=== PATIENT | female | born 1975 | race Caucasian/White ===

== ENCOUNTER 2020-06-05 11:40 | Outpatient (REF) | payer OTHER, SELFPAY ==
--- NOTE | 2020-06-05 11:49 | XR_ITS ---
EXAMINATION: XR ABDOMEN COMPLETE CLINICAL INDICATION: Abdominal distention COMPARISON: 03/27/2019 TECHNIQUE: 2 views of the abdomen. FINDINGS: Right upper quadrant surgical clips. No dilated loops of bowel. Scattered gas in the colon. Stool in the rectum. No free air on the upright view. No suspicious calcifications. Mild degenerative changes in the spine. IMPRESSION: Nonobstructive bowel gas pattern.
== END 2020-06-05 11:41 | disposition home or self-care (01) ==
LOC: HO.HMGCX 11:40
PROVIDERS: PCP Family Medicine; Visit Provider Family Medicine
DX: R14.0 Abdominal distension (gaseous) (principal)
CPT/HCPCS: 74019

== ENCOUNTER → 2020-06-18 08:54 | Outpatient (BNVA) | payer OTHER, SELFPAY | PROVIDERS: PCP Family Medicine; Referring Provider Family Medicine; Visit Provider Nurse Practitioner Gerontology | DX: E11.65 Type 2 diabetes mellitus with hyperglycemia (principal); E78.5 Hyperlipidemia, unspecified; Z79.84 Long term (current) use of oral hypoglycemic drugs; Z79.899 Other long term (current) drug therapy; Z71.3 Dietary counseling and surveillance | CPT/HCPCS: 99212 ==

== ENCOUNTER 2020-07-02 10:39 | Outpatient (REF) | payer OTHER, SELFPAY ==
[2020-07-02 15:19] LABS: Estimated Average Glucose 186 mg/dL; Hemoglobin A1c % 8.1 %
== END 2020-07-02 10:40 | disposition home or self-care (01) ==
LOC: HO.HMGCLDS 10:39
PROVIDERS: Nurse Practitioner Gerontology; PCP Family Medicine; Visit Provider Internal Medicine
DX: Z20.828 Contact with and (suspected) exposure to other viral communicable diseases (principal)
CPT/HCPCS: 83036; C9803; U0003

== ENCOUNTER 2020-11-04 10:11 | Outpatient (REF) | payer OTHER, SELFPAY | END 2020-11-04 10:12 | disposition home or self-care (01) | LOC: HO.WFDLDS 10:11 | PROVIDERS: PCP Family Medicine; Visit Provider Internal Medicine | DX: Z20.822 Contact with and (suspected) exposure to COVID-19 (principal) | CPT/HCPCS: 36415; C9803; U0003; U0005 ==

== ENCOUNTER 2020-11-27 08:41 | Outpatient (RCR) | payer OTHER, SELFPAY | END 2020-12-02 13:27 | disposition home or self-care (01) | LOC: HO.WCC 08:41 | PROVIDERS: Visit Provider Surgery | DX: E11.621 Type 2 diabetes mellitus with foot ulcer (principal); L97.519 Non-pressure chronic ulcer of other part of right foot with unspecified severity; Z79.84 Long term (current) use of oral hypoglycemic drugs | CPT/HCPCS: 99212 ==

== ENCOUNTER → 2020-12-18 08:45 | Outpatient (BNVA) | payer OTHER, SELFPAY | PROVIDERS: PCP Family Medicine; Visit Provider Surgery Vascular Surgery | DX: I73.9 Peripheral vascular disease, unspecified (principal) | CPT/HCPCS: 99202 ==

== ENCOUNTER 2021-06-17 10:03 | Outpatient (REF) | payer BC, OTHER, SELFPAY ==
--- NOTE | ~2021-06-17 | US_ITS ---
EXAMINATION: COLOR-FLOW DUPLEX IMAGING OF THE BILATERAL LOWER EXTREMITY ARTERIAL SYSTEM. VELOCITY MEASUREMENTS THROUGHOUT THE FEMORAL ARTERIES WITH ANKLE-BRACHIAL PERIPHERAL ARTERIAL TESTING. Interventional Radiologist: Ollie Owusu M.D., F.S.I.R., F.A.C.R. CLINICAL INFORMATION: This is a 46-year-old female with hyperlipidemia, diabetes, possible peripheral arterial disease.. RIGHT FEMORAL RUNOFF VELOCITIES: The right common femoral artery measures 98 cm/s and triphasic. The right profunda femoral artery is 72 cm/s and is triphasic. Right proximal superficial femoral artery measures 104 cm/s and triphasic. Mid superficial femoral artery is 96 cm/s and biphasic. Distal right superficial femoral artery measures 70 cm/s and is triphasic. Right popliteal velocity measures 86 cm/s and is triphasic. The posterior tibial artery velocity measures 82 cm/s and was biphasic. The right ankle-brachial index is 1.11. LEFT FEMORAL RUNOFF VELOCITIES: The left common femoral artery measures 103 cm/s and triphasic. The left profunda femoral artery is 65 cm/s and is biphasic. Left proximal superficial femoral artery measures 99 cm/s and triphasic. Mid superficial femoral artery is 103 cm/s and triphasic. Distal left superficial femoral artery measures 80 to cm/s and is biphasic. Left popliteal velocity measures 110 cm/s and is triphasic. The posterior tibial artery velocity measures 70 cm/s and was biphasic. The left ankle-brachial index is 1.07. US/US arterial duplex LE BI IMPRESSION: 1. Normal resting bilateral peripheral arterial testing without evidence of hemodynamically significant stenosis.
== END 2021-06-17 10:04 | disposition home or self-care (01) ==
LOC: HO.US 10:03
PROVIDERS: PCP Family Medicine; Visit Provider Surgery Vascular Surgery
DX: I70.213 Atherosclerosis of native arteries of extremities with intermittent claudication, bilateral legs (principal)
CPT/HCPCS: 93925

== ENCOUNTER → 2021-06-18 07:26 | Outpatient (BNVA) | payer OTHER, SELFPAY | PROVIDERS: PCP Family Medicine; Visit Provider Nurse Practitioner Gerontology | DX: E11.65 Type 2 diabetes mellitus with hyperglycemia (principal); E78.5 Hyperlipidemia, unspecified; Z79.84 Long term (current) use of oral hypoglycemic drugs | CPT/HCPCS: 82947; 99212 ==

== ENCOUNTER 2021-06-18 08:55 | Outpatient (REF) | payer BC, OTHER, SELFPAY ==
[2021-06-18 10:24] LABS: Alanine Aminotransferase 25 U/L (0-31); Albumin Level 4.5 g/dL (3.5-5.0); Alkaline Phosphatase 106 U/L (39-117); Anion Gap 12 (12-20); Aspartate Amino Transferase 20 U/L (5-31); Bilirubin Total 0.4 mg/dL (0.0-1.0); Blood Urea Nitrogen 17 mg/dL (9-16); Calcium 9.9 mg/dL (8.4-10.2); Carbon Dioxide 26 mmol/L (22-29); Chloride 104 mmol/L (96-108); Cholesterol 243 mg/dL; Estimated Glomerular Filt Rate > 60; Glucose Fasting 296 mg/dL (60-99); HDL Cholesterol 48 mg/dL; LDL Cholesterol Calculated 154 mg/dl; Potassium 4.3 mmol/L (3.3-5.1); Sodium 138 mmol/L (135-145); Total Protein 8.2 g/dL (6.5-8.0); Triglycerides 206 mg/dL
[2021-06-18 10:47] LABS: Creatinine Urine 56.57 mg/dL; Free T4 (Free Thyroxine) 0.93 ng/dL (0.71-1.85); Microalbum/Creatinine Ratio Ur 40.6 ug/mg cr; Thyroid Stimulating Hormone 4.03 uIU/mL (0.32-4.0); Vitamin D 25-OH Total 22.3 ng/mL (>30)
[2021-06-18 10:50] LABS: Vitamin B12 624 pg/mL (200-900)
[2021-06-19 07:37] LABS: LDL Cholesterol Direct 155 mg/dL (<100)
== END 2021-06-18 08:56 | disposition home or self-care (01) ==
LOC: HO.10HDL 08:55
PROVIDERS: Visit Provider Nurse Practitioner Gerontology
DX: I83.12 Varicose veins of left lower extremity with inflammation (principal); I73.9 Peripheral vascular disease, unspecified; E55.9 Vitamin D deficiency, unspecified; E11.65 Type 2 diabetes mellitus with hyperglycemia
CPT/HCPCS: 36415; 80053; 80061; 82043; 82306; 82607; 83721; 84439; 84443; 99212

== ENCOUNTER 2021-07-27 08:05 | Outpatient (REF) | payer BC, OTHER, SELFPAY ==
--- NOTE | ~2021-07-27 | US_ITS ---
EXAMINATION: US LOWER EXTREMITY VENOUS (REFLUX EXAM), BILATERAL CLINICAL INDICATION: This is a 46-year-old female with venous insufficiency and varicose veins. COMPARISON: None. TECHNIQUE: Color flow triplex imaging and compression Doppler was performed to evaluate both the deep and the superficial systems bilaterally. To evaluate the superficial system, the examination was performed in the upright position. Color-flow Doppler ultrasound and compression ultrasound were utilized. In addition, maneuvers were utilized to demonstrate reflux. FINDINGS: 1. DEEP VENOUS ULTRASOUND OF THE RIGHT LOWER EXTREMITY: Common Femoral Vein: Compressible, normal respiratory variation and augmented flow. Femoral vein: Compressible, normal color flow and augmentation. Popliteal Vein: Compressible, normal augmentation. Deep Reflux: There is no evidence of reflux in the deep system in either the common femoral vein or the popliteal vein. There is no evidence of a Melvin's cyst. 2. SUPERFICIAL ULTRASOUND WITH DOPPLER OF RIGHT LOWER EXTREMITY: GREAT SAPHENOUS VEIN: Saphenofemoral Junction: 0.5 cm. There is no reflux. Mid Thigh: 0.2 cm Above Knee: 0.2 cm. There is no reflux at this level and above. Below Knee: 0.3 cm. The reflux time is 516 ms. Mid Calf: 0.3 cm. There is no reflux at this level and below Ankle: 0.2 cm GSV REFLUX: There is isolated reflux below the knee but not at the junction. DUPLICATED GREAT SAPHENOUS VEIN: There is a 0.3 cm duplicated lateral great saphenous vein without reflux. SMALL SAPHENOUS VEIN: Proximal: 0.3 cm Distal: 0.1 cm SSV REFLUX: No evidence of reflux. VEIN OF GIACOMINI: None Imaged. 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 VARICOSITIES: None Imaged 3. DEEP VENOUS ULTRASOUND OF THE LEFT LOWER EXTREMITY: Common Femoral Vein: Compressible, normal respiratory variation and augmented flow. Femoral Vein: Compressible, normal color flow and augmentation. Popliteal Vein: Compressible, normal augmentation. Deep Reflux: There is no evidence of reflux in the deep system in either the common femoral vein or the popliteal vein. There is no evidence of a Melvin's cyst. 4. SUPERFICIAL ULTRASOUND WITH DOPPLER OF LEFT LOWER EXTREMITY: GREAT SAPHENOUS VEIN: Saphenofemoral Junction: 0.7 cm Mid Thigh: 0.2 cm Above Knee: 0.3 cm Below Knee: 0.3 cm Mid Calf: 0.2 cm Ankle: 0.2 cm GSV REFLUX: No evidence of reflux. DUPLICATED GREAT SAPHENOUS VEIN: There is a 0.3 cm duplicated medial great saphenous vein without reflux SMALL SAPHENOUS VEIN: Proximal: 0.2 cm Distal: 0.1 cm SSV REFLUX: No evidence of reflux. VEIN OF GIACOMINI: None Imaged. 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 VARICOSITIES: There are 0.3 cm proximal calf varicose veins without reflux. US/US venous duplex LE BI IMPRESSION: 1. There is a patent right great saphenous vein without reflux at the junction. There is isolated below-knee reflux. 2. There is a duplicated right lateral great saphenous vein without evidence of reflux. 3. There is a right small saphenous vein without evidence of reflux. 4. There is a patent left great saphenous vein without reflux. 5. There is a patent left medial duplicated great saphenous vein without reflux. 6. There is a patent left small saphenous vein without evidence of reflux. 7. There is a proximal calf varicose vein measuring 0.3 cm without reflux.
== END 2021-07-27 08:06 | disposition home or self-care (01) ==
LOC: HO.US 08:05
PROVIDERS: Visit Provider Surgery Vascular Surgery
DX: I83.12 Varicose veins of left lower extremity with inflammation (principal)
CPT/HCPCS: 93970

== ENCOUNTER → 2021-07-30 14:35 | Outpatient (BNVA) | payer BC, OTHER, SELFPAY | PROVIDERS: PCP Family Medicine; Referring Provider Family Medicine; Visit Provider Surgery Vascular Surgery | DX: I83.12 Varicose veins of left lower extremity with inflammation (principal) | CPT/HCPCS: 99212 ==

== ENCOUNTER 2021-07-31 07:12 | Outpatient (REF) | payer BC, OTHER, SELFPAY ==
--- NOTE | ~2021-07-31 | MM_ITS ---
EXAMINATION: MM SCREENING DIGITAL BREAST TOMOSYNTHESIS, BILATERAL CLINICAL INFORMATION: Screening. Asymptomatic. The lifetime risk of breast cancer based on the Tyrer-Cuzick Model is 6%. COMPARISON: Mammography: 08/06/2019, 08/02/2018, 07/04/2017 TECHNIQUE: Digital breast tomosynthesis is performed in both the craniocaudal and mediolateral oblique views along with computer-aided detection (CAD). Synthesized 2D images are generated from the tomosynthesis. FINDINGS: There are scattered areas of fibroglandular density (ACR BI-RADS breast composition Category b). There are no significant masses, abnormal calcifications, or other abnormalities. Parenchymal pattern is similar to prior exams. No significant changes. MM/MM tomosynthesis screening BI IMPRESSION: No mammographic evidence of malignancy. ASSESSMENT: BI-RADS 1: Negative RECOMMENDATION: Routine annual mammography screening. This patient's information was entered into a reminder system with a target due date for their next mammogram.
== END 2021-07-31 07:13 | disposition home or self-care (01) ==
LOC: HO.MAMMO 07:12
PROVIDERS: Visit Provider Obstetrics & Gynecology
DX: Z12.31 Encounter for screening mammogram for malignant neoplasm of breast (principal)
CPT/HCPCS: 77063; 77067

== ENCOUNTER → 2021-11-05 07:55 | Outpatient (BNVA) | payer OTHER, SELFPAY | PROVIDERS: PCP Family Medicine; Visit Provider Nurse Practitioner Gerontology | DX: E11.65 Type 2 diabetes mellitus with hyperglycemia (principal); E78.5 Hyperlipidemia, unspecified; E03.9 Hypothyroidism, unspecified; Z79.84 Long term (current) use of oral hypoglycemic drugs | CPT/HCPCS: 82947; 83036; 99212 ==

== ENCOUNTER 2022-02-15 07:41 | Outpatient (REF) | payer OTHER, SELFPAY ==
[2022-02-15 09:36] LABS: Free T4 (Free Thyroxine) 0.79 ng/dL (0.71-1.85); Thyroid Stimulating Hormone 6.32 uIU/mL (0.32-4.0)
[2022-02-17 04:29] LABS: Thyroid Peroxidase Antibodies >900 IU/mL (<9)
[2022-02-18 09:42] LABS: Thyroglobulin Antibodies 1 IU/mL (< or = 1)
== END 2022-02-15 07:42 | disposition home or self-care (01) ==
LOC: HO.LAB 07:41
PROVIDERS: Visit Provider Nurse Practitioner Gerontology
DX: E03.9 Hypothyroidism, unspecified (principal)
CPT/HCPCS: 36415; 84439; 84443; 86376; 86800

== ENCOUNTER 2022-05-19 07:26 | Outpatient (REF) | payer OTHER, SELFPAY ==
--- NOTE | ~2022-05-19 | XR_ITS ---
EXAMINATION: XR KNEE, RIGHT CLINICAL INFORMATION: Right knee pain. COMPARISON: None TECHNIQUE: Two views of the right knee. FINDINGS: Bones and soft tissues are normal. No fracture or joint effusion. Alignment is anatomic. Joint spaces are well maintained. Moderate atherosclerosis. XR/XR knee RT 2V IMPRESSION: Unremarkable right knee.
== END 2022-05-19 07:27 | disposition home or self-care (01) ==
LOC: HO.XRAY 07:26
PROVIDERS: PCP Family Medicine; Visit Provider Family Medicine
DX: M25.561 Pain in right knee (principal); M25.521 Pain in right elbow
CPT/HCPCS: 73560

== ENCOUNTER 2022-05-19 11:15 | Outpatient (REF) | payer OTHER, SELFPAY ==
[2022-05-19 14:13] LABS: MANUAL DIFF FLAG NO
[2022-05-19 14:24] LABS: Basophils Absolute Auto 0.1 X10*3/uL (0.0-0.2); Basophils Percent Auto 0.7 % (0-2); Eosinophils Absolute Auto 0.1 X10*3/uL (0.0-0.4); Eosinophils Percent Auto 0.8 % (0-4); Hematocrit 41.2 % (37.0-47.0); Hemoglobin 13.6 g/dl (12.0-16.0); Imm Gran Abs Auto 0.05 X10*3/uL (0.00-0.03); Imm Gran Pct Auto 0.5 % (0.0-0.4); Lymphocytes Absolute Auto 2.3 X10*3/uL (1.2-4.9); Lymphocytes Percent Auto 23.6 % (20-40); Mean Corpuscular Hemoglobin 30.8 pg (27.0-33.0); Mean Corpuscular Volume 93.2 fL (80.0-98.0); Mean Platelet Volume 10.4 fL (9.4-12.3); Monocytes Absolute Auto 0.6 X10*3/uL (0.1-1.2); Monocytes Percent Auto 6.2 % (2-11); Neutrophils Absolute Auto 6.7 x10*3/uL (2.0-8.3); Neutrophils Percent Auto 68.2 % (45-73); Platelet Count 344 X10*3/uL (160-400); Red Blood Count 4.42 X10*6/uL (4.20-5.50); Red Cell Distribution Width 12.6 % (11.0-16.0); White Blood Count 9.8 X10*3/uL (4.8-10.8)
[2022-05-19 15:03] LABS: Erythrocyte Sedimentation Rate 25 MM/HR (0-20)
[2022-05-19 15:05] LABS: Rheumatoid Factor < 15.0 IU/mL (<15.0)
[2022-05-21 14:21] LABS: CRP High Sensitivity 9.3 mg/L
== END 2022-05-19 11:16 | disposition home or self-care (01) ==
LOC: HO.WFDLDS 11:15
PROVIDERS: Visit Provider Family Medicine
DX: Z00.00 Encounter for general adult medical examination without abnormal findings (principal); M25.561 Pain in right knee; M25.521 Pain in right elbow
CPT/HCPCS: 36415; 85025; 85652; 86141; 86431

== ENCOUNTER 2022-06-01 11:04 | Outpatient (REF) | payer OTHER, SELFPAY ==
--- NOTE | ~2022-06-01 | US_ITS ---
EXAMINATION: US THYROID CLINICAL INFORMATION: Hypothyroidism, unspecified. COMPARISON: None TECHNIQUE: Linear transducer grayscale and color Doppler examination with attention to the region of the thyroid. FINDINGS: SIZE: Measurements of the thyroid lobes and nodules are given in sagittal, anteroposterior and transverse dimensions respectively. Right Thyroid Lobe: 5.1 x 1.6 x 2.0 cm, volume 8.2 mL. Parenchyma: The gland echotexture is heterogeneous. Thyroid vascularity is normal. Left Thyroid Lobe: 4.6 x 1.8 x 1.9 cm, volume 8.0 mL. Parenchyma: The gland echotexture is heterogeneous. Thyroid vascularity is normal. Isthmus: 0.3 cm in maximum AP dimension. No focal circumscribed thyroid nodule is seen by the technologist. NODES: Just inferior and medial to the left thyroid lobe there is an 8 x 6 x 9 mm hypoechoic lesion without internal vascularity and without fatty hilum. The lesion is well circumscribed without lobulation. This appears to be separate from the thyroid gland, however, this may represent an exophytic nodule. If this was a thyroid nodule it would be a TI-RADS Category 4 nodule with maximum dimension of 9 mm for which followup would not be recommended by ACR guidelines. Recommend 6 month follow-up study as this does appear to be separate from the thyroid gland and this does not have typical appearance of a normal lymph node. US/US thyroid IMPRESSION: Very heterogeneous thyroid gland without discrete nodules being able to be differentiated from the heterogeneous parenchyma. 9 mm maximum dimension hypoechoic lesion about the inferior medial aspect of the left lobe which may represent a lymph node, however, no fatty cleft or blood flow to hilum is appreciated. Recommend 6 month follow-up study. ACR TI-RADS RECOMMENDATION REFERENCE: Ultrasound-guided fine-needle aspiration, followup ultrasound, no further follow up. * TR1 (0 point) and TR 2 (2 points): No FNA or follow up. * TR3 (3 points): FNA if more than or equal to 2.5 cm in maximum dimension, followup ultrasound in 1, 3 and 5 years if 1.5 to 2.4 cm in maximum dimension. * TR4 (4-6 points): FNA if more than or equal to 1.5 cm in maximum dimension, followup ultrasound in 1, 2, 3 and 5 years if 1 to 1.4 cm in maximum dimension. * TR5 (more than or equal to 7 points): FNA if more than or equal to 1 cm in maximum dimension, followup ultrasound every year for 5 years if 0.5 to 0.9 cm in maximum dimension. * TR3, TR4 or TR5 nodules that are below the size threshold for followup receive no follow up.
== END 2022-06-01 11:05 | disposition home or self-care (01) ==
LOC: HO.US 11:04
PROVIDERS: PCP Family Medicine; Visit Provider Nurse Practitioner Gerontology
DX: E03.9 Hypothyroidism, unspecified (principal)
CPT/HCPCS: 76536

== ENCOUNTER 2022-06-02 07:38 | Outpatient (REF) | payer OTHER, SELFPAY ==
--- NOTE | ~2022-06-02 | XR_ITS ---
EXAMINATION: XR ELBOW, RIGHT CLINICAL INFORMATION: Pain. COMPARISON: None TECHNIQUE: AP, lateral, and oblique views of the right elbow. FINDINGS: There is a anterior coronoid process enthesophyte. The joint space is maintained normal. There is no visible fracture, dislocation or joint effusion. The soft tissues are normal. XR/XR elbow RT min 3V IMPRESSION: Anterior coronoid process enthesophyte. No visible acute fracture or dislocation.
[2022-06-02 07:52] LABS: MANUAL DIFF FLAG NO
[2022-06-02 08:46] LABS: Basophils Absolute Auto 0.1 X10*3/uL (0.0-0.2); Basophils Percent Auto 0.5 % (0-2); Eosinophils Absolute Auto 0.1 X10*3/uL (0.0-0.4); Hematocrit 41.1 % (37.0-47.0); Hemoglobin 13.8 g/dl (12.0-16.0); Imm Gran Abs Auto 0.05 X10*3/uL (0.00-0.03); Imm Gran Pct Auto 0.5 % (0.0-0.4); Lymphocytes Absolute Auto 2.1 X10*3/uL (1.2-4.9); Lymphocytes Percent Auto 23.4 % (20-40); Mean Corpuscular HGB Conc 33.6 g/dl (31.0-35.0); Mean Corpuscular Hemoglobin 31.4 pg (27.0-33.0); Mean Corpuscular Volume 93.4 fL (80.0-98.0); Mean Platelet Volume 9.9 fL (9.4-12.3); Monocytes Absolute Auto 0.6 X10*3/uL (0.1-1.2); Monocytes Percent Auto 6.3 % (2-11); Neutrophils Absolute Auto 6.2 x10*3/uL (2.0-8.3); Neutrophils Percent Auto 68.3 % (45-73); Platelet Count 393 X10*3/uL (160-400); Red Cell Distribution Width 12.4 % (11.0-16.0); White Blood Count 9.1 X10*3/uL (4.8-10.8)
[2022-06-02 09:03] LABS: INTERNATIONAL NORM RATIO 0.9 (0.9-1.1); Prothrombin Time 10.4 SEC (10.0-13.1)
[2022-06-02 09:08] LABS: Alanine Aminotransferase 18 U/L (0-31); Albumin Level 4.3 g/dL (3.5-5.0); Alkaline Phosphatase 91 U/L (39-117); Aspartate Amino Transferase 19 U/L (5-31); Bilirubin Direct 0.2 mg/dL (0.0-0.5); Bilirubin Total 0.5 mg/dL (0.0-1.0); Total Protein 7.7 g/dL (6.5-8.0)
[2022-06-08 11:16] LABS: Alpha Fetoprotein 1.6 ng/mL
[2022-06-08 17:26] LABS: FIB-ALT 17 U/L (6-29); FIB-Alpha-2-Macroglobulin 156 mg/dL (106-279); FIB-Apolipoprotein A1 154 mg/dL (101-198); FIB-GGT 17 U/L (3-55); FIB-Haptoglobin 154 mg/dL (43-212); FIB-Total Bilirubin 0.4 mg/dL (0.2-1.2); Liver Fibrosis Score 0.06; Liver Fibrosis Stage F0; Nec Inflam Act Grade A0; Nec Inflam Act Score 0.04
== END 2022-06-02 07:39 | disposition home or self-care (01) ==
LOC: HO.XRAY 07:38
PROVIDERS: Absent Provider Internal Medicine; PCP Family Medicine; Visit Provider Family Medicine
DX: K76.0 Fatty (change of) liver, not elsewhere classified (principal); K74.00 Hepatic fibrosis, unspecified; R79.89 Other specified abnormal findings of blood chemistry
CPT/HCPCS: 36415; 73080; 80076; 81596; 82105; 85025; 85610

== ENCOUNTER → 2022-06-08 08:42 | Outpatient (BNVA) | payer OTHER, SELFPAY | PROVIDERS: PCP Family Medicine; Visit Provider Internal Medicine Endocrinology, Diabetes & Metabolism | DX: E03.9 Hypothyroidism, unspecified (principal); E06.3 Autoimmune thyroiditis; E11.65 Type 2 diabetes mellitus with hyperglycemia | CPT/HCPCS: 99212 ==

== ENCOUNTER 2022-06-15 09:13 | Outpatient (REF) | payer OTHER, SELFPAY ==
--- NOTE | ~2022-06-15 | US_ITS ---
EXAMINATION: US COMPLETE ABDOMEN WITH LIVER ELASTOGRAPHY CLINICAL INFORMATION: Fatty liver. Elevated liver function tests. COMPARISON: Previous CT of the abdomen and pelvis from 2019 and abdominal ultrasound from 2009 TECHNIQUE: Real-time imaging of the abdominal viscera. Noninvasive ultrasound liver fibrosis assessment is performed using [employer]ilene ElastPQ point quantification shear wave elastography (2D-SWE) with a C5-2 MHz transducer. Multiple elastography samples are obtained. FINDINGS: PANCREAS: Normal. ABDOMINAL AORTA: The proximal, middle, and distal aortic segments are normal in caliber. INFERIOR VENA CAVA: Visualized portions are normal. LIVER: Liver echotexture is increased. There is a 1.9 x 1 x 2.2 cm hyperechoic area in the peripheral right lobe of the liver. There is a larger hyperechoic area in the more central right lobe of the liver measuring approximately 7 cm. The liver is upper normal in size. The liver contour is normal. No intrahepatic biliary duct dilatation. The right lobe measures 18 cm in length. The left lobe measures 8 cm in length. Portal flow is normal/hepatopedal Shear wave liver elastography median stiffness is 2 m/s (reference: normal median stiffness is 1.3 m/s or less). IQR/median stiffness to assess sampling precision is 0.12 (reference: good quality data set is IQR/median stiffness of 0.15 or less). GALLBLADDER: Surgically removed COMMON BILE DUCT: Normal in caliber measuring 0.4 cm in diameter. RIGHT KIDNEY: Trace perinephric fluid.. No hydronephrosis. No renal calculi or focal parenchymal lesions. The kidney measures 12.3 cm in maximum dimension. LEFT KIDNEY: There is a 1 cm cyst in the medial midpole. Trace perinephric fluid. No hydronephrosis. No renal calculi . The kidney measures 11.6 cm in maximum dimension. SPLEEN: Normal. The spleen measures 9.5 cm in maximum dimension. FREE FLUID: None. US/US abdomen comp w elastography IMPRESSION: 1. Impression: Slightly enlarged echogenic liver probably representing fatty infiltration. 2 hyperechoic areas in the right lobe of the liver, question representing areas of focal fatty infiltration. This could be further evaluated with MRI if clinically indicated. Small left renal cyst. Trace bilateral perinephric fluid. 2. Liver elastography: Adequate liver sampling. Increased liver stiffness suggestive of compensated advanced chronic liver disease but need further test for confirmation. REFERENCE: Society of Radiologists in Ultrasound Liver Stiffness Thresholds (2020): LIVER STIFFNESS THRESHOLDS: *Liver Stiffness equal or less than 1.3 m/s: High probability of being normal. *Liver Stiffness less than 1.7 m/s: In the absence of other known clinical signs, rules out compensated advanced chronic liver disease. *Liver Stiffness 1.7-2.1 m/s: Suggestive of compensated advanced chronic liver disease but need further test for confirmation. *Liver Stiffness over 2.1 m/s: Rules in compensated advanced chronic liver disease. *Liver Stiffness over 2.4 m/s: Suggestive of clinically significant portal hypertension. QUALITY OF DATA SET: *IQR/Median value equal or less than 0.15 implies a quality data set. *IQR/Median value over 0.15 implies a poor quality data set. SIGNIFICANT CHANGE FROM PRIOR EXAM: Significant change if liver stiffness measurement is 10% or greater from prior exam. OTHER CONSIDERATIONS: The stage of liver fibrosis may be overestimated in the setting of acute hepatitis, liver inflammation, elevated liver function tests, hepatic vascular congestion, obstructive cholestasis, non-fasting state, and infiltrative diseases such as amyloidosis and lymphoma. In some patients with NAFLD, the liver stiffness thresholds for compensated advanced chronic liver disease may be lower. In causes other than viral hepatitis and NAFLD, liver stiffness thresholds are not well established.
== END 2022-06-15 09:14 | disposition home or self-care (01) ==
LOC: HO.US 09:13
PROVIDERS: Visit Provider Internal Medicine
DX: K76.0 Fatty (change of) liver, not elsewhere classified (principal); K74.00 Hepatic fibrosis, unspecified; R79.89 Other specified abnormal findings of blood chemistry
CPT/HCPCS: 76705; 76981

== ENCOUNTER 2022-12-31 14:05 | Outpatient (REF) | payer OTHER, SELFPAY ==
[2022-12-31 15:32] LABS: MANUAL DIFF FLAG NO
[2022-12-31 15:47] LABS: Appearance Urine Clear; Color Urine Yellow; Glucose Urine UA >=1000 mg/dL (Negative); Leukocyte Esterase Urine Negative (Negative); Nitrite Urine Negative (Negative); PH 5.5 (5.0-9.0); Specific Gravity - Urine >= 1.030 (1.005-1.025); UMIC TRIGGER UA YES; Urine Blood Negative (Negative); Urine Ketones Negative (Negative); Urine Protein Negative (Neg-Trace)
[2022-12-31 15:50] LABS: Bacteria Urine None Seen (None Seen); Hyaline Casts Urine 0-2 /LPF (0-2); RBC Urine 0-2 /HPF (0-2); WBC Urine 0-5 /HPF (0-5)
[2022-12-31 16:01] LABS: Basophils Percent Auto 0.4 % (0-2); Eosinophils Absolute Auto 0.1 X10*3/uL (0.0-0.4); Eosinophils Percent Auto 1.2 % (0-4); Hematocrit 40.7 % (37.0-47.0); Hemoglobin 13.6 g/dl (12.0-16.0); Imm Gran Abs Auto 0.05 X10*3/uL (0.00-0.03); Imm Gran Pct Auto 0.5 % (0.0-0.4); Lymphocytes Absolute Auto 2.1 X10*3/uL (1.2-4.9); Lymphocytes Percent Auto 22.7 % (20-40); Mean Corpuscular HGB Conc 33.4 g/dl (31.0-35.0); Mean Corpuscular Hemoglobin 30.7 pg (27.0-33.0); Mean Corpuscular Volume 91.9 fL (80.0-98.0); Mean Platelet Volume 9.9 fL (9.4-12.3); Monocytes Absolute Auto 0.6 X10*3/uL (0.1-1.2); Monocytes Percent Auto 6.6 % (2-11); Neutrophils Absolute Auto 6.4 x10*3/uL (2.0-8.3); Neutrophils Percent Auto 68.6 % (45-73); Platelet Count 326 X10*3/uL (160-400); Red Blood Count 4.43 X10*6/uL (4.20-5.50); Red Cell Distribution Width 12.1 % (11.0-16.0); White Blood Count 9.3 X10*3/uL (4.8-10.8)
[2022-12-31 16:27] LABS: Alanine Aminotransferase 22 U/L (0-31); Alkaline Phosphatase 89 U/L (39-117); Anion Gap 14 (12-20); Aspartate Amino Transferase 19 U/L (5-31); Bilirubin Total 0.5 mg/dL (0.0-1.0); Blood Urea Nitrogen 15 mg/dL (9-16); C Reactive Protein 0.52 mg/dL (< or = 0.50); Calcium 9.7 mg/dL (8.4-10.2); Carbon Dioxide 24 mmol/L (22-29); Chloride 107 mmol/L (96-108); Estimated Glomerular Filt Rate > 60; Glucose Random 119 mg/dL (60-115); Potassium 3.7 mmol/L (3.3-5.1); Rheumatoid Factor < 13.0 IU/mL (<15.0); Sodium 141 mmol/L (135-145); Total Protein 7.1 g/dL (6.5-8.0)
[2022-12-31 16:27] LABS: Creatinine Urine 39.34 mg/dL; Total Protein Urine Random < 7 mg/dL (<12)
[2022-12-31 17:11] LABS: Erythrocyte Sedimentation Rate 13 MM/HR (0-20)
[2023-01-03 08:33] LABS: TS Negative Control Passed; TS Panel A 0; TS Panel B 0; TS Positive Control Passed; TSpotTB Negative (Negative)
[2023-01-03 09:16] LABS: HBS Num1 157.54 mIU/mL (0-7.99); HBc Num1 0.09 S/CO (0.00-0.79); HBsAGNum1 0.35 S/CO (0.00-0.99); Hepatitis A Antibody IgM 0.26 Index (0-0.79); Hepatitis B Core Antibody Nonreactive (Nonreactive); Hepatitis B Surface Antigen Negative (Negative); ~HepC Num1 0.14 S/CO (0.00-0.79); ~Hepatitis A Antibody IgM Nonreactive (Nonreactive); ~Hepatitis B Surface Antibody REACTIVE (Nonreactive); ~Hepatitis C Antibody Nonreactive (Nonreactive)
[2023-01-03 12:18] LABS: IgA 373 mg/dL (47-310); IgG 1460 mg/dL (600-1640); IgM 195 mg/dL (50-300)
[2023-01-04 05:13] LABS: Complement C3 143 mg/dL (83-193)
[2023-01-04 22:49] LABS: PTT (LAC) Screen 29 sec (<=40)
[2023-01-06 12:13] LABS: Cyclic Citrullinated Peptide <16 UNITS
[2023-01-06 13:08] LABS: DNAds, Crithidia Antibody Negative (Negative)
[2023-01-06 18:14] LABS: Prot Elec - Albumin 4.3 g/dL (3.8-4.8); Prot Elec - Alpha1 0.2 g/dL (0.2-0.3); Prot Elec - Alpha2 0.7 g/dL (0.5-0.9); Prot Elec - Beta 1 0.5 g/dL (0.4-0.6); Prot Elec - Beta 2 0.4 g/dL (0.2-0.5); Prot Elec - Gamma 1.4 g/dL (0.8-1.7); Prot Elec - Total Protein 7.5 g/dL (6.1-8.1)
[2023-01-07 14:58] LABS: ANA Titer 2 1:40 titer; Anti Nuclear Antibody Screen POSITIVE (NEGATIVE)
[2023-01-07 21:44] LABS: Beta-2 Glycoprotein IgA <2.0 U/mL (<20.0); Beta-2 Glycoprotein IgG <2.0 U/mL (<20.0); Beta-2 Glycoprotein IgM <2.0 U/mL (<20.0)
[2023-01-08 08:34] LABS: Anti DNA DS Antibody 1 IU/mL; Antibody to SS-A Antigen <1.0 NEG AI (<1.0 NEG); Antibody to SS-B Antigen <1.0 NEG AI (<1.0 NEG); SM/Ribonucleoprotein Ab <1.0 NEG AI (<1.0 NEG); Smith Protein <1.0 NEG AI (<1.0 NEG)
[2023-01-09 10:49] LABS: Cardiolipin IgG Ab <2.0 GPL-U/mL; Cardiolipin IgM Ab <2.0 MPL-U/mL
== END 2022-12-31 14:06 | disposition home or self-care (01) ==
LOC: HO.LAB 14:05
PROVIDERS: PCP Family Medicine; Visit Provider Student in an Organized Health Care Education/Training Program
DX: Z11.7 Encounter for testing for latent tuberculosis infection (principal); Z11.59 Encounter for screening for other viral diseases; M32.9 Systemic lupus erythematosus, unspecified; M25.521 Pain in right elbow; D68.61 Antiphospholipid syndrome; R76.8 Other specified abnormal immunological findings in serum
CPT/HCPCS: 36415; 80053; 81001; 82784; 84156; 84165; 85025; 85597; 85613; 85652; 85730; 86038; 86039; 86140; 86146; 86147; 86160; 86200; 86225; 86235; 86255; 86334; 86431; 86481; 86704; 86706; 86709; 86803; 87340; 99202

== ENCOUNTER 2023-01-20 11:25 | Outpatient (REF) | payer OTHER, SELFPAY ==
[2023-01-20 13:36] LABS: Free T4 (Free Thyroxine) 1.15 ng/dL (0.71-1.85); Thyroid Stimulating Hormone 2.29 uIU/mL (0.32-4.0)
== END 2023-01-20 11:26 | disposition home or self-care (01) ==
LOC: HO.LAB 11:25
PROVIDERS: PCP Family Medicine; Visit Provider Internal Medicine Endocrinology, Diabetes & Metabolism
DX: E03.9 Hypothyroidism, unspecified (principal)
CPT/HCPCS: 36415; 84439; 84443

== ENCOUNTER 2023-01-22 20:03 | Emergency (ER) | payer OTHER, SELFPAY ==
[2023-01-22 20:12] VITALS: BP 152/78; PULSE 91; RESP 16; TEMP 36.9; O2SAT 100; BMI 29.3
--- NOTE | 2023-01-22 20:13 | ED.GENADULT ---
HPI - General Adult General Chief complaint: Ear Problems Stated complaint: L ear pain Time Seen by Provider: 01/22/23 20:16 Source: patient Mode of arrival: ambulatory Limitations: no limitations History of Present Illness HPI narrative: Patient is a 47 year old assigned female at with a history of hypothyroidism presenting to the emergency department today with left ear pain. Patient states that she has had left ear pain for the last 3 days. Patient denies any dizziness, lightheadedness, abdominal pain, nausea, vomiting, fever, chills, blurry vision, double vision, loss of vision, chest pain, difficulty breathing, shortness of breath, back pain, night sweats, pain with urination, increased urinary frequency, increased urinary urgency, blood in her urine or stool, syncope or a near syncopal episode, recent trauma or falls, bowel incontinence, bladder incontinence, bowel retention, bladder retention, or any other complaints at this time. Onset (ago): day(s) (3) Severity: mild Severity scale (1-10): 3 Quality: aching Pain Consistency: constant Relieving factors: none Exacerbating factors: none Associated symptoms: denies other symptoms Treatments prior to arrival: none Related Data Previous Rx's Medication Instructions Recorded comp.stocking,knee,long,medium #12 ea 06/18/21 epinephrine 0.3 mg/0.3 mL 0.3 mg (0.3 mL) IM ONCE 30 days #2 06/08/22 injection, auto-injector ea levothyroxine 75 mcg tablet 75 mcg PO DAILY #30 tabs 06/08/22 fluticasone propionate 50 1 spray intranasal Q12H 30 days 08/16/22 mcg/actuation nasal #16 grams spray,suspension (Flonase Allergy Relief) blood sugar diagnostic (FreeStyle #100 ea 12/10/22 Lite Strips) lancets 33 gauge (TRUEplus Lancets) #100 ea 12/10/22 blood-glucose meter (FreeStyle #1 ea 01/04/23 Lite Meter kit) flash glucose sensor (FreeStyle #2 ea 01/07/23 Butch 14 Day Sensor kit) budesonide 32 mcg/actuation nasal 1 spray intranasal DAILY 30 days 01/09/23 spray #8.43 mL canagliflozin 300 mg tablet 300 mg PO DAILY #30 tabs 01/09/23 (Invokana) dulaglutide 3 mg/0.5 mL 3 mg (0.5 mL) subcut QWEEK 28 days 01/09/23 subcutaneous pen injector #2 mL (Trulicity) glipizide 5 mg tablet 5 mg PO BID #60 tabs 01/09/23 metformin 850 mg tablet 850 mg PO BID 90 days #180 tabs 01/09/23 amoxicillin 875 mg tablet 875 mg PO BID 7 days #14 tabs 01/22/23 Allergies Allergy/AdvReac Type Severity Reaction Status Date / Time magnesium [MAGNESIUM] Allergy Severe ANAPHYLAXIS Verified 01/22/23 20:12 pioglitazone [From ACTOS] Allergy Severe SWELLING, Verified 01/22/23 20:12 hives aspirin [Aspirin] Allergy Mild UNKNOWN, Verified 01/22/23 20:12 hives ibuprofen [Ibuprofen] Allergy Mild anaphylaxis Verified 01/22/23 20:12 ,hives Iodinated Contrast Media Allergy Mild hives Verified 01/22/23 20:12 [IV Dye, Iodine Containing] Review of Systems Constitutional: Constitutional: Reports no additional constitutional complaints, Denies chills, Denies fever(s) and Denies night sweats Eyes: Eyes: Reports no additional eye complaints, Denies blurry vision, Denies change in vision, Denies diplopia, Denies eye discharge, Denies loss of vision and Denies eye pain ENT: Denies dizziness Comments: left ear pain Cardiovascular: Cardiovascular: Reports no additional cardiovascular complaints, Denies chest pain, Denies lightheadedness, Denies Loss of Consciousness and Denies dyspnea Respiratory: Respiratory: Reports no additional respiratory complaints and Denies dyspnea Gastrointestinal: Gastrointestinal: Reports no additional gastrointestinal complaints, Denies abdominal pain, Denies melena, Denies hematochezia, Denies change in bowel habits and Denies change in stool character Genitourinary: Genitourinary: Denies hematuria, Denies urinary frequency, Denies dysuria, Denies urinary incontinence, Denies urinary hesitancy and Denies urinary urgency Musculoskeletal: Musculoskeletal: Reports no additional musculoskeletal complaints, Denies numbness and Denies tingling Neurologic: Denies dizziness, Denies loss of vision, Denies numbness and Denies tingling Psychiatric: Psychiatric: Reports no additional psychiatric complaints Endocrine: Endocrine: Reports no additional endocrine complaints Hematologic/Lymphatic: Hematologic/Lymphatic: Reports no additional hematologic/lymphatic complaints Allergic/Immunologic: Allergic/Immunologic: Reports no additional allergic/immunologic complaints PMFSH Past Medical History Attestation statement: The following information was validated with the patient. Source: old records reviewed and nursing notes reviewed Medical History Abnormal thyroid exam Cirrhosis Depression Diabetes mellitus type 2, controlled, with complications GERD (gastroesophageal reflux disease) Hyperlipidemia LDL goal <100 Hypothyroidism Migraines Type 2 diabetes mellitus with hyperglycemia Surgical History Hx of section Hx of cholecystectomy Hx of hysterectomy Hx of tubal ligation Family History Family History Father No problems noted. 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 Current occupational exposures/hazards: No Cognitive needs: No Hearing needs: No Vision needs: Yes (Glasses) Physical Exam ED Vital Signs: Vital Signs - 24 hr 01/22/23 20:12 Temperature 98.5 F Pulse Rate 91 Respiratory Rate 16 Blood Pressure 152/78 H Pulse Oximetry 100 Oxygen Delivery Method Room Air BMI result Body Mass Index 29.3 Const General: cooperative, no acute distress, alert and awake Nutritional Appearance: well nourished Orientation/consciousness: patient oriented x3 Limitations: no limitations HENMT Head: Yes normal to inspection and Yes atraumatic Ears: hearing grossly normal bilaterally, external ears normal and TM abnormal erythematous on the left General nose exam: Normal external nose present, no nasal discharge noted and no epistaxis Face and sinus: Yes normal facial exam, No abrasion and No laceration Mouth: Normal oral and palatal mucosa present, no drooling and no muffled voice Eyes General: appearance normal, both eyes and all related structures Periorbital: periorbital findings normal Eyelids: Yes eyelids normal Conjunctivae: conjunctivae normal Pupils: Equal, round and reactive pupils present EOM: EOMs intact bilaterally Neck Neck: Yes normal visual inspection, Yes full ROM and Yes no lymphadenopathy Chest Chest palpation & inspection: normal inspection of the chest Resp Effort & Inspection: normal respiratory effort and able to speak in complete sentences GI Inspection: Yes normal to inspection Neuro General: patient oriented x3 and moves all extremities Cranial nerves: Yes Equal, round and reactive pupils present Cognition (Neuro): normal cognition Motor exam (neuro): 5/5 motor strength present throughout Sensory Exam: Normal double simultaneous stimulation for sensation Coordination: [id number] test normal Extrem General: Yes normal to inspection, Yes full ROM and Yes capillary refill normal Psych Appearance: grossly normal Mental Status: mental status grossly normal Affect: normal affect Attitude: cooperative Thought process: Normal thought process present Thought content: Normal thought content present Insight: Good insight present (Psych) Medical Decision Making Medical Decision Making MDM Narrative: Patient is a 47 year old assigned female at with a history of hypothyroidism presenting to the emergency department today with left ear pain. Patient's physical exam showed an erythematous left TM. I explained my physical exam findings to the patient. I answered all questions asked by the patient. I stressed the importance of the patient taking her medication as prescribed. I stressed the importance of the patient following up with her primary care provider. I stressed the importance of the patient returning to the emergency department immediately if her symptoms were to worsen or if she were to develop any dizziness, shortness of breath, difficulty breathing, chest pain, blurry vision, loss of vision, nausea, vomiting, abdominal pain, fever, chills, back pain, or any other complaints. Patient verbalized agreement and understanding with this treatment plan and discharge. Differential Diagnosis Differential Diagnoses: The differential diagnosis associated with the presentation includes left ear pain, otitis media Discharge Plan Discharge Clinical Impression: Otitis media Patient Disposition: Home, Self-Care Instructions: Ear Infection (ED) Additional Instructions: Follow up with your primary care provider. Return to the emergency department immediately if your symptoms worsen or if you develop any dizziness, shortness of breath, difficulty breathing, chest pain, blurry vision, loss of vision, nausea, vomiting, abdominal pain, fever, chills, back pain, or any other complaints. Prescriptions: New amoxicillin 875 mg tablet 875 mg PO BID 7 Days Qty: 14 0RF No Action epinephrine 0.3 mg/0.3 mL auto-injector 0.3 mg IM ONCE 30 Days Qty: 2 3RF fluticasone propionate [Flonase Allergy Relief] 50 mcg/actuation spray,suspension 1 spray intranasal Q12H 30 Days Qty: 16 3RF Rx Instructions: administer into each nostril (DME) FreeStyle Lite Strips Strip See Rx Instructions .ROUTE .MEDSUPPLY Qty: 100 11RF Rx Instructions: three times a day (DME) lancets [TRUEplus Lancets] 33 gauge misc See Rx Instructions .ROUTE .MEDSUPPLY Qty: 100 0RF Rx Instructions: As directed 3 x/day (DME) blood-glucose meter [FreeStyle Lite Meter] Kit See Rx Instructions .ROUTE .MEDSUPPLY Qty: 1 0RF Rx Instructions: As directed 2x/day (DME) FreeStyle Butch 14 Day Sensor Kit See Rx Instructions .Route Qty: 2 2RF Rx Instructions: As directed budesonide 32 mcg/actuation spray,non-aerosol 1 spray intranasal DAILY 30 Days Qty: 8.43 3RF Invokana 300 mg tablet 300 mg PO DAILY Qty: 30 5RF Trulicity 3 mg/0.5 mL pen injector 3 mg subcut QWEEK 28 Days Qty: 2 6RF glipizide 5 mg tablet 5 mg PO BID Qty: 60 6RF metformin 850 mg tablet 850 mg PO BID 90 Days Qty: 180 3RF (DME) comp.stocking,knee,long,medium Misc See Rx Instructions .Route Qty: 12 3RF Rx Instructions: Compression stockings 20 mm Hg. Daily while awake. 90 days levothyroxine 75 mcg tablet 75 mcg PO DAILY Qty: 30 6RF Referrals: [facility] [facility] [place]] (Call to establish and follow up with a primary care provider. If you already have a primary care provider, please follow up with them.) [facility] [place] [facility] [[facility]] (Call to establish and follow up with a primary care provider. If you already have a primary care provider, please follow up with them.) [facility] [place] [facility] [Provider Group] (Call to establish and follow up with a primary care provider. If you already have a primary care provider, please follow up with them.) Interventions: ED Discharge Assessment Last Done: 01/22/23 20:16 Print Language: Croatian
== END 2023-01-22 20:20 | disposition home or self-care (01) ==
LOC: HO.ED 20:20
PROVIDERS: Emergency Provider Emergency Medicine; PCP Family Medicine
DX: H66.92 Otitis media, unspecified, left ear (principal); H92.02 Otalgia, left ear; Z79.899 Other long term (current) drug therapy
CPT/HCPCS: 99282; 99283

== ENCOUNTER 2023-01-24 09:03 | Outpatient (REF) | payer OTHER, SELFPAY ==
--- NOTE | ~2023-01-24 | MM_ITS ---
EXAMINATION: MM SCREENING DIGITAL BREAST TOMOSYNTHESIS, BILATERAL CLINICAL INFORMATION: Screening. Asymptomatic. The lifetime risk of breast cancer based on the Tyrer-Cuzick Model is 6%. COMPARISON: Mammography: 07/31/2021, 08/06/2019, 08/02/2018 TECHNIQUE: Digital breast tomosynthesis is performed in both the craniocaudal and mediolateral oblique views along with computer-aided detection (CAD). Synthesized 2D images are generated from the tomosynthesis. FINDINGS: There are scattered areas of fibroglandular density (ACR BI-RADS breast composition Category b). There are no significant masses, abnormal calcifications, or other abnormalities. Parenchymal pattern is similar to prior studies. There is no developing density or architectural abnormality. The axilla and skin contours are unremarkable. No significant changes. MM/MM tomosynthesis screening BI IMPRESSION: No mammographic evidence of malignancy. ASSESSMENT: BI-RADS 1: Negative RECOMMENDATION: Routine annual mammography screening. This patient's information was entered into a reminder system with a target due date for their next mammogram.
== END 2023-01-24 09:04 | disposition home or self-care (01) ==
LOC: HO.MAMMO 09:03
PROVIDERS: Absent Provider Obstetrics & Gynecology; PCP Family Medicine; Visit Provider Family Medicine
DX: Z12.31 Encounter for screening mammogram for malignant neoplasm of breast (principal)
CPT/HCPCS: 77063; 77067

== ENCOUNTER → 2023-01-25 08:46 | Outpatient (BNVA) | payer OTHER, SELFPAY | PROVIDERS: PCP Family Medicine; Visit Provider Internal Medicine Endocrinology, Diabetes & Metabolism | DX: E03.9 Hypothyroidism, unspecified (principal) | CPT/HCPCS: 99212 ==

== ENCOUNTER 2023-03-02 11:53 | Day surgery (SDC) | payer OTHER, SELFPAY ==
--- NOTE | ~2023-03-02 | US_ITS ---
EXAMINATION: ULTRASOUND-GUIDED FINE-NEEDLE ASPIRATION BIOPSY LEFT NECK LYMPH NODE CLINICAL INFORMATION: 9 x 6 x 10 mm hypoechoic lesion just inferior to the left thyroid lobe which does not have the appearance of a normal lymph node with fatty cleft not being identified. COMPARISON: 06/02/2022. TECHNIQUE: Ultrasound-guided fine-needle aspiration biopsy. FINDINGS: Informed consent was obtained from the patient prior to the procedure. During this process, the procedure and potential alternatives were explained, along with the intended outcome and benefits. The risks of the procedure, as well as the risk of not doing the procedure, were discussed. The patient was given the opportunity to ask questions regarding the procedure and appeared competent to make medical decisions. A signed consent form which documents this discussion was placed in the medical record. CONSCIOUS SEDATION: The patient received intravenous conscious sedation under my direct supervision. A registered nurse monitored the patient and the patient's vital signs throughout the procedure. The total sedation time was 30 minutes. A total of 1 mg of Versed and 50 mcg fentanyl was given for good effect. Using sterile technique and ultrasound guidance a left hypoechoic region inferior to the thyroid gland was identified and 6 fine-needle aspiration biopsies were performed with 25-gauge needles. Pathology was present with fine-needle aspiration samples demonstrated being within a lymph node. Patient tolerated procedure without difficulty. US/US guided fine needle asp IMPRESSION: Fine-needle aspiration biopsy left neck lesion which appears to represent a lymph node. Cytology results are pending.
[2023-03-02 12:15] VITALS: BMI 29.8
[2023-03-02 12:23] LABS: MANUAL DIFF FLAG NO
[2023-03-02 12:25] LABS: Basophils Absolute Auto 0.1 X10*3/uL (0.0-0.2); Basophils Percent Auto 0.5 % (0-2); Eosinophils Absolute Auto 0.1 X10*3/uL (0.0-0.4); Eosinophils Percent Auto 0.6 % (0-4); Hematocrit 40.3 % (37.0-47.0); Hemoglobin 13.8 g/dl (12.0-16.0); Imm Gran Abs Auto 0.05 X10*3/uL (0.00-0.03); Imm Gran Pct Auto 0.5 % (0.0-0.4); Lymphocytes Absolute Auto 2.2 X10*3/uL (1.2-4.9); Lymphocytes Percent Auto 21.3 % (20-40); Mean Corpuscular HGB Conc 34.2 g/dl (31.0-35.0); Mean Corpuscular Hemoglobin 31.2 pg (27.0-33.0); Mean Corpuscular Volume 91.2 fL (80.0-98.0); Mean Platelet Volume 9.5 fL (9.4-12.3); Monocytes Absolute Auto 0.6 X10*3/uL (0.1-1.2); Monocytes Percent Auto 5.6 % (2-11); Neutrophils Absolute Auto 7.5 x10*3/uL (2.0-8.3); Neutrophils Percent Auto 71.5 % (45-73); Platelet Count 331 X10*3/uL (160-400); Red Blood Count 4.42 X10*6/uL (4.20-5.50); Red Cell Distribution Width 12.8 % (11.0-16.0); White Blood Count 10.5 X10*3/uL (4.8-10.8)
[2023-03-02 12:30] LABS: INTERNATIONAL NORM RATIO 0.9 (0.9-1.1); Prothrombin Time 10.1 SEC (10.0-13.1)
[2023-03-02 12:33] LABS: Partial Thromboplastin Time 28.9 SEC (26.0-36.4)
[2023-03-02 12:40] LABS: Anion Gap 14 (12-20); Blood Urea Nitrogen 21 mg/dL (9-16); Carbon Dioxide 23 mmol/L (22-29); Chloride 108 mmol/L (96-108); Creatinine Clr Calc Pharmacy 88.9; Estimated Glomerular Filt Rate > 60; Potassium 3.6 mmol/L (3.3-5.1); Sodium 141 mmol/L (135-145)
[2023-03-02 13:30] LABS: Glucose, Whole Blood 119 mg/dL (60-115)
[2023-03-02] MEDS: Lidocaine HCl 1 % MPF 5 ML VIAL SUBCUT (14:49)
[2023-03-02 14:53] VITALS: BP 126/70; PULSE 82; RESP 16; TEMP 36.9; O2SAT 97
[2023-03-02 15:08] VITALS: BP 130/73; PULSE 84; RESP 16; O2SAT 98
[2023-03-02 15:23] VITALS: BP 128/71; PULSE 93; RESP 16; O2SAT 98
[2023-03-02 15:37] VITALS: BP 132/79; PULSE 91; RESP 16; TEMP 36.4; O2SAT 98
== END 2023-03-02 15:42 | disposition home or self-care (01) ==
PROVIDERS: Radiology Diagnostic Radiology; Student in an Organized Health Care Education/Training Program; PCP Family Medicine; Visit Provider Internal Medicine
DX: R94.6 Abnormal results of thyroid function studies (principal); E03.9 Hypothyroidism, unspecified; E78.5 Hyperlipidemia, unspecified; E11.65 Type 2 diabetes mellitus with hyperglycemia; R76.8 Other specified abnormal immunological findings in serum; Z79.85 Long-term (current) use of injectable non-insulin antidiabetic drugs; Z79.84 Long term (current) use of oral hypoglycemic drugs; Z79.899 Other long term (current) drug therapy; Z88.8 Allergy status to other drugs, medicaments and biological substances; Z91.041 Radiographic dye allergy status
CPT/HCPCS: 10005; 36415; 80051; 82565; 82947; 84520; 85025; 85610; 85730; 88172; 88173; 88184; 88185; 88300; 99152; 99153; J2250; J3010

== ENCOUNTER → 2023-03-02 13:00 | Outpatient (BNV) | payer OTHER, SELFPAY | PROVIDERS: PCP Family Medicine; Visit Provider Radiology Diagnostic Radiology | DX: R59.9 Enlarged lymph nodes, unspecified (principal) | CPT/HCPCS: 10005 ==

== ENCOUNTER 2023-03-07 16:15 | Outpatient (AMB) | payer OTHER, SELFPAY ==
[2023-03-07 16:17] VITALS: BP 132/72; PULSE 93; BMI 29.9
--- NOTE | 2023-03-07 16:17 | A.OFFVIS_ITS ---
Intake Vital Signs 03/07/23 16:17 Height 5 ft 1 in Weight 158 lb 8.198 oz BMI 29.9 BP 132/72 Blood Pressure Location Rt brachial Position Sitting Pulse 93 Pulse Source Pulse Oximeter Intake Visit Reasons: FNA Results Intake Note: Patient present for FNA results. Septic Tank Cleaner Required: No Accompanied by: Self / Same As Patient Allergies magnesium [MAGNESIUM] Allergy (Severe, Verified 03/07/23 16:19) ANAPHYLAXIS pioglitazone [From ACTOS] Allergy (Severe, Verified 03/07/23 16:19) SWELLING, hives aspirin [Aspirin] Allergy (Mild, Verified 03/07/23 16:19) UNKNOWN, hives ibuprofen [Ibuprofen] Allergy (Mild, Verified 03/07/23 16:19) anaphylaxis,hives Iodinated Contrast Media [IV Dye, Iodine Containing] Allergy (Mild, Verified 03/07/23 16:19) hives HPI HPI Comments History of Present Illness Details This is a 47-year-old female previously followed by Lyndsay Enriquez NP for diabetes and hypothyroidism. Ms. Enriquez sent patient for thyroid ultrasound which revealed. Patient is here today discuss these findings. She is also on 75ug levothyroxine. Feeling ok. Wt gain . No fatigue she is status post fine-needle aspiration of lymph node that was abnormal inferior to The left lobe of the thyroid. Cytology showed benign lymphocytes [facility] Medical History (Updated 02/14/23 @ 15:31 by Sagar Alejandro) Abnormal thyroid exam Cirrhosis Depression Diabetes mellitus type 2, controlled, with complications GERD (gastroesophageal reflux disease) Hyperlipidemia LDL goal <100 Hypothyroidism Migraines Type 2 diabetes mellitus with hyperglycemia Surgical History Hx of section Hx of cholecystectomy Hx of hysterectomy Hx of tubal ligation Family History Father No problems noted. 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 There are no thyroid nodules palpated. 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 She appears to be clinically and biochemically euthyroid. She recently underwent a FNA of abnormal appearing lymph node which proved to be benign At This point, patient to follow-up with primary care provider. She returned to endocrinology as needed Coding Level of Care Code Est Pt Level 3 (34924) Diagnoses Hypothyroidism E03.9
== END 2023-03-07 16:35 | disposition home or self-care (01) ==
PROVIDERS: PCP Family Medicine; Visit Provider Internal Medicine Endocrinology, Diabetes & Metabolism
DX: E03.9 Hypothyroidism, unspecified (principal)
CPT/HCPCS: 99213

== ENCOUNTER → 2023-03-07 16:15 | Outpatient (BNVA) | payer OTHER, SELFPAY | PROVIDERS: PCP Family Medicine; Visit Provider Internal Medicine Endocrinology, Diabetes & Metabolism | DX: E06.3 Autoimmune thyroiditis (principal); E03.8 Other specified hypothyroidism; Z79.899 Other long term (current) drug therapy | CPT/HCPCS: 99212 ==

== ENCOUNTER 2023-03-12 09:05 | Outpatient (AMB) | payer OTHER, SELFPAY ==
--- NOTE | 2023-03-12 09:09 | MHC.OFFWIV ---
Intake Vital Signs 03/12/23 09:10 Height 5 ft 1 in BP 130/78 Blood Pressure Location Rt brachial Position Sitting Pulse 78 Pulse Source Pulse Oximeter Temp 97.8 F Temp Source Temporal Artery Scan Pulse Oximetry (%) 98 Intake Visit Reasons: EST/ Chest morena Intake Note: pt is here for chest congestion Patient Tobacco Use Status: Never used Tobacco Allergies magnesium [MAGNESIUM] Allergy (Severe, Verified 03/12/23 09:10) ANAPHYLAXIS pioglitazone [From ACTOS] Allergy (Severe, Verified 03/12/23 09:10) SWELLING, hives aspirin [Aspirin] Allergy (Mild, Verified 03/12/23 09:10) UNKNOWN, hives ibuprofen [Ibuprofen] Allergy (Mild, Verified 03/12/23 09:10) anaphylaxis,hives Iodinated Contrast Media [IV Dye, Iodine Containing] Allergy (Mild, Verified 03/12/23 09:10) hives Do you need a note to return to daycare/school/sports/work: Yes HPI HPI Comments History of Present Illness Details This is a 47-year-old female past medical history significant for diabetes mellitus and hypothyroidism who presents to the office today for sick visit. Patient complaining of chest pressure with associated shortness of breath that began last night. Patient states she was started on amoxicillin-clavulanate for a sinus infection yesterday. However, last night she started to develop chest pressure with associated difficulty breathing. She also has an associated dry cough. She denies associated nausea/vomiting. She denies any radiation of the chest pressure to her arm, jaw, neck, or back. Patient states she has had intermittent chest pain for the past 18 months, but this episode last night was worse than normal. PE: Lungs clear to auscultation bilaterally Reproducible tenderness to palpation in the central chest Regular rate rhythm, no M/G/R PFSH Medical History (Updated 02/14/23 @ 15:31 by Sagar Alejandro) Abnormal thyroid exam Cirrhosis Depression Diabetes mellitus type 2, controlled, with complications GERD (gastroesophageal reflux disease) Hyperlipidemia LDL goal <100 Hypothyroidism Migraines Type 2 diabetes mellitus with hyperglycemia Surgical History Hx of section Hx of cholecystectomy Hx of hysterectomy Hx of tubal ligation Family History Father No problems noted. 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 Current occupational exposures/hazards: No Cognitive needs: No Hearing needs: No Vision needs: Yes (Glasses) Review of Systems Const All systems reviewed & are unremarkable except as noted in HPI and below Reports no additional complaints Eyes Reports no additional complaints ENT Reports no additional complaints Card Reports no additional complaints, Reports chest pain and Reports dyspnea Resp Reports no additional complaints, Reports chest congestion and Reports dyspnea GI Reports no additional complaints Reports no additional complaints Musc Reports no additional complaints Skin/Breast Reports system reviewed and no additional complaints, except as documented Neuro Reports no additional complaints Psych Reports no additional complaints Endo Reports no additional complaints Julio Cesar/Lymph Reports no additional complaints Aller/Immun Reports no additional complaints Physical Exam Vital Signs: Last Vital Signs Temp 97.8 F 03/12/23 09:10 Pulse 78 03/12/23 09:10 BP 130/78 03/12/23 09:10 Pulse Ox 98 03/12/23 09:10 Const General: cooperative, healthy appearing, no acute distress and well developed Orientation/consciousness: patient oriented x3 HEENT Head: Yes normal to inspection Ears: hearing grossly normal bilaterally General nose exam: Normal external nose present Face and sinus: Yes normal facial exam Mouth: Normal oral and palatal mucosa present Eyes General: appearance normal, both eyes and all related structures Pupils: Equal, round and reactive pupils present EOM: EOMs intact bilaterally Chest Other: Reproducible tenderness to palpation of the mid chest wall. Resp Effort & Inspection: normal respiratory effort, able to speak in complete sentences and no respiratory distress Auscultation: clear to auscultation bilaterally, no crackles, no rales, no rhonchi and no wheezes Cardio Rate: regular rate Rhythm: regular rhythm Heart sounds: no gallops, no murmurs and no rubs Peripheral pulses: Peripheral pulses 2+ throughout GI Inspection: No distended Palpation (GI): Soft to palpation and nontender Auscultation: normal bowel sounds Skin General skin exam: no rashes or lesions noted Neuro General: patient oriented x3 Cranial nerves: Yes CN's II-XII intact bilaterally and Yes Equal, round and reactive pupils present Gait exam (Neuro): Normal gait present Motor exam (neuro): 5/5 motor strength present throughout Extrem General: Yes normal to inspection, Yes full ROM and Yes no clubbing, cyanosis or edema Psych Appearance: grossly normal Mental Status: mental status grossly normal Assessment & Plan Assessment & Plan (1) Chest pressure: Code(s): R07.89 - Other chest pain (2) Chest congestion: Code(s): R09.89 - Other specified symptoms and signs involving the circulatory and respiratory systems Plan This is a 47-year-old female with past medical history significant for diabetes mellitus and hypothyroidism who presents to the office today for chest pressure with associated shortness of breath and dry cough. Patient's chest pain does appear to be atypical given reproducible tenderness to palpation of the chest wall and there is no exertional component. However, patient does have some risk factors for heart disease including diabetes mellitus. Her vital signs are stable in the office today. EKG was obtained, which shows T-wave inversions in leads V1, V3, and V4. These are nonspecific T-wave abnormalities in the have no prior EKGs for comparison. I strongly recommended the patient proceed directly to the emergency room to rule out acute coronary syndrome. Patient declines at this time. She states she will think about going to the emergency room later today. I again strongly encouraged her to proceed to the emergency room, but she is adamant that she does not want to go at this time. Patient states she will go directly to the emergency room if she were to develop worsening chest pain with radiation, worsening shortness of breath, lightheadedness/dizziness, or nausea/vomiting. Chest x-ray was obtained to rule out pneumonia given her complaints of chest congestion. X-ray was reviewed by myself and there is no obvious infiltrate. No expiratory wheezing to suggest acute bronchitis. Recommended symptomatic management including rest, increased fluids, advil/tylenol for pain/fever, and over the counter throat lozenges/decongestants. Patient should continue taking her antibiotic as prescribed. Patient advised to follow up here or go to the emergency room for worsening/persistent symptoms. Patient verbalized understanding and is agreeable with the plan. Orders: Orders XR chest 2V Today R09.89 - Other specified symptoms and signs involving the circulatory and respiratory systems AMB EKG-In Office Today R07.89 - Other chest pain Coding Level of Care Code New Pt Level 3 (29800) Diagnoses Chest pressure R07.89 Chest congestion R09.89
[2023-03-12 09:10] VITALS: BP 130/78; PULSE 78; TEMP 36.6; O2SAT 98
== END 2023-03-12 10:03 | disposition home or self-care (01) ==
PROVIDERS: PCP Family Medicine; Visit Provider Physician Assistant Medical
DX: R07.89 Other chest pain (principal); R09.89 Other specified symptoms and signs involving the circulatory and respiratory systems
CPT/HCPCS: 93000; 99051; 99203

== ENCOUNTER 2023-03-12 09:37 | Outpatient (REF) | payer OTHER, SELFPAY ==
--- NOTE | ~2023-03-12 | XR_ITS ---
EXAMINATION: XR CHEST CLINICAL INFORMATION: Reason for Exam R09.89 - Other specified symptoms and signs involving the circulatory an... COMPARISON: Chest radiograph 06/27/2015 TECHNIQUE: 2 views of the chest FINDINGS: Lines and tubes: None. Clear lungs. No pleural effusion. No pneumothorax. Normal cardiomediastinal silhouette. XR/XR chest 2V IMPRESSION: * Clear lungs.
== END 2023-03-12 09:38 | disposition home or self-care (01) ==
LOC: HO.HMGCX 09:37
PROVIDERS: PCP Family Medicine; Visit Provider Physician Assistant Medical
DX: R09.89 Other specified symptoms and signs involving the circulatory and respiratory systems (principal)
CPT/HCPCS: 71046

== ENCOUNTER 2023-04-01 12:20 | Outpatient (AMB) | payer OTHER, SELFPAY ==
--- NOTE | 2023-04-01 14:12 | MHC.OFFWIV ---
Intake Vital Signs 04/01/23 14:16 Height 5 ft 1 in BP 112/68 Blood Pressure Location Lt brachial Position Sitting Pulse 92 Pulse Source Pulse Oximeter Temp 96.5 F L Temp Source Temporal Artery Scan Pulse Oximetry (%) 97 Oxygen Delivery Method Room Air Intake Visit Reasons: EP Bilateral Ear Pain [phone] Intake Note: Pt is here c/o bilateral ear pain for the past three days. Pt states it has gotten worse, pt states he had drainage come out this monring. Patient Tobacco Use Status: Never used Tobacco Allergies magnesium [MAGNESIUM] Allergy (Severe, Verified 04/01/23 14:16) ANAPHYLAXIS pioglitazone [From ACTOS] Allergy (Severe, Verified 04/01/23 14:16) SWELLING, hives aspirin [Aspirin] Allergy (Mild, Verified 04/01/23 14:16) UNKNOWN, hives ibuprofen [Ibuprofen] Allergy (Mild, Verified 04/01/23 14:16) anaphylaxis,hives Iodinated Contrast Media [IV Dye, Iodine Containing] Allergy (Mild, Verified 04/01/23 14:16) hives Do you need a note to return to daycare/school/sports/work: No HPI HPI Comments History of Present Illness Details 48-year-old female presents for recurrent ear pain, was treated on 01/22/2023 for similar concerns, states that she received an antibiotic and the pain returned shortly after finishing the medication. Patient does not report a decrease in hearing, denies dizziness, or loss of balance. She does not report any fevers, but states that the ear pain is annoying, and prevents her from sleeping well. [facility] Medical History Abnormal thyroid exam Cirrhosis Depression Diabetes mellitus type 2, controlled, with complications GERD (gastroesophageal reflux disease) Hyperlipidemia LDL goal <100 Hypothyroidism Migraines Type 2 diabetes mellitus with hyperglycemia Surgical History Hx of section Hx of cholecystectomy Hx of hysterectomy Hx of tubal ligation Family History Father No problems noted. 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 Current occupational exposures/hazards: No Cognitive needs: No Hearing needs: No Vision needs: Yes (Glasses) Review of Systems Const Details: Constitutional: No Fever, No Chills ENT/Mouth: Positive bilateral Ear Pain, No Hoarseness, No sore throat Eyes: No Eye Pain, No Swelling, No Redness, No Foreign Body Cardiovascular: No Chest Pain, No SOB Respiratory: No Cough, No Dyspnea Gastrointestinal: No Nausea, No Vomiting, No Diarrhea, No abdominal Pain Genitourinary: No Dysuria, No Hematuria Musculoskeletal: No joint pain, No Myalgias, No Joint Swelling Skin: No Skin lacerations, No rash Neuro: No Weakness, No Numbness, No Paresthesias, No Dizziness, No Headache All systems reviewed & are unremarkable except as noted in HPI and below Physical Exam Vital Signs: Last Vital Signs Temp 96.5 F L 04/01/23 14:16 Pulse 92 04/01/23 14:16 BP 112/68 04/01/23 14:16 Pulse Ox 97 04/01/23 14:16 Oxygen Delivery Method Room Air 04/01/23 14:16 Appearance: Alert. Oriented X3. No acute distress. Eyes: Pupils equal, round and reactive to light. EOMI. ENT: Pharynx normal. Bilateral tympanic membranes erythematous, bulging, suppurative without perforation. Canals are intact. no mastoid tenderness noted. Neck: Normal inspection. Neck supple. No cervical lymphadenopathy. No nuchal rigidity. No vertebral tenderness. CVS: Normal heart rate and rhythm. Pulses normal. Respiratory: No respiratory distress. Breath sounds normal. Skin: Skin warm and dry. Normal skin color. Normal skin turgor. Extremities: Gait well-balanced well coordinated. Neuro: No motor deficit. No sensory deficit. Cranial nerves 2-12 intact Assessment & Plan Assessment & Plan (1) Bilateral otitis media with effusion: Code(s): H65.93 - Unspecified nonsuppurative otitis media, bilateral Plan 48-year-old female with past medical history of type 2 diabetes on Trulicity, peripheral vascular disease, adrenal insufficiency, hypothyroidism, hypertension, with recurrent ear infections presents with bilateral ear pain. Was treated on 01/22/2023 with amoxicillin, which she states was only minimally effective. She states that the pain did go away for couple of days, recurred after the completion of the antibiotics. She presents today because she is having a difficult time sleeping, she does not report any drainage from the ears, does not report any swimming or traumatic injury to the ears. Patient is alert oriented x4, answering questions politely and appropriately, even steady gait. Even unlabored respirations. No acute distress. Afebrile. Nontoxic appearing. Bilateral tympanic membranes are erythematous, bulging, with effusions. Canals are intact. No mastoid tenderness. No tenderness to the tragus on palpation. No nuchal rigidity. No meningeal signs. No rashes. Pharynx is normal. Plan of care is to treat for bilateral otitis media with Augmentin. Decongestant with cetirizine 10 mg daily. Supportive measures with Tylenol, Motrin. Considering that this patient has recurrent ear infections, if this does not alleviate her symptoms, patient should follow up with primary care physician for ENT referral. Patient verbalized understanding of and agreed to plan of care discharge home. Verbalized understanding of signs and symptoms indicating need for emergent intervention. Medications: New cetirizine 10 mg PO DAILY PRN 30 tabs 0RF allergy symptoms amoxicillin-pot clavulanate 875-125 mg 1 tab PO Q12H 7 days 14 tabs 0RF Patient Instructions: You were evaluated for recurrent otitis media. Please take Augmentin 875 mg every 12 hours for the next 7 days. Take cetirizine 10 mg daily to help reduce congestion. Alternate Tylenol 650 mg every 6 hours and Motrin 600 mg every 6 hours as needed for pain and fever management. Consider taking these medications 3 hours apart so you have pain and fever management every 3 hours. Write down what time you take these medications to prevent accidental overdose. Motrin is the same medication as Advil and ibuprofen. Tylenol is the same medication as acetaminophen. Follow-up with primary care provider if symptoms persist. You may require an ENT referral. Thank you for choosing this urgent care for evaluation. Please follow-up with primary care physician as needed. Return to the emergency department for any new, concerning, or worsening symptoms. Coding Level of Care Code Est Pt Level 3 (42322) Diagnoses Bilateral otitis media with effusion H65.93
[2023-04-01 14:16] VITALS: BP 112/68; PULSE 92; TEMP 35.8; O2SAT 97
== END 2023-04-01 14:47 | disposition home or self-care (01) ==
PROVIDERS: PCP Family Medicine; Visit Provider Nurse Practitioner Family
DX: H65.93 Unspecified nonsuppurative otitis media, bilateral (principal)
CPT/HCPCS: 99213

== ENCOUNTER 2023-04-15 15:20 | Emergency (ER) | payer OTHER, SELFPAY ==
--- NOTE | ~2023-04-15 | CT_ITS ---
EXAMINATION: CT HEAD WITHOUT CONTRAST CLINICAL INFORMATION: Dizziness. COMPARISON: CT head 08/21/2017 TECHNIQUE: Contiguous axial imaging was performed from the skull base to vertex without intravenous administration of contrast. Coronal and sagittal reformatted images are performed at the CT scanner. [This CT examination was performed using dose optimization techniques as appropriate, variously including the following: *Automated exposure control *Adjustment of mA and/or kV according to patient size (this includes techniques or standardized protocols for targeted exams where dose is matched to indication/reason for exam; i.e. extremities or head) *Use of iterative reconstruction technique] DLP: 624 mGy-cm. FINDINGS: There is no evidence of acute intracranial hemorrhage or territorial infarction. No abnormal mass-effect or midline shift is seen. Suarez to white matter differentiation is well preserved. No extra-axial fluid collections are identified. The ventricles are normal in size. There is no abnormal attenuation within the brain parenchyma. There is no osseous abnormality. The mastoid air cells and visualized portions of the paranasal sinuses are well-aerated. CT/CT head/brain wo IV con IMPRESSION: No acute intracranial pathology.
[2023-04-15 15:22] VITALS: BP 130/78; PULSE 92; RESP 18; TEMP 36.1; O2SAT 100; BMI 28.6
--- NOTE | 2023-04-15 15:23 | ED_ITS ---
HPI - General Adult General Chief complaint: General Medical Stated complaint: nausea, dizzy for a week now Time Seen by Provider: 04/15/23 20:35 Source: patient Mode of arrival: ambulatory Limitations: no limitations History of Present Illness HPI narrative: 48 Yo female with history of DM, hypothyroidism here with complaints of 1.5 weeks of feeling dizzy described as feeling like she is going to fall head all t imes despite position changes or head movement. This is associated with some nausea. No vomiting, vision changes, chest pain, shortness of breath. Patient denies any weakness/numbness/tingling of the upper lower extremities. No fevers or chills. Patient also reports some suprapubic discomfort for the last week. No urinary symptoms, no associated diarrhea or constipation. Related Data Home Medications Medication Instructions Recorded Confirmed clotrimazole-betamethasone 1 appl topical 01/25/23 %-0.05 % topical cream cetirizine 10 mg tablet (24Hour 10 mg PO DAILY PRN 03/12/23 Allergy) Previous Rx's Medication Instructions Recorded comp.stocking,knee,long,medium #12 ea 06/18/21 epinephrine 0.3 mg/0.3 mL 0.3 mg (0.3 mL) IM ONCE 30 days #2 06/08/22 injection, auto-injector ea fluticasone propionate 50 1 spray intranasal Q12H 30 days 08/16/22 mcg/actuation nasal #16 grams spray,suspension (Flonase Allergy Relief) blood sugar diagnostic (FreeStyle #100 ea 12/10/22 Lite Strips) lancets 33 gauge (TRUEplus Lancets) #100 ea 12/10/22 blood-glucose meter (FreeStyle #1 ea 01/04/23 Lite Meter kit) budesonide 32 mcg/actuation nasal 1 spray intranasal DAILY 30 days 01/09/23 spray #8.43 mL canagliflozin 300 mg tablet 300 mg PO DAILY #30 tabs 01/09/23 (Invokana) dulaglutide 3 mg/0.5 mL 3 mg (0.5 mL) subcut QWEEK 28 days 01/09/23 subcutaneous pen injector #2 mL (Trulicity) glipizide 5 mg tablet 5 mg PO BID #60 tabs 01/09/23 metformin 850 mg tablet 850 mg PO BID 90 days #180 tabs 01/09/23 levothyroxine 75 mcg tablet 75 mcg PO DAILY #30 tabs 02/15/23 amoxicillin 875 mg-potassium 1 tab PO Q12H 7 days #14 tabs 04/01/23 clavulanate 125 mg tablet cetirizine 10 mg tablet 10 mg PO DAILY PRN allergy 04/01/23 symptoms #30 tabs flash glucose sensor (FreeStyle #2 ea 04/07/23 Butch 14 Day Sensor kit) meclizine 25 mg tablet 25 mg PO TID PRN dizziness #15 tabs 04/15/23 Allergies Allergy/AdvReac Type Severity Reaction Status Date / Time magnesium [MAGNESIUM] Allergy Severe ANAPHYLAXIS Verified 04/01/23 14:16 pioglitazone [From ACTOS] Allergy Severe SWELLING, Verified 04/01/23 14:16 hives aspirin [Aspirin] Allergy Mild UNKNOWN, Verified 04/01/23 14:16 hives ibuprofen [Ibuprofen] Allergy Mild anaphylaxis Verified 04/01/23 14:16 ,hives Iodinated Contrast Media Allergy Mild hives Verified 04/01/23 14:16 [IV Dye, Iodine Containing] Review of Systems Review of Systems: Yes all other systems are reviewed and are negative Constitutional: Constitutional: Reports no additional constitutional complaints, Denies body ache(s), Denies chills, Denies fever(s), Denies headache(s) and Denies weakness Eyes: Eyes: Reports no additional eye complaints and Denies change in vision ENT: Reports system reviewed and no additional complaints, except as documented, Reports dizziness, Denies headache(s), Denies nasal congestion, Denies nasal discharge and Denies neck pain Cardiovascular: Cardiovascular: Reports no additional cardiovascular complaints, Denies chest pain, Denies leg edema and Denies dyspnea Respiratory: Respiratory: Reports no additional respiratory complaints, Denies cough and Denies dyspnea Gastrointestinal: Gastrointestinal: Reports no additional gastrointestinal complaints, Denies abdominal pain, Denies diarrhea, Reports nausea and Denies vomiting Genitourinary: Genitourinary: Reports no additional female genitourinary complaints and Denies urinary incontinence Musculoskeletal: Musculoskeletal: Reports no additional musculoskeletal complaints, Denies back pain, Denies arthralgias, Denies joint swelling, Denies neck pain, Denies numbness and Denies tingling Integumentary/Breasts: Skin/Breast: Reports system reviewed and no additional complaints, except as docu and Denies rash Neurologic: Reports system reviewed and no additional complaints, except as documented, Reports dizziness, Denies headache(s), Denies numbness, Denies tingling and Denies weakness PMFSH Past Medical History Medical History Abnormal thyroid exam Cirrhosis Depression Diabetes mellitus type 2, controlled, with complications GERD (gastroesophageal reflux disease) Hyperlipidemia LDL goal <100 Hypothyroidism Migraines Type 2 diabetes mellitus with hyperglycemia Surgical History Hx of section Hx of cholecystectomy Hx of hysterectomy Hx of tubal ligation Family History Family History Father No problems noted. 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 Current occupational exposures/hazards: No Cognitive needs: No Hearing needs: No Vision needs: Yes (Glasses) Physical Exam ED Vital Signs: Vital Signs - 24 hr 04/15/23 15:22 04/15/23 19:40 04/15/23 21:34 Temperature 96.9 F 98.5 F Pulse Rate 92 86 78 Respiratory Rate 18 18 Blood Pressure 130/78 144/73 H 130/70 Pulse Oximetry 100 100 Oxygen Delivery Method Room Air Nasal Cannula 04/15/23 21:35 04/15/23 21:35 Temperature Pulse Rate 87 93 Respiratory Rate Blood Pressure 131/79 134/80 Pulse Oximetry Oxygen Delivery Method BMI result Body Mass Index 28.6 Const General: cooperative, healthy appearing, comfortable and no acute distress Orientation/consciousness: patient oriented x3 Limitations: no limitations HENMT Head: Yes normal to inspection Ears: hearing grossly normal bilaterally and TM's normal bilaterally General nose exam: Normal external nose present Face and sinus: Yes normal facial exam Mouth: Normal oral and palatal mucosa present Throat: Yes posterior oropharynx normal, Yes tonsils normal and Yes uvula midline Eyes General: appearance normal, both eyes and all related structures Pupils: Equal, round and reactive pupils present Neck Neck: Yes normal visual inspection, Yes full ROM, Yes no lymphadenopathy and Yes no meningeal signs Chest Chest palpation & inspection: normal inspection of the chest Resp Effort & Inspection: normal respiratory effort Auscultation: clear to auscultation bilaterally Cardio Rate: regular rate Rhythm: regular rhythm Peripheral pulses: Peripheral pulses 2+ throughout GI Inspection: Yes normal to inspection Palpation (GI): Soft to palpation and nontender General: Yes no CVA tenderness Back/Spine/Pelvis Back: no CVA tenderness Thoracic/Lumbar Spine: thoracic and lumbar spine normal to inspection Skin General skin exam: no rashes or lesions noted Neuro General: patient oriented x3, moves all extremities and no meningeal signs Cranial nerves: Yes CN's II-XII intact bilaterally, Yes Equal, round and reactive pupils present, Yes Bilaterally intact EOM present, Yes Nystagmus not present, Yes Normal facial strength present and Yes Midline tongue present Cognition (Neuro): normal cognition Gait exam (Neuro): Normal gait present Motor exam (neuro): 5/5 motor strength present throughout Sensory Exam: Normal double simultaneous stimulation for sensation Coordination: [id number] test normal, rqlf-sk-[id number] test normal and tandem gait normal Extrem General: Yes normal to inspection, Yes no pedal edema and Yes no calf tenderness Course Course Course Narrative: This is a rapid medical exam: Additional HPI, ROS, PE not included below will be deferred to primary provider. Patient is a 48-year-old female with history of T2DM, cirrhosis, GERD, HLD, hypothyroid presenting to the emergency department with complaint of intermittent dizziness and nausea for the past 10 days, also complains of suprapubic discomfort. Denies vomiting, diarrhea, or constipation. Denies fevers. Plan: UA, labs, EKG Reevaluation(s) Reevaluation #1: 2200-labs are unremarkable. Orthostatics are negative. EKG shows no ischemic changes with a normal troponin. CT head is negative for any acute finding. Patient received meclizine and reports improvement of symptoms. ? Vertigo. Will send home with p.r.n. meclizine. Reviewed worrisome signs and symptoms with the patient and when to return to the emergency room. Comfortable plan for discharge home. Medications Administered Discontinued Medications Generic Name Dose Route Start Last Admin Trade Name Rocío PRN Reason Stop Dose Admin Meclizine HCl 25 mg 04/15/23 21:00 04/15/23 21:24 Meclizine Hcl 25 Mg Tablet PO 04/15/23 21:01 25 mg ONCE ONE Administration Medical Decision Making Medical Decision Making [facility] Narrative: 48-year-old female here with complaints of dizziness which is unaffected by position changes or head movement for the last 1-2 weeks with no associated headache, vision changes, vomiting, chest pain, shortness of breath, weakness/numbness/tingling of the upper lower extremities. Patient also complaining of some suprapubic discomfort with no urinary symptoms, vomiting or diarrhea. Patient has a normal neurological exam with no focal deficits. Patient's abdomen is soft nontender with no rebound or guarding Will check labs, UA, orthostatics, CT head Differential Diagnosis Differential Diagnoses: The differential diagnosis associated with the presentation includes Vertigo, orthostatic hypotension, anemia, electrolyte abnormality, UTI Low concern for cerebellar infarct Admission/Observation Consideration of admission/observation: Escalation of care including admission/observation considered See course of care Lab Data [facility] Lab Attestation statement: I reviewed the patient's lab results. Labs are unremarkable 04/15/23 15:47 04/15/23 15:47 Labs: Lab Results 04/15/23 04/15/23 04/15/23 Range/Units 15:47 15:47 15:47 WBC 9.3 (4.8-10.8) X10*3/uL RBC 4.69 (4.20-5.50) X10*6/uL Hgb 14.6 (12.0-16.0) g/dl Hct 43.3 (37.0-47.0) % MCV 92.3 (80.0-98.0) fL MCH 31.1 (27.0-33.0) pg MCHC 33.7 (31.0-35.0) g/dl RDW 12.4 (11.0-16.0) % Plt Count 361 (160-400) X10*3/uL MPV 9.4 (9.4-12.3) fL Immature Gran % (Auto) 0.3 (0.0-0.4) % Neut % (Auto) 69.3 (45-73) % Lymph % (Auto) 21.7 (20-40) % [place] % (Auto) 7.1 (2-11) % Eos % (Auto) 1.0 (0-4) % Baso % (Auto) 0.6 (0-2) % Lymph # (Auto) 2.0 (1.2-4.9) X10*3/uL [place] # (Auto) 0.7 (0.1-1.2) X10*3/uL Eos # (Auto) 0.1 (0.0-0.4) X10*3/uL Baso # (Auto) 0.1 (0.0-0.2) X10*3/uL Abs Immat Gran (auto) 0.03 (0.00-0.03) X10*3/uL Absolute Neuts (auto) 6.5 (2.0-8.3) x10*3/uL Absolute Nucleated RBC 0.000 (0.0-0.012) X10*3/uL Nucleated RBC % (auto) 0.0 (0.0-0.2) /100WBC PT (11.1-13.3) SEC INR (0.9-1.1) Sodium 140 (135-145) mmol/L Potassium 3.7 (3.3-5.1) mmol/L Chloride 106 (96-108) mmol/L Carbon Dioxide 23 (22-29) mmol/L Anion Gap 15 (12-20) BUN 15 (9-16) mg/dL Creatinine 0.77 (0.5-1.4) mg/dL Estim Creat Clear Calc 78.3 Estimated GFR > 60 Random Glucose 143 H (60-115) mg/dL Calcium 10.9 H D (8.4-10.2) mg/dL Magnesium 1.9 (1.6-2.6) mg/dL Total Bilirubin 0.4 (0.0-1.0) mg/dL AST 18 (5-31) U/L ALT 18 (0-31) U/L Alkaline Phosphatase 88 (39-117) U/L Troponin I High Sens < 2.7 (<3.5-17.0) ng/L Total Protein 8.1 H (6.5-8.0) g/dL Albumin 4.1 (3.5-5.0) g/dL Lipase 59 (8-78) U/L Beta HCG, Quant < 2 mIU/mL Urine Color Urine Appearance Urine pH (5.0-9.0) Ur Specific [place] (1.005-1.025) Urine Protein (Neg-Trace) mg/dL Urine Glucose (UA) (Negative) mg/dL Urine Ketones (Negative) mg/dL Urine Blood (Negative) Urine Nitrite (Negative) Ur Leukocyte Esterase (Negative) Urine RBC (0-2) /HPF Urine WBC (0-5) /HPF Ur Squamous Epith Cells (0-2) /HPF Urine Bacteria (None Seen) Hyaline Casts (0-2) /LPF 04/15/23 04/15/23 Range/Units 15:47 15:47 WBC (4.8-10.8) X10*3/uL RBC (4.20-5.50) X10*6/uL Hgb (12.0-16.0) g/dl Hct (37.0-47.0) % MCV (80.0-98.0) fL MCH (27.0-33.0) pg MCHC (31.0-35.0) g/dl RDW (11.0-16.0) % Plt Count (160-400) X10*3/uL MPV (9.4-12.3) fL Immature Gran % (Auto) (0.0-0.4) % Neut % (Auto) (45-73) % Lymph % (Auto) (20-40) % [place] % (Auto) (2-11) % Eos % (Auto) (0-4) % Baso % (Auto) (0-2) % Lymph # (Auto) (1.2-4.9) X10*3/uL [place] # (Auto) (0.1-1.2) X10*3/uL Eos # (Auto) (0.0-0.4) X10*3/uL Baso # (Auto) (0.0-0.2) X10*3/uL Abs Immat Gran (auto) (0.00-0.03) X10*3/uL Absolute Neuts (auto) (2.0-8.3) x10*3/uL Absolute Nucleated RBC (0.0-0.012) X10*3/uL Nucleated RBC % (auto) (0.0-0.2) /100WBC PT 11.0 L (11.1-13.3) SEC INR 0.9 (0.9-1.1) Sodium (135-145) mmol/L Potassium (3.3-5.1) mmol/L Chloride (96-108) mmol/L Carbon Dioxide (22-29) mmol/L Anion Gap (12-20) BUN (9-16) mg/dL Creatinine (0.5-1.4) mg/dL Estim Creat Clear Calc Estimated GFR Random Glucose (60-115) mg/dL Calcium (8.4-10.2) mg/dL Magnesium (1.6-2.6) mg/dL Total Bilirubin (0.0-1.0) mg/dL AST (5-31) U/L ALT (0-31) U/L Alkaline Phosphatase (39-117) U/L Troponin I High Sens (<3.5-17.0) ng/L Total Protein (6.5-8.0) g/dL Albumin (3.5-5.0) g/dL Lipase (8-78) U/L Beta HCG, Quant mIU/mL Urine Color Yellow Urine Appearance Clear Urine pH 5.5 (5.0-9.0) Ur Specific [place] >= 1.030 H (1.005-1.025) Urine Protein Negative (Neg-Trace) mg/dL Urine Glucose (UA) >=1000 H (Negative) mg/dL Urine Ketones Trace (Negative) mg/dL Urine Blood Negative (Negative) Urine Nitrite Negative (Negative) Ur Leukocyte Esterase Negative (Negative) Urine RBC 0-2 (0-2) /HPF Urine WBC 0-5 (0-5) /HPF Ur Squamous Epith Cells 11-20 (0-2) /HPF Urine Bacteria 3+ (None Seen) Hyaline Casts 0-2 (0-2) /LPF Independent Interpretation I performed an independent interpretation of an: CT Scan Interpretation: I independently reviewed the CT of the head and agree with radiology report EKG shows normal sinus rhythm with a rate of 92, normal HI, normal QRS, normal QT Radiology Impression Discussion of test interpretation with radiology: I have reviewed the radiologist's reading. Radiologist Impression: [address] [address] [address] Scan Report Signed Patient: Maribel Mayen MR#: [id number] : 1975 Acct:[id number] Age/Sex: 48 / F ADM Date: 04/15/23 Loc: HO.ED Attending Dr: Ordering Physician: Christine Kay NP Date of Service: 04/15/23 Procedure(s): CT head/brain wo IV con Accession Number(s): [id number] cc: Christine Kay NP~ EXAMINATION: CT HEAD WITHOUT CONTRAST CLINICAL INFORMATION: Dizziness. COMPARISON: CT head 08/21/2017 TECHNIQUE: Contiguous axial imaging was performed from the skull base to vertex without intravenous administration of contrast. Coronal and sagittal reformatted images are performed at the CT scanner. [This CT examination was performed using dose optimization techniques as appropriate, variously including the following: *Automated exposure control *Adjustment of mA and/or kV according to patient size (this includes techniques or standardized protocols for targeted exams where dose is matched to indication/reason for exam; i.e. extremities or head) *Use of iterative reconstruction technique] DLP: 624 mGy-cm. FINDINGS: There is no evidence of acute intracranial hemorrhage or territorial infarction. No abnormal mass-effect or midline shift is seen. Suarez to white matter differentiation is well preserved. No extra-axial fluid collections are identified. The ventricles are normal in size. There is no abnormal attenuation within the brain parenchyma. There is no osseous abnormality. The mastoid air cells and visualized portions of the paranasal sinuses are well-aerated. ? CT/CT head/brain wo IV con IMPRESSION: No acute intracranial pathology. ? Discharge Plan Discharge Clinical Impression: Vertigo Patient Disposition: Home, Self-Care Instructions: Vertigo (ED) Additional Instructions: Your blood work, urine testing, EKG and CT scan are normal. Please follow-up with primary care doctor for any continued symptoms. Please return for any worsening symptoms. Prescriptions: New meclizine 25 mg tablet 25 mg PO TID PRN (Reason: dizziness) Qty: 15 0RF No Action epinephrine 0.3 mg/0.3 mL auto-injector 0.3 mg IM ONCE 30 Days Qty: 2 3RF fluticasone propionate [Flonase Allergy Relief] 50 mcg/actuation spray,suspension 1 spray intranasal Q12H 30 Days Qty: 16 3RF Rx Instructions: administer into each nostril (DME) FreeStyle Lite Strips Strip See Rx Instructions .ROUTE .MEDSUPPLY Qty: 100 11RF Rx Instructions: three times a day (DME) lancets [TRUEplus Lancets] 33 gauge misc See Rx Instructions .ROUTE .MEDSUPPLY Qty: 100 0RF Rx Instructions: As directed 3 x/day (DME) blood-glucose meter [FreeStyle Lite Meter] Kit See Rx Instructions .ROUTE .MEDSUPPLY Qty: 1 0RF Rx Instructions: As directed 2x/day budesonide 32 mcg/actuation spray,non-aerosol 1 spray intranasal DAILY 30 Days Qty: 8.43 3RF Invokana 300 mg tablet 300 mg PO DAILY Qty: 30 5RF Trulicity 3 mg/0.5 mL pen injector 3 mg subcut QWEEK 28 Days Qty: 2 6RF glipizide 5 mg tablet 5 mg PO BID Qty: 60 6RF metformin 850 mg tablet 850 mg PO BID 90 Days Qty: 180 3RF levothyroxine 75 mcg tablet 75 mcg PO DAILY Qty: 30 6RF (DME) FreeStyle Butch 14 Day Sensor Kit See Rx Instructions .Route Qty: 2 2RF Rx Instructions: As directed (DME) comp.stocking,knee,long,medium Misc See Rx Instructions .Route Qty: 12 3RF Rx Instructions: Compression stockings 20 mm Hg. Daily while awake. 90 days cetirizine 10 mg tablet 10 mg PO DAILY PRN (Reason: allergy symptoms) Qty: 30 0RF amoxicillin-pot clavulanate 875-125 mg tablet 1 tab PO Q12H 7 Days Qty: 14 0RF cetirizine [24Hour Allergy] 10 mg tablet 10 mg PO DAILY PRN clotrimazole-betamethasone 1-0.05 % cream topical Interventions: ED Discharge Assessment Last Done: 04/15/23 22:06 Discharge Date/Time: 04/15/23 22:06
--- NOTE | 2023-04-15 15:26 | ECG_ITS ---
Test Reason : CHEST PRESSURE Blood Pressure : / mmHG Vent. Rate : 092 BPM Atrial Rate : 092 BPM P-R Int : 128 ms QRS Dur : 074 ms QT Int : 320 ms P-R-T Axes : 034 -06 085 degrees QTc Int : 395 ms Normal sinus rhythm Nonspecific T wave abnormality Abnormal ECG When compared with ECG of 19-DEC-2018 10:31, T wave inversion no longer evident in Anterior leads Referred By: Nehal Domingo Electronically Signed By:FRED KEY
[2023-04-15 15:52] LABS: MANUAL DIFF FLAG NO
[2023-04-15 15:54] LABS: Basophils Absolute Auto 0.1 X10*3/uL (0.0-0.2); Basophils Percent Auto 0.6 % (0-2); Eosinophils Absolute Auto 0.1 X10*3/uL (0.0-0.4); Hematocrit 43.3 % (37.0-47.0); Hemoglobin 14.6 g/dl (12.0-16.0); Imm Gran Abs Auto 0.03 X10*3/uL (0.00-0.03); Imm Gran Pct Auto 0.3 % (0.0-0.4); Lymphocytes Percent Auto 21.7 % (20-40); Mean Corpuscular HGB Conc 33.7 g/dl (31.0-35.0); Mean Corpuscular Hemoglobin 31.1 pg (27.0-33.0); Mean Corpuscular Volume 92.3 fL (80.0-98.0); Mean Platelet Volume 9.4 fL (9.4-12.3); Monocytes Absolute Auto 0.7 X10*3/uL (0.1-1.2); Monocytes Percent Auto 7.1 % (2-11); Neutrophils Absolute Auto 6.5 x10*3/uL (2.0-8.3); Neutrophils Percent Auto 69.3 % (45-73); Platelet Count 361 X10*3/uL (160-400); Red Blood Count 4.69 X10*6/uL (4.20-5.50); Red Cell Distribution Width 12.4 % (11.0-16.0); White Blood Count 9.3 X10*3/uL (4.8-10.8)
[2023-04-15 15:55] LABS: Appearance Urine Clear; Color Urine Yellow; Glucose Urine UA >=1000 mg/dL (Negative); Leukocyte Esterase Urine Negative (Negative); Nitrite Urine Negative (Negative); PH 5.5 (5.0-9.0); Specific Gravity - Urine >= 1.030 (1.005-1.025); UMIC TRIGGER UACC YES; Urine Blood Negative (Negative); Urine Ketones Trace mg/dL (Negative); Urine Protein Negative (Neg-Trace)
[2023-04-15 16:00] LABS: Bacteria Urine 3+ (None Seen); Hyaline Casts Urine 0-2 /LPF (0-2); RBC Urine 0-2 /HPF (0-2); WBC Urine 0-5 /HPF (0-5)
[2023-04-15 16:03] LABS: INTERNATIONAL NORM RATIO 0.9 (0.9-1.1)
[2023-04-15 16:17] LABS: Alanine Aminotransferase 18 U/L (0-31); Albumin Level 4.1 g/dL (3.5-5.0); Alkaline Phosphatase 88 U/L (39-117); Anion Gap 15 (12-20); Aspartate Amino Transferase 18 U/L (5-31); Bilirubin Total 0.4 mg/dL (0.0-1.0); Blood Urea Nitrogen 15 mg/dL (9-16); Calcium 10.9 mg/dL (8.4-10.2); Carbon Dioxide 23 mmol/L (22-29); Chloride 106 mmol/L (96-108); Creatinine Clr Calc Pharmacy 78.3; Estimated Glomerular Filt Rate > 60; Glucose Random 143 mg/dL (60-115); Lipase 59 U/L (8-78); Potassium 3.7 mmol/L (3.3-5.1); Sodium 140 mmol/L (135-145); Total Protein 8.1 g/dL (6.5-8.0)
[2023-04-15 16:19] LABS: HCG Quantitative < 2 mIU/mL; Troponin-I High Sensitivity < 2.7 ng/L (<3.5-17.0)
[2023-04-15 19:40] VITALS: BP 144/73; PULSE 86; RESP 18; TEMP 36.9; O2SAT 100
[2023-04-15 21:23] LABS: Magnesium 1.9 mg/dL (1.6-2.6)
[2023-04-15] MEDS: Meclizine HCl 25 MG TABLET PO (21:24)
[2023-04-15 21:34] VITALS: BP 130/70; PULSE 78
[2023-04-15 21:35] VITALS: BP 131/79; BP 134/80; PULSE 87; PULSE 93
== END 2023-04-15 22:06 | disposition home or self-care (01) ==
PROVIDERS: Nurse Practitioner Family; Registered Nurse Emergency; Emergency Provider Emergency Medicine; PCP Family Medicine
DX: R11.2 Nausea with vomiting, unspecified (principal); R42 Dizziness and giddiness; R07.89 Other chest pain; Z79.899 Other long term (current) drug therapy
CPT/HCPCS: 36415; 70450; 80053; 81001; 83690; 83735; 84484; 84702; 85025; 85610; 93005; 99284

== ENCOUNTER 2023-04-22 10:40 | Outpatient (AMB) | payer OTHER, SELFPAY ==
--- NOTE | 2023-04-22 12:28 | MHC.OFFWIV ---
Intake Vital Signs 04/22/23 12:29 Height 5 ft 1 in Weight 149 lb BMI 28.2 BP 124/74 Blood Pressure Location Lt brachial Position Sitting Pulse 78 Pulse Source Pulse Oximeter Temp 97.9 F Temp Source Temporal Artery Scan Pulse Oximetry (%) 99 Intake Visit Reasons: EP Dizzy spells/ear pain Intake Note: pt is here for c/o dizziness and ear pain. pt was in ED and states they ran test and blood work and everything came back normal diagnosed pateint with vertigo but still concerned Patient Tobacco Use Status: Never used Tobacco Allergies magnesium [MAGNESIUM] Allergy (Severe, Verified 04/22/23 12:30) ANAPHYLAXIS pioglitazone [From ACTOS] Allergy (Severe, Verified 04/22/23 12:30) SWELLING, hives aspirin [Aspirin] Allergy (Mild, Verified 04/22/23 12:30) UNKNOWN, hives ibuprofen [Ibuprofen] Allergy (Mild, Verified 04/22/23 12:30) anaphylaxis,hives Iodinated Contrast Media [IV Dye, Iodine Containing] Allergy (Mild, Verified 04/22/23 12:30) hives Do you need a note to return to daycare/school/sports/work: No HPI EP Dizzy spells/ear pain HPI Details 48-year-old female presents to the office for a sick visit. Patient is reporting symptoms of dizziness. She had this last week and was seen in the emergency room. She had a full workup and sent home on meclizine. Continues to have dizziness intermittently PFSH Medical History Abnormal thyroid exam Cirrhosis Depression Diabetes mellitus type 2, controlled, with complications GERD (gastroesophageal reflux disease) Hyperlipidemia LDL goal <100 Hypothyroidism Migraines Type 2 diabetes mellitus with hyperglycemia Surgical History Hx of section Hx of cholecystectomy Hx of hysterectomy Hx of tubal ligation Family History Father No problems noted. 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 Current occupational exposures/hazards: No Cognitive needs: No Hearing needs: No Vision needs: Yes (Glasses) Physical Exam Vital Signs: Last Vital Signs Temp 97.9 F 04/22/23 12:29 Pulse 78 04/22/23 12:29 BP 124/74 04/22/23 12:29 Pulse Ox 99 04/22/23 12:29 BMI result Body Mass Index 28.2 Const General: cooperative and healthy appearing Nutritional Appearance: well nourished Orientation/consciousness: patient oriented x3 Limitations: no limitations HEENT Head: Yes normal to inspection Eyes General: appearance normal, both eyes and all related structures Neck Neck: Yes normal visual inspection Chest Chest palpation & inspection: normal palpation of entire chest wall Resp Effort & Inspection: normal respiratory effort Neuro General: patient oriented x3 Assessment & Plan Assessment & Plan (1) Dizziness: Code(s): R42 - Dizziness and giddiness Plan: Labs from the emergency room reviewed. Patient was reassured. Continue meclizine at same dosage. Coding Level of Care Code Est Pt Level 3 (58077) Diagnoses Dizziness R42
[2023-04-22 12:29] VITALS: BP 124/74; PULSE 78; TEMP 36.6; O2SAT 99; BMI 28.2
== END 2023-04-22 13:39 | disposition home or self-care (01) ==
PROVIDERS: PCP Family Medicine; Visit Provider Internal Medicine
DX: R42 Dizziness and giddiness (principal)
CPT/HCPCS: 99213

== ENCOUNTER 2023-04-28 11:30 | Outpatient (AMB) | payer OTHER, SELFPAY ==
[2023-04-28 11:42] VITALS: BP 122/70; PULSE 101; TEMP 36.2; O2SAT 98; BMI 28.2
--- NOTE | 2023-04-28 11:42 | MHC.OFFVIS ---
Intake Vital Signs 04/28/23 11:42 Height 5 ft 1 in Weight 149 lb 0.52 oz BMI 28.2 BP 122/70 Blood Pressure Location Rt brachial Position Sitting Pulse 101 H Pulse Source Pulse Oximeter Temp 97.2 F Temp Source Skin Pulse Oximetry (%) 98 Intake Visit Reasons: MING + Intake Note: Pt seen today for +MING. 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 Accompanied by: Self / Same As Patient Allergies magnesium [MAGNESIUM] Allergy (Severe, Verified 04/28/23 11:45) ANAPHYLAXIS pioglitazone [From ACTOS] Allergy (Severe, Verified 04/28/23 11:45) SWELLING, hives aspirin [Aspirin] Allergy (Mild, Verified 04/28/23 11:45) UNKNOWN, hives ibuprofen [Ibuprofen] Allergy (Mild, Verified 04/28/23 11:45) anaphylaxis,hives Iodinated Contrast Media [IV Dye, Iodine Containing] Allergy (Mild, Verified 04/28/23 11:45) hives Medication List - Last Reconciled 04/28/23 by Shana De La Rosa MD blood sugar diagnostic (FreeStyle Lite Strips) three times a day blood-glucose meter (FreeStyle Lite Meter kit) As directed 2x/day budesonide 32 mcg/actuation 1 spray intranasal DAILY 30 days canagliflozin (Invokana) 300 mg PO DAILY cetirizine (24Hour Allergy) 10 mg PO DAILY PRN cetirizine 10 mg PO DAILY PRN clotrimazole-betamethasone 1-0.05 % appl topical comp.stocking,knee,long,medium Compression stockings 20 mm Hg. Daily while awake. 90 days dulaglutide (Trulicity) 3 mg (0.5 mL) subcut QWEEK 28 days epinephrine 0.3 mg (0.3 mL) IM ONCE 30 days fexofenadine-pseudoephedrine 180-240 mg ER (Katie-D 24 Hour) 1 tab PO QPM flash glucose sensor (FreeStyle Butch 14 Day Sensor kit) As directed fluticasone propionate 50 mcg/actuation (Flonase Allergy Relief) 1 spray intranasal Q12H 30 days glipizide 5 mg PO BID lancets (TRUEplus Lancets) As directed 3 x/day levothyroxine 75 mcg PO DAILY meclizine 25 mg PO TID PRN metformin 850 mg PO BID 90 days HPI HPI Comments History of Present Illness Details Patient returns for follow-up after completion of her blood work. Continues to feel about the same. Ongoing pain in her hands, bilateral shoulder stiffness, worse on the right. Initial history: This is a 47-year-old female presents for evaluation of diffuse pain. Patient states that she has had diffuse pain everywhere for many years. She has pain in her shoulders, elbows, hands, feet. She has generalized morning stiffness lasting a few minutes. Stiffness of her hands also last a few minutes. She mentions that she has clumps of hair coming off as she brushes her hair. Sometimes she gets frothy urine early in the morning. She has rashes on her arms and back that she attributes to scratching. She has an older sister who is 58 years old who has lupus and a cousin who from lupus in her 40s. She was evaluated by a inpatient care manager rn Dr. Hyman in 2018 labs showed a positive MING with negative sub serologies. She states that her joint pain has become worse over the last year. There is no history of DVT/PE. No history of repeated miscarriages She states that she has been diagnosed with sciatica of for 1-2 years now and it has acted up affecting her right lower back, right buttock over the last week [facility] Medical History Abnormal thyroid exam Cirrhosis Migraines GERD (gastroesophageal reflux disease) Depression Hypothyroidism Hyperlipidemia LDL goal <100 Type 2 diabetes mellitus with hyperglycemia Diabetes mellitus type 2, controlled, with complications Surgical History Hx of hysterectomy Hx of tubal ligation Hx of section Hx of cholecystectomy Family History Father No problems noted. 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 Current occupational exposures/hazards: No Cognitive needs: No Hearing needs: No Vision needs: Yes (Glasses) Female Reproductive History Menstrual Total pregnancies: 2 Full term: 2 Review of Systems Musc Reports back pain, Reports arthralgias and Reports stiffness Physical Exam Vital Signs: Last Vital Signs Temp 97.2 F 04/28/23 11:42 Pulse 101 H 04/28/23 11:42 BP 122/70 04/28/23 11:42 Pulse Ox 98 04/28/23 11:42 BMI result Body Mass Index 28.2 Const General: cooperative and healthy appearing Nutritional Appearance: obese Orientation/consciousness: patient oriented x3 Limitations: no limitations HEENT Head: Yes normocephalic and Yes atraumatic Mouth: moist mucous membranes Resp Effort & Inspection: normal respiratory effort and able to speak in complete sentences Auscultation: clear to auscultation bilaterally GI Inspection: No distended Palpation (GI): Soft to palpation and nontender Neuro General: patient oriented x3 Extrem Other: Bilateral wrist tenderness and pain with flexion and extension. No swelling. Right hand tender PIPs & DIPs with no swelling right hand extensor tendon tenderness with no swelling Bilateral shoulder pain with full range of motion Bilateral knee pain at the medial joint line and knee pain with full flexion. No appreciable swelling Normal nailfold capillaroscopy Assessment & Plan Assessment & Plan (1) MING positive: Code(s): R76.8 - Other specified abnormal immunological findings in serum Plan: This is a 48-year-old female who presents for evaluation of diffuse joint pain for years. Labs show a positive MING with a positive TPO antibody, negative sub serologies, normal inflammatory markers. There are no features of SLE. Discussed risks and benefits of hydroxychloroquine. Will start a hydroxychloroquine trial for UCTD (arthralgias) Follow-up in 3 months (2) Long-term use of hydroxychloroquine: Code(s): Z79.899 - Other retirement (current) drug therapy Plan: Discussed risk of retinopathy with hydroxychloroquine. Referred patient to Ophthalmology Plan I spent 26 minutes reviewing patient's chart, evaluating patient, placing orders, counseling patient and documenting in the chart Orders: Referrals Ophthalmology Referral Z79.899 - Other retirement (current) drug therapy Medications: New hydroxychloroquine 300 mg (1.5 x 200 mg) PO DAILY 45 tabs 2RF Coding Level of Care Code Est Pt Level 4 (66794) Diagnoses MING positive R76.8 Long-term use of hydroxychloroquine Z79.899
== END 2023-04-28 12:06 | disposition home or self-care (01) ==
PROVIDERS: PCP Family Medicine; Visit Provider Student in an Organized Health Care Education/Training Program
DX: R76.8 Other specified abnormal immunological findings in serum (principal); Z79.899 Other long term (current) drug therapy
CPT/HCPCS: 99214

== ENCOUNTER → 2023-04-28 11:30 | Outpatient (BNVA) | payer OTHER, SELFPAY | PROVIDERS: PCP Family Medicine; Visit Provider Student in an Organized Health Care Education/Training Program | DX: R76.8 Other specified abnormal immunological findings in serum (principal); Z79.899 Other long term (current) drug therapy | CPT/HCPCS: 99212 ==

== ENCOUNTER 2023-05-18 08:24 | Outpatient (AMB) | payer OTHER, SELFPAY ==
--- NOTE | 2023-05-18 08:27 | MHC.PC.OV ---
Vital Signs 05/18/23 08:28 Height 5 ft 1 in Weight 150 lb BMI 28.3 BP 114/58 L Blood Pressure Location Lt brachial Position Sitting Respiration 14 Pulse 89 Pulse Source Pulse Oximeter Temp 98.8 F Temp Source Oral Pulse Oximetry (%) 98 Oxygen Delivery Method Room Air Intake Visit Reasons: f/u diabetes Intake Note: Patient is here today for a diabetic follow up. Patient reports she has not received her freestyle rachel 3 device. Patient reports she is trying to lose weight and wonders if there is a medication she can take to assist her in losing weight. Patient is requesting a letter for employment that she cannot stand for long periods of time and she cannot walk long distances. Pricing Coordinator Required: No Accompanied by: Self / Same As Patient Allergies magnesium [MAGNESIUM] Allergy (Severe, Verified 05/18/23 08:37) ANAPHYLAXIS pioglitazone [From ACTOS] Allergy (Severe, Verified 05/18/23 08:37) SWELLING, hives aspirin [Aspirin] Allergy (Mild, Verified 05/18/23 08:37) UNKNOWN, hives ibuprofen [Ibuprofen] Allergy (Mild, Verified 05/18/23 08:37) anaphylaxis,hives Iodinated Contrast Media [IV Dye, Iodine Containing] Allergy (Mild, Verified 05/18/23 08:37) hives Tobacco use date assessed: 02/14/23 Dental Screening Dental Screen Date: 05/18/23 Did you have a dental visit in the last 12 months?: Yes Did you have a dental problem in the last 6 months where you did not have access to dental care?: No Was dental information given to patient?: Patient has dentist HPI f/u diabetes HPI Details 48 y/o female presents to /u diabetes. Last A1c 02/14/23 6.4%. A1c today 05/18/23 is 5.9%. She is on Trulicity 3mg, metformin 850mg b.i.d. and glipizide 5mg b.i.d. Pt reports last eye exam was in September and was fine. She reports she has been worried about her weight. BMI today 28.3. [facility] Medical History Abnormal thyroid exam Cirrhosis Migraines GERD (gastroesophageal reflux disease) Depression Hypothyroidism Hyperlipidemia LDL goal <100 Type 2 diabetes mellitus with hyperglycemia Diabetes mellitus type 2, controlled, with complications Surgical History Hx of hysterectomy Hx of tubal ligation Hx of section Hx of cholecystectomy Family History Father No problems noted. 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 Yovani Lee, Eliana Decker, Mikal Brownlee and colleagues, with an educational bess from [employer]. Physical exam (Primary Care) Vital Signs: Last Vital Signs Temp 98.8 F 05/18/23 08:28 Pulse 89 05/18/23 08:28 Resp 14 05/18/23 08:28 BP 114/58 L 05/18/23 08:28 Pulse Ox 98 05/18/23 08:28 Oxygen Delivery Method Room Air 05/18/23 08:28 BMI result Body Mass Index 28.3 Tobacco/Smoking Status: Tobacco use Status Tobacco use date assessed 02/14/23 05/18/23 08:32 Patient Tobacco Use Status Never used Tobacco 05/18/23 08:32 e-Cigarette/Vaping Use Never Used 05/18/23 08:32 Thrive Assessment: Date of Thrive Assessment Date Thrive assessed 02/15/22 05/18/23 08:32 Results AMB Hemoglobin A1c AMB Hemoglobin A1c 5.9 % Last Edit by Carmen Gomez on 05/18/23 08:53 Results Reviewed Results Reviewed: Laboratory Last Values Hgb A1c (Clinic) 5.9 % (4.0-6.0) 05/18/23 08:53 Assessment and Plan Assessment & Plan (1) Diabetes: Code(s): E11.9 - Type 2 diabetes mellitus without complications Plan: A1c 5.9% today. Good control. Goal is less than 7.0%. She was asking about medications to help her with weight loss. We discussed that she is already on Trulicity which should help with weight loss and may be helping already as she has lost some weight. She feels frustrated that she has not lost more. Encouraged her to continue current medication regimen but also work on a diet lower in sugars and starches. I also advised exercise and that she work on weight loss as best she can. If she can get her A1c at or below 5.5%, will discuss discontinuing glipizide. We could then increase Trulicity further which will help with blood sugar control and may also help with additional weight loss. Has neuropathy and I will write her a letter regarding this as she is on on pull to stand or walk for long periods of time without changing situation. Up-to-date with eye exam (2) Overweight: Code(s): E66.3 - Overweight Plan: Patient is overweight. She has been on Trulicity and she has that last at least 5 lb since the beginning of the year though she had gained some in between and more recently has lost as much as 8 lb. Plan as above. Can also consider referring her back to weight management. Coding Level of Care Code Est Pt Level 3 (39244) Diagnoses Diabetes E11.9 Overweight E66.3
[2023-05-18 08:28] VITALS: BP 114/58; PULSE 89; RESP 14; TEMP 37.1; O2SAT 98; BMI 28.3
== END 2023-05-18 09:12 | disposition home or self-care (01) ==
PROVIDERS: PCP Family Medicine; Visit Provider Family Medicine
DX: E11.9 Type 2 diabetes mellitus without complications (principal); E66.3 Overweight
CPT/HCPCS: 99213

== ENCOUNTER 2023-10-06 08:26 | Outpatient (REF) | payer OTHER, SELFPAY ==
--- NOTE | ~2023-10-06 | US_ITS ---
EXAMINATION: US COMPLETE ABDOMEN WITH LIVER ELASTOGRAPHY CLINICAL INFORMATION: Hepatic fibrosis, fatty liver. COMPARISON: None available. TECHNIQUE: Real-time imaging of the abdominal viscera. Noninvasive ultrasound liver fibrosis assessment is performed using [place] ElastPQ point quantification shear wave elastography (2D-SWE) with a C5-2 MHz transducer. Multiple elastography samples are obtained. FINDINGS: PANCREAS: Normal. The visualized pancreatic head and body are normal in appearance. The remainder of the pancreas is obscured from visualization by the overlying bowel gas. ABDOMINAL AORTA: The proximal, middle, and distal aortic segments are normal in caliber. INFERIOR VENA CAVA: Visualized portions are normal. LIVER: There is a small echogenic lesion in the right hepatic lobe measuring 2.3 x 1.2 x 1.6 cm. On previous ultrasound measured 1.9 x 1.0 x 2.2 cm. The largest lesion in the central right hepatic lobe is not visualized on the present exam. The liver demonstrates normal size, contour and echogenicity. No focal lesion or intrahepatic biliary duct dilatation. The right lobe measures 17.5 cm in length. The left lobe measures 8.4 cm in length. Portal flow is hepatopedal. Shear wave liver elastography median stiffness is 1.21 m/s (reference: normal median stiffness is 1.3 m/s or less). IQR/median stiffness to assess sampling precision is 0.09 (reference: good quality data set is IQR/median stiffness of 0.15 or less). GALLBLADDER: The gallbladder has been surgically removed. COMMON BILE DUCT: Normal in caliber measuring 0.4 cm in diameter. RIGHT KIDNEY: Normal. No hydronephrosis. No renal calculi or focal parenchymal lesions. The kidney measures 12.1 cm in maximum dimension. There is minimal fluid around the right lower pole kidney. LEFT KIDNEY: Normal. No hydronephrosis. No renal calculi or focal parenchymal lesions. The kidney measures 11.1 cm in maximum dimension. SPLEEN: Normal. The spleen measures 9.0 cm in maximum dimension. FREE FLUID: None. US/US abdomen comp w elastography IMPRESSION: 1. Small echogenic lesion right hepatic lobe similar to previous study. Second echogenic lesion seen on the last ultrasound exam is not visualized at this time. Probably represents small hemangioma. Correlation with MRI can be obtained 2. Liver elastography: Median liver stiffness measures 1.21 m/s corresponding to high probability normal. REFERENCE: Society of Radiologists in Ultrasound Liver Stiffness Thresholds (2020): LIVER STIFFNESS THRESHOLDS: *Liver Stiffness equal or less than 1.3 m/s: High probability of being normal. *Liver Stiffness less than 1.7 m/s: In the absence of other known clinical signs, rules out compensated advanced chronic liver disease. *Liver Stiffness 1.7-2.1 m/s: Suggestive of compensated advanced chronic liver disease but need further test for confirmation. *Liver Stiffness over 2.1 m/s: Rules in compensated advanced chronic liver disease. *Liver Stiffness over 2.4 m/s: Suggestive of clinically significant portal hypertension. QUALITY OF DATA SET: *IQR/Median value equal or less than 0.15 implies a quality data set. *IQR/Median value over 0.15 implies a poor quality data set. SIGNIFICANT CHANGE FROM PRIOR EXAM: Significant change if liver stiffness measurement is 10% or greater from prior exam. OTHER CONSIDERATIONS: The stage of liver fibrosis may be overestimated in the setting of acute hepatitis, liver inflammation, elevated liver function tests, hepatic vascular congestion, obstructive cholestasis, non-fasting state, and infiltrative diseases such as amyloidosis and lymphoma. In some patients with NAFLD, the liver stiffness thresholds for compensated advanced chronic liver disease may be lower. In causes other than viral hepatitis and NAFLD, liver stiffness thresholds are not well established.
== END 2023-10-06 08:27 | disposition home or self-care (01) ==
LOC: HO.US 08:26
PROVIDERS: PCP Family Medicine; Visit Provider Internal Medicine
DX: K76.0 Fatty (change of) liver, not elsewhere classified (principal); K74.00 Hepatic fibrosis, unspecified
CPT/HCPCS: 76700; 76981

== ENCOUNTER 2023-10-13 08:26 | Outpatient (AMB) | payer OTHER, SELFPAY ==
[2023-10-13 09:01] VITALS: BP 136/70; PULSE 96; TEMP 36.6; O2SAT 98; BMI 29.9
--- NOTE | 2023-10-13 09:01 | AM.OFFWIN_ITS ---
Intake Vital Signs 10/13/23 09:01 Height 5 ft 1 in Weight 158 lb BMI 29.9 BP 136/70 Blood Pressure Location Lt brachial Position Sitting Pulse 96 Pulse Source Pulse Oximeter Temp 97.8 F Temp Source Temporal Artery Scan Pulse Oximetry (%) 98 Oxygen Delivery Method Room Air Intake Visit Reasons: EP LFT ear pain sinus pain Intake Note: pt is here today for lft ear sinus pain started 2 weeks ago Patient Tobacco Use Status: Never used Tobacco Allergies magnesium [MAGNESIUM] Allergy (Severe, Verified 10/13/23 09:01) ANAPHYLAXIS pioglitazone [From ACTOS] Allergy (Severe, Verified 10/13/23 09:01) SWELLING, hives aspirin [Aspirin] Allergy (Mild, Verified 10/13/23 09:01) UNKNOWN, hives ibuprofen [Ibuprofen] Allergy (Mild, Verified 10/13/23 09:01) anaphylaxis,hives Iodinated Contrast Media [IV Dye, Iodine Containing] Allergy (Mild, Verified 10/13/23 09:01) hives Do you need a note to return to daycare/school/sports/work: No HPI HPI Comments History of Present Illness Details 48 y/o female patient who presents to [facility] in clinic with c/o left ear and sinus pressure for 2 weeks. Denies fevers, chills, nausea or vomiting. Denies any recent sick contacts. H/o Seasonal allergies, and currently on Cetirizine and Flonase. Reports that Cetirizine not working. [facility] Medical History Abnormal thyroid exam Cirrhosis Migraines GERD (gastroesophageal reflux disease) Depression Hypothyroidism Hyperlipidemia LDL goal <100 Type 2 diabetes mellitus with hyperglycemia Diabetes mellitus type 2, controlled, with complications Surgical History Hx of hysterectomy Hx of tubal ligation Hx of section Hx of cholecystectomy Family History Father No problems noted. 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 Current occupational exposures/hazards: No Cognitive needs: No Hearing needs: No Vision needs: Yes (Glasses) Review of Systems Const All systems reviewed & are unremarkable except as noted in HPI and below Physical Exam Vital Signs: Last Vital Signs Temp 97.8 F 10/13/23 09:01 Pulse 96 10/13/23 09:01 BP 136/70 10/13/23 09:01 Pulse Ox 98 10/13/23 09:01 Oxygen Delivery Method Room Air 10/13/23 09:01 BMI result Body Mass Index 29.9 Const General: comfortable and no acute distress HEENT Head: Yes normocephalic Ears: external ears normal and TM's normal bilaterally General nose exam: Normal nasal mucous membranes and turbinates present Face and sinus: Yes sinuses nontender Mouth: moist mucous membranes Throat: Yes posterior oropharynx normal Resp Effort & Inspection: normal respiratory effort and able to speak in complete sentences Auscultation: clear to auscultation bilaterally Cardio Rate: regular rate Rhythm: regular rhythm Assessment & Plan Assessment & Plan (1) Allergic rhinitis: Code(s): J30.9 - Allergic rhinitis, unspecified Qualifiers: Allergic rhinitis seasonality: seasonal Allergic rhinitis trigger: unspecified Qualified Code(s): J30.2 - Other seasonal allergic rhinitis Plan: - Seasonal rhinitis vs viral infection. Medications: New loratadine-pseudoephedrine 5-120 mg ER (Allergy Relief-D (loratadine)) 1 tab PO DAILY PRN 30 tabs 0RF nasal congestion J30.2 - Other seasonal allergic rhinitis Discontinued cetirizine Discontinued Reason: Patient Completed Course 10 mg PO DAILY PRN 30 tabs 0RF allergy symptoms Coding Level of Care Code Est Pt Level 3 (77044) Diagnoses Seasonal allergic rhinitis, unspecified trigger J30.2 Allergic rhinitis seasonality: seasonal Allergic rhinitis trigger: unspecified Time Spent (min) 15
== END 2023-10-13 10:06 | disposition home or self-care (01) ==
PROVIDERS: PCP Family Medicine; Visit Provider Nurse Practitioner Family
DX: J30.2 Other seasonal allergic rhinitis (principal)
CPT/HCPCS: 99213

== ENCOUNTER 2023-10-21 07:05 | Outpatient (REF) | payer OTHER, SELFPAY ==
[2023-10-21 07:16] LABS: MANUAL DIFF FLAG NO
[2023-10-21 08:11] LABS: Basophils Absolute Auto 0.1 X10*3/uL (0.0-0.2); Basophils Percent Auto 0.6 % (0-2); Eosinophils Absolute Auto 0.1 X10*3/uL (0.0-0.4); Eosinophils Percent Auto 0.9 % (0-4); Hematocrit 41.6 % (37.0-47.0); Imm Gran Abs Auto 0.04 X10*3/uL (0.00-0.03); Imm Gran Pct Auto 0.4 % (0.0-0.4); Lymphocytes Absolute Auto 2.2 X10*3/uL (1.2-4.9); Lymphocytes Percent Auto 24.2 % (20-40); Mean Corpuscular HGB Conc 33.7 g/dl (31.0-35.0); Mean Corpuscular Hemoglobin 31.3 pg (27.0-33.0); Mean Corpuscular Volume 92.9 fL (80.0-98.0); Mean Platelet Volume 9.7 fL (9.4-12.3); Monocytes Absolute Auto 0.5 X10*3/uL (0.1-1.2); Monocytes Percent Auto 5.7 % (2-11); Neutrophils Absolute Auto 6.1 x10*3/uL (2.0-8.3); Neutrophils Percent Auto 68.2 % (45-73); Platelet Count 333 X10*3/uL (160-400); Red Blood Count 4.48 X10*6/uL (4.20-5.50); Red Cell Distribution Width 12.7 % (11.0-16.0); White Blood Count 8.9 X10*3/uL (4.8-10.8)
[2023-10-21 08:23] LABS: Appearance Urine Turbid; Color Urine Yellow; Glucose Urine UA >=1000 mg/dL (Negative); Leukocyte Esterase Urine Negative (Negative); Nitrite Urine Negative (Negative); PH 5.5 (5.0-9.0); Specific Gravity - Urine >= 1.030 (1.005-1.025); UMIC TRIGGER UA YES; Urine Blood Negative (Negative); Urine Ketones Negative (Negative); Urine Protein Negative (Neg-Trace)
[2023-10-21 08:40] LABS: Creatinine Urine 73.08 mg/dL; Microalbum/Creatinine Ratio Ur 9.5 ug/mg cr (<30)
[2023-10-21 08:48] LABS: Bacteria Urine 3+ (None Seen); Hyaline Casts Urine 0-2 /LPF (0-2); RBC Urine 0-2 /HPF (0-2); WBC Urine 0-5 /HPF (0-5)
[2023-10-21 08:48] LABS: Alanine Aminotransferase 17 U/L (0-31); Alkaline Phosphatase 87 U/L (39-117); Anion Gap 12 (12-20); Aspartate Amino Transferase 18 U/L (5-31); Bilirubin Total 0.4 mg/dL (0.0-1.0); Blood Urea Nitrogen 12 mg/dL (9-16); Calcium 9.5 mg/dL (8.4-10.2); Carbon Dioxide 27 mmol/L (22-29); Chloride 107 mmol/L (96-108); Cholesterol 202 mg/dL (<200); Estimated Glomerular Filt Rate > 60; Glucose Fasting 113 mg/dL (60-99); HDL Cholesterol 50 mg/dL (>40); LDL Cholesterol Calculated 113 mg/dL (<100); Potassium 3.4 mmol/L (3.3-5.1); Sodium 143 mmol/L (135-145); Total Protein 7.6 g/dL (6.5-8.0); Triglycerides 195 mg/dL (<150)
[2023-10-21 09:13] LABS: Thyroid Stimulating Hormone 1.58 uIU/mL (0.32-4.0)
[2023-10-22 09:57] LABS: Triiodothyronine T3 Total 83 ng/dL (76-181)
== END 2023-10-21 07:06 | disposition home or self-care (01) ==
LOC: HO.LAB 07:05
PROVIDERS: PCP Family Medicine; Visit Provider Family Medicine
DX: Z00.00 Encounter for general adult medical examination without abnormal findings (principal); E03.9 Hypothyroidism, unspecified; I10 Essential (primary) hypertension
CPT/HCPCS: 36415; 80053; 80061; 81001; 82043; 82570; 84439; 84443; 84480; 85025

== ENCOUNTER 2023-10-25 09:18 | Outpatient (REF) | payer OTHER, SELFPAY ==
[2023-10-25 09:40] LABS: MANUAL DIFF FLAG NO
[2023-10-25 10:04] LABS: Basophils Absolute Auto 0.1 X10*3/uL (0.0-0.2); Basophils Percent Auto 0.8 % (0-2); Eosinophils Absolute Auto 0.1 X10*3/uL (0.0-0.4); Eosinophils Percent Auto 1.1 % (0-4); Hematocrit 40.8 % (37.0-47.0); Hemoglobin 13.7 g/dl (12.0-16.0); Imm Gran Abs Auto 0.06 X10*3/uL (0.00-0.03); Imm Gran Pct Auto 0.7 % (0.0-0.4); Lymphocytes Absolute Auto 2.2 X10*3/uL (1.2-4.9); Lymphocytes Percent Auto 26.1 % (20-40); Mean Corpuscular HGB Conc 33.6 g/dl (31.0-35.0); Mean Corpuscular Hemoglobin 31.1 pg (27.0-33.0); Mean Corpuscular Volume 92.5 fL (80.0-98.0); Mean Platelet Volume 9.4 fL (9.4-12.3); Monocytes Absolute Auto 0.6 X10*3/uL (0.1-1.2); Monocytes Percent Auto 6.6 % (2-11); Neutrophils Absolute Auto 5.5 x10*3/uL (2.0-8.3); Neutrophils Percent Auto 64.7 % (45-73); Platelet Count 343 X10*3/uL (160-400); Red Blood Count 4.41 X10*6/uL (4.20-5.50); Red Cell Distribution Width 12.8 % (11.0-16.0); White Blood Count 8.5 X10*3/uL (4.8-10.8)
[2023-10-25 10:13] LABS: INTERNATIONAL NORM RATIO 0.9 (0.9-1.1); Prothrombin Time 10.5 SEC (11.1-13.3)
[2023-10-25 10:37] LABS: Alanine Aminotransferase 19 U/L (0-31); Albumin Level 4.1 g/dL (3.5-5.0); Alkaline Phosphatase 80 U/L (39-117); Aspartate Amino Transferase 19 U/L (5-31); Bilirubin Direct 0.2 mg/dL (0.0-0.5); Bilirubin Total 0.3 mg/dL (0.0-1.0); Total Protein 7.6 g/dL (6.5-8.0)
[2023-10-26 11:59] LABS: Alpha Fetoprotein 1.6 ng/mL
[2023-11-04 14:04] LABS: FIB-ALT 18 U/L (6-29); FIB-Alpha-2-Macroglobulin 178 mg/dL (106-279); FIB-Apolipoprotein A1 203 mg/dL (101-198); FIB-GGT 16 U/L (3-55); FIB-Haptoglobin 171 mg/dL (43-212); FIB-Total Bilirubin 0.4 mg/dL (0.2-1.2); Liver Fibrosis Score 0.04; Liver Fibrosis Stage F0; Nec Inflam Act Grade A0; Nec Inflam Act Score 0.05
== END 2023-10-25 09:19 | disposition home or self-care (01) ==
LOC: HO.LAB 09:18
PROVIDERS: PCP Family Medicine; Visit Provider Internal Medicine
DX: K76.0 Fatty (change of) liver, not elsewhere classified (principal); K74.00 Hepatic fibrosis, unspecified
CPT/HCPCS: 36415; 80076; 81596; 82105; 85025; 85610

== ENCOUNTER 2023-10-28 08:12 | Outpatient (AMB) | payer OTHER, SELFPAY ==
[2023-10-28 08:18] VITALS: BP 124/76; PULSE 98; RESP 13; TEMP 36.4; O2SAT 99; BMI 29.6
--- NOTE | 2023-10-28 08:18 | A.OFFPC_ITS ---
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 Required: No Accompanied by: Self / Same As Patient Allergies magnesium [MAGNESIUM] Allergy (Severe, Verified 10/28/23 08:30) ANAPHYLAXIS pioglitazone [From ACTOS] Allergy (Severe, Verified 10/28/23 08:30) SWELLING, hives aspirin [Aspirin] Allergy (Mild, Verified 10/28/23 08:30) UNKNOWN, hives ibuprofen [Ibuprofen] Allergy (Mild, Verified 10/28/23 08:30) anaphylaxis,hives Iodinated Contrast Media [IV Dye, Iodine Containing] Allergy (Mild, Verified 10/28/23 08:30) hives Medication List - Last Reconciled 10/28/23 by Shana Brown CNP blood sugar diagnostic (FreeStyle Lite Strips) three times a day blood-glucose meter (FreeStyle Lite Meter kit) As directed 2x/day budesonide 32 mcg/actuation 1 spray intranasal DAILY 30 days canagliflozin (Invokana) 300 mg PO DAILY clotrimazole-betamethasone 1-0.05 % appl topical comp.stocking,knee,long,medium Compression stockings 20 mm Hg. Daily while awake. 90 days dulaglutide (Trulicity) 3 mg (0.5 mL) subcut QWEEK 28 days epinephrine 0.3 mg (0.3 mL) IM ONCE 30 days flash glucose sensor (FreeStyle Butch 14 Day Sensor kit) As directed fluticasone propionate 50 mcg/actuation (Flonase Allergy Relief) 1 spray intranasal Q12H 30 days glipizide 5 mg PO BID lancets (FreeStyle Lancets) As directed levothyroxine 75 mcg PO DAILY loratadine-pseudoephedrine 5-120 mg ER (Allergy Relief-D (loratadine)) 1 tab PO DAILY PRN metformin 850 mg PO BID 90 days Tobacco use date assessed: 10/28/23 Dental Screening Dental Screen Date: 10/28/23 Did you have a dental visit in the last 12 months?: Yes Did you have a dental problem in the last 6 months where you did not have access to dental care?: No Was dental information given to patient?: Patient has dentist HPI HPI Comments History of Present Illness Details 48-year-old female presents for an exten ded physical exam She is a patient of Dr. Larsen. Her last office visit was on 05/18/2023. Her A1c was 5.9% She is history of type 2 diabetes, cirrhosis, migraines, GERD, hypothyroidism, hyperlipidemia, depression She admits to taking her medications as prescribed without adverse reactions She reports dry cough for the past 3 days. No associated symptoms. She denies sick contacts. She reports h/o allergies. She notes that she was followed by an aix system administrator until 3-4 years ago; she requests a referral to an [employer]ix system administrator. She notes that she currently does not take an antihistamine because Claritin and Zertec are not effective. She also reports anxiety and depression which she attributes to been worried and depressed above her boyfriend who is stuck in his truck in the [place] in [place]. 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 She has not been exercising Last mammogram was 01/24/2023: Normal She notes that her last Pap smear test was last year; normal She states that she has never had colonoscopy done She states that she is up-to-date on the flu vaccine [facility] Medical History Abnormal thyroid exam Cirrhosis Migraines GERD (gastroesophageal reflux disease) Depression Hypothyroidism Hyperlipidemia LDL goal <100 Type 2 diabetes mellitus with hyperglycemia Diabetes mellitus type 2, controlled, with complications Surgical History Hx of hysterectomy Hx of tubal ligation Hx of section Hx of cholecystectomy Family History Father No problems noted. 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 1. Little interest or pleasure in doing things: nearly every day 2. Feeling down, depressed, or hopeless: nearly every day 3. Trouble falling or staying asleep, or sleeping too much: nearly every day 4. Feeling tired or having little energy: nearly every day 5. Poor appetite or overeating: several days 6. Feeling bad about yourself - or that you are a failure or have let yourself or your family down: several days 7. Trouble concentrating on things, such as reading the newspaper or watching television: not at all 8. Moving or speaking so slowly that other people could have noticed. Or the opposite - being so fidgety or restless that you have been moving around a lot more than usual: not at all 9. Thoughts that you would be better off or of hurting yourself in some way: not at all Total score: 14 Depression Screening Interpretation: Positive Depression Screening Follow-up: Existing condition and Declines treatment Depression Screening Done: Yes [id number] - PHQ-9 Billing: Yes Source: Developed by Drs. Yovani Lee, Eliana Decker, Mikal Brownlee and colleagues, with an educational bess from [employer]. Thrive Questionnaire Date Thrive assessed: 10/28/23 I am a: Patient What is your living situation today?: I have a steady place to live Within the past 12 months, did the food you bought not last and you didn't have the money to get more?: Never true Within the past 12 months, did you worry whether your food would run out before you got money to buy more?: Never true Do you have trouble paying for medicines?: No Do you have trouble getting transportation to medical appointments?: No Do you have trouble paying your heating and electricity bill?: No Do you have trouble taking care of your child, family member or friend?: No Do you have trouble with day-to-day activities such as bathing, preparing meals, shopping, managing finances, etc.?: No Are you currently unemployed and looking for a job?: Yes Are you interested in more education?: Yes Please select the resources that you would like help with: Job search/training and Education Currently or been in a relationship where the following occur: no concerns reported THRIVE Score: 0 AUDIT C Alcohol Use Questionnaire (AUDIT-C) 1. How often do you have a drink containing alcohol?: Never 3. How often do you have six or more drinks on one occasion?: Never Total Score: 0 AKASH-7 AMB Questionnaire AKASH-7 Date AKASH - 7 assessed: 10/28/23 Feeling nervous, anxious, or on edge: 3 = Nearly every day Not being able to stop or control worryin = Nearly every day Worrying too much about different things: 3 = Nearly every day Trouble relaxin = More than half the days Being so restless that it is hard to sit still: 1 = Several days Becoming easily annoyed or irritable: 0 = Not at all Feeling afraid as if something awful might happen: 3 = Nearly every day Total AKASH-7 score (0-4 normal; 5-9 mild; 10-14 moderate; 15-21 severe): 15 Source: Developed by Drs. Yovani Lee, Eliana Decker, Mikal Brownlee and colleagues, with an educational bess from [employer]. AKASH-7 Assessment Billing AKASH-7 Assessment Tool: AKASH-7 Assessment [id number] Review of Systems Const Details: Denies chills, Denies fatigue, Denies fever(s), Denies headache(s) and Denies weakness HEENT Denies change in vision, Denies dizziness, Denies headache(s), Denies hearing loss, Denies nasal congestion, Denies sinus pain, Denies sinus pressure and Denies sore throat Card Denies chest pain, Denies lightheadedness, Denies dyspnea and Denies other (palpitations) Resp Denies cough, Denies dyspnea and Denies wheezing GI Denies abdominal pain, Denies melena, Denies hematochezia, Denies change in bowel habits, Denies dyspepsia and Denies nausea Denies hematuria and Denies dysuria Musc Denies abnormal gait, Denies myalgias, Denies arthralgias, Denies numbness and Denies tingling Skin/Breast Denies rash, Denies unusual bruising and Denies wounds Neuro Denies abnormal gait, Denies dizziness, Denies headache(s), Denies memory loss, Denies numbness, Denies Sensory deficit (Neuro), Denies tingling and Denies weakness Psych Reports anxiety, Reports depression and Denies memory loss Endo Denies cold intolerance, Denies fatigue, Denies heat intolerance, Denies polydipsia and Denies polyuria Julio Cesar/Lymph Denies easy bleeding and Denies easy bruising Aller/Immun Denies wheezing Physical exam (Primary Care) Vital Signs: Last Vital Signs Temp 97.5 F 10/28/23 08:18 Pulse 98 10/28/23 08:18 Resp 13 10/28/23 08:18 BP 124/76 10/28/23 08:18 Pulse Ox 99 10/28/23 08:18 Oxygen Delivery Method Room Air 10/28/23 08:18 BMI result Body Mass Index 29.6 Tobacco/Smoking Status: Tobacco use Status Tobacco use date assessed 10/28/23 10/28/23 08:31 Patient Tobacco Use Status Never used Tobacco 10/28/23 08:31 e-Cigarette/Vaping Use Never Used 10/28/23 08:31 PHQ-9: PHQ-9 Score PHQ-9: Total score 14 10/28/23 08:31 Depression Screening Interpretation: Positive Depression Screening Follow-up: Existing condition and Declines treatment Thrive Assessment: Date of Thrive Assessment Date Thrive assessed 10/28/23 10/28/23 08:31 Currently or been in a relationship where the following occur: no concerns reported Const Other: General: no acute distress, well developed, alert and awake Nutritional Appearance: well nourished Orientation/consciousness: patient oriented x3 HENMT Head: Yes normocephalic and Yes atraumatic Ears: hearing grossly normal bilaterally and TM's normal bilaterally General nose exam: Normal external nose present and Normal nares present Mouth: Normal oral and palatal mucosa present and moist mucous membranes Teeth and gingiva: dentition normal Throat: Yes oropharynx normal Eyes Pupils: Equal, round and reactive pupils present and Pupil accommodation reflex normal EOM: EOMs intact bilaterally Neck Neck: Yes normal visual inspection, Yes no lymphadenopathy and Yes trachea midline Thyroid: Thyroid normal Carotids: no bruits Lymphatic: no lymphadenopathy noted Chest Chest palpation & inspection: normal inspection of the chest Resp Effort & Inspection: normal respiratory effort Auscultation: clear to auscultation bilaterally Cardio Rate: regular rate Rhythm: regular rhythm Heart sounds: S1 normal heart sound present, S2 normal heart sound present, no gallops, no murmurs and no rubs Bruits: no abdominal aortic bruits and no carotid bruits GI Palpation (GI): No Abdominal aortic bruit present, Soft to palpation, nontender, No hepatosplenomegaly present and No Rebound tenderness present Auscultation: normal bowel sounds General: Yes no CVA tenderness Back/Spine/Pelvis Back: no CVA tenderness Cervical Spine: cervical ROM normal and No Cervical spine tenderness Thoracic/Lumbar Spine: thoraco-lumbar ROM normal, No pain with thoraco-lumbar ROM, No thoracic spinal tenderness and No lumbar spinal tenderness Skin General: warm and dry. Normal skin color. Normal skin turgor Lesions: no lesions Rashes: no rashes Trauma: no lacerations or abrasions Wounds: no wounds Nails: normal Neuro General: patient oriented x3, gait normal and CN's II-XI intact bilaterally Cranial nerves: Yes Equal, round and reactive pupils present Cognition (Neuro): normal cognition Gait exam (Neuro): Normal gait present Motor exam (neuro): 5/5 motor strength present throughout Sensory Exam: No Sensory deficit (Neuro) Deep tendon reflexes (DTR's): Right patellar reflex intensity grade: 2+ and Left patellar reflex intensity grade: 2+ Extrem General: Yes normal to inspection, No edema and No calf tenderness Psych Appearance: grossly normal Affect: normal affect Attitude: cooperative Thought process: Normal thought process present Results AMB Hemoglobin A1c AMB Hemoglobin A1c 9.0 % Last Edit by Lyric Carreno MA on 10/28/23 09:03 Results Reviewed Results Reviewed: Laboratory Last Values Hgb A1c (Clinic) 9.0 % (4.0-6.0) H 10/28/23 09:01 Assessment and Plan Assessment & Plan (1) Normal physical examination, routine: Code(s): Z00.00 - Encounter for general adult medical examination without abnormal findings Plan: No significant physical restrictions or limitations noted Continue current treatment regimen Healthy lifestyle, including diet and exercise encouraged Follow-up with PCP in 6 weeks for hyperlipidemia and diabetes or return sooner with symptoms or concerns Verbalized understanding and agreed with treatment plan (2) Allergies: Code(s): T78.40XA - Allergy, unspecified, initial encounter Plan: Reports dry cough x3 days. No associated symptoms Likely allergies although possible viral illness Claritin and Zyrtec not effective Advised to trial Katie or Xyzal Nasal swab collected to check for COVID/flu/RSV Referred to Allergy and immunology Follow-up with worsening or new symptoms Verbalized understanding and agreed with treatment plan (3) Colon cancer screening: Code(s): Z12.11 - Encounter for screening for malignant neoplasm of colon Plan: She has never had a colonoscopy done Referred to [facility]ology for a colonoscopy (4) Type 2 diabetes mellitus with hyperglycemia: Code(s): E11.65 - Type 2 diabetes mellitus with hyperglycemia Qualifiers: Diabetes mellitus chcf insulin use: without chcf use Qualified Code(s): E11.65 - Type 2 diabetes mellitus with hyperglycemia Plan: A1c today is 9.0%, above goal of less than 7.0% Previous A1c was 5.9% Will increase Trulicity to 4.5 mg every week Continue to take metformin, glipizide, and Invokana as prescribed ADA diet and routine exercise encouraged Follow-up with PCP in 6 weeks Verbalized understanding and agreed with treatment plan (5) Hyperlipidemia LDL goal <100: Code(s): E78.5 - Hyperlipidemia, unspecified Plan: Recent labs reviewed with the patient Triglyceride, total cholesterol, and LDL levels are elevated, 195, 202, and 113 respectively. LDL goal is less than 70 Atorvastatin ordered. Take as prescribed Advised to limit foods high in saturated fat and avoid foods high in trans fat Routine exercise encouraged Advised to fast for 10-12 hours, may drink water only, and get blood work done before next visit Follow-up with PCP in 6 weeks Verbalized understanding and agreed with the treatment plan (6) Anxiety and depression: Code(s): F41.9 - Anxiety disorder, unspecified; F32.A - Depression, unspecified Plan: Reports anxiety and depression which he attributes to pain worried and depressed about her boyfriend who is truck is stuck in the snow in [place] Declines treatment at this time Routine exercise encouraged Follow-up with worsening or new symptoms Verbalized understanding and agreed with the plan Orders: Orders AMB Hemoglobin A1c Today E11.65 - Type 2 diabetes mellitus with hyperglycemia SARS-CoV2/FLU/RSV Today R09.89 - Other specified symptoms and signs involving the circulatory and respiratory systems Lipid Panel 6 Weeks E78.5 - Hyperlipidemia, unspecified Referrals Allergy & Immunology Referral T78.40XA - Allergy, unspecified, initial encounter Gastroenterology Referral Z12.11 - Encounter for screening for malignant neoplasm of colon Medications: New dulaglutide (Trulicity) 4.5 mg (0.5 mL) subcut QWEEK 28 days 2 mL 4RF atorvastatin 10 mg PO BEDTIME 30 days 30 tabs 3RF Discontinued loratadine-pseudoephedrine 5-120 mg ER (Allergy Relief-D (loratadine)) Discontinued Reason: Doctor's Order 1 tab PO DAILY PRN 30 tabs 0RF nasal congestion J30.2 - Other seasonal allergic rhinitis dulaglutide (Trulicity) Discontinued Reason: Doctor's Order 3 mg (0.5 mL) subcut QWEEK 28 days 2 mL 6RF Coding Level of Care Code Est Pt Level 4 (38923) Est Pt Prev Care 40-64y(77104) Diagnoses Normal physical examination, routine Z00.00 Allergies T78.40XA Colon cancer screening Z12.11 Type 2 diabetes mellitus with hyperglycemia, without long-term current use of insulin E11.65 Diabetes mellitus terminal block assembler insulin use: without terminal block assembler use Hyperlipidemia LDL goal <100 E78.5 Anxiety and depression F41.9; F32.A Additional Codes AKASH-7 Assessment Billing - AKASH-7 Assessment Tool: AKASH-7 Assessment 46039 ([id number])
== END 2023-10-28 09:10 | disposition home or self-care (01) ==
PROVIDERS: PCP Family Medicine; Visit Provider Nurse Practitioner Family
DX: Z00.00 Encounter for general adult medical examination without abnormal findings (principal); E11.65 Type 2 diabetes mellitus with hyperglycemia; E78.5 Hyperlipidemia, unspecified; F32.A Depression, unspecified; F41.9 Anxiety disorder, unspecified; T78.40XA Allergy, unspecified, initial encounter; Z12.11 Encounter for screening for malignant neoplasm of colon
CPT/HCPCS: 83036; 99214; 99396

== ENCOUNTER 2023-10-28 09:01 | Outpatient (REF) | payer OTHER, SELFPAY ==
[2023-10-28 12:06] LABS: Influenza A PCR NEGATIVE (Negative); Influenza B PCR NEGATIVE (Negative); Resp Syncy Virus RNA Qual PCR NEGATIVE (Negative); SARS COV2 PCR INHOUSE NEGATIVE (Negative)
== END 2023-10-28 09:02 | disposition home or self-care (01) ==
LOC: HO.LAB 09:01
PROVIDERS: Visit Provider Nurse Practitioner Family
DX: R09.89 Other specified symptoms and signs involving the circulatory and respiratory systems (principal)
CPT/HCPCS: 0241U

== ENCOUNTER 2023-12-05 07:26 | Outpatient (REF) | payer OTHER, SELFPAY ==
[2023-12-05 09:04] LABS: Cholesterol 172 mg/dL (<200); HDL Cholesterol 59 mg/dL (>40); LDL Cholesterol Calculated 95 mg/dL (<100); Triglycerides 91 mg/dL (<150)
== END 2023-12-05 07:27 | disposition home or self-care (01) ==
LOC: HO.LAB 07:26
PROVIDERS: PCP Family Medicine; Visit Provider Nurse Practitioner Family
DX: E78.5 Hyperlipidemia, unspecified (principal)
CPT/HCPCS: 36415; 80061

== ENCOUNTER 2023-12-08 01:29 | Emergency (ER) | payer OTHER, SELFPAY ==
--- NOTE | ~2023-12-08 | CT_ITS ---
EXAMINATION: CT ABDOMEN AND PELVIS WITHOUT CONTRAST CLINICAL INFORMATION: 48-year-old female with diarrhea and abdominal pain, elevated white blood cells COMPARISON: 03/14/2016 and 12/19/2018 and ultrasound from 10/06/2023 TECHNIQUE: Multidetector volumetric imaging was performed from the superior aspect of the liver through the pubic symphysis. Sagittal and coronal reformatted images were obtained on the technologist's workstation. This CT examination was performed using dose optimization techniques as appropriate, variously including the following: *Automated exposure control *Adjustment of mA and/or kV according to patient size (this includes techniques or standardized protocols for targeted exams where dose is matched to indication/reason for exam; i.e. extremities or head) *Use of iterative reconstruction technique DLP: 541 mGy-cm FINDINGS: LUNG BASES: The visualized lung bases are unremarkable. LIVER, GALLBLADDER, AND BILIARY TREE: Liver is of normal attenuation without intrahepatic ductal dilatation. There is stable hypodensity in the right lobe of the liver measured 1.7 cm most likely hemangioma Gallbladder is surgically absent. PANCREAS: Unremarkable. SPLEEN: Unremarkable. ADRENAL GLANDS: Left adrenal gland revealed 2.2 x 1.8 cm nodule in the lateral limb, growing since previous study when it was measured 1.6 x 1.3 cm, with attenuation of -3 HU. Small stable since previous examination nodule seen in the medial limb of right adrenal gland, measured approximately 0.6 x 0.6 cm with attenuation of -5 HU. KIDNEYS AND URETERS: There is perinephric stranding seen bilaterally without evidence of hydroureteronephrosis or nephrolithiasis BLADDER: Unremarkable. GASTROINTESTINAL TRACT: There is significant amount of fluid through the colon consistent with known history of diarrhea no evidence of wall thickening, diverticulitis or colitis. Scattered diverticula seen through the colon. Normal appendix visualized without evidence of appendicitis. Loops of small bowel are distended by fluid also. Mesentery unremarkable. ABDOMINAL WALL: No significant hernia is appreciated. LYMPH NODES: Normal. VASCULAR: Unremarkable. PELVIC VISCERA: Uterus is surgically absent OSSEOUS STRUCTURES: Unremarkable. CT/CT abdomen pelvis wo IV con IMPRESSION: 1. Fluid-filled loops of small and large bowel consistent with diarrhea. 2. Bilateral adrenal gland nodules, growing since previous study most likely adenomas due to low attenuation. 3. Status post cholecystectomy and hysterectomy. 4. Stable hemangioma in the right lobe of the liver. Fleischner guidelines were followed.
[2023-12-08 01:36] VITALS: BP 119/78; PULSE 111; RESP 20; TEMP 36.1; O2SAT 98; BMI 28.9
--- NOTE | 2023-12-08 02:32 | MHC.EDTECH ---
patient blood drawn and sent to lab ,patient not able to give urine sample at this time .
[2023-12-08 02:37] LABS: Basophils Absolute Auto 0.1 X10*3/uL (0.0-0.2); Basophils Percent Auto 0.3 % (0-2); Eosinophils Absolute Auto 0.1 X10*3/uL (0.0-0.4); Eosinophils Percent Auto 0.3 % (0-4); Hematocrit 47.4 % (37.0-47.0); Hemoglobin 15.7 g/dl (12.0-16.0); Imm Gran Abs Auto 0.17 X10*3/uL (0.00-0.03); Imm Gran Pct Auto 0.8 % (0.0-0.4); Lymphocytes Absolute Auto 1.7 X10*3/uL (1.2-4.9); Lymphocytes Percent Auto 8.4 % (20-40); MANUAL DIFF FLAG NO; Mean Corpuscular HGB Conc 33.1 g/dl (31.0-35.0); Mean Corpuscular Hemoglobin 31.2 pg (27.0-33.0); Mean Corpuscular Volume 94.2 fL (80.0-98.0); Mean Platelet Volume 9.4 fL (9.4-12.3); Monocytes Percent Auto 4.7 % (2-11); Neutrophils Absolute Auto 17.4 x10*3/uL (2.0-8.3); Neutrophils Percent Auto 85.5 % (45-73); Platelet Count 347 X10*3/uL (160-400); Red Blood Count 5.03 X10*6/uL (4.20-5.50); Red Cell Distribution Width 12.9 % (11.0-16.0); White Blood Count 20.3 X10*3/uL (4.8-10.8)
[2023-12-08 02:57] LABS: Alanine Aminotransferase 34 U/L (0-31); Albumin Level 4.4 g/dL (3.5-5.0); Alkaline Phosphatase 103 U/L (39-117); Anion Gap 17 (12-20); Aspartate Amino Transferase 26 U/L (5-31); Bilirubin Total 0.8 mg/dL (0.0-1.0); Blood Urea Nitrogen 20 mg/dL (9-16); Calcium 9.9 mg/dL (8.4-10.2); Carbon Dioxide 19 mmol/L (22-29); Chloride 108 mmol/L (96-108); Creatinine Clr Calc Pharmacy 84.1; Estimated Glomerular Filt Rate > 60; Glucose Random 169 mg/dL (60-115); Lipase 19 U/L (8-78); Sodium 140 mmol/L (135-145); Total Protein 8.8 g/dL (6.5-8.0)
[2023-12-08 07:08] VITALS: BP 141/77; PULSE 114; RESP 18; TEMP 37.1; O2SAT 98
--- NOTE | 2023-12-08 07:17 | ED.NAVMDI ---
HPI - Nausea/Vomiting/Diarrhea General Chief complaint: Abdominal Pain Stated complaint: vomitting abd pain Time Seen by Provider: 12/08/23 07:09 Source: patient and old records reviewed Mode of arrival: ambulatory Limitations: no limitations History of Present Illness HPI Narrative: 48 yo female with PMH of anxiety/depression, DM, RA on plaquenil, hypothyroidism, PAD, HLD, here with c/o abrupt onset abdominal cramps n/v/d starting yesterday. Noted chills but no fevers. No travel, sick contacts, antibiotic use. She thinks it was corn beef she ate yesterday. MD elicited complaint: nausea, vomiting, diarrhea and abdominal pain Onset (ago): day(s) (yesterday) Description of vomiting: watery Description of diarrhea: watery Associated nausea: Yes Associated abdominal pain: Yes Location of pain: diffuse Radiation: diffuse Pain consistency: intermittent Severity: mild Quality: cramping Exacerbating factors: eating Relieving factors: none Context: possible food poisoning Associated symptoms: fever/chills, headaches, loss of appetite, malaise and nausea/vomiting Related Data Home Medications ?Medication ?Instructions ?Recorded ?Confirmed clotrimazole-betamethasone 1 appl topical 01/25/23 10/28/23 %-0.05 % topical cream lancets 28 gauge (FreeStyle 10/06/23 10/28/23 Lancets) Previous Rx's ?Medication ?Instructions ?Recorded comp.stocking,knee,long,medium #12 ea 06/18/21 fluticasone propionate 50 1 spray intranasal Q12H 30 days 08/16/22 mcg/actuation nasal #16 grams spray,suspension (Flonase Allergy Relief) blood-glucose meter (FreeStyle #1 ea 01/04/23 Lite Meter kit) budesonide 32 mcg/actuation nasal 1 spray intranasal DAILY 30 days 01/09/23 spray #8.43 mL canagliflozin 300 mg tablet 300 mg PO DAILY #30 tabs 01/09/23 (Invokana) metformin 850 mg tablet 850 mg PO BID 90 days #180 tabs 01/09/23 flash glucose sensor (FreeStyle #2 ea 04/07/23 Butch 14 Day Sensor kit) epinephrine 0.3 mg/0.3 mL 0.3 mg (0.3 mL) IM ONCE 30 days #2 05/19/23 injection, auto-injector ea glipizide 5 mg tablet 5 mg PO BID #60 tabs 09/28/23 blood sugar diagnostic (FreeStyle #100 ea 09/29/23 Lite Strips) atorvastatin 10 mg tablet 10 mg PO BEDTIME 30 days #30 tabs 10/28/23 dulaglutide 4.5 mg/0.5 mL 4.5 mg (0.5 mL) subcut QWEEK 28 11/08/23 subcutaneous pen injector days #2 mL (Trulicity) levothyroxine 75 mcg tablet 75 mcg PO DAILY #30 tabs 11/09/23 ondansetron 4 mg disintegrating 4 mg PO Q8H PRN nausea and 12/08/23 tablet vomiting #20 tabs Allergies Allergy/AdvReac Type Severity Reaction Status Date / Time magnesium [MAGNESIUM] Allergy Severe ANAPHYLAXIS Verified 12/08/23 01:40 pioglitazone [From ACTOS] Allergy Severe SWELLING, Verified 12/08/23 01:40 hives aspirin [Aspirin] Allergy Mild UNKNOWN, Verified 12/08/23 01:40 hives ibuprofen [Ibuprofen] Allergy Mild anaphylaxis Verified 12/08/23 01:40 ,hives Iodinated Contrast Media Allergy Mild hives Verified 12/08/23 01:40 [IV Dye, Iodine Containing] Review of Systems Review of Systems: Constitutional : No Weight loss, No Fever, No Chills ENT/Mouth : No sore throat, No Rhinorrhea Eyes: No Swelling, No Redness Cardiovascular : No Chest Pain, No SOB, NoEdema Respiratory : No Cough, No Sputum, No Wheezing Gastrointestinal : Positive Nausea, Positive Vomiting, positive Diarrhea, positive abdominal Pain, No Hematochezia, No Melena Genitourinary : No Dysuria, No Urinary Frequency, No Hematuria, No Urgency Musculoskeletal : No joint pain, No Myalgias, No Joint Swelling Skin : No Skin Lesions, No rash Neuro : No Weakness, No Numbness, No Dizziness, No Headache Psych : No Anxiety/Panic, No Depression Heme/Lymph: No Bruising, No Lymphadenopathy Endocrine : No Polyuria, No Polydipsia All other systems reviewed and are negative. Gastrointestinal: Gastrointestinal: Reports nausea PMFSH Past Medical History Attestation statement: The following information was validated with the patient. Source: old records reviewed Medical History Abnormal thyroid exam Cirrhosis Migraines GERD (gastroesophageal reflux disease) Depression Hypothyroidism Hyperlipidemia LDL goal <100 Type 2 diabetes mellitus with hyperglycemia Diabetes mellitus type 2, controlled, with complications Surgical History Hx of hysterectomy Hx of tubal ligation Hx of section Hx of cholecystectomy Family History Family History Father No problems noted. 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 Oriented X3. No acute distress. Eyes: Pupils equal, round and reactive to light. ENT: Pharynx dry MM Neck: Normal inspection. Neck supple. CVS: Normal heart rate and rhythm. Pulses normal. Respiratory: No respiratory distress. Breath sounds normal. Abdomen: Soft and mild diffuse ttp no rebound or guarding Skin: Skin warm and dry. Normal skin color. Normal skin turgor. Extremities: No lower extremity edema. No calf ttp Neuro: Oriented X 3. No motor deficit. No sensory deficit. Medications Administered Discontinued Medications Generic Name Dose Route Start Last Admin Trade Name Freq PRN Reason Stop Dose Admin Sodium Chloride 1,000 mls @ 999 mls/hr 12/08/23 07:15 12/08/23 07:26 Ns IV 12/08/23 08:15 999 mls/hr .Q1H1M JESUS Administration Morphine Sulfate 4 mg 12/08/23 07:10 12/08/23 07:25 Morphine Sulfate 4 Mg/Ml Cartridge IVPUSH 12/08/23 07:11 4 mg ONCE ONE Administration Protocol Ondansetron HCl 4 mg 12/08/23 07:10 12/08/23 07:24 Ondansetron Hcl 4 Mg/2 Ml Vial IVPUSH 12/08/23 07:11 4 mg ONCE ONE Administration Medical Decision Making Medical Decision Making MDM Narrative: 48 yo female with PMH of anxiety/depression, DM, RA on plaquenil, hypothyroidism, PAD, HLD, here with c/o abrupt onset n/v/d and abdominal pain after eating food yesterday she appears dehydrated will obtain labs, IVF x 2L, CT scan given WBC 20k but WBBC count likely due to vomiting and not bacterial infection or severe sepsis. Tachycardia due to dehydration and not bacterial infection or severe sepsis. Differential Diagnosis Differential Diagnoses: The differential diagnosis associated with the presentation includes colitis, gastroenteritis, food toxicity, viral syndrome Admission/Observation Consideration of admission/observation: Escalation of care including admission/observation considered tolerating PO repeating CBC - CBC coming down feels much better repeat fluids - dehydrated Lab Data [facility] Lab Attestation statement: I reviewed the patient's lab results. 12/08/23 09:49 12/08/23 02:31 Labs: Lab Results 12/08/23 12/08/23 12/08/23 Range/Units 02:31 07:47 09:49 WBC 20.3 H 15.3 H (4.8-10.8) X10*3/uL RBC 5.03 4.58 (4.20-5.50) X10*6/uL Hgb 15.7 14.5 (12.0-16.0) g/dl Hct 47.4 H 43.2 (37.0-47.0) % MCV 94.2 94.3 (80.0-98.0) fL MCH 31.2 31.7 (27.0-33.0) pg MCHC 33.1 33.6 (31.0-35.0) g/dl RDW 12.9 13.1 (11.0-16.0) % Plt Count 347 358 (160-400) X10*3/uL MPV 9.4 9.5 (9.4-12.3) fL Immature Gran % (Auto) 0.8 H (0.0-0.4) % Neut % (Auto) 85.5 H (45-73) % Lymph % (Auto) 8.4 L (20-40) % [place] % (Auto) 4.7 (2-11) % Eos % (Auto) 0.3 (0-4) % Baso % (Auto) 0.3 (0-2) % Lymph # (Auto) 1.7 (1.2-4.9) X10*3/uL [place] # (Auto) 1.0 (0.1-1.2) X10*3/uL Eos # (Auto) 0.1 (0.0-0.4) X10*3/uL Baso # (Auto) 0.1 (0.0-0.2) X10*3/uL Abs Immat Gran (auto) 0.17 H (0.00-0.03) X10*3/uL Absolute Neuts (auto) 17.4 H (2.0-8.3) x10*3/uL Absolute Nucleated RBC 0.000 0.000 (0.0-0.012) X10*3/uL Nucleated RBC % (auto) 0.0 0.0 (0.0-0.2) /100WBC Sodium 140 (135-145) mmol/L Potassium 4.0 (3.3-5.1) mmol/L Chloride 108 (96-108) mmol/L Carbon Dioxide 19 L (22-29) mmol/L Anion Gap 17 (12-20) BUN 20 H (9-16) mg/dL Creatinine 0.75 (0.5-1.4) mg/dL Estim Creat Clear Calc 84.1 Estimated GFR > 60 Random Glucose 169 H (60-115) mg/dL Lactic Acid 1.1 (0.5-2.0) mmol/L Calcium 9.9 (8.4-10.2) mg/dL Total Bilirubin 0.8 (0.0-1.0) mg/dL AST 26 (5-31) U/L ALT 34 H (0-31) U/L Alkaline Phosphatase 103 (39-117) U/L Total Protein 8.8 H (6.5-8.0) g/dL Albumin 4.4 (3.5-5.0) g/dL Lipase 19 (8-78) U/L Urine Color Yellow Urine Appearance Cloudy Urine pH 5.5 (5.0-9.0) Ur Specific [place] >= 1.030 H (1.005-1.025) Urine Protein 30 (1+) H (Neg-Trace) mg/dL Urine Glucose (UA) >=1000 H (Negative) mg/dL Urine Ketones >=160 (Negative) mg/dL Urine Blood Negative (Negative) Urine Nitrite Negative (Negative) Ur Leukocyte Esterase Negative (Negative) Independent Interpretation I performed an independent interpretation of an: CT Scan (no acute findings) Radiology Impression Discussion of test interpretation with radiology: I have reviewed the radiologist's reading. External Record Review External record reviewed: Inpatient record and Office record Prescription Management I considered prescription management with: Other Critical Care Time Critical Care Time Critical Care Time: Yes Total Critical Care Time: 60 Attestation: 3L of IVF, repeat labs, IV morphine for pain which improved pain, review of records I attest to this time spent taking care of the patient Discharge Plan Discharge Clinical Impression: Nausea vomiting and diarrhea, Elevated WBC count, Acute dehydration Patient Disposition: Home, Self-Care Instructions: Dehydration (ED), Acute Nausea and Vomiting (ED), Acute Diarrhea (ED) Additional Instructions: return for worsening symptoms - pain, fevers, inability to eat or drink, bloody stools or any other concerns bland diet - bananas, applesauce, rice, toast advance slowly over 2 days Prescriptions: New ondansetron 4 mg tablet,disintegrating 4 mg PO Q8H PRN (Reason: nausea and vomiting) Qty: 20 0RF No Action fluticasone propionate [Flonase Allergy Relief] 50 mcg/actuation spray,suspension 1 spray intranasal Q12H 30 Days Qty: 16 3RF Rx Instructions: administer into each nostril (DME) blood-glucose meter [FreeStyle Lite Meter] Kit See Rx Instructions .ROUTE .MEDSUPPLY Qty: 1 0RF Rx Instructions: As directed 2x/day budesonide 32 mcg/actuation spray,non-aerosol 1 spray intranasal DAILY 30 Days Qty: 8.43 3RF Invokana 300 mg tablet 300 mg PO DAILY Qty: 30 5RF metformin 850 mg tablet 850 mg PO BID 90 Days Qty: 180 3RF (DME) FreeStyle Butch 14 Day Sensor Kit See Rx Instructions .Route Qty: 2 2RF Rx Instructions: As directed epinephrine 0.3 mg/0.3 mL auto-injector 0.3 mg IM ONCE 30 Days Qty: 2 3RF glipizide 5 mg tablet 5 mg PO BID Qty: 60 6RF (DME) FreeStyle Lite Strips Strip See Rx Instructions .ROUTE .MEDSUPPLY Qty: 100 11RF Rx Instructions: three times a day (DME) lancets [FreeStyle Lancets] 28 gauge misc See Rx Instructions .Route Rx Instructions: As directed Trulicity 4.5 mg/0.5 mL pen injector 4.5 mg subcut QWEEK 28 Days Qty: 2 4RF levothyroxine 75 mcg tablet 75 mcg PO DAILY Qty: 30 0RF (DME) comp.stocking,knee,long,medium Misc See Rx Instructions .Route Qty: 12 3RF Rx Instructions: Compression stockings 20 mm Hg. Daily while awake. 90 days atorvastatin 10 mg tablet 10 mg PO BEDTIME 30 Days Qty: 30 3RF clotrimazole-betamethasone 1-0.05 % cream topical Stand Alone Forms: Work/School Release Print Language: Citizen [place]
[2023-12-08] MEDS: ondansetron HCL 4 MG/2 ML VIAL IVPUSH (07:24)
[2023-12-08] MEDS: Morphine Sulfate 4 MG/ML CARTRIDGE IVPUSH (07:25)
[2023-12-08] MEDS: 0.9 % Sodium Chloride 1,000 ML 999 ML IV ×2 (07:26→10:22)
[2023-12-08 07:28] VITALS: BP 151/7; PULSE 107; RESP 19; O2SAT 98
[2023-12-08 08:02] LABS: Lactic Acid 1.1 mmol/L (0.5-2.0)
[2023-12-08 09:43] VITALS: BP 121/70; PULSE 109; RESP 18; TEMP 36.8; O2SAT 98
[2023-12-08 10:05] LABS: Hematocrit 43.2 % (37.0-47.0); Hemoglobin 14.5 g/dl (12.0-16.0); Mean Corpuscular HGB Conc 33.6 g/dl (31.0-35.0); Mean Corpuscular Hemoglobin 31.7 pg (27.0-33.0); Mean Corpuscular Volume 94.3 fL (80.0-98.0); Mean Platelet Volume 9.5 fL (9.4-12.3); Platelet Count 358 X10*3/uL (160-400); Red Blood Count 4.58 X10*6/uL (4.20-5.50); Red Cell Distribution Width 13.1 % (11.0-16.0); White Blood Count 15.3 X10*3/uL (4.8-10.8)
[2023-12-08 10:06] LABS: Appearance Urine Cloudy; Color Urine Yellow; Glucose Urine UA >=1000 mg/dL (Negative); Leukocyte Esterase Urine Negative (Negative); Nitrite Urine Negative (Negative); PH 5.5 (5.0-9.0); Specific Gravity - Urine >= 1.030 (1.005-1.025); UMIC TRIGGER UACC YES; Urine Blood Negative (Negative); Urine Ketones >=160 mg/dL (Negative); Urine Protein 30 (1+) mg/dL (Neg-Trace)
[2023-12-08 10:11] LABS: Bacteria Urine 4+ (None Seen); Hyaline Casts Urine 0-2 /LPF (0-2); RBC Urine 0-2 /HPF (0-2); Squamous Epithelial Cell Urine >20 /HPF (0-2); WBC Urine 0-5 /HPF (0-5)
[2023-12-08 11:18] VITALS: BP 128/70; PULSE 105; RESP 18; TEMP 36.8; O2SAT 99
[2023-12-08 11:26] VITALS: BP 128/70; PULSE 100; RESP 16; TEMP 36.8; O2SAT 98
== END 2023-12-08 11:32 | disposition home or self-care (01) ==
PROVIDERS: Emergency Provider Emergency Medicine; PCP Family Medicine
DX: R11.2 Nausea with vomiting, unspecified (principal); R19.7 Diarrhea, unspecified; D72.829 Elevated white blood cell count, unspecified; E86.0 Dehydration; E11.9 Type 2 diabetes mellitus without complications; M06.9 Rheumatoid arthritis, unspecified; Z79.899 Other long term (current) drug therapy
CPT/HCPCS: 36415; 74176; 80053; 81001; 83605; 83690; 85025; 85027; 87040; 96361; 96374; 96375; 99284; J2270; J2405

== ENCOUNTER 2023-12-09 09:29 | Outpatient (AMB) | payer OTHER, SELFPAY ==
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
[2023-12-09 09:55] VITALS: BP 126/64; PULSE 97; O2SAT 98; BMI 28.8
== END 2023-12-09 10:35 | disposition home or self-care (01) ==
PROVIDERS: PCP Family Medicine; Visit Provider Family Medicine
DX: E11.9 Type 2 diabetes mellitus without complications (principal); E78.5 Hyperlipidemia, unspecified; R11.2 Nausea with vomiting, unspecified; M54.2 Cervicalgia; M54.50 Low back pain, unspecified
CPT/HCPCS: 99214

== ENCOUNTER 2023-12-19 06:33 | Emergency (ER) | payer OTHER, SELFPAY ==
[2023-12-19 06:42] VITALS: BP 132/70; PULSE 89; RESP 18; TEMP 36.4; O2SAT 100; BMI 29.4
--- NOTE | 2023-12-19 07:23 | ED_ITS ---
HPI - Headache General Chief Complaint: Headache Stated Complaint: migraine for 6 days Time Seen by Provider: 12/19/23 06:47 Source: patient, RN notes reviewed and old records reviewed Mode of arrival: ambulatory Limitations: no limitations History of Present Illness HPI Narrative: 48 year old female with pmhx significant for anxiety, depression, DM, RA on plaquenil, hypothyroidism, PAD, and HDL presents to the ED today from home for evaluation of migraine x6 days. Endorses 10/10 pain with associated photophobia and nausea without vomiting. Admits pain began around her left eye and has begun radiating occipitally. She states that she was diagnosed with migraines in 2012. She has not followed up with a neurologist and does not take any medications for this as she was hoping it would resolve on its own. She states that this feels like her typical migraine however it is just not resolving. She has not taken any ddot-ney-xioijyc pain medications for this at home. Denies trauma/injury. Denies fevers, chills, dizziness, light headedness, syncope, neck pain, vision changes, vision loss, ear pain, chest pain, shortness of breath, vomiting. MD elicited complaint: migraine Pertinent past history: migraines Onset (ago): day(s) (6) Onset description: gradually Location: left Related Data Home Medications ?Medication ?Instructions ?Recorded ?Confirmed clotrimazole-betamethasone 1 appl topical 01/25/23 12/09/23 %-0.05 % topical cream lancets 28 gauge (FreeStyle 10/06/23 12/09/23 Lancets) Previous Rx's ?Medication ?Instructions ?Recorded comp.stocking,knee,long,medium #12 ea 06/18/21 fluticasone propionate 50 1 spray intranasal Q12H 30 days 08/16/22 mcg/actuation nasal #16 grams spray,suspension (Flonase Allergy Relief) blood-glucose meter (FreeStyle #1 ea 01/04/23 Lite Meter kit) budesonide 32 mcg/actuation nasal 1 spray intranasal DAILY 30 days 01/09/23 spray #8.43 mL canagliflozin 300 mg tablet 300 mg PO DAILY #30 tabs 01/09/23 (Invokana) metformin 850 mg tablet 850 mg PO BID 90 days #180 tabs 01/09/23 flash glucose sensor (FreeStyle #2 ea 04/07/23 Butch 14 Day Sensor kit) epinephrine 0.3 mg/0.3 mL 0.3 mg (0.3 mL) IM ONCE 30 days #2 05/19/23 injection, auto-injector ea glipizide 5 mg tablet 5 mg PO BID #60 tabs 09/28/23 blood sugar diagnostic (FreeStyle #100 ea 09/29/23 Lite Strips) atorvastatin 10 mg tablet 10 mg PO BEDTIME 30 days #30 tabs 10/28/23 dulaglutide 4.5 mg/0.5 mL 4.5 mg (0.5 mL) subcut QWEEK 28 11/08/23 subcutaneous pen injector days #2 mL (Trulicity) levothyroxine 75 mcg tablet 75 mcg PO DAILY #30 tabs 11/09/23 ondansetron 4 mg disintegrating 4 mg PO Q8H PRN nausea and 12/08/23 tablet vomiting #20 tabs fexofenadine 60 mg-pseudoephedrine 1 tab PO Q12H PRN allergy symptoms 12/09/23 ER 120 mg tablet,ext.release,12 hr 30 days #60 tabs (Katie-D 12 Hour) kxygyvxrry-lvkusncdfkzza-bzvbmxsj 1 cap PO Q8H PRN pain (scale score 12/19/23 50 mg-300 mg-40 mg capsule 7-10) #7 caps (Fioricet) ondansetron 4 mg disintegrating 4 mg PO DAILY PRN nausea and 12/19/23 tablet vomiting 5 days #14 tabs Allergies Allergy/AdvReac Type Severity Reaction Status Date / Time magnesium [MAGNESIUM] Allergy Severe ANAPHYLAXIS Verified 12/19/23 06:43 pioglitazone [From ACTOS] Allergy Severe SWELLING, Verified 12/19/23 06:43 hives aspirin [Aspirin] Allergy Mild UNKNOWN, Verified 12/19/23 06:43 hives ibuprofen [Ibuprofen] Allergy Mild anaphylaxis Verified 12/19/23 06:43 ,hives Iodinated Contrast Media Allergy Mild hives Verified 12/19/23 06:43 [IV Dye, Iodine Containing] empagliflozin Allergy Unknown Verified 12/19/23 06:43 [From Jardiance] Review of Systems 2 Review of Systems: Constitutional: No fever, chills, fatigue, night sweats, weight changes ENT/Mouth: No ear pain, hearing loss, nasal congestion, sinus pain, rhinorrhea, sore throat Eyes: No eye pain, swelling, redness, vision changes, discharge, +photophobia Cardio: No chest pain, palpitations, GALARZA, orthopnea, peripheral edema Pulm: No SOB, cough, sputum, wheezing, dyspnea, hemoptysis GI: No vomiting, hematemesis, abdominal pain, diarrhea, constipation, hematochezia, melena, +nausea : No irregular bleeding, dysuria, frequency, urgency, hesitancy, hematuria, flank pain, urinary flow changes, urinary incontinence or retention MSK: No back pain, neck pain, joint pain, myalgias Skin: No lesions, rashes Neuro: No weakness, numbness, paresthesias, LOC, dizziness, +headache Psych: No anxiety/panic, depression, SI/HI, AH/VH All other systems reviewed and are negative. Eyes: Eyes: Reports photophobia PMFSH Past Medical History Attestation statement: The following information was validated with the patient. Source: old records reviewed and nursing notes reviewed Medical History Abnormal thyroid exam Cirrhosis Migraines GERD (gastroesophageal reflux disease) Depression Hypothyroidism Hyperlipidemia LDL goal <100 Type 2 diabetes mellitus with hyperglycemia Diabetes mellitus type 2, controlled, with complications Surgical History Hx of hysterectomy Hx of tubal ligation Hx of section Hx of cholecystectomy Family History Family History Father No problems noted. 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[place], 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 Current occupational exposures/hazards: No Cognitive needs: No Hearing needs: No Vision needs: Yes (Glasses) Physical Exam 2 Vital Signs: Vital Signs: Last Vital Signs Temp 97.3 F 12/19/23 08:16 Pulse 85 12/19/23 08:16 Resp 18 12/19/23 08:16 BP 118/69 12/19/23 08:16 Pulse Ox 100 12/19/23 08:16 O2 Del Method Room Air 12/19/23 08:16 BMI result Body Mass Index 29.4 Vital signs stable Const: General: cooperative, healthy appearing, comfortable and no acute distress Orientation/consciousness: patient oriented x3 Limitations: no limitations HEENT: Head: Yes normal to inspection, Yes No palpable skull fracture present, Yes normocephalic, Yes atraumatic, No scalp tenderness and No Temporal artery tenderness present Ears: hearing grossly normal bilaterally, external ears normal, TM's normal bilaterally, EAC's normal, mastoids normal and no periauricular adenopathy Face and sinus: Yes sinuses nontender Eyes: General: appearance normal, both eyes and all related structures C onjunctivae: conjunctivae normal Sclerae: sclerae normal Pupils: Equal, round and reactive pupils present Direct Ophthalmoscopy: normal light reflex, no papilledema, fundi normal bilaterally, anterior chamber normal and photophobia Neck: Neck: Yes normal visual inspection, Yes full ROM, Yes no lymphadenopathy and Yes no meningeal signs Resp: Effort & Inspection: normal respiratory effort and able to speak in complete sentences Auscultation: clear to auscultation bilaterally Cardio: Rate: regular rate Rhythm: regular rhythm Back/Spine/Pelvis: Other: No midline spinous tenderness or step off deformity. No paraspinal muscle tenderness. Skin: General skin exam: no rashes or lesions noted Neuro: General: patient oriented x3, gait normal, no meningeal signs and no focal motor deficits Cranial nerves: Yes Equal, round and reactive pupils present Gait exam (Neuro): Normal gait present Motor exam (neuro): 5/5 motor strength present throughout, Pronator motor function not present and no tremor noted Coordination: evlcav-fg-thgw test normal, alya-oy-pknb test normal and Normal rapid alternating movements of the distal upper extremity present (Neuro) Pupils: Normal pupillary reactivity/response: bilateral Extrem: General: Yes normal to inspection Course Course Course Narrative: 0907-- CBC without leukocytosis or left shift. No anemia. H&H stable. Chemistry without acute electrolyte abnormality requiring intervention. Normal renal function. Normal liver function. HCG negative > not . 1048-- patient, patient reports complete improvement in symptoms following IV medications and IVF. Will send her home with Clarence and Sarah. Neurology referral provided. Patient has remained stable throughout ED visit today. Discussed worrisome signs and symptoms and when to return to the ED. All questions answered at this time. Patient is agreeable with disposition and stable for discharge. Medications Administered Discontinued Medications Generic Name Dose Route Start Last Admin Trade Name Rocío PRN Reason Stop Dose Admin Acetaminophen 975 mg 12/19/23 07:25 12/19/23 08:43 Acetaminophen 325 Mg Tablet PO 12/19/23 07:26 975 mg ONCE ONE Administration Diphenhydramine HCl 50 mg 12/19/23 07:25 12/19/23 08:44 Diphenhydramine Hcl 50 Mg/Ml Vial IVPUSH 12/19/23 07:26 50 mg ONCE ONE Administration Sodium Chloride 1,000 mls @ 999 mls/hr 12/19/23 07:30 12/19/23 08:41 Ns IV 12/19/23 08:30 999 mls/hr .Q1H1M JESUS Administration Metoclopramide HCl 10 mg 12/19/23 07:25 12/19/23 08:49 Metoclopramide Hcl 10 Mg/2 Ml Vial IVPUSH 12/19/23 07:26 10 mg ONCE ONE Administration Medical Decision Making Medical Decision Making MDM Narrative: 48 year old female with pmhx significant for anxiety, depression, DM, RA on plaquenil, hypothyroidism, PAD, and HDL presents to the ED today from home for evaluation of migraine x6 days. Vital signs stable. Afebrile. She is nontoxic-appearing and in no acute distress. Lying comfortably on the exam bed with lights dimmed due to photophobia. Exam is nonfocal. Cerebellum intact. On exam, no meningeal signs. PERRLA with photophobia. No scalp tenderness or palpable temporal artery. No trismus. Bilateral EACs and TMs wnl. Differential diagnosis includes headache, migraine. Unlikely meningitis, giant cell arteritis, cerebellar stroke, ICH, CVA/TIA. Plan for basic labs, IV fluids, pain medication and re-evaluation. Differential Diagnosis Differential Diagnoses: The differential diagnosis associated with the presentation includes as above. Admission/Observation Consideration of admission/observation: Escalation of care including admission/observation considered Lab Data MDM Lab Attestation statement: I reviewed the patient's lab results. as above. 12/19/23 08:23 12/19/23 08:23 Labs: Lab Results 12/19/23 Range/Units 08:23 WBC 9.7 (4.8-10.8) X10*3/uL RBC 4.07 L (4.20-5.50) X10*6/uL Hgb 12.8 (12.0-16.0) g/dl Hct 37.9 (37.0-47.0) % MCV 93.1 (80.0-98.0) fL MCH 31.4 (27.0-33.0) pg MCHC 33.8 (31.0-35.0) g/dl RDW 12.4 (11.0-16.0) % Plt Count 301 (160-400) X10*3/uL MPV 9.5 (9.4-12.3) fL Immature Gran % (Auto) 0.5 H (0.0-0.4) % Neut % (Auto) 65.6 (45-73) % Lymph % (Auto) 23.2 (20-40) % [place] % (Auto) 7.7 (2-11) % Eos % (Auto) 2.4 (0-4) % Baso % (Auto) 0.6 (0-2) % Lymph # (Auto) 2.3 (1.2-4.9) X10*3/uL [place] # (Auto) 0.8 (0.1-1.2) X10*3/uL Eos # (Auto) 0.2 (0.0-0.4) X10*3/uL Baso # (Auto) 0.1 (0.0-0.2) X10*3/uL Abs Immat Gran (auto) 0.05 H (0.00-0.03) X10*3/uL Absolute Neuts (auto) 6.4 (2.0-8.3) x10*3/uL Absolute Nucleated RBC 0.000 (0.0-0.012) X10*3/uL Nucleated RBC % (auto) 0.0 (0.0-0.2) /100WBC Sodium 142 (135-145) mmol/L Potassium 3.5 (3.3-5.1) mmol/L Chloride 110 H (96-108) mmol/L Carbon Dioxide 25 (22-29) mmol/L Anion Gap 11 L (12-20) BUN 11 (9-16) mg/dL Creatinine 0.57 (0.5-1.4) mg/dL Estim Creat Clear Calc 107.3 Estimated GFR > 60 Random Glucose 66 (60-115) mg/dL Calcium 8.8 D (8.4-10.2) mg/dL Magnesium 1.7 (1.6-2.6) mg/dL Total Bilirubin 0.4 (0.0-1.0) mg/dL AST 23 (5-31) U/L ALT 24 (0-31) U/L Alkaline Phosphatase 72 (39-117) U/L Total Protein 6.9 (6.5-8.0) g/dL Albumin 3.7 (3.5-5.0) g/dL Beta HCG, Quant < 2 mIU/mL Independent Historian Clinical information obtained from an independent historian. History obtained from or confirmed by: Spouse External Record Review External record reviewed: Inpatient record, Office record, Outpatient record, Prior outpatient labs, Prior outpatient radiology, Primary care record and Outside ED record Tests considered The following testing was considered but not selected: I considered obtaining CT head/brain however patient reports symptoms your like her typical migraine. No red flag symptoms. Imaging not warranted at this time. Prescription Management I considered prescription management with: Other (Zofran, Fioricet) Chronic Conditions Patient?s care impacted by: Other (migraine headaches) Social Determinants Patient?s care significantly limited by Social Determinants of Health including: Other Social Determinant of Health Discharge Plan Discharge Clinical Impression: Migraine Patient Disposition: Home, Self-Care Instructions: Migraine Headache (ED) Additional Instructions: You were evaluated in the ED today for migraine. Your migraine improved with medication and IV fluids. Fioricet is a medication that has been sent to your pharmacy for you to take at home for migraines. Do not take this more than 72 hours in a row as this may cause rebound migraine. Zofran is an anti-nausea medication that has been sent to your pharmacy for you to take for nausea. You have also been provided with a referral to neurolgogy. You may call them to establish care, they will not call you. Follow up with PCP. As discussed, return with new or worsening symptoms. In the case of an emergency call 911. Prescriptions: New ondansetron 4 mg tablet,disintegrating 4 mg PO DAILY PRN (Reason: nausea and vomiting) 5 Days Qty: 14 0RF yzzdyeozmd-lquobqhpsbhhi-pxlf [Fioricet] 50-300-40 mg capsule 1 cap PO Q8H PRN (Reason: pain (scale score 7-10)) Qty: 7 0RF No Action fluticasone propionate [Flonase Allergy Relief] 50 mcg/actuation spray,suspension 1 spray intranasal Q12H 30 Days Qty: 16 3RF Rx Instructions: administer into each nostril (DME) blood-glucose meter [FreeStyle Lite Meter] Kit See Rx Instructions .ROUTE .MEDSUPPLY Qty: 1 0RF Rx Instructions: As directed 2x/day budesonide 32 mcg/actuation spray,non-aerosol 1 spray intranasal DAILY 30 Days Qty: 8.43 3RF Invokana 300 mg tablet 300 mg PO DAILY Qty: 30 5RF metformin 850 mg tablet 850 mg PO BID 90 Days Qty: 180 3RF (DME) FreeStyle Butch 14 Day Sensor Kit See Rx Instructions .Route Qty: 2 2RF Rx Instructions: As directed epinephrine 0.3 mg/0.3 mL auto-injector 0.3 mg IM ONCE 30 Days Qty: 2 3RF glipizide 5 mg tablet 5 mg PO BID Qty: 60 6RF (DME) FreeStyle Lite Strips Strip See Rx Instructions .ROUTE .MEDSUPPLY Qty: 100 11RF Rx Instructions: three times a day (DME) lancets [FreeStyle Lancets] 28 gauge misc See Rx Instructions .Route Rx Instructions: As directed Trulicity 4.5 mg/0.5 mL pen injector 4.5 mg subcut QWEEK 28 Days Qty: 2 4RF levothyroxine 75 mcg tablet 75 mcg PO DAILY Qty: 30 0RF ondansetron 4 mg tablet,disintegrating 4 mg PO Q8H PRN (Reason: nausea and vomiting) Qty: 20 0RF (DME) comp.stocking,knee,long,medium Misc See Rx Instructions .Route Qty: 12 3RF Rx Instructions: Compression stockings 20 mm Hg. Daily while awake. 90 days atorvastatin 10 mg tablet 10 mg PO BEDTIME 30 Days Qty: 30 3RF fexofenadine-pseudoephedrine [Katie-D 12 Hour] 60-120 mg tablet extended release 12 hr 1 tab PO Q12H PRN (Reason: allergy symptoms) 30 Days Qty: 60 3RF clotrimazole-betamethasone 1-0.05 % cream topical Referrals: [facility] [place] Neuro/Sleep [Provider Group] Stand Alone Forms: Work/School Release Print Language: [place]se
[2023-12-19 08:16] VITALS: BP 118/69; PULSE 85; RESP 18; TEMP 36.3; O2SAT 100
[2023-12-19 08:28] LABS: MANUAL DIFF FLAG NO
[2023-12-19 08:31] LABS: Basophils Absolute Auto 0.1 X10*3/uL (0.0-0.2); Basophils Percent Auto 0.6 % (0-2); Eosinophils Absolute Auto 0.2 X10*3/uL (0.0-0.4); Eosinophils Percent Auto 2.4 % (0-4); Hematocrit 37.9 % (37.0-47.0); Hemoglobin 12.8 g/dl (12.0-16.0); Imm Gran Abs Auto 0.05 X10*3/uL (0.00-0.03); Imm Gran Pct Auto 0.5 % (0.0-0.4); Lymphocytes Absolute Auto 2.3 X10*3/uL (1.2-4.9); Lymphocytes Percent Auto 23.2 % (20-40); Mean Corpuscular HGB Conc 33.8 g/dl (31.0-35.0); Mean Corpuscular Hemoglobin 31.4 pg (27.0-33.0); Mean Corpuscular Volume 93.1 fL (80.0-98.0); Mean Platelet Volume 9.5 fL (9.4-12.3); Monocytes Absolute Auto 0.8 X10*3/uL (0.1-1.2); Monocytes Percent Auto 7.7 % (2-11); Neutrophils Absolute Auto 6.4 x10*3/uL (2.0-8.3); Neutrophils Percent Auto 65.6 % (45-73); Platelet Count 301 X10*3/uL (160-400); Red Blood Count 4.07 X10*6/uL (4.20-5.50); Red Cell Distribution Width 12.4 % (11.0-16.0); White Blood Count 9.7 X10*3/uL (4.8-10.8)
[2023-12-19] MEDS: 0.9 % Sodium Chloride 1,000 ML 999 ML IV (08:41)
[2023-12-19] MEDS: Acetaminophen 325 MG TABLET 975 MG PO (08:43)
[2023-12-19] MEDS: diphenhydrAMINE HCL 50 MG/ML VIAL IVPUSH (08:44)
[2023-12-19] MEDS: Metoclopramide HCl 10 MG/2 ML VIAL IVPUSH (08:49)
[2023-12-19 08:56] LABS: Alanine Aminotransferase 24 U/L (0-31); Albumin Level 3.7 g/dL (3.5-5.0); Alkaline Phosphatase 72 U/L (39-117); Anion Gap 11 (12-20); Aspartate Amino Transferase 23 U/L (5-31); Bilirubin Total 0.4 mg/dL (0.0-1.0); Blood Urea Nitrogen 11 mg/dL (9-16); Calcium 8.8 mg/dL (8.4-10.2); Carbon Dioxide 25 mmol/L (22-29); Chloride 110 mmol/L (96-108); Creatinine Clr Calc Pharmacy 107.3; Estimated Glomerular Filt Rate > 60; Glucose Random 66 mg/dL (60-115); Magnesium 1.7 mg/dL (1.6-2.6); Potassium 3.5 mmol/L (3.3-5.1); Sodium 142 mmol/L (135-145); Total Protein 6.9 g/dL (6.5-8.0)
[2023-12-19 09:07] LABS: HCG Quantitative < 2 mIU/mL
[2023-12-19 10:58] VITALS: BP 125/67; PULSE 87; RESP 18; TEMP 36.5; O2SAT 98
== END 2023-12-19 10:59 | disposition home or self-care (01) ==
PROVIDERS: Physician Assistant Medical; Emergency Provider Emergency Medicine; PCP Family Medicine
DX: G43.901 Migraine, unspecified, not intractable, with status migrainosus (principal); R11.2 Nausea with vomiting, unspecified; H53.143 Visual discomfort, bilateral; Z79.899 Other long term (current) drug therapy
CPT/HCPCS: 36415; 80053; 83735; 84702; 85025; 96361; 96374; 96375; 99284; J1200; J2765

== ENCOUNTER 2023-12-27 10:27 | Emergency (ER) | payer OTHER, SELFPAY ==
--- NOTE | ~2023-12-27 | CT_ITS ---
EXAMINATION: CT ABDOMEN AND PELVIS WITHOUT CONTRAST CLINICAL INFORMATION: Abdominal pain and elevated white count COMPARISON: CT abdomen pelvis 12/08/2023 Ultrasound abdomen 10/06/2023 TECHNIQUE: Multidetector volumetric imaging was performed from the superior aspect of the liver through the pubic symphysis. Sagittal and coronal reformatted images were obtained on the technologist's workstation. This CT examination was performed using dose optimization techniques as appropriate, variously including the following: *Automated exposure control *Adjustment of mA and/or kV according to patient size (this includes techniques or standardized protocols for targeted exams where dose is matched to indication/reason for exam; i.e. extremities or head) *Use of iterative reconstruction technique DLP: 468 mGy-cm FINDINGS: LUNG BASES: The visualized lung bases are unremarkable. LIVER, GALLBLADDER, AND BILIARY TREE: The liver is enlarged at 18 cm in cephalocaudad dimension with decreased attenuation suggesting hepatic steatosis. There is an ill-defined area of decreased attenuation in the right lobe of the liver in a subcapsular location measuring about 2 cm in size, unchanged from recent prior. This was not present on the 12/19/2018 CT abdomen. No other focal hepatic lesion or biliary ductal dilatation is present. Status post cholecystectomy PANCREAS: Unremarkable. SPLEEN: Unremarkable. ADRENAL GLANDS: Water density left adrenal mass unchanged consistent with a benign adenoma at no additional follow-up is needed KIDNEYS AND URETERS: The kidneys are normal in size, shape, and attenuation. There is a ill-defined rounded area of low attenuation is seen in the mid left kidney laterally measuring 2.1 x 1.5 cm, that measures 10 Hounsfield units (3:28). This is slightly larger when compared to the prior 12/08/2023 study when maximal dimension was 1.3 cm again (3:31). Given the history of abdominal pain and elevated white count, a small abscess cannot be excluded although a benign simple cyst is also within the differential diagnosis. Targeted ultrasound is recommended for further evaluation. No hydronephrosis, hydroureter, or calculi seen. BLADDER: Unremarkable. GASTROINTESTINAL TRACT: The small and large bowel are unremarkable. The appendix is unremarkable. ABDOMINAL WALL: No significant hernia is appreciated. LYMPH NODES: No retroperitoneal lymphadenopathy. VASCULAR: Unremarkable. The left renal vein is retroaortic. PELVIC VISCERA: Unremarkable. OSSEOUS STRUCTURES: Unremarkable. CT/CT abdomen pelvis wo IV con IMPRESSION: 1. A cause for the patient's abdominal pain and elevated white count has not been found. 2. Incidental note made of an enlarged fatty liver with a 2 cm ill-defined area of decreased attenuation in the right lobe of the liver. MRI is recommended for further evaluation. 3. Stable left adrenal adenoma. 4. Stable ill-defined low-attenuation lesion left kidney slightly larger than seen on the 12/08/2023 CT. On the prior renal ultrasound, no abnormality was seen. Targeted ultrasound is recommended for further evaluation. Fleischner guidelines were followed.
[2023-12-27 10:34] VITALS: BP 154/86; PULSE 129; RESP 16; TEMP 36.5; O2SAT 100; BMI 27.4
--- NOTE | 2023-12-27 10:39 | PC.NURSE ---
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
[2023-12-27 10:49] LABS: MANUAL DIFF FLAG NO
[2023-12-27 10:51] LABS: Basophils Absolute Auto 0.1 X10*3/uL (0.0-0.2); Basophils Percent Auto 0.4 % (0-2); Eosinophils Absolute Auto 0.1 X10*3/uL (0.0-0.4); Eosinophils Percent Auto 0.3 % (0-4); Hematocrit 48.2 % (37.0-47.0); Hemoglobin 16.6 g/dl (12.0-16.0); Imm Gran Abs Auto 0.12 X10*3/uL (0.00-0.03); Imm Gran Pct Auto 0.6 % (0.0-0.4); Lymphocytes Absolute Auto 1.8 X10*3/uL (1.2-4.9); Lymphocytes Percent Auto 8.6 % (20-40); Mean Corpuscular HGB Conc 34.4 g/dl (31.0-35.0); Mean Corpuscular Hemoglobin 31.7 pg (27.0-33.0); Mean Corpuscular Volume 92.2 fL (80.0-98.0); Mean Platelet Volume 9.4 fL (9.4-12.3); Monocytes Absolute Auto 1.1 X10*3/uL (0.1-1.2); Monocytes Percent Auto 5.3 % (2-11); Neutrophils Absolute Auto 17.5 x10*3/uL (2.0-8.3); Neutrophils Percent Auto 84.8 % (45-73); Platelet Count 357 X10*3/uL (160-400); Red Blood Count 5.23 X10*6/uL (4.20-5.50); Red Cell Distribution Width 12.7 % (11.0-16.0); White Blood Count 20.6 X10*3/uL (4.8-10.8)
[2023-12-27 11:06] LABS: Alanine Aminotransferase 28 U/L (0-31); Albumin Level 4.6 g/dL (3.5-5.0); Alkaline Phosphatase 89 U/L (39-117); Anion Gap 19 (12-20); Aspartate Amino Transferase 23 U/L (5-31); Bilirubin Total 0.5 mg/dL (0.0-1.0); Blood Urea Nitrogen 15 mg/dL (9-16); Calcium 10.6 mg/dL (8.4-10.2); Carbon Dioxide 18 mmol/L (22-29); Chloride 108 mmol/L (96-108); Creatinine Clr Calc Pharmacy 74.8; Estimated Glomerular Filt Rate > 60; Glucose Random 220 mg/dL (60-115); Lipase 50 U/L (8-78); Sodium 141 mmol/L (135-145); Total Protein 8.9 g/dL (6.5-8.0)
[2023-12-27 11:32] LABS: Influenza A PCR NEGATIVE (Negative); Influenza B PCR NEGATIVE (Negative); Resp Syncy Virus RNA Qual PCR NEGATIVE (Negative); SARS COV2 PCR INHOUSE NEGATIVE (Negative)
--- NOTE | 2023-12-27 12:37 | ECG_ITS ---
Test Reason : DIZZY Blood Pressure : / mmHG Vent. Rate : 126 BPM Atrial Rate : 126 BPM P-R Int : 138 ms QRS Dur : 064 ms QT Int : 296 ms P-R-T Axes : 052 012 -43 degrees QTc Int : [address] & T wave abnormality, consider anterior ischemia Abnormal ECG When compared with ECG of 15-APR-2023 15:40, No significant change was found Referred By: Generic ED Physician Electronically Signed By:Herve Smith
--- NOTE | 2023-12-27 12:40 | ED_ITS ---
HPI - Nausea/Vomiting/Diarrhea General Chief complaint: Nausea/Vomiting/Diarrhea Stated complaint: EPIGASTRIC PAIN NAUSEA VOMITING DIARRHEA Time Seen by Provider: 12/27/23 16:31 Source: patient and EMS Mode of arrival: EMS Limitations: no limitations History of Present Illness HPI Narrative: 48-year-old female presented to the emergency department by ambulance for evaluation of abdominal pain, nausea, vomiting, nonbloody watery diarrhea. Patient's symptoms started early today, patient ate Tajik food last night went to bed fine early in the morning started to have epigastric abdominal pain, nausea, vomiting then followed by nonbloody watery diarrhea. Patient had similar symptoms in the past. history of cholecystectomy and ., last bowel movement was nonbloody watery diarrhea 2 hours ago, able to pass flatus. No dysuria, no frequency urination, no hematuria. Patient declined chance of being . Related Data Home Medications ?Medication ?Instructions ?Recorded ?Confirmed clotrimazole-betamethasone 1 appl topical 01/25/23 12/09/23 %-0.05 % topical cream lancets 28 gauge (FreeStyle 10/06/23 12/09/23 Lancets) Previous Rx's ?Medication ?Instructions ?Recorded comp.stocking,knee,long,medium #12 ea 06/18/21 fluticasone propionate 50 1 spray intranasal Q12H 30 days 08/16/22 mcg/actuation nasal #16 grams spray,suspension (Flonase Allergy Relief) blood-glucose meter (FreeStyle #1 ea 01/04/23 Lite Meter kit) budesonide 32 mcg/actuation nasal 1 spray intranasal DAILY 30 days 01/09/23 spray #8.43 mL canagliflozin 300 mg tablet 300 mg PO DAILY #30 tabs 01/09/23 (Invokana) metformin 850 mg tablet 850 mg PO BID 90 days #180 tabs 01/09/23 flash glucose sensor (FreeStyle #2 ea 04/07/23 Butch 14 Day Sensor kit) epinephrine 0.3 mg/0.3 mL 0.3 mg (0.3 mL) IM ONCE 30 days #2 05/19/23 injection, auto-injector ea glipizide 5 mg tablet 5 mg PO BID #60 tabs 09/28/23 blood sugar diagnostic (Interactive ProjectStyle #100 ea 09/29/23 Lite Strips) atorvastatin 10 mg tablet 10 mg PO BEDTIME 30 days #30 tabs 10/28/23 dulaglutide 4.5 mg/0.5 mL 4.5 mg (0.5 mL) subcut QWEEK 28 11/08/23 subcutaneous pen injector days #2 mL (Trulicity) levothyroxine 75 mcg tablet 75 mcg PO DAILY #30 tabs 11/09/23 ondansetron 4 mg disintegrating 4 mg PO Q8H PRN nausea and 12/08/23 tablet vomiting #20 tabs fexofenadine 60 mg-pseudoephedrine 1 tab PO Q12H PRN allergy symptoms 12/09/23 ER 120 mg tablet,ext.release,12 hr 30 days #60 tabs (Katie-D 12 Hour) xigszaazhd-egzqvkxcvamkk-xkzsswmt 1 cap PO Q8H PRN pain (scale score 12/19/23 50 mg-300 mg-40 mg capsule 7-10) #7 caps (Fioricet) ondansetron 4 mg disintegrating 4 mg PO DAILY PRN nausea and 12/19/23 tablet vomiting 5 days #14 tabs Allergies Allergy/AdvReac Type Severity Reaction Status Date / Time magnesium [MAGNESIUM] Allergy Severe ANAPHYLAXIS Verified 12/27/23 10:37 pioglitazone [From ACTOS] Allergy Severe SWELLING, Verified 12/27/23 10:37 hives aspirin [Aspirin] Allergy Mild UNKNOWN, Verified 12/27/23 10:37 hives ibuprofen [Ibuprofen] Allergy Mild anaphylaxis Verified 12/27/23 10:37 ,hives Iodinated Contrast Media Allergy Mild hives Verified 12/27/23 10:37 [IV Dye, Iodine Containing] empagliflozin Allergy Unknown Verified 12/27/23 10:37 [From Jardiance] Review of Systems 2 Review of Systems: All other systems are reviewed and are negative Constitutional: Reports as per HPI and Reports no additional constitutional complaints Eyes: Reports as per HPI and Reports no additional eye complaints Reports system reviewed and no additional complaints, except as documented Cardiovascular: Reports as per HPI and Reports no additional cardiovascular complaints Respiratory: Reports as per HPI and Reports no additional respiratory complaints Gastrointestinal: Reports as per HPI and Reports no additional gastrointestinal complaints Genitourinary: Reports no additional female genitourinary complaints Musculoskeletal: Reports no additional musculoskeletal complaints Skin/Breast: Reports system reviewed and no additional complaints, except as docu Psychiatric: Reports no additional psychiatric complaints Endocrine: Reports no additional endocrine complaints Hematologic/Lymphatic: Reports no additional hematologic/lymphatic complaints Allergic/Immunologic: Reports no additional allergic/immunologic complaints Reports system reviewed and no additional complaints, except as documented and Reports Abnormal speech present [facility] Past Medical History Medical History Abnormal thyroid exam Cirrhosis Migraines GERD (gastroesophageal reflux disease) Depression Hypothyroidism Hyperlipidemia LDL goal <100 Type 2 diabetes mellitus with hyperglycemia Diabetes mellitus type 2, controlled, with complications Surgical History Hx of hysterectomy Hx of tubal ligation Hx of section Hx of cholecystectomy Family History Family History Father No problems noted. 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 Blood pressure elevated. Heart rate elevated. Respiratory rate normal. Temperature normal. Oxygen saturation normal. Appearance: Alert. Oriented X3. No acute distress. Head: Normal external exam. Normocephalic. Atraumatic. No [place] signs noted. No raccoon eyes noted Eyes: PERRLA. EOMI. Conjunctiva and sclera normal. Eyelids normal. ENT: TM's Normal. Pharynx normal. Uvula midline. Moist mucous membranes. No trismus noted. No drooling noted. No muffled voice noted. Neck: Normal inspection. Neck supple. FROM. No adenopathy. Thyroid Normal. No meningeal signs. No neck mass noted. CVS: Normal heart rate and rhythm. Heart sound normal. No murmurs noted. Pulses normal throughout. Respiratory: No respiratory distress. Painless inspiration. Breath sounds normal. No wheezes/rales/rhonchi noted. Chest nontender. No accessory muscle usage noted or decreased air movement noted. Abdomen: Soft and nontender. Bowel sounds normal in all 4 quadrants. No distention noted. No organomegaly noted. No visible injury noted. Back: No CVA tenderness. Full range of motion noted. Skin: Skin warm and dry. Normal skin color. Normal skin turgor. No rashes/lesions/lacerations noted. Extremities: No lower extremity edema. Extremities exhibit normal range of motion. Extremities nontender. Neuro: Oriented X 3. Cranial nerve exam: II-XII are grossly intact No motor deficit. No sensory deficit. Reflexes normal. Course Course Course Narrative: This is a Rapid Medical Examination (RME) performed by Eden Patel PA-C in triage. Full HPI, ROS, assessment and treatment plan per primary provider in the Main ED. 48 y/o female presenting with N/V/D and abdominal pain for the last 2 hours. very weak and dizzy. patient tachycardic, weak, appears unwell. limited abd exam w/ central tenderness. not rigid. Plan: WBC 20K, HR 120s --> lactic and cultures ordered along w/ CT scan abd/pelvis. charge nurse aware, to go back to treatment room as soon as possible. Reevaluation(s) Reevaluation #1: Abdominal painAnd leukocytosis secondary to food poisoning, patient now feels better with IV fluids and antiemetic and able to tolerate p.o. intake. Incidental liver mass patient was instructed to follow-up with PCP. Time: 18:00 Medications Administered Discontinued Medications Generic Name Dose Route Start Last Admin Trade Name Freq PRN Reason Stop Dose Admin Famotidine 20 mg 12/27/23 16:52 12/27/23 17:03 Famotidine/Pf 20 Mg/2 Ml Vial IVPUSH 12/27/23 16:53 20 mg ONCE ONE Administration Sodium Chloride 1,000 mls @ 999 mls/hr 12/27/23 16:52 12/27/23 17:03 Ns IV 12/27/23 17:52 999 mls/hr .Q1H1M ONE Administration Ondansetron HCl 4 mg 12/27/23 16:52 12/27/23 17:03 Ondansetron Hcl 4 Mg/2 Ml Vial IVPUSH 12/27/23 16:53 4 mg ONCE ONE Administration Medical Decision Making Differential Diagnosis Differential Diagnoses: The differential diagnosis associated with the presentation includes ( Food poisoning, gastroenteritis, acute appendicitis, acute diverticulitis, acute colitis, acute cholecystitis, dehydration, electrolyte derangement, severe anemia.) Admission/Observation Consideration of admission/observation: Escalation of care including admission/observation considered Lab Data MDM Lab Attestation statement: I reviewed the patient's lab results. 12/27/23 10:46 12/27/23 10:46 Labs: Lab Results 12/27/23 12/27/23 Range/Units 10:46 12:54 WBC 20.6 H (4.8-10.8) X10*3/uL RBC 5.23 D (4.20-5.50) X10*6/uL Hgb 16.6 H D (12.0-16.0) g/dl Hct 48.2 H D (37.0-47.0) % MCV 92.2 (80.0-98.0) fL MCH 31.7 (27.0-33.0) pg MCHC 34.4 (31.0-35.0) g/dl RDW 12.7 (11.0-16.0) % Plt Count 357 (160-400) X10*3/uL MPV 9.4 (9.4-12.3) fL Immature Gran % (Auto) 0.6 H (0.0-0.4) % Neut % (Auto) 84.8 H (45-73) % Lymph % (Auto) 8.6 L (20-40) % [place] % (Auto) 5.3 (2-11) % Eos % (Auto) 0.3 (0-4) % Baso % (Auto) 0.4 (0-2) % Lymph # (Auto) 1.8 (1.2-4.9) X10*3/uL [place] # (Auto) 1.1 (0.1-1.2) X10*3/uL Eos # (Auto) 0.1 (0.0-0.4) X10*3/uL Baso # (Auto) 0.1 (0.0-0.2) X10*3/uL Abs Immat Gran (auto) 0.12 H (0.00-0.03) X10*3/uL Absolute Neuts (auto) 17.5 H (2.0-8.3) x10*3/uL Absolute Nucleated RBC 0.000 (0.0-0.012) X10*3/uL Nucleated RBC % (auto) 0.0 (0.0-0.2) /100WBC Sodium 141 (135-145) mmol/L Potassium 4.0 (3.3-5.1) mmol/L Chloride 108 (96-108) mmol/L Carbon Dioxide 18 L (22-29) mmol/L Anion Gap 19 (12-20) BUN 15 (9-16) mg/dL Creatinine 0.79 (0.5-1.4) mg/dL Estim Creat Clear Calc 74.8 Estimated GFR > 60 Random Glucose 220 H (60-115) mg/dL Lactic Acid 1.7 (0.5-2.0) mmol/L Calcium 10.6 H D (8.4-10.2) mg/dL Total Bilirubin 0.5 (0.0-1.0) mg/dL AST 23 (5-31) U/L ALT 28 (0-31) U/L Alkaline Phosphatase 89 (39-117) U/L Total Protein 8.9 H (6.5-8.0) g/dL Albumin 4.6 (3.5-5.0) g/dL Lipase 50 (8-78) U/L Influenza Type A (PCR) NEGATIVE (Negative) Influenza Type B (PCR) NEGATIVE (Negative) RSV RNA Qual (PCR) NEGATIVE (Negative) SARS-CoV-2 RNA (RT-PCR) NEGATIVE (Negative) Independent Interpretation I performed an independent interpretation of an: CT Scan ( abdomen and pelvis:1. A cause for the patient's abdominal pain and elevated white count has not been found. 2. Incidental note made of an enlarged fatty liver with a 2 cm ill- defined area of decreased attenuation in the right lobe of the liver. MRI is recommended for further evaluation. 3. Stabl) Radiology Impression Discussion of test interpretation with radiology: I have reviewed the radiologist's reading. (1. A cause for the patient's abdominal pain and elevated white count has not been found. 2. Incidental note made of an enlarged fatty liver with a 2 cm ill-defined area of decreased attenuation in the right lobe of the liver. MRI is recommended for further evaluation. 3. Stable left adrenal adeno) Discharge Plan Discharge Clinical Impression: Food poisoning, Leukocytosis, Liver mass Patient Disposition: Home, Self-Care Instructions: Food Poisoning (ED) Additional Instructions: incidental finding on the CT scan today you have a liver nodule that needs to be followed up by your primary doctor you will need an outpatient MRI of the abdomen and pelvis for further evaluation please notify your primary doctor. Prescriptions: No Action fluticasone propionate [Flonase Allergy Relief] 50 mcg/actuation spray,suspension 1 spray intranasal Q12H 30 Days Qty: 16 3RF Rx Instructions: administer into each nostril (DME) blood-glucose meter [FreeStyle Lite Meter] Kit See Rx Instructions .ROUTE .MEDSUPPLY Qty: 1 0RF Rx Instructions: As directed 2x/day budesonide 32 mcg/actuation spray,non-aerosol 1 spray intranasal DAILY 30 Days Qty: 8.43 3RF Invokana 300 mg tablet 300 mg PO DAILY Qty: 30 5RF metformin 850 mg tablet 850 mg PO BID 90 Days Qty: 180 3RF (DME) FreeStyle Butch 14 Day Sensor Kit See Rx Instructions .Route Qty: 2 2RF Rx Instructions: As directed epinephrine 0.3 mg/0.3 mL auto-injector 0.3 mg IM ONCE 30 Days Qty: 2 3RF glipizide 5 mg tablet 5 mg PO BID Qty: 60 6RF (DME) FreeStyle Lite Strips Strip See Rx Instructions .ROUTE .MEDSUPPLY Qty: 100 11RF Rx Instructions: three times a day (DME) lancets [FreeStyle Lancets] 28 gauge misc See Rx Instructions .Route Rx Instructions: As directed Trulicity 4.5 mg/0.5 mL pen injector 4.5 mg subcut QWEEK 28 Days Qty: 2 4RF levothyroxine 75 mcg tablet 75 mcg PO DAILY Qty: 30 0RF ondansetron 4 mg tablet,disintegrating 4 mg PO Q8H PRN (Reason: nausea and vomiting) Qty: 20 0RF ondansetron 4 mg tablet,disintegrating 4 mg PO DAILY PRN (Reason: nausea and vomiting) 5 Days Qty: 14 0RF qlzpjheala-aqelmqrirzmfa-fimc [Fioricet] 50-300-40 mg capsule 1 cap PO Q8H PRN (Reason: pain (scale score 7-10)) Qty: 7 0RF (DME) comp.stocking,knee,long,medium Misc See Rx Instructions .Route Qty: 12 3RF Rx Instructions: Compression stockings 20 mm Hg. Daily while awake. 90 days atorvastatin 10 mg tablet 10 mg PO BEDTIME 30 Days Qty: 30 3RF fexofenadine-pseudoephedrine [Katie-D 12 Hour] 60-120 mg tablet extended release 12 hr 1 tab PO Q12H PRN (Reason: allergy symptoms) 30 Days Qty: 60 3RF clotrimazole-betamethasone 1-0.05 % cream topical Referrals: Flakito Larsen MD [Primary Care Provider] - Print Language: Sami
[2023-12-27 13:09] LABS: Lactic Acid 1.7 mmol/L (0.5-2.0)
[2023-12-27 16:17] VITALS: BP 113/77; PULSE 122; RESP 20; TEMP 37.7; O2SAT 98
[2023-12-27] MEDS: ondansetron HCL 4 MG/2 ML VIAL IVPUSH (17:03)
[2023-12-27] MEDS: Famotidine/PF 20 MG/2 ML VIAL IVPUSH (17:03)
[2023-12-27] MEDS: 0.9 % Sodium Chloride 1,000 ML 999 ML IV (17:03)
[2023-12-27 18:00] VITALS: BP 118/76; PULSE 110; RESP 17; TEMP 36.4; O2SAT 100
--- NOTE | 2023-12-27 19:03 | PC.NURSE ---
Assumed care of pt at this time. Denies pain/nausea at this time. Fluids complete. Plan of care ongoing.
[2023-12-27 20:13] VITALS: BP 112/70; PULSE 117; RESP 18; TEMP 36.7; O2SAT 98
== END 2023-12-27 20:14 | disposition home or self-care (01) ==
PROVIDERS: Physician Assistant; Emergency Provider Emergency Medicine; PCP Family Medicine
DX: A05.9 Bacterial foodborne intoxication, unspecified (principal); D72.829 Elevated white blood cell count, unspecified; R16.0 Hepatomegaly, not elsewhere classified; E11.9 Type 2 diabetes mellitus without complications
CPT/HCPCS: 0241U; 36415; 74176; 80053; 83605; 83690; 85025; 87040; 93005; 96361; 96374; 96375; 99284; 99285; J2405

== ENCOUNTER → 2023-12-27 12:37 | Outpatient (BNV) | payer OTHER, SELFPAY | PROVIDERS: PCP Family Medicine; Visit Provider Internal Medicine Cardiovascular Disease | DX: R42 Dizziness and giddiness (principal) | CPT/HCPCS: 93010 ==

== ENCOUNTER 2024-01-12 08:19 | Outpatient (AMB) | payer OTHER, SELFPAY ==
--- NOTE | 2024-01-12 08:40 | AM.OFFWIN_ITS ---
Intake Vital Signs 01/12/24 08:42 Height 5 ft 1 in Weight 149 lb BMI 28.2 BP 110/70 Blood Pressure Location Lt brachial Position Sitting Pulse 88 Pulse Source Pulse Oximeter Temp 97.9 F Temp Source Temporal Artery Scan Pulse Oximetry (%) 98 Oxygen Delivery Method Room Air Intake Visit Reasons: EP lft ear pain , ear infection? Intake Note: pt is here today for lft ear pain ear infections started 1 week ago Patient Tobacco Use Status: Never used Tobacco Allergies magnesium [MAGNESIUM] Allergy (Severe, Verified 01/12/24 08:46) ANAPHYLAXIS pioglitazone [From ACTOS] Allergy (Severe, Verified 01/12/24 08:46) SWELLING, hives aspirin [Aspirin] Allergy (Mild, Verified 01/12/24 08:46) UNKNOWN, hives ibuprofen [Ibuprofen] Allergy (Mild, Verified 01/12/24 08:46) anaphylaxis,hives Iodinated Contrast Media [IV Dye, Iodine Containing] Allergy (Mild, Verified 01/12/24 08:46) hives empagliflozin [From Jardiance] Allergy (Verified 01/12/24 08:46) Unknown Do you need a note to return to daycare/school/sports/work: No HPI HPI Comments History of Present Illness Details 48 y/o female patient who presents to [facility] in clinic with c/o bilateral ear pain x 1 week. [facility] Medical History Abnormal thyroid exam Cirrhosis Migraines GERD (gastroesophageal reflux disease) Depression Hypothyroidism Hyperlipidemia LDL goal <100 Type 2 diabetes mellitus with hyperglycemia Diabetes mellitus type 2, controlled, with complications Surgical History Hx of hysterectomy Hx of tubal ligation Hx of section Hx of cholecystectomy Family History Father No problems noted. 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 Current occupational exposures/hazards: No Cognitive needs: No Hearing needs: No Vision needs: Yes (Glasses) Review of Systems Const All systems reviewed & are unremarkable except as noted in HPI and below Physical Exam Vital Signs: Last Vital Signs Temp 97.9 F 01/12/24 08:42 Pulse 88 01/12/24 08:42 BP 110/70 01/12/24 08:42 Pulse Ox 98 01/12/24 08:42 Oxygen Delivery Method Room Air 01/12/24 08:42 BMI result Body Mass Index 28.2 Const General: comfortable and no acute distress Orientation/consciousness: patient oriented x3 HEENT Head: Yes normocephalic Ears: external ears normal and TM abnormal bulging and with fluid behind the TM bilateral; not erythematous, not perforated and not retracted General nose exam: Abnormal mucous membranes and turbinates present boggy Face and sinus: Yes normal facial exam and Yes sinuses nontender Mouth: moist mucous membranes Throat: Yes posterior oropharynx normal, Yes uvula midline and Yes postnasal drainage Resp Effort & Inspection: normal respiratory effort and able to speak in complete sentences Auscultation: clear to auscultation bilaterally, no crackles, no rales, no rhonchi and no wheezes Cardio Rate: regular rate Rhythm: regular rhythm Neuro General: patient oriented x3, gait normal and moves all extremities Psych Speech and movement: Normal speech and movement present Assessment & Plan Assessment & Plan (1) Acute ear pain: Code(s): H92.09 - Otalgia, unspecified ear Qualifiers: Laterality: bilateral Qualified Code(s): H92.03 - Otalgia, bilateral Plan: - Acetaminophen for pain relief - RTC if not better. Medications: New loratadine-pseudoephedrine 5-120 mg ER (Claritin-D 12 Hour) 1 tab PO Q12H PRN 60 tabs 0RF allergy symptoms H92.03 - Otalgia, bilateral Refilled fluticasone propionate 50 mcg/actuation (Flonase Allergy Relief) administer into each nostril 1 spray intranasal Q12H 16 grams 3RF 30 days H92.03 - Otalgia, bilateral Coding Level of Care Code Est Pt Level 3 (76954) Diagnoses Acute pain of both ears H92.03 Laterality: bilateral Time Spent (min) 15
[2024-01-12 08:42] VITALS: BP 110/70; PULSE 88; TEMP 36.6; O2SAT 98; BMI 28.2
== END 2024-01-12 10:27 | disposition home or self-care (01) ==
PROVIDERS: PCP Nurse Practitioner Family; Visit Provider Nurse Practitioner Family
DX: H92.03 Otalgia, bilateral (principal)
CPT/HCPCS: 99213

== ENCOUNTER 2024-01-13 08:28 | Outpatient (AMB) | payer OTHER, SELFPAY ==
--- NOTE | 2024-01-13 08:31 | MHC.PC.OV ---
Vital Signs 01/13/24 08:32 Height 5 ft 1 in Weight 149 lb BMI 28.2 BP 144/80 H Blood Pressure Location Rt brachial Position Sitting Respiration 14 Pulse 93 Pulse Source Pulse Oximeter Temp 97.9 F Temp Source Temporal Artery Scan Pulse Oximetry (%) 99 Oxygen Delivery Method Room Air Intake Visit Reasons: f/u diabetes Intake Note: Patient states that she has been unable to receive her trulicity due to it being out of stock and would like an alternative sent over. Patient states that she recently had food poisoning twice with the most recent occurrence being in November, when she was seen at [facility] she was told that there was something in her liver and was told to request MRI from her PCP. Patient would like something for her stomach like omeprazole. Tread Cutter Required: No Accompanied by: Self / Same As Patient Allergies magnesium [MAGNESIUM] Allergy (Severe, Verified 01/13/24 08:40) ANAPHYLAXIS pioglitazone [From ACTOS] Allergy (Severe, Verified 01/13/24 08:40) SWELLING, hives aspirin [Aspirin] Allergy (Mild, Verified 01/13/24 08:40) UNKNOWN, hives ibuprofen [Ibuprofen] Allergy (Mild, Verified 01/13/24 08:40) anaphylaxis,hives Iodinated Contrast Media [IV Dye, Iodine Containing] Allergy (Mild, Verified 01/13/24 08:40) hives empagliflozin [From Jardiance] Allergy (Verified 01/13/24 08:40) Unknown Medication List - Last Reconciled 01/13/24 by Flakito Larsen MD atorvastatin 10 mg PO BEDTIME 30 days blood sugar diagnostic (FreeStyle Lite Strips) three times a day blood-glucose meter (FreeStyle Lite Meter kit) As directed 2x/day budesonide 32 mcg/actuation 1 spray intranasal DAILY 30 days roqlifmcxk-miifuxihlmrry-tlna 50-300-40 mg (Fioricet) 1 cap PO Q8H PRN canagliflozin (Invokana) 300 mg PO DAILY clotrimazole-betamethasone 1-0.05 % appl topical comp.stocking,knee,long,medium Compression stockings 20 mm Hg. Daily while awake. 90 days dulaglutide (Trulicity) 4.5 mg (0.5 mL) subcut QWEEK 28 days epinephrine 0.3 mg (0.3 mL) IM ONCE 30 days flash glucose sensor (FreeStyle Butch 14 Day Sensor kit) As directed fluticasone propionate 50 mcg/actuation (Flonase Allergy Relief) 1 spray intranasal Q12H 30 days glipizide 5 mg PO BID lancets (FreeStyle Lancets) As directed levothyroxine 75 mcg PO DAILY loratadine-pseudoephedrine 5-120 mg ER (Claritin-D 12 Hour) 1 tab PO Q12H PRN metformin 850 mg PO BID 90 days ondansetron 4 mg PO Q8H PRN ondansetron 4 mg PO DAILY PRN 5 days Tobacco use date assessed: 12/09/23 Dental Screening Dental Screen Date: 10/28/23 HPI f/u diabetes HPI Details 48 y/o female presents to f/u diabetes. Her Trulicity was increased to 4.5 mg weekly at her last visit in October. Also on glipizide, Invokana and metformin as prescribed. Last A1c 10/28/23 9.0%. Pt reports ongoing abdominal pain - had been to the ED 12/27/23 for a food poisoning episode which did show incidental finding on CT scan of a liver nodule. [facility] Medical History Abnormal thyroid exam Cirrhosis Migraines GERD (gastroesophageal reflux disease) Depression Hypothyroidism Hyperlipidemia LDL goal <100 Type 2 diabetes mellitus with hyperglycemia Diabetes mellitus type 2, controlled, with complications Surgical History Hx of hysterectomy Hx of tubal ligation Hx of section Hx of cholecystectomy Family History Father No problems noted. Mother Diabetes Cardiovascular disease Arthritis Maternal Aunt Diabetes Sister SLE (systemic lupus erythematosus) Social History (Updated 01/13/24 @ 08:42 by MAUDE Graham) Household Members: Family Both parents involved: No Caregiver staying overnight: No Housing: Apartment Are you a primary wild animal caretaker to a significant other at home: No Do you presently have visiting nurse or other home services: No 75 years or older and lives alone: No Alcohol intake: never Patient Tobacco Use Status: Never used Tobacco e-Cigarette/Vaping Use: Never Used Use of substances other than those prescribed or required for medical reasons: No Currently Displaying Signs/Symptoms of Drug Intoxication Withdrawal: No Any prior treatment program specific to substance use: No Have you been hit, kicked, punched, or otherwise hurt by someone within the past year? If so, by whom?: No Do you feel safe in your current relationship?: No Is there a partner from a previous relationship who is making you feel unsafe now?: No Are you made to feel afraid or neglected: No service: No Current occupational status: unemployed Current occupation: used to work at the [employer] in [place], [employer] service Current occupational exposures/hazards: No Cognitive needs: No Hearing needs: No Vision needs: Yes (Glasses) Questionnaire Thrive Questionnaire Date Thrive assessed: 10/28/23 AKASH-7 AMB Questionnaire AKASH-7 Date AKASH - 7 assessed: 10/28/23 Source: Developed by Drs. Yovani Lee, Eliana Decker, Mikal Brownlee and colleagues, with an educational bess from [employer]. Review of Systems Const Denies chills, Denies fatigue, Denies fever(s), Denies headache(s) and Denies weakness ENT Denies dizziness and Denies headache(s) Card Denies dyspnea Resp Denies cough, Denies dyspnea, Denies wheezing and Denies other (shortness of breath) GI Reports abdominal pain Musc Denies numbness and Denies tingling Neuro Denies dizziness, Denies headache(s), Denies numbness, Denies tingling and Denies weakness Psych Denies anxiety and Denies depression Endo Denies fatigue Aller/Immun Denies wheezing Physical exam (Primary Care) Vital Signs: Last Vital Signs Temp 97.9 F 01/13/24 08:32 Pulse 93 01/13/24 08:32 Resp 14 01/13/24 08:32 BP 144/80 H 01/13/24 08:32 Pulse Ox 99 01/13/24 08:32 Oxygen Delivery Method Room Air 01/13/24 08:32 BMI result Body Mass Index 28.2 Tobacco/Smoking Status: Tobacco use Status Tobacco use date assessed 12/09/23 01/13/24 08:33 Patient Tobacco Use Status Never used Tobacco 01/13/24 08:42 e-Cigarette/Vaping Use Never Used 01/13/24 08:42 Thrive Assessment: Date of Thrive Assessment Date Thrive assessed 10/28/23 01/13/24 08:33 Const General: well developed; No acute distress Nutritional Appearance: well nourished Orientation/consciousness: patient oriented x3 [facility] Head: Yes normocephalic and Yes atraumatic Eyes General: appearance normal, both eyes and all related structures Pupils: Equal, round and reactive pupils present EOM: EOMs intact bilaterally Resp Effort & Inspection: normal respiratory effort Auscultation: clear to auscultation bilaterally Cardio Rate: regular rate Rhythm: regular rhythm Heart sounds: S1 normal heart sound present, S2 normal heart sound present, no gallops, no murmurs and no rubs Neuro General: patient oriented x3 and gait normal Cranial nerves: Yes Equal, round and reactive pupils present Psych Affect: normal affect Assessment and Plan Assessment & Plan (1) Type 2 diabetes mellitus with hyperglycemia: Code(s): E11.65 - Type 2 diabetes mellitus with hyperglycemia Qualifiers: Diabetes mellitus intermediate project manager insulin use: without intermediate project manager use Qualified Code(s): E11.65 - Type 2 diabetes mellitus with hyperglycemia Plan: A1c?from?October?was?9.0%?which?is?too?high.??Goal?is?less?than?7.0% She?has?not?been?able?to?get?Trulicity. However,?her?morning?blood?sugars?are?running?80s?to?90s.??Her?daytime?blood?sugars?are?running?much?higher. She?has?also?been?having?some?low?blood?sugars?and?has?had?issues?with?food?poisoning?recently?so?having?difficulty?with?food?intake. Will?increase?her?glipizide?from?5?mg?b.i.d.?to?10?mg?b.i.d..??Will?also?have?her?take?her?evening?dose?with?her?dinnertime-she?has?been?taking?it?before?bed?and?this?may?be?a?cause?for?nighttime?low?blood?sugars. Will?hold?off?on?trying?to?get?her?an?alternative?to?Trulicity.??I?will?see?her?back?in?a?month?at?which?time?we?will?recheck?A1c?and?come?up?with?a?plan?for?Trulicity?or?an?alternative?if?needed. (2) Liver lesion: Code(s): K76.9 - Liver disease, unspecified Plan: Check?MRI (3) Abnormal CT of the abdomen: Code(s): R93.5 - Abnormal findings on diagnostic imaging of other abdominal regions, including retroperitoneum Plan: As?above?check?MRI Orders: Orders MR abdomen wo con Today K76.9 - Liver disease, unspecified, R10.9 - Unspecified abdominal pain, R93.5 - Abnormal findings on diagnostic imaging of other abdominal regions, including retroperitoneum Medications: New omeprazole 20 mg PO DAILY 30 days 30 caps 3RF Changed From glipizide 5 mg PO BID 60 tabs 6RF To glipizide 10 mg PO BID 90 days 180 tabs 6RF Coding Level of Care Code Est Pt Level 4 (31356) Diagnoses Type 2 diabetes mellitus with hyperglycemia, without long-term current use of insulin E11.65 Diabetes mellitus senior living insulin use: without intermediate project manager use Liver lesion K76.[address] of the abdomen R93.5
[2024-01-13 08:32] VITALS: BP 144/80; PULSE 93; RESP 14; TEMP 36.6; O2SAT 99; BMI 28.2
== END 2024-01-13 09:30 | disposition home or self-care (01) ==
PROVIDERS: PCP Family Medicine; Visit Provider Family Medicine
DX: E11.65 Type 2 diabetes mellitus with hyperglycemia (principal); K76.9 Liver disease, unspecified; R93.5 Abnormal findings on diagnostic imaging of other abdominal regions, including retroperitoneum
CPT/HCPCS: 99214

== ENCOUNTER 2024-01-25 08:40 | Outpatient (AMB) | payer OTHER, SELFPAY ==
--- NOTE | 2024-01-25 08:45 | A.OFFVIS_ITS ---
Vital Signs 3 01/25/24 08:46 Height 5 ft 1 in Weight 149 lb 7.574 oz BMI 28.2 BP 132/77 Blood Pressure Location Rt brachial Position Sitting Pulse 101 H Intake Visit Reasons: Colonoscopy screening Intake Note: Maribel presents to in office today as a new patient for colonoscopy screening. CC: Patient reports that she is established with Dr. Contreras since she was 14 years old but she would like to switch to our practice. Per patient she was diagnosed with cirrhosis when she was 14 years old. She states that she had food poisoning twice once in November and the last time in October. She c/o abdominal pain after eating, constipation, and GERD. Recreational Therapist Required: No Accompanied by: Self / Same As Patient Allergies magnesium [MAGNESIUM] Allergy (Severe, Verified 02/01/24 11:16) ANAPHYLAXIS pioglitazone [From ACTOS] Allergy (Severe, Verified 02/01/24 11:16) SWELLING, hives aspirin [Aspirin] Allergy (Mild, Verified 02/01/24 11:16) UNKNOWN, hives ibuprofen [Ibuprofen] Allergy (Mild, Verified 02/01/24 11:16) anaphylaxis,hives Iodinated Contrast Media [IV Dye, Iodine Containing] Allergy (Mild, Verified 02/01/24 11:16) hives empagliflozin [From Jardiance] Allergy (Verified 02/01/24 11:16) Unknown HPI HPI Colonoscopy screening: Details: 48-year-old female here for preprocedural meeting to discuss a screening colonoscopy. She is referred by Flakito Larsen [place] [facility] [place]. PMX Diabetes Hypothyroid High cholesterol Cirrhosis Migraines History of right foot abscess Peripheral arterial disease Polyarthralgia Long-term use of hydroxychloroquine Depression with anxiety Varicose veins Diabetic neuropathy * SURGICAL HISTORY Cholecystectomy section Tubal ligation Hysterectomy * ALLERGIES Magnesium Pioglitazone Aspirin Ibuprofen Iodinated contrast media Empagliflozin * [facility] LABS: Laboratory Tests 12/27/23 10:46 WBC 20.6 H RBC 5.23 D Hgb 16.6 H D Hct 48.2 H D Plt Count 357 Immature Gran % (Auto) 0.6 H Neut % (Auto) 84.8 H Lymph % (Auto) 8.6 L Abs Immat Gran (auto) 0.12 H Absolute Neuts (auto) 17.5 H Total Bilirubin 0.5 AST 23 ALT 28 Alkaline Phosphatase 89 TODAY'S VISIT I advise her that colonoscopy may not be prudent right now with her undiagnosed elevated white count and abd pain. This started in November, she presented to the ER x2 and she was told she had food poisoning. She had severe N/V/D initially, diarrhea has resolved (her usual baseline is CIC). She has continued nausea and she is fearful to eat or even to drink. SHe had a cramping/labor like pain in the periumbilical area that is severe at times. She was on bentyl and omeprazole but they did not help and they were stopped. However, she also has a long hx of dyspepsia and stomach problems and nausea and had been seeing Dr. Contreras w/o any specific dx or tx. She had an EGD remotely in about 2009. She has a ? of lesion on the liver that will necessitate an MRI. One was ordered by her PCP but I will try to marah this as urgent. She had an episode of elevated peroxidase antibodies and a biopsy because there were some suspicious swollen lymph nodes around the thyroid. She says the biopsy was negative. In the context of the severe leukocytosis I think she should have hematology referral to make sure this isn't a blood borne hematologic disease. She has a strong family history of lupus and a cousin who of lupus. CT scan report does show possible suspicious cyst on the kidney that could be infectious. However she has had blood cultures that have been negative by the emergency department. She has never had stool cultures but the diarrhea now is intermittent. She has been off of her Trulicity for a while because of back order problems. Otherwise there has been no medication changes preceding her symptoms. She is having nocturnal subjective fevers and chills although she has not measured her temperature. She is lost about 15 lb since November. Past GES shows severe gastroparesis, she has never been on reglan. We will start this as a trial. ? if she needs admission. RoV 2 weeks. [facility] Medical History (Updated 02/01/24 @ 14:46 by Kimberly Coon MD) Low back pain Normal physical examination, routine Colon cancer screening Diabetes Bilateral otitis media with effusion Discomfort of left ear Right arm pain Right elbow pain Knee pain Allergies Acute effusion of left ear Venous insufficiency Conjunctivitis Acute sinusitis Arterial insufficiency Foot abscess, right Wound of right foot Right low back pain Weight gain Hyperlipidemia LDL goal <100 Type 2 diabetes mellitus with hyperglycemia Abnormal thyroid exam Cirrhosis Migraines GERD (gastroesophageal reflux disease) Depression Hypothyroidism Diabetes mellitus type 2, controlled, with complications Surgical History (Updated 02/01/24 @ 14:46 by Kimberly Coon MD) Hx of hysterectomy Hx of tubal ligation Hx of section Hx of cholecystectomy Family History Father No problems noted. Mother Diabetes Cardiovascular disease Arthritis Maternal Aunt Diabetes Sister SLE (systemic lupus erythematosus) Social History (Updated 02/01/24 @ 11:19 by Everette Joseph) Household Members: Family Both parents involved: No Caregiver staying overnight: No Housing: Apartment Are you a primary technical healthcare consultant to a significant other at home: No Do you presently have visiting nurse or other home services: No 75 years or older and lives alone: No Alcohol intake: never Patient Tobacco Use Status: Never used Tobacco e-Cigarette/Vaping Use: Never Used service: No Current occupational status: unemployed Current occupation: used to work at the [employer] in [place], [employer] service Current occupational exposures/hazards: No Gender identity: Female Cognitive needs: No Hearing needs: No Vision needs: Yes (Glasses) Review of Systems Const Denies fatigue, Denies fever(s), Denies night sweats, Denies poor appetite and Denies weight loss Eyes Details: glasses Reports requires corrective lenses ENT Reports Normal hearing present, Denies dysphagia, Denies odynophagia, Denies throat swelling and Denies tongue swelling Card Reports no additional complaints Resp Reports no additional complaints GI Details: Reports abdominal pain, Denies melena, Denies bloating, Denies hematochezia, Denies constipation, Denies GI cramping, Denies dysphagia, Denies excessive flatus, Denies early satiety, Reports heartburn, Reports diarrhea, Reports nausea, Denies odynophagia, Reports vomiting and Denies hematemesis Skin/Breast Denies pruritus, Denies lesions, Denies rash and Denies jaundice Neuro Reports Normal hearing present and Denies Abnormal speech present Endo Denies fatigue Aller/Immun Denies throat swelling and Denies tongue swelling Physical Exam Vital Signs: Last Vital Signs Pulse 101 H 01/25/24 08:46 BP 132/77 01/25/24 08:46 BMI result Body Mass Index 28.2 Const General: cooperative, no acute distress, well developed and well groomed Nutritional Appearance: average body habitus and well nourished Orientation/consciousness: oriented to person, oriented to place and oriented to time Limitations: No language barrier HEENT Head: Yes normocephalic and Yes atraumatic Eyes General: appearance normal, both eyes and all related structures Pupils: Equal, round and reactive pupils present Neck Neck: Yes normal visual inspection and Yes no lymphadenopathy Thyroid: Thyroid normal Resp Effort & Inspection: normal respiratory effort and able to speak in complete sentences Auscultation: clear to auscultation bilaterally Cardio Rate: regular rate Rhythm: regular rhythm Heart sounds: Normal, physiologic split S2 sound present Peripheral pulses: radial pulses present and posterior tibial pulses present GI Inspection: No distended, Yes Abdominal panniculus present, Yes obesity and Yes striae Palpation (GI): Soft to palpation, Tenderness to palpation present (GI) periumbilically, no guarding, not rigid and No hepatosplenomegaly present Percussion: Yes normal to percussion Auscultation: normal bowel sounds Rectal Exam - Female: deferred Abdomen image: 2 1. surgical scars 2. 3. Skin General skin exam: no rashes or lesions noted, turgor normal, skin not dry, no jaundice, No spider nevi and no striae Rashes: no rashes Nails: normal Neuro General: oriented to person, oriented to place and oriented to time Cranial nerves: Yes Equal, round and reactive pupils present and Yes Normal hearing present Speech: No Abnormal speech present Extrem General: Yes normal to inspection, No clubbing, No cyanosis and No edema Psych Appearance: grossly normal and well kempt Mental Status: mental status grossly normal Speech and movement: Normal speech and movement present Affect: normal affect Attitude: cooperative Thought process: Normal thought process present and not confabulating Thought content: Normal thought content present Insight: Limited insight present (Psych) Judgement: Limited judgement present (Psych) Results Reviewed Results Reviewed: Laboratory Tests 12/27/23 10:46 WBC 20.6 H RBC 5.23 D Hgb 16.6 H D Hct 48.2 H D Plt Count 357 Immature Gran % (Auto) 0.6 H Neut % (Auto) 84.8 H Lymph % (Auto) 8.6 L Abs Immat Gran (auto) 0.12 H Absolute Neuts (auto) 17.5 H Total Bilirubin 0.5 AST 23 ALT 28 Alkaline Phosphatase 89 Assessment & Plan Assessment & Plan (1) Pre-op examination: Code(s): Z01.818 - Encounter for other preprocedural examination Category: Medical (2) Elevated WBC count: Comment: severe with left shift Code(s): D72.829 - Elevated white blood cell count, unspecified Category: Medical Qualifiers: Leukocytosis type: unspecified Qualified Code(s): D72.829 - Elevated white blood cell count, unspecified (3) Diabetic gastroparesis: Code(s): E11.43 - Type 2 diabetes mellitus with diabetic autonomic (poly)neuropathy; K31.84 - Gastroparesis Category: Medical Plan I advise her that colonoscopy may not be prudent right now with her undiagnosed elevated white count and abd pain. This started in November, she presented to the ER x2 and she was told she had food poisoning. She had severe N/V/D initially, diarrhea has resolved (her usual baseline is CIC). She has continued nausea and she is fearful to eat or even to drink. SHe had a cramping/labor like pain in the periumbilical area that is severe at times. She was on bentyl and omeprazole but they did not help and they were stopped. However, she also has a long hx of dyspepsia and stomach problems and nausea and had been seeing Dr. Contreras w/o any specific dx or tx. She had an EGD remotely in about 2009. She has a ? of lesion on the liver that will necessitate an MRI. One was ordered by her PCP but I will try to marah this as urgent. She had an episode of elevated peroxidase antibodies and a biopsy because there were some suspicious swollen lymph nodes around the thyroid. She says the biopsy was negative. In the context of the severe leukocytosis I think she should have hematology referral to make sure this isn't a blood borne hematologic disease. She has a strong family history of lupus and a cousin who of lupus. CT scan report does show possible suspicious cyst on the kidney that could be infectious. However she has had blood cultures that have been negative by the emergency department. She has never had stool cultures but the diarrhea now is intermittent. She has been off of her Trulicity for a while because of back order problems. Otherwise there has been no medication changes preceding her symptoms. She is having nocturnal subjective fevers and chills although she has not measured her temperature. She is lost about 15 lb since November. Past GES shows severe gastroparesis, she has never been on reglan. We will start this as a trial. ? if she needs admission. RoV 2 weeks. Orders: Orders 2 MR abdomen wo con 01/13/24 R10.9 - Unspecified abdominal pain, R93.5 - Abnormal findings on diagnostic imaging of other abdominal regions, including retroperitoneum, K76.9 - Liver disease, unspecified Referrals 2 Hematology & Oncology Referral D72.829 - Elevated white blood cell count, unspecified Medications: New 2 metoclopramide HCl (Reglan) 5 mg PO QIDACHS 120 tabs 3RF E11.43 - Type 2 diabetes mellitus with diabetic autonomic (poly)neuropathy, K31.84 - Gastroparesis Coding Level of Care Code New Pt Level 3 (71645) Diagnoses Pre-op examination Z01.818 Elevated WBC count D72.829 Leukocytosis type: unspecified Diabetic gastroparesis E11.43; K31.84
[2024-01-25 08:46] VITALS: BP 132/77; PULSE 101; BMI 28.2
== END 2024-01-25 09:40 | disposition home or self-care (01) ==
PROVIDERS: PCP Family Medicine; Visit Provider Nurse Practitioner
DX: Z01.818 Encounter for other preprocedural examination (principal); D72.829 Elevated white blood cell count, unspecified; E11.43 Type 2 diabetes mellitus with diabetic autonomic (poly)neuropathy; K31.84 Gastroparesis
CPT/HCPCS: 99203

== ENCOUNTER → 2024-01-25 08:40 | Outpatient (BNVA) | payer OTHER, SELFPAY | PROVIDERS: PCP Family Medicine; Visit Provider Nurse Practitioner | DX: Z01.818 Encounter for other preprocedural examination (principal); E11.43 Type 2 diabetes mellitus with diabetic autonomic (poly)neuropathy; K31.84 Gastroparesis; D72.829 Elevated white blood cell count, unspecified; Z90.49 Acquired absence of other specified parts of digestive tract | CPT/HCPCS: 99202 ==

== ENCOUNTER 2024-01-30 08:00 | Outpatient (RCR) | payer OTHER, SELFPAY ==
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
== END 2024-03-20 15:13 | disposition home or self-care (01) ==
LOC: HO.PT 08:00
PROVIDERS: PCP Family Medicine; Visit Provider Family Medicine
DX: M54.2 Cervicalgia (principal); M54.50 Low back pain, unspecified
CPT/HCPCS: 97110; 97140; 97162

== ENCOUNTER 2024-01-30 14:42 | Outpatient (AMB) | payer OTHER, SELFPAY ==
--- NOTE | 2024-01-30 14:58 | A.OFFVIS_ITS ---
Vital Signs 01/30/24 14:59 Height 5 ft 1 in Weight 147 lb 7.828 oz BMI 27.9 BP 112/66 Blood Pressure Location Rt brachial Position Sitting Pulse 99 Pulse Source Pulse Oximeter Pulse Oximetry (%) 98 Oxygen Delivery Method Room Air Intake Visit Reasons: UCTD/CM Intake Note: Patient last seen 04/28/23 presents today for follow up. She was started on plaquenil and referred to ophthalmology. She states she is no longer taking medication, but will be seeing Eye and Lasik. Reports really bad flare up approx 2 weeks ago. She states she had morning stiffness for about 3hrs. She would like to know which kind of arthritis she has and also would like further Lupus testing. Director Power Required: No Accompanied by: Self / Same As Patient Allergies magnesium [MAGNESIUM] Allergy (Severe, Verified 01/30/24 15:10) ANAPHYLAXIS pioglitazone [From ACTOS] Allergy (Severe, Verified 01/30/24 15:10) SWELLING, hives aspirin [Aspirin] Allergy (Mild, Verified 01/30/24 15:10) UNKNOWN, hives ibuprofen [Ibuprofen] Allergy (Mild, Verified 01/30/24 15:10) anaphylaxis,hives Iodinated Contrast Media [IV Dye, Iodine Containing] Allergy (Mild, Verified 01/30/24 15:10) hives empagliflozin [From Jardiance] Allergy (Verified 01/30/24 15:10) Unknown Medication List - Last Reconciled 01/30/24 by Shana De La Rosa MD atorvastatin 10 mg PO BEDTIME 30 days blood sugar diagnostic (FreeStyle Lite Strips) three times a day blood-glucose meter (FreeStyle Lite Meter kit) As directed 2x/day budesonide 32 mcg/actuation 1 spray intranasal DAILY 30 days canagliflozin (Invokana) 300 mg PO DAILY clotrimazole-betamethasone 1-0.05 % appl topical comp.stocking,knee,long,medium Compression stockings 20 mm Hg. Daily while awake. 90 days dulaglutide (Trulicity) 4.5 mg (0.5 mL) subcut QWEEK 28 days epinephrine 0.3 mg (0.3 mL) IM ONCE 30 days flash glucose sensor (FreeStyle Butch 14 Day Sensor kit) As directed fluticasone propionate 50 mcg/actuation (Flonase Allergy Relief) 1 spray intranasal Q12H 30 days glipizide 10 mg PO BID 90 days lancets (FreeStyle Lancets) As directed levothyroxine 75 mcg PO DAILY loratadine-pseudoephedrine 5-120 mg ER (Claritin-D 12 Hour) 1 tab PO Q12H PRN metformin 850 mg PO BID 90 days metoclopramide HCl (Reglan) 5 mg PO QIDACHS omeprazole 20 mg PO DAILY 30 days ondansetron 4 mg PO DAILY PRN 5 days HPI Comments Details: 48-year-old female with UCTD returns for follow-up. After last visit patient took hydroxychloroquine as prescribed for 3 months. She did not recall any improvement. But she felt like she was not herself she was also having stomach upset. She discontinued it after 3 months. She did not present for follow-up. She states that she gets intermittent pain in her hands, knuckles, wrists, fingers, knees. Two weeks ago she woke up with bilateral knee pain, worse on the right. She could not get out of bed for 3 hours. She denies any joint swelling. She presented to the ER twice with abdominal discomfort, she was found to have significantly elevated white count. Food poisoning was suspected. Due to persistent leukocytosis she was referred to heme/Onc. Appointment is day after tomorrow. Initial history: This is a 47-year-old female presents for evaluation of diffuse pain. Patient states that she has had diffuse pain everywhere for many years. She has pain in her shoulders, elbows, hands, feet. She has generalized morning stiffness lasting a few minutes. Stiffness of her hands also last a few minutes. She mentions that she has clumps of hair coming off as she brushes her hair. Sometimes she gets frothy urine early in the morning. She has rashes on her arms and back that she attributes to scratching. She has an older sister who is 58 years old who has lupus and a cousin who from lupus in her 40s. She was evaluated by a net web application developer Dr. Hyman in 2018 labs showed a positive MING with negative sub serologies. She states that her joint pain has become worse over the last year. There is no history of DVT/PE. No history of repeated miscarriages She states that she has been diagnosed with sciatica of for 1-2 years now and it has acted up affecting her right lower back, right buttock over the last week ON LICENSE OF [facility] Medical History (Updated 01/30/24 @ 15:45 by Shana De La Rosa MD) Low back pain Normal physical examination, routine Colon cancer screening Diabetes Bilateral otitis media with effusion Discomfort of left ear Right arm pain Right elbow pain Knee pain Allergies Acute effusion of left ear Venous insufficiency Conjunctivitis Acute sinusitis Arterial insufficiency Foot abscess, right Wound of right foot Right low back pain Weight gain Hyperlipidemia LDL goal <100 Type 2 diabetes mellitus with hyperglycemia Abnormal thyroid exam Cirrhosis Migraines GERD (gastroesophageal reflux disease) Depression Hypothyroidism Diabetes mellitus type 2, controlled, with complications Surgical History Hx of hysterectomy Hx of tubal ligation Hx of section Hx of cholecystectomy Family History Father No problems noted. 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[place], 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 Current occupational exposures/hazards: No Cognitive needs: No Hearing needs: No Vision needs: Yes (Glasses) Review of Systems [facility] Reports arthralgias and Reports stiffness Physical Exam Vital Signs: Last Vital Signs Pulse 99 01/30/24 14:59 BP 112/66 01/30/24 14:59 Pulse Ox 98 01/30/24 14:59 Oxygen Delivery Method Room Air 01/30/24 14:59 BMI result Body Mass Index 27.9 Const General: cooperative and healthy appearing Nutritional Appearance: obese Orientation/consciousness: patient oriented x3 Limitations: no limitations HEENT Head: Yes normocephalic and Yes atraumatic Resp Effort & Inspection: normal respiratory effort and able to speak in complete sentences Neuro General: patient oriented x3 Extrem Other: Bilateral wrist tenderness and pain with flexion and extension. No swelling. Bilateral 2nd through 5th MCP tenderness without swelling Right hand tender PIPs & DIPs with no swelling right hand extensor tendon tenderness with no swelling Multiple Heberden's nodes Right knee pain with any range of motion . No swelling Bilateral elbow pain with full flexion and extension Normal nailfold capillaroscopy Assessment & Plan Assessment & Plan (1) Connective tissue disease: Comment: HCQ 04/2023-07/2023 not effective caused GI upset Code(s): M35.9 - Systemic involvement of connective tissue, unspecified Category: Medical Plan: 48-year-old female with UCTD returns for follow-up. Patient took hydroxychloroquine as as prescribed for 3 months then she ran out. She did not recall any improvement in symptoms. Patient continues to have multiple small tender joints. In addition to her known osteoarthritis. No appreciable swelling. Patient for UCTD remains. Patient however will be evaluated by heavy equipment mechanic for leukocytosis soon. Follow-up with me in 2 months Plan I spent 26 minutes reviewing patient's chart, evaluating patient, counseling patient and documenting in the chart Coding Level of Care Code Est Pt Level 3 (60874) Diagnoses Connective tissue disease M35.9
[2024-01-30 14:59] VITALS: BP 112/66; PULSE 99; O2SAT 98; BMI 27.9
== END 2024-01-30 15:41 | disposition home or self-care (01) ==
PROVIDERS: PCP Family Medicine; Visit Provider Student in an Organized Health Care Education/Training Program
DX: M35.89 Other specified systemic involvement of connective tissue (principal)
CPT/HCPCS: 99213

== ENCOUNTER → 2024-01-30 14:42 | Outpatient (BNVA) | payer OTHER, SELFPAY | PROVIDERS: PCP Family Medicine; Visit Provider Student in an Organized Health Care Education/Training Program | DX: M35.9 Systemic involvement of connective tissue, unspecified (principal) | CPT/HCPCS: 99212 ==

== ENCOUNTER 2024-01-31 08:27 | Outpatient (REF) | payer OTHER, SELFPAY | END 2024-01-31 08:28 | disposition home or self-care (01) | LOC: HO.MAMMO 08:27 | PROVIDERS: PCP Nurse Practitioner Family; Visit Provider Family Medicine | DX: Z12.31 Encounter for screening mammogram for malignant neoplasm of breast (principal) | CPT/HCPCS: 77063; 77067 ==

== ENCOUNTER → 2024-01-31 09:00 | Outpatient (BNV) | payer OTHER, SELFPAY | PROVIDERS: PCP Nurse Practitioner Family; Visit Provider Radiology Diagnostic Radiology | DX: Z12.31 Encounter for screening mammogram for malignant neoplasm of breast (principal) | CPT/HCPCS: 77063; 77067 ==

== ENCOUNTER → 2024-02-01 11:07 | Outpatient (BNV) | payer OTHER, SELFPAY | PROVIDERS: PCP Family Medicine; Referring Provider Physician Assistant Medical; Visit Provider Internal Medicine | DX: D72.829 Elevated white blood cell count, unspecified (principal) | CPT/HCPCS: 99203; 99213 ==

== ENCOUNTER 2024-02-03 12:58 | Outpatient (REF) | payer OTHER, SELFPAY ==
--- NOTE | ~2024-02-03 | MR_ITS ---
EXAMINATION: MR ABDOMEN WITHOUT AND WITH CONTRAST CLINICAL INFORMATION: Abnormal findings on prior diagnostic imaging. COMPARISON: Abdomen CT from 12/27/2023. TECHNIQUE: MR abdomen was performed without and with use of 6.5 mL intravenous Gadavist gadolinium contrast. Postcontrast images are performed in multiphase dynamic sequences. Imaging was performed in 3 planes. FINDINGS: LUNG BASES: Normal. No pulmonary consolidation or pleural effusion. LIVER: Liver has normal size and contour. 1 x 1.6 cm area in subcapsular region of junction of segments IVb and 5 demonstrates loss of signal intensity on [id number] compared to in-phase T1-weighted images. This has the appearance of focal steatosis (image 21, series 7) and 8 is not visible on the fat-suppressed T2-weighted images. This focus was 1.3 x 1.7 cm on 12/08/2023 at which time it had a density of 6 Hounsfield units on the noncontrast CT images. Otherwise, liver is unremarkable. No cirrhotic morphology or mass. GALLBLADDER AND BILIARY TREE: Gallbladder is surgically absent. No dilated bile ducts. PANCREAS: No edema, pancreatic ductal dilatation or mass. SPLEEN: Normal. ADRENAL GLANDS: 1.7 x 2 cm lipid rich adenoma of the left adrenal gland exhibits significant signal loss on [id number] compared to in-phase T1-weighted gradient echo images. No adrenal imaging follow-up recommended. KIDNEYS: Kidneys are normal in size and enhance symmetrically. No hydronephrosis or perinephric edema. 1 cm cortical cyst of the lateral interpolar region of the left kidney has a simple appearance. No renal imaging follow-up is recommended for simple cysts. BOWEL AND PERITONEUM: Stomach is unremarkable. No dilated loops of bowel. No bowel wall thickening or mesenteric fat stranding. No abdominal free fluid. VASCULATURE: Abdominal aorta is normal in caliber and its branches are widely patent. The left renal vein has a retroaortic course. LYMPH NODES: No pathologic sized lymph nodes in the abdomen. SKELETAL: Unremarkable. MR/MR abdomen wo/w con IMPRESSION: * There is focal steatosis in the inferior aspect of the liver, region of junction of segments IVb and 5. 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 * Small simple cyst (Bosniak category 1 cyst) of the left kidney.
[2024-02-03] MEDS: gadobutroL 7.5 ML VIAL IVPUSH (14:29)
== END 2024-02-03 12:59 | disposition home or self-care (01) ==
LOC: HO.MRI 12:58
PROVIDERS: PCP Family Medicine; Visit Provider Nurse Practitioner
DX: R93.5 Abnormal findings on diagnostic imaging of other abdominal regions, including retroperitoneum (principal); K76.9 Liver disease, unspecified
CPT/HCPCS: 74183; A9585

== ENCOUNTER 2024-02-08 08:27 | Outpatient (AMB) | payer OTHER, SELFPAY ==
--- NOTE | 2024-02-08 08:29 | MHC.PC.OV ---
Vital Signs 02/08/24 08:39 Height 5 ft 1 in Weight 149 lb 6 oz BMI 28.2 BP 128/68 Blood Pressure Location Rt brachial Position Sitting Pulse 89 Pulse Source Pulse Oximeter Pulse Oximetry (%) 98 Oxygen Delivery Method Room Air Intake Visit Reasons: Diabetes F/U Intake Note: patient here for diabetes follow up and would like to know whats going on with the bone density referral she asked for. Corrosion Control Specialist Required: No Allergies magnesium [MAGNESIUM] Allergy (Severe, Verified 02/01/24 11:16) ANAPHYLAXIS pioglitazone [From ACTOS] Allergy (Severe, Verified 02/01/24 11:16) SWELLING, hives aspirin [Aspirin] Allergy (Mild, Verified 02/01/24 11:16) UNKNOWN, hives ibuprofen [Ibuprofen] Allergy (Mild, Verified 02/01/24 11:16) anaphylaxis,hives Iodinated Contrast Media [IV Dye, Iodine Containing] Allergy (Mild, Verified 02/01/24 11:16) hives empagliflozin [From Jardiance] Allergy (Verified 02/01/24 11:16) Unknown Medication List - Last Reconciled 02/08/24 by Estefany Meléndez PA-C atorvastatin 10 mg PO BEDTIME 30 days blood sugar diagnostic (FreeStyle Lite Strips) three times a day blood-glucose meter (FreeStyle Lite Meter kit) As directed 2x/day budesonide 32 mcg/actuation 1 spray intranasal DAILY 30 days canagliflozin (Invokana) 300 mg PO DAILY clotrimazole-betamethasone 1-0.05 % appl topical comp.stocking,knee,long,medium Compression stockings 20 mm Hg. Daily while awake. 90 days dulaglutide (Trulicity) 4.5 mg (0.5 mL) subcut QWEEK 28 days epinephrine 0.3 mg (0.3 mL) IM ONCE 30 days flash glucose sensor (FreeStyle Butch 14 Day Sensor kit) As directed fluticasone propionate 50 mcg/actuation (Flonase Allergy Relief) 1 spray intranasal Q12H 30 days glipizide 10 mg PO BID 90 days lancets (FreeStyle Lancets) As directed levothyroxine 75 mcg PO DAILY metformin 850 mg PO BID 90 days metoclopramide HCl (Reglan) 5 mg PO QIDACHS omeprazole 20 mg PO DAILY 30 days ondansetron 4 mg PO DAILY PRN 5 days Tobacco use date assessed: 12/09/23 Dental Screening Dental Screen Date: 10/28/23 Did you have a dental visit in the last 12 months?: Yes Did you have a dental problem in the last 6 months where you did not have access to dental care?: No Was dental information given to patient?: Patient has dentist HPI Diabetes F/U HPI Details Patient is a 48-year-old female with a significant past medical history of type 2 diabetes, gastroparesis, hypothyroidism, leukocytosis, anxiety and depression, and obesity presenting today for a follow up regarding her diabetes. Endo: Her A1c today in the office is 5.8. She has been unable to get Trulicity for the last 2 months. She was on Trulicity 4 mg. She tolerated this well. She is wondering if she can switch to a different GLP as her pharmacy told her that they probably will not be able to get this any time soon. She is currently on Invokana 300 mg, metformin 850 mg twice a day, glipizide 10 mg twice a day. She has been getting some hypoglycemic events in the evening. She says that this happened with the increased dose of the glipizide. She corrects her hypoglycemic events with candy. CGM: Sensor usage 85%, 4% high, 89% in range, 7% low, no very lows She thinks she had diabetic education 1 x 20 years ago around the time of her initial diagnosis. She states she has done a lot of research and feels well with this. Cholesterol is managed with atorvastatin 10 mg. No myalgias. Not on an West or an Arb. No signs of nephropathy. Does not follow with Podiatry. Believes up-to-date with ophthalmology. CV: Blood pressure today in the office is 128/68. No chest pain, shortness on breath or palpitations. [facility] Medical History (Updated 02/01/24 @ 14:46 by Kimberly Coon MD) Low back pain Normal physical examination, routine Colon cancer screening Diabetes Bilateral otitis media with effusion Discomfort of left ear Right arm pain Right elbow pain Knee pain Allergies Acute effusion of left ear Venous insufficiency Conjunctivitis Acute sinusitis Arterial insufficiency Foot abscess, right Wound of right foot Right low back pain Weight gain Hyperlipidemia LDL goal <100 Type 2 diabetes mellitus with hyperglycemia Abnormal thyroid exam Cirrhosis Migraines GERD (gastroesophageal reflux disease) Depression Hypothyroidism Diabetes mellitus type 2, controlled, with complications Surgical History (Updated 02/01/24 @ 14:46 by Kimberly Coon MD) Hx of hysterectomy Hx of tubal ligation Hx of section Hx of cholecystectomy Family History Father No problems noted. Mother Diabetes Cardiovascular disease Arthritis Maternal Aunt Diabetes Sister SLE (systemic lupus erythematosus) Social History (Updated 02/01/24 @ 11:19 by Everette Joseph) Household Members: Family Both parents involved: No Caregiver staying overnight: No Housing: Apartment Are you a primary health care administrator to a significant other at home: No Do you presently have visiting nurse or other home services: No 75 years or older and lives alone: No Alcohol intake: never Patient Tobacco Use Status: Never used Tobacco e-Cigarette/Vaping Use: Never Used service: No Current occupational status: unemployed 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 Yovani Lee, Eliana Decker, Mikal Brownlee and colleagues, with an educational bess from [id number]. Physical exam (Primary Care) Vital Signs: Last Vital Signs Pulse 89 02/08/24 08:39 BP 128/68 02/08/24 08:39 Pulse Ox 98 02/08/24 08:39 Oxygen Delivery Method Room Air 02/08/24 08:39 BMI result Body Mass Index 28.2 Tobacco/Smoking Status: Tobacco use Status Tobacco use date assessed 12/09/23 02/08/24 08:30 Patient Tobacco Use Status Never used Tobacco 02/08/24 08:30 e-Cigarette/Vaping Use Never Used 02/08/24 08:30 Thrive Assessment: Date of Thrive Assessment Date Thrive assessed 10/28/23 02/08/24 08:30 Const Orientation/consciousness: patient oriented x3 HENMT Ears: hearing grossly normal bilaterally Neck Thyroid: Thyroid normal Lymphatic: no lymphadenopathy noted Resp Auscultation: clear to auscultation bilaterally Cardio Rate: regular rate Rhythm: regular rhythm Heart sounds: S1 normal heart sound present and S2 normal heart sound present GI Inspection: Yes normal to inspection Palpation (GI): Soft to palpation and Other GI palpation findings present (nontender, no cva tenderness) Auscultation: normoactive bowel sounds Rectal Exam - Female: deferred Skin General skin exam: no rashes or lesions noted Neuro General: patient oriented x3, gait normal and no focal motor deficits Results AMB Hemoglobin A1c AMB Hemoglobin A1c 5.8 % Last Edit by Halina Babb CMA on 02/08/24 09:00 Results Reviewed Results Reviewed: Laboratory Last Values Hgb A1c (Clinic) 5.8 % (4.0-6.0) 02/08/24 08:58 Laboratory Tests 12/27/23 02/01/24 02/08/24 10:46 11:35 08:58 Sodium 141 Potassium 4.0 Chloride 108 Carbon Dioxide 18 L Anion Gap 19 BUN 15 Creatinine 0.79 Estim Creat Clear Calc 74.8 Estimated GFR > 60 Hgb A1c (Clinic) 5.8 Calcium 9.5 D Assessment and Plan Assessment & Plan (1) Diabetes mellitus type 2, controlled, with complications: Code(s): E11.8 - Type 2 diabetes mellitus with unspecified complications Qualifiers: Diabetes mellitus superintendent marine oil terminal insulin use: without superintendent marine oil terminal use Qualified Code(s): E11.8 - Type 2 diabetes mellitus with unspecified complications Plan: See below. Labs reviewed. (2) Hypoglycemia: Code(s): E16.2 - Hypoglycemia, unspecified Plan: d/c glip at night and adjust to 10 mg extended release. We will start on Ozempic. Risks, benefits and adverse effects such as worsened gastroparesis, nausea, vomiting, increased risk of pancreatitis and thyroid cancer were discussed. Discontinue Trulicity. Follow up in 1 month to have medication adjusted if needed. If continuing to still develop hypoglycemic events advised her to completely stop the glipizide. She understands and agrees with this plan. Orders: Orders AMB Hemoglobin A1c Today E11.8 - Type 2 diabetes mellitus with unspecified complications Medications: New semaglutide (Ozempic) for 4 weeks 0.25 mg (0.368 mL) subcut QWEEK 3 mL 2RF glipizide ER 10 mg PO DAILY 90 tabs 3RF Discontinued glipizide Discontinued Reason: Doctor's Order 10 mg PO BID 90 days 180 tabs 6RF dulaglutide (Trulicity) Discontinued Reason: Doctor's Order 4.5 mg (0.5 mL) subcut QWEEK 28 days 2 mL 4RF Coding Level of Care Code Est Pt Level 4 (87416) Diagnoses Controlled type 2 diabetes mellitus with complication, without long-term current use of insulin E11.8 Diabetes mellitus care home insulin use: without care home use Hypoglycemia E16.2
[2024-02-08 08:39] VITALS: BP 128/68; PULSE 89; O2SAT 98; BMI 28.2
== END 2024-02-08 09:17 | disposition home or self-care (01) ==
PROVIDERS: PCP Family Medicine; Visit Provider Physician Assistant
DX: E11.649 Type 2 diabetes mellitus with hypoglycemia without coma (principal)
CPT/HCPCS: 83036; 99214

== ENCOUNTER 2024-05-09 09:45 | Outpatient (AMB) | payer OTHER, SELFPAY ==
--- NOTE | 2024-05-09 10:06 | MHC.OFFVIS ---
Vital Signs 05/09/24 10:08 Height 5 ft 1 in Weight 147 lb 11.355 oz BMI 27.9 BP 145/86 H Blood Pressure Location Lt brachial Position Sitting Pulse 94 Intake Visit Reasons: 2 weeks f/u from Intake Note: Maribel presents to in office visit today in follow up of MRI. CC: Patient c/o abdominal bloating and abdominal pain. Per patient t Allergies magnesium [MAGNESIUM] Allergy (Severe, Verified 05/09/24 10:16) ANAPHYLAXIS pioglitazone [From ACTOS] Allergy (Severe, Verified 05/09/24 10:16) SWELLING, hives aspirin [Aspirin] Allergy (Mild, Verified 05/09/24 10:16) UNKNOWN, hives ibuprofen [Ibuprofen] Allergy (Mild, Verified 05/09/24 10:16) anaphylaxis,hives Iodinated Contrast Media [IV Dye, Iodine Containing] Allergy (Mild, Verified 05/09/24 10:16) hives empagliflozin [From Jardiance] Allergy (Verified 05/09/24 10:16) Unknown HPI HPI 2 weeks f/u from: Details: Assessment & Plan (1) Pre-op examination: Code(s): Z01.818 - Encounter for other preprocedural examination Category: Medical (2) Elevated WBC count: Comment: severe with left shift Code(s): D72.829 - Elevated white blood cell count, unspecified Category: Medical Qualifiers: Leukocytosis type: unspecified Qualified Code(s): D72.829 - Elevated white blood cell count, unspecified (3) Diabetic gastroparesis: Code(s): E11.43 - Type 2 diabetes mellitus with diabetic autonomic (poly)neuropathy; K31.84 - Gastroparesis Category: Medical Plan I advise her that colonoscopy may not be prudent right now with her undiagnosed elevated white count and abd pain. This started in November, she presented to the ER x2 and she was told she had food poisoning. She had severe N/V/D initially, diarrhea has resolved (her usual baseline is CIC). She has continued nausea and she is fearful to eat or even to drink. SHe had a cramping/labor like pain in the periumbilical area that is severe at times. She was on bentyl and omeprazole but they did not help and they were stopped. However, she also has a long hx of dyspepsia and stomach problems and nausea and had been seeing Dr. Contreras w/o any specific dx or tx. She had an EGD remotely in about 2009. She has a ? of lesion on the liver that will necessitate an MRI. One was ordered by her PCP but I will try to marah this as urgent. She had an episode of elevated peroxidase antibodies and a biopsy because there were some suspicious swollen lymph nodes around the thyroid. She says the biopsy was negative. In the context of the severe leukocytosis I think she should have hematology referral to make sure this isn't a blood borne hematologic disease. She has a strong family history of lupus and a cousin who of lupus. CT scan report does show possible suspicious cyst on the kidney that could be infectious. However she has had blood cultures that have been negative by the emergency department. She has never had stool cultures but the diarrhea now is intermittent. She has been off of her Trulicity for a while because of back order problems. Otherwise there has been no medication changes preceding her symptoms. She is having nocturnal subjective fevers and chills although she has not measured her temperature. She is lost about 15 lb since November. Past GES shows severe gastroparesis, she has never been on reglan. We will start this as a trial. ? if she needs admission. RoV 2 weeks. Orders: Orders MR abdomen wo con 01/13/24 R10.9 - Unspecified abdominal pain, R93.5 - Abnormal findings on diagnostic imaging of other abdominal regions, including retroperitoneum, K76.9 - Liver disease, unspecified Referrals Hematology & Oncology Referral D72.829 - Elevated white blood cell count, unspecified Medications: New metoclopramide HCl (Reglan) 5 mg PO QIDACHS 120 tabs 3RF E11.43 - Type 2 diabetes mellitus with diabetic autonomic (poly)neuropathy, K31.84 - Gastroparesis MRI abd 02/13/24 FINDINGS: LUNG BASES: Normal. No pulmonary consolidation or pleural effusion. LIVER: Liver has normal size and contour. 1 x 1.6 cm area in subcapsular region of junction of segments IVb and 5 demonstrates loss of signal intensity on [id number] compared to in-phase T1-weighted images. This has the appearance of focal steatosis (image 21, series 7) and 8 is not visible on the fat-suppressed T2-weighted images. This focus was 1.3 x 1.7 cm on 12/08/2023 at which time it had a density of 6 Hounsfield units on the noncontrast CT images. Otherwise, liver is unremarkable. No cirrhotic morphology or mass. GALLBLADDER AND BILIARY TREE: Gallbladder is surgically absent. No dilated bile ducts. PANCREAS: No edema, pancreatic ductal dilatation or mass. SPLEEN: Normal. ADRENAL GLANDS: 1.7 x 2 cm lipid rich adenoma of the left adrenal gland exhibits significant signal loss on [id number]-pm-pwiqz compared to in-phase T1-weighted gradient echo images. No adrenal imaging follow-up recommended. KIDNEYS: Kidneys are normal in size and enhance symmetrically. No hydronephrosis or perinephric edema. 1 cm cortical cyst of the lateral interpolar region of the left kidney has a simple appearance. No renal imaging follow-up is recommended for simple cysts. BOWEL AND PERITONEUM: Stomach is unremarkable. No dilated loops of bowel. No bowel wall thickening or mesenteric fat stranding. No abdominal free fluid. VASCULATURE: Abdominal aorta is normal in caliber and its branches are widely patent. The left renal vein has a retroaortic course. LYMPH NODES: No pathologic sized lymph nodes in the abdomen. SKELETAL: Unremarkable. MR/MR abdomen wo/w con IMPRESSION: * There is focal steatosis in the inferior aspect of the liver, region of junction of segments IVb and 5. 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 * Small simple cyst (Bosniak category 1 cyst) of the left kidney. TODAY'S VISIT She continues to have upper abdominal pain that isn't a band-like pattern across the upper abdomen and severe bloating with eating. She is taking the metoclopramide 5 mg 4 times a day as directed but it does not seem to be helping her much. This is not a big surprise since that her gastroparesis is quite severe and since she has had no side effects we will increase the dose to 10 mg 4 times a day. She would also like an upper endoscopy for further exploration and I think this is reasonable so will get that ordered. She has also never had a colonoscopy. There are no prior problems with anesthesia or sedation. She denies any cardiac or respiratory problems. There are no infectious disease problems. There is no known family history of colon cancer or polyps. Return office visit in 4 weeks to evaluate her response to the Reglan. I am also giving her senna because she suffers constipation, unsurprisingly, but she really dislikes drinking MiraLax. [facility] Medical History (Updated 05/09/24 @ 10:54 by RACHAEL Borrego) Pre-op examination Low back pain Normal physical examination, routine Colon cancer screening Diabetes Bilateral otitis media with effusion Discomfort of left ear Right arm pain Right elbow pain Knee pain Allergies Acute effusion of left ear Venous insufficiency Conjunctivitis Acute sinusitis Arterial insufficiency Foot abscess, right Wound of right foot Right low back pain Weight gain Hyperlipidemia LDL goal <100 Type 2 diabetes mellitus with hyperglycemia Abnormal thyroid exam Cirrhosis Migraines GERD (gastroesophageal reflux disease) Depression Hypothyroidism Diabetes mellitus type 2, controlled, with complications Surgical History Hx of hysterectomy Hx of tubal ligation Hx of section Hx of cholecystectomy Family History Father No problems noted. Mother Diabetes Cardiovascular disease Arthritis Maternal Aunt Diabetes Sister SLE (systemic lupus erythematosus) Social History Household Members: Family Housing: Apartment Are you a primary care specialist to a significant other at home: No Do you presently have visiting nurse or other home services: No Alcohol intake: never Patient Tobacco Use Status: Never used Tobacco e-Cigarette/Vaping Use: Never Used service: No Current occupational status: unemployed Current occupation: used to work at the [employer] in [place], [employer] service Current occupational exposures/hazards: No Gender identity: Female Cognitive needs: No Hearing needs: No Vision needs: Yes (Glasses) Review of Systems Const Denies fatigue, Denies fever(s), Denies night sweats, Reports poor appetite and Denies weight loss Eyes Details: glasses Reports requires corrective lenses ENT Reports Normal hearing present, Denies dental pain, Denies dysphagia, Denies hearing loss, Denies mouth pain, Denies odynophagia, Denies throat swelling, Denies tongue swelling and Reports other (Dentition adequate) Card Reports no additional complaints Resp Reports no additional complaints GI Details: Reports abdominal pain, Denies melena, Denies bloating, Denies hematochezia, Denies constipation, Denies GI cramping, Denies dysphagia, Denies excessive flatus, Denies early satiety, Reports heartburn, Denies diarrhea, Reports nausea, Denies odynophagia, Denies vomiting and Denies hematemesis Skin/Breast Denies pruritus, Denies lesions, Denies rash and Denies jaundice Neuro Reports Normal hearing present and Denies Abnormal speech present Endo Denies fatigue Aller/Immun Denies throat swelling and Denies tongue swelling Physical Exam Vital Signs: Last Vital Signs Pulse 94 05/09/24 10:08 BP 145/86 H 05/09/24 10:08 BMI result Body Mass Index 27.9 Const General: cooperative, no acute distress, well developed and well groomed Nutritional Appearance: average body habitus and well nourished Orientation/consciousness: oriented to person, oriented to place and oriented to time Limitations: No language barrier HEENT Head: Yes normocephalic and Yes atraumatic Eyes General: appearance normal, both eyes and all related structures Pupils: Equal, round and reactive pupils present Neck Neck: Yes normal visual inspection and Yes no lymphadenopathy Thyroid: Thyroid normal Resp Effort & Inspection: normal respiratory effort and able to speak in complete sentences Auscultation: clear to auscultation bilaterally Cardio Rate: regular rate Rhythm: regular rhythm Heart sounds: Normal, physiologic split S2 sound present Peripheral pulses: radial pulses present and posterior tibial pulses present GI Inspection: No distended and No Abdominal panniculus present Palpation (GI): Soft to palpation, Tenderness to palpation present (GI) (General upper abdomen), no guarding, not rigid and No hepatosplenomegaly present Percussion: Yes normal to percussion Auscultation: normal bowel sounds Rectal Exam - Female: deferred Skin General skin exam: no rashes or lesions noted, turgor normal, skin not dry, no jaundice, No spider nevi and no striae Rashes: no rashes Nails: normal Neuro General: oriented to person, oriented to place and oriented to time Cranial nerves: Yes Equal, round and reactive pupils present and Yes Normal hearing present Speech: No Abnormal speech present Extrem General: Yes normal to inspection, No clubbing, No cyanosis and No edema Psych Appearance: grossly normal and well kempt Mental Status: mental status grossly normal Speech and movement: Normal speech and movement present Affect: normal affect Attitude: cooperative Thought process: Normal thought process present and not confabulating Thought content: Normal thought content present Insight: Limited insight present (Psych) Judgement: Limited judgement present (Psych) Assessment & Plan Assessment & Plan (1) Diabetic gastroparesis: Code(s): E11.43 - Type 2 diabetes mellitus with diabetic autonomic (poly)neuropathy; K31.84 - Gastroparesis Category: Medical (2) Nausea and vomiting: Code(s): R11.2 - Nausea with vomiting, unspecified Category: Medical (3) Abdominal pain: Code(s): R10.9 - Unspecified abdominal pain Category: Medical (4) Abnormal CT of the abdomen: Code(s): R93.5 - Abnormal findings on diagnostic imaging of other abdominal regions, including retroperitoneum Category: Medical (5) Pre-op examination: Code(s): Z01.818 - Encounter for other preprocedural examination Category: Medical Plan She continues to have upper abdominal pain that isn't a band-like pattern across the upper abdomen and severe bloating with eating. She is taking the metoclopramide 5 mg 4 times a day as directed but it does not seem to be helping her much. This is not a big surprise since that her gastroparesis is quite severe and since she has had no side effects we will increase the dose to 10 mg 4 times a day. She would also like an upper endoscopy for further exploration and I think this is reasonable so will get that ordered. She has also never had a colonoscopy. There are no prior problems with anesthesia or sedation. She denies any cardiac or respiratory problems. There are no infectious disease problems. There is no known family history of colon cancer or polyps. Return office visit in 4 weeks to evaluate her response to the Reglan. I am also giving her senna because she suffers constipation, unsurprisingly, but she really dislikes drinking MiraLax. Orders: Orders EGD/Lyle Combo - GI Use Only 05/09/24 Z01.818 - Encounter for other preprocedural examination Medications: New bisacodyl (Dulcolax (bisacodyl)) 10 mg (2 x 5 mg) PO BEDTIME 4 tabs 0RF 2 days bisacodyl (Dulcolax (bisacodyl)) 10 mg (2 x 5 mg) PO BEDTIME 4 tabs 0RF 2 days metoclopramide HCl (Reglan) 10 mg PO QIDACHS 120 tabs 6RF E11.43 - Type 2 diabetes mellitus with diabetic autonomic (poly)neuropathy, K31.84 - Gastroparesis sennosides (Senna Laxative) 1-2 at bedtime orally bedtime PRN; 60 tabs 6RF constipation metoclopramide HCl (Reglan) 10 mg PO QIDACHS 120 tabs 6RF E11.43 - Type 2 diabetes mellitus with diabetic autonomic (poly)neuropathy, K31.84 - Gastroparesis peg 3350-electrolytes 236-22.74-6.74 -5.86 gram (Golytely) until fecal effluent is clear; do not exceed a total volume of 2,000 mL 240 mL PO Q10M 4,000 mL 0RF 1 day Z12.11 - Encounter for screening for malignant neoplasm of colon Refilled omeprazole 20 mg PO DAILY 30 caps 6RF 30 days omeprazole 20 mg PO DAILY 30 caps 6RF 30 days Discontinued metoclopramide HCl Discontinued Reason: Doctor's Order 5 mg PO QIDACHS 120 tabs 3RF E11.43 - Type 2 diabetes mellitus with diabetic autonomic (poly)neuropathy, K31.84 - Gastroparesis Coding Level of Care Code Est Pt Level 3 (42310) Diagnoses Diabetic gastroparesis E11.43; K31.84 Nausea and vomiting R11.2 Abdominal pain R10.[address] of the abdomen R93.5 Pre-op examination Z01.818
[2024-05-09 10:08] VITALS: BP 145/86; PULSE 94; BMI 27.9
== END 2024-05-09 10:59 | disposition home or self-care (01) ==
PROVIDERS: PCP Family Medicine; Visit Provider Nurse Practitioner
DX: E11.43 Type 2 diabetes mellitus with diabetic autonomic (poly)neuropathy (principal); K31.84 Gastroparesis; R11.2 Nausea with vomiting, unspecified; R10.9 Unspecified abdominal pain; R93.5 Abnormal findings on diagnostic imaging of other abdominal regions, including retroperitoneum; Z01.818 Encounter for other preprocedural examination
CPT/HCPCS: 99213

== ENCOUNTER → 2024-05-09 09:45 | Outpatient (BNVA) | payer OTHER, SELFPAY | PROVIDERS: PCP Family Medicine; Visit Provider Nurse Practitioner | DX: Z01.818 Encounter for other preprocedural examination (principal); R10.9 Unspecified abdominal pain; R93.5 Abnormal findings on diagnostic imaging of other abdominal regions, including retroperitoneum; R11.2 Nausea with vomiting, unspecified; E11.43 Type 2 diabetes mellitus with diabetic autonomic (poly)neuropathy; K31.84 Gastroparesis | CPT/HCPCS: 99212 ==

== ENCOUNTER 2024-06-18 09:38 | Outpatient (AMB) | payer OTHER, SELFPAY ==
--- NOTE | 2024-06-18 09:40 | A.OFFPC_ITS ---
Vital Signs 06/18/24 09:44 Height 5 ft 1 in Weight 152 lb 6 oz BMI 28.8 BP 122/68 Blood Pressure Location Rt brachial Position Sitting Respiration 13 Pulse 82 Pulse Source Pulse Oximeter Pulse Oximetry (%) 99 Oxygen Delivery Method Room Air Intake Visit Reasons: Diabetes F/U Intake Note: follow up on diabetes and patient also wanna speak about meds. Allergies magnesium [MAGNESIUM] Allergy (Severe, Verified 06/18/24 10:07) ANAPHYLAXIS pioglitazone [From ACTOS] Allergy (Severe, Verified 06/18/24 10:07) SWELLING, hives aspirin [Aspirin] Allergy (Mild, Verified 06/18/24 10:07) UNKNOWN, hives ibuprofen [Ibuprofen] Allergy (Mild, Verified 06/18/24 10:07) anaphylaxis,hives Iodinated Contrast Media [IV Dye, Iodine Containing] Allergy (Mild, Verified 06/18/24 10:07) hives empagliflozin [From Jardiance] Allergy (Verified 06/18/24 10:07) Unknown Medication List - Last Reconciled 06/18/24 by BARBI Clark- atorvastatin 10 mg PO BEDTIME 30 days bisacodyl (Dulcolax (bisacodyl)) 10 mg (2 x 5 mg) PO BEDTIME 2 days blood sugar diagnostic (FreeStyle Lite Strips) three times a day blood-glucose meter (FreeStyle Lite Meter kit) As directed 2x/day budesonide 32 mcg/actuation 1 spray intranasal DAILY 30 days canagliflozin (Invokana) 300 mg PO DAILY clotrimazole-betamethasone 1-0.05 % appl topical comp.stocking,knee,long,medium Compression stockings 20 mm Hg. Daily while awake. 90 days dulaglutide (Trulicity) mg subcut epinephrine 0.3 mg (0.3 mL) IM ONCE 30 days flash glucose sensor (FreeStyle Butch 14 Day Sensor kit) As directed fluticasone propionate 50 mcg/actuation (Flonase Allergy Relief) 1 spray intranasal Q12H 30 days glipizide ER 10 mg PO DAILY lancets (FreeStyle Lancets) As directed levothyroxine 75 mcg PO DAILY metformin 850 mg PO BID 90 days metoclopramide HCl (Reglan) 10 mg PO QIDACHS omeprazole 20 mg PO DAILY 30 days ondansetron 4 mg PO DAILY PRN 5 days peg 3350-electrolytes 236-22.74-6.74 -5.86 gram (Golytely) 240 mL PO Q10M 1 day sennosides (Senna Laxative) 1-2 at bedtime orally bedtime PRN; Tobacco use date assessed: 12/09/23 Dental Screening Dental Screen Date: 10/28/23 HPI HPI Comments History of Present Illness Details 49-year-old female with type 2 diabetes, gastroparesis, hypothyroidism, leukocytosis, anxiety and depression, and obesity Here today for routine f/u of chronic conditions Has been w/o Trulicity for 1 month d/t insurance coverage issues In regards to other meds, does have them and is taking however is only getting a 30 day supply and insurance requires a 90 day supply. A1c today 6.1% Using CGM hypoglycemia 11% occurring overnight. DM Eye 06/20/24 at [facility]. Advised to have report sent to us for review. For 1 week bilat eyes crusted and itchy. Ears feel bothered. Has known seasonal allergies Chronic right shoulder pain and lrom. Ongoing since 2014 after an injury. Affecting ADLs. Has never seen Ortho for this. Flu and COVID UTD 2023 Exam Awake alert NAD scleras nonicteric bilat TM intact mild congestion on R RRR LS CTAB No hepatomegaly or tenderness No edema BLE, skin intact, PP WNL Plan Labs from today show normal electrolytes, normal renal function, fasting glucose of 54, lipid profile at goal, normal B12, normal folate, normal TSH, normal urine microalbumin creatinine ratio Decrease glipizide er from 10mg to 5mg QD Advised to take w/ evening meal. Otherwise cont DM meds Refills sent on all today. Use nasal spray every day to help w/ allergies , Start azestaline opthalmic and use unil seen by Optho this week Cont all other meds as prescribed RTO 6 weeks fu med change to prevent hypoglycemia over night, sooner PRN This note is constructed using voice recognition software. While every effort has been made to ensure accuracy in engineering systems analyst, still errors may have been included Sometimes, these errors may affect the content or meaning of the given sentence . Total time spent caring for the patient today was 41 minutes. This includes time spent before the visit reviewing the chart, time spent during the visit, and time spent after the visit on documentation [facility] Medical History (Updated 06/18/24 @ 16:02 by Sana Martinez, [facility]) Pre-op examination Low back pain Normal physical examination, routine Colon cancer screening Diabetes Bilateral otitis media with effusion Discomfort of left ear Right arm pain Right elbow pain Knee pain Allergies Acute effusion of left ear Venous insufficiency Conjunctivitis Acute sinusitis Arterial insufficiency Foot abscess, right Wound of right foot Right low back pain Weight gain Hyperlipidemia LDL goal <100 Type 2 diabetes mellitus with hyperglycemia Abnormal thyroid exam Cirrhosis Migraines GERD (gastroesophageal reflux disease) Depression Hypothyroidism Diabetes mellitus type 2, controlled, with complications Surgical History Hx of hysterectomy Hx of tubal ligation Hx of section Hx of cholecystectomy Family History Father No problems noted. Mother Diabetes Cardiovascular disease Arthritis Maternal Aunt Diabetes Sister SLE (systemic lupus erythematosus) Social History Household Members: Family Both parents involved: No Caregiver staying overnight: No Housing: Apartment Are you a primary residential care facility manager to a significant other at home: No Do you presently have visiting nurse or other home services: No 75 years or older and lives alone: No Alcohol intake: never Patient Tobacco Use Status: Never used Tobacco e-Cigarette/Vaping Use: Never Used service: No Current occupational status: unemployed Current occupation: used to work at the [employer] in [place], [employer] Current occupational exposures/hazards: No Gender identity: Female Cognitive needs: No Hearing needs: No Vision needs: Yes (Glasses) Questionnaire PHQ-9 Over the last 2 weeks, how often have you been bothered by any of the following problems? 1. Little interest or pleasure in doing things: not at all 2. Feeling down, depressed, or hopeless: not at all 3. Trouble falling or staying asleep, or sleeping too much: not at all 4. Feeling tired or having little energy: not at all 5. Poor appetite or overeating: not at all 6. Feeling bad about yourself - or that you are a failure or have let yourself or your family down: not at all 7. Trouble concentrating on things, such as reading the newspaper or watching television: not at all 8. Moving or speaking so slowly that other people could have noticed. Or the opposite - being so fidgety or restless that you have been moving around a lot more than usual: not at all 9. Thoughts that you would be better off or of hurting yourself in some way: not at all Total score: 0 05131 - PHQ-9 Billing: Yes Source: Developed by Drs. Yovani Lee, Eliana Decker, Mikal Brownlee and colleagues, with an educational bess from [employer]. Thrive Questionnaire Date Thrive assessed: 06/18/24 I am a: Patient What is your living situation today?: I have a steady place to live Within the past 12 months, did the food you bought not last and you didn't have the money to get more?: Never true Within the past 12 months, did you worry whether your food would run out before you got money to buy more?: Never true Do you have trouble paying for medicines?: No Do you have trouble getting transportation to medical appointments?: No Do you have trouble paying your heating and electricity bill?: No Do you have trouble taking care of your child, family member or friend?: No Do you have trouble with day-to-day activities such as bathing, preparing meals, shopping, managing finances, etc.?: No Are you currently unemployed and looking for a job?: No Are you interested in more education?: No Please select the resources that you would like help with: None Currently or been in a relationship where the following occur: No concerns reported THRIVE Score: 0 AUDIT C Alcohol Use Questionnaire (AUDIT-C) 1. How often do you have a drink containing alcohol?: Never Total Score: 0 AKASH-7 AMB Questionnaire AKASH-7 Date AKASH - 7 assessed: 06/18/24 Feeling nervous, anxious, or on edge: 0 = Not at all Not being able to stop or control worryin = Not at all Worrying too much about different things: 0 = Not at all Trouble relaxin = Not at all Being so restless that it is hard to sit still: 0 = Not at all Becoming easily annoyed or irritable: 0 = Not at all Feeling afraid as if something awful might happen: 0 = Not at all Total AKASH-7 score (0-4 normal; 5-9 mild; 10-14 moderate; 15-21 severe): 0 Source: Developed by Drs. Yovani Lee, Eliana Decker, Mikal Brownlee and colleagues, with an educational bess from [employer]. AKASH-7 Assessment Billing AKASH-7 Assessment Tool: AKASH-7 Assessment 41121 Physical exam (Primary Care) Vital Signs: Last Vital Signs Pulse 82 06/18/24 09:44 Resp 13 06/18/24 09:44 BP 122/68 06/18/24 09:44 Pulse Ox 99 06/18/24 09:44 Oxygen Delivery Method Room Air 06/18/24 09:44 BMI result Body Mass Index 28.8 Tobacco/Smoking Status: Tobacco use Status Tobacco use date assessed 12/09/23 06/18/24 09:43 Patient Tobacco Use Status Never used Tobacco 06/18/24 09:43 e-Cigarette/Vaping Use Never Used 06/18/24 09:43 PHQ-9: PHQ-9 Score PHQ-9: Total score 0 06/18/24 10:07 Thrive Assessment: Date of Thrive Assessment Date Thrive assessed 06/18/24 06/18/24 09:43 Currently or been in a relationship where the following occur: No concerns reported Results AMB Hemoglobin A1c AMB Hemoglobin A1c 6.1 % Last Edit by Domenic Zhang MA on 06/18/24 10:17 Results Reviewed Results Reviewed: Laboratory Last Values Hgb A1c (Clinic) 6.1 % (4.0-6.0) H 06/18/24 10:04 [facility] – [place] Adult Primary Care [facility] [place] [address] XRay Report Signed Patient: Maribel Mayen MR#: [id number] : 1975 Acct:[id number] Age/Sex: 49 / F ADM Date: 06/18/24 Loc: HO.HMGCX Attending Dr: Sana HANNA Ordering Physician: Sana Martinez Date of Service: 06/18/24 Procedure(s): XR shoulder RT min 2V Accession Number(s): [id number] cc: Flakito Larsen MD; Sana Martinez INTERNAL AUDIT MANAGER-BC~ EXAMINATION: XR SHOULDER, RIGHT CLINICAL INFORMATION: Pain in right shoulder. COMPARISON: None available. TECHNIQUE: Three views of the right shoulder. FINDINGS: Moderate degenerative changes in the acromioclavicular joint with joint space narrowing and hypertrophic change. Glenohumeral alignment preserved. Tiny faint calcification along the superolateral aspect of the humeral head. Focal hypertrophic change along the greater tuberosity. XR/XR shoulder RT min 2V IMPRESSION: Moderate degenerative changes. Electronically signed by: Carissa Voss MD 06/18/2024 12:44 PM EDT RP Dictated By: Carissa Voss MD Signed By: <Electronically signed by Carissa Voss MD in OV> 06/18/24 1244 DD/ 1141 TD/TT: 06/18/24 1147 Material Mixer: Coding Level of Care Code Est Pt Level 5 (10921) Complex EM visit Add On G2211 Diagnoses Controlled type 2 diabetes mellitus with complication, without long-term current use of insulin E11.8 Diabetes mellitus mcc insulin use: without long chain dyeing machine operator use Acquired hypothyroidism E03.9 Hypothyroidism type: acquired Chronic right shoulder pain M25.511; G89.29 Chronicity: chronic Limited range of motion (ROM) of shoulder M25.619 Seasonal allergies J30.2 PAD (peripheral artery disease) I73.9 Additional Codes AKASH-7 Assessment Billing - AKASH-7 Assessment Tool: AKASH-7 Assessment 04588 ([id number]) Assessment & Plan Assessment & Plan (1) Diabetes mellitus type 2, controlled, with complications: Code(s): E11.8 - Type 2 diabetes mellitus with unspecified complications Category: Medical Qualifiers: Diabetes mellitus mcc insulin use: without long chain dyeing machine operator use Qualified Code(s): E11.8 - Type 2 diabetes mellitus with unspecified comp lications Plan: . (2) Hypothyroidism: Code(s): E03.9 - Hypothyroidism, unspecified Category: Medical Qualifiers: Hypothyroidism type: acquired Qualified Code(s): E03.9 - Hypothyroidism, unspecified Plan: . (3) Right shoulder pain: Code(s): M25.511 - Pain in right shoulder Category: Medical Qualifiers: Chronicity: chronic Qualified Code(s): M25.511 - Pain in right shoulder; G89.29 - Other chronic pain Plan: . (4) Limited range of motion (ROM) of shoulder: Code(s): M25.619 - Stiffness of unspecified shoulder, not elsewhere classified Category: Medical Plan: . (5) Seasonal allergies: Code(s): J30.2 - Other seasonal allergic rhinitis Category: Medical Plan: . (6) PAD (peripheral artery disease): Comment: based on clinical exam, on statin, monitor skin integrity. Code(s): I73.9 - Peripheral vascular disease, unspecified Category: Medical Plan: . Orders: Orders Lipid Panel Today E03.9 - Hypothyroidism, unspecified, E11.8 - Type 2 diabetes mellitus with unspecified complications XR shoulder RT min 2V Today M25.511 - Pain in right shoulder, M25.619 - Stiffness of unspecified shoulder, not elsewhere classified AMB Hemoglobin A1c Today E11.8 - Type 2 diabetes mellitus with unspecified complications Comprehensive [place]. Panel Fast Today E03.9 - Hypothyroidism, unspecified, E11.8 - Type 2 diabetes mellitus with unspecified complications Microalbumin, Random (w Creat) Today E03.9 - Hypothyroidism, unspecified, E11.8 - Type 2 diabetes mellitus with unspecified complications TSH reflex Free T4 Today E03.9 - Hypothyroidism, unspecified, E11.8 - Type 2 diabetes mellitus with unspecified complications Vitamin B12 and Folate Today E03.9 - Hypothyroidism, unspecified, E11.8 - Type 2 diabetes mellitus with unspecified complications Referrals Orthopedics Referral M25.511 - Pain in right shoulder, M25.619 - Stiffness of unspecified shoulder, not elsewhere classified Medications: New glipizide ER 5 mg PO DAILY 90 tabs 0RF azelastine 0.05% 1 drp ophthalmic (eye) BID 30 days 6 mL 0RF Changed From canagliflozin (Invokana) 300 mg PO DAILY 30 tabs 5RF To canagliflozin (Invokana) 300 mg PO DAILY 90 days 90 tabs 1RF From atorvastatin 10 mg PO BEDTIME 30 days 30 tabs 3RF To atorvastatin 10 mg PO BEDTIME 90 days 90 tabs 3RF From dulaglutide (Trulicity) subcut To dulaglutide (Trulicity) 4.5 mg (0.5 mL) subcut QWEEK 90 days 6.5 mL 2RF Refilled levothyroxine 75 mcg PO DAILY 90 tabs 1RF metformin 850 mg PO BID 90 days 180 tabs 3RF Discontinued glipizide ER Discontinued Reason: Doctor's Order 10 mg PO DAILY 90 tabs 3RF
[2024-06-18 09:44] VITALS: BP 122/68; PULSE 82; RESP 13; O2SAT 99; BMI 28.8
== END 2024-06-18 10:29 | disposition home or self-care (01) ==
PROVIDERS: PCP Family Medicine; Visit Provider Nurse Practitioner Family
DX: E11.8 Type 2 diabetes mellitus with unspecified complications (principal); I73.9 Peripheral vascular disease, unspecified; E03.9 Hypothyroidism, unspecified; M25.511 Pain in right shoulder; G89.29 Other chronic pain; M25.611 Stiffness of right shoulder, not elsewhere classified; J30.2 Other seasonal allergic rhinitis

== ENCOUNTER 2024-06-18 09:38 | Outpatient (REF) | payer OTHER, SELFPAY ==
--- NOTE | ~2024-06-18 | XR_ITS ---
EXAMINATION: XR SHOULDER, RIGHT CLINICAL INFORMATION: Pain in right shoulder. COMPARISON: None available. TECHNIQUE: Three views of the right shoulder. FINDINGS: Moderate degenerative changes in the acromioclavicular joint with joint space narrowing and hypertrophic change. Glenohumeral alignment preserved. Tiny faint calcification along the superolateral aspect of the humeral head. Focal hypertrophic change along the greater tuberosity. XR/XR shoulder RT min 2V IMPRESSION: Moderate degenerative changes. Electronically signed by: Carissa Voss MD 06/18/2024 12:44 PM EDT RP
== END 2024-06-18 09:39 | disposition home or self-care (01) ==
LOC: HO.HMGCX 09:38
PROVIDERS: PCP Family Medicine; Visit Provider Nurse Practitioner Family
DX: E11.8 Type 2 diabetes mellitus with unspecified complications (principal); E03.9 Hypothyroidism, unspecified; M25.511 Pain in right shoulder; G89.29 Other chronic pain; M25.611 Stiffness of right shoulder, not elsewhere classified; J30.2 Other seasonal allergic rhinitis; I73.9 Peripheral vascular disease, unspecified
CPT/HCPCS: 73030; 83036; 96127; 99212

== ENCOUNTER 2024-06-18 10:51 | Outpatient (REF) | payer OTHER, SELFPAY ==
[2024-06-18 14:59] LABS: TSH reflex Free T4 2.15 uIU/mL (0.32-4.0)
[2024-06-18 15:05] LABS: Creatinine Urine 106.33 mg/dL; Microalbum/Creatinine Ratio Ur 8.4 ug/mg cr (<30)
[2024-06-18 15:21] LABS: Folate 9.6 ng/mL (> or = 4.0); Vitamin B12 400 pg/mL (200-900)
[2024-06-18 15:49] LABS: Alanine Aminotransferase 19 U/L (0-31); Albumin Level 4.1 g/dL (3.5-5.0); Alkaline Phosphatase 75 U/L (39-117); Anion Gap 11 (12-20); Aspartate Amino Transferase 24 U/L (5-31); Bilirubin Total 0.3 mg/dL (0.0-1.0); Blood Urea Nitrogen 17 mg/dL (9-16); Calcium 9.6 mg/dL (8.4-10.2); Carbon Dioxide 25 mmol/L (22-29); Chloride 104 mmol/L (96-108); Cholesterol 149 mg/dL (<200); Estimated Glomerular Filt Rate > 60; Glucose Fasting 54 mg/dL (60-99); HDL Cholesterol 53 mg/dL (>40); LDL Cholesterol Calculated 76 mg/dL (<100); Potassium 3.4 mmol/L (3.3-5.1); Sodium 137 mmol/L (135-145); Total Protein 7.4 g/dL (6.5-8.0); Triglycerides 101 mg/dL (<150)
== END 2024-06-18 10:52 | disposition home or self-care (01) ==
LOC: HO.WFDLDS 10:51
PROVIDERS: Visit Provider Nurse Practitioner Family
DX: E11.9 Type 2 diabetes mellitus without complications (principal); E03.9 Hypothyroidism, unspecified
CPT/HCPCS: 36415; 80053; 80061; 82043; 82570; 82607; 82746; 84443

== ENCOUNTER 2024-06-19 08:46 | Emergency (ER) | payer OTHER, SELFPAY ==
--- NOTE | ~2024-06-19 | XR_ITS ---
EXAMINATION: XR SHOULDER, RIGHT CLINICAL INFORMATION: Pain with limited range of motion without trauma COMPARISON: Right shoulder 02/21/15 TECHNIQUE: Three views of the right shoulder. FINDINGS: The bones and soft tissues are unremarkable. No fracture. Glenohumeral and acromioclavicular alignment is anatomic with normal joint space. No abnormal soft tissue calcifications. XR/XR shoulder RT min 2V IMPRESSION: Normal right shoulder. Electronically signed by: Flo White MD 06/19/2024 11:20 AM EDT
--- NOTE | ~2024-06-19 | US_ITS ---
EXAMINATION: US TRIPLEX UPPER EXTREMITY, RIGHT CLINICAL INFORMATION: Pain COMPARISON: None available. TECHNIQUE: Color-flow triplex imaging with spectral analysis and compression Doppler was performed on the right upper extremity. FINDINGS: The right internal jugular, subclavian, and axillary veins are patent and free of thrombus. The imaged segment of the right brachiocephalic vein is patent. Spectral doppler waveforms are normal. The brachial, basilic, cephalic, radial, and ulnar veins are patent and compressible. US/US venous duplex UE RT IMPRESSION: No evidence of deep venous thrombosis involving the right upper extremity. Electronically signed by: Alysa Gillespie MD 06/19/2024 10:25 AM EDT
[2024-06-19 08:56] VITALS: BP 157/86; PULSE 98; RESP 16; TEMP 37.1; O2SAT 98; BMI 28.3
[2024-06-19 09:04] VITALS: BP 147/85; PULSE 85; RESP 14; TEMP 36.6; O2SAT 98
--- NOTE | 2024-06-19 09:22 | ED_ITS ---
HPI - Extremity Problem General Chief complaint: Extremity Injury, Upper Stated complaint: R arm pain Time Seen by Provider: 06/19/24 09:15 Source: patient Mode of arrival: ambulatory Limitations: no limitations History of Present Illness ED Provider: DR. Deng HPI Narrative: 49-year-old female presented for evaluation of right shoulder/ arm pain x1 day. Patient declined history of right shoulder pain, trauma, prolonged immobilization of the right shoulder. Related Data Home Medications ?Medication ?Instructions ?Recorded ?Confirmed clotrimazole-betamethasone 1 appl topical 01/25/23 06/18/24 %-0.05 % topical cream lancets 28 gauge (FreeStyle 10/06/23 06/18/24 Lancets) Previous Rx's ?Medication ?Instructions ?Recorded comp.stocking,knee,long,medium #12 ea 06/18/21 blood-glucose meter (FreeStyle #1 ea 01/04/23 Lite Meter kit) budesonide 32 mcg/actuation nasal 1 spray intranasal DAILY 30 days 01/09/23 spray #8.43 mL flash glucose sensor (FreeStyle #2 ea 04/07/23 Butch 14 Day Sensor kit) epinephrine 0.3 mg/0.3 mL 0.3 mg (0.3 mL) IM ONCE 30 days #2 05/19/23 injection, auto-injector ea blood sugar diagnostic (FreeStyle #100 ea 09/29/23 Lite Strips) ondansetron 4 mg disintegrating 4 mg PO DAILY PRN nausea and 12/19/23 tablet vomiting 5 days #14 tabs fluticasone propionate 50 1 spray intranasal Q12H 30 days 01/12/24 mcg/actuation nasal #16 grams spray,suspension (Flonase Allergy Relief) metoclopramide HCl 10 mg tablet 10 mg PO QIDACHS #120 tabs 05/09/24 (Reglan) omeprazole 20 mg capsule,delayed 20 mg PO DAILY 30 days #30 caps 05/09/24 release peg 3350-electrolytes 236 240 ml PO Q10M 1 day #4,000 mL 05/09/24 gram-22.74 gram-6.74 gram-5.86 gram solution (Golytely) sennosides 8.6 mg tablet (Senna See Rx Instructions PO BEDTIME PRN 05/09/24 Laxative) constipation #60 tabs bisacodyl 5 mg tablet,delayed 10 mg (2 x 5 mg) PO BEDTIME 2 days 05/11/24 release (Dulcolax (bisacodyl)) #4 tabs atorvastatin 10 mg tablet 10 mg PO BEDTIME 90 days #90 tabs 06/18/24 azelastine 0.05 % eye drops 1 drp ophthalmic (eye) BID 30 days 06/18/24 #6 mL canagliflozin 300 mg tablet 300 mg PO DAILY 90 days #90 tabs 06/18/24 (Invokana) dulaglutide 4.5 mg/0.5 mL 4.5 mg (0.5 mL) subcut QWEEK 90 06/18/24 subcutaneous pen injector days #6.5 mL (Trulicity) glipizide 5 mg tablet, extended 5 mg PO DAILY #90 tabs 06/18/24 release 24 hr levothyroxine 75 mcg tablet 75 mcg PO DAILY #90 tabs 06/18/24 metformin 850 mg tablet 850 mg PO BID 90 days #180 tabs 06/18/24 oxycodone 5 mg tablet 5 mg PO Q8H PRN pain #7 tabs 06/19/24 Allergies Allergy/AdvReac Type Severity Reaction Status Date / Time magnesium [MAGNESIUM] Allergy Severe ANAPHYLAXIS Verified 06/19/24 08:58 pioglitazone [From ACTOS] Allergy Severe SWELLING, Verified 06/19/24 08:58 hives aspirin [Aspirin] Allergy Mild UNKNOWN, Verified 06/19/24 08:58 hives ibuprofen [Ibuprofen] Allergy Mild anaphylaxis Verified 06/19/24 08:58 ,hives Iodinated Contrast Media Allergy Mild hives Verified 06/19/24 08:58 [IV Dye, Iodine Containing] empagliflozin Allergy Unknown Verified 06/19/24 08:58 [From Jardiance] Review of Systems Review of Systems: All other systems are reviewed and are negative Constitutional: Reports as per HPI and Reports no additional constitutional complaints Eyes: Reports as per HPI and Reports no additional eye complaints Reports system reviewed and no additional complaints, except as documented Cardiovascular: Reports as per HPI and Reports no additional cardiovascular complaints Respiratory: Reports as per HPI and Reports no additional respiratory complaints Gastrointestinal: Reports as per HPI and Reports no additional gastrointestinal complaints Genitourinary: Reports no additional female genitourinary complaints Musculoskeletal: Reports no additional musculoskeletal complaints Skin/Breast: Reports system reviewed and no additional complaints, except as docu Psychiatric: Reports no additional psychiatric complaints Endocrine: Reports no additional endocrine complaints Hematologic/Lymphatic: Reports no additional hematologic/lymphatic complaints Allergic/Immunologic: Reports no additional allergic/immunologic complaints Reports system reviewed and no additional complaints, except as documented and Reports Abnormal speech present [facility] Past Medical History Medical History Pre-op examination Low back pain Normal physical examination, routine Colon cancer screening Diabetes Bilateral otitis media with effusion Discomfort of left ear Right arm pain Right elbow pain Knee pain Allergies Acute effusion of left ear Venous insufficiency Conjunctivitis Acute sinusitis Arterial insufficiency Foot abscess, right Wound of right foot Right low back pain Weight gain Hyperlipidemia LDL goal <100 Type 2 diabetes mellitus with hyperglycemia Abnormal thyroid exam Cirrhosis Migraines GERD (gastroesophageal reflux disease) Depression Hypothyroidism Diabetes mellitus type 2, controlled, with complications Surgical History Hx of hysterectomy Hx of tubal ligation Hx of section Hx of cholecystectomy Family History Family History Father No problems noted. Mother Diabetes Cardiovascular disease Arthritis Maternal Aunt Diabetes Sister SLE (systemic lupus erythematosus) Social History Social History Household Members: Family Housing: Apartment Are you a primary geriatric personal care aide to a significant other at home: No Do you presently have visiting nurse or other home services: No Unable to assess alcohol history related to: Unable to respond Alcohol intake: never Patient Tobacco Use Status: Never used Tobacco Smoked in Last 30 Days: No e-Cigarette/Vaping Use: Never Used Use of substances other than those prescribed or required for medical reasons: No Advance Directives: No Advance Directives Information Provided: Yes Do you have a plan to hurt others: No Plan service: No Current occupational status: unemployed Current occupation: used to work at the [employer] in [place], [employer] Current occupational exposures/hazards: No Gender identity: Female Cognitive needs: No Hearing needs: No Vision needs: Yes (Glasses) Physical Exam Vital Signs: Vital Signs: Last Vital Signs Temp 97.9 F 06/19/24 09:04 Pulse 80 06/19/24 10:28 Resp 14 10/29/24 10:28 BP 145/72 H 10/29/24 10:28 Pulse Ox 99 06/19/24 10:28 O2 Del Method Room Air 06/19/24 10:28 BMI result Body Mass Index 28.3 Vital signs have been reviewed and appear to be correct. Blood pressure elevated. Heart rate normal. Respiratory rate normal. Temperature normal. Oxygen saturation normal. Appearance: Alert. Oriented X3. No acute distress. Head: Normal external exam. Normocephalic. Atraumatic. No [place] signs noted. No raccoon eyes noted Eyes: PERRLA. EOMI. Conjunctiva and sclera normal. Eyelids normal. ENT: TM's Normal. Pharynx normal. Uvula midline. Moist mucous membranes. No trismus noted. No drooling noted. No muffled voice noted. Neck: Normal inspection. Neck supple. FROM. No adenopathy. Thyroid Normal. No meningeal signs. No neck mass noted. CVS: Normal heart rate and rhythm. Heart sound normal. No murmurs noted. Pulses normal throughout. Respiratory: No respiratory distress. Painless inspiration. Breath sounds normal. No wheezes/rales/rhonchi noted. Chest nontender. No accessory muscle usage noted or decreased air movement noted. Abdomen: Soft and nontender. Bowel sounds normal in all 4 quadrants. No distention noted. No organomegaly noted. No visible injury noted. Back: No CVA tenderness. Full range of motion noted. Skin: Skin warm and dry. Normal skin color. Normal skin turgor. No rashes/lesions/lacerations noted. Extremities: Right upper extremity: Held in adduction position, painful abduction position, no anterior fullness or deformity in right shoulder, point of tenderness over humerus head. skin over no redness or hotness. Neuro: Oriented X 3. Cranial nerve exam: II-XII are grossly intact No motor deficit. No sensory deficit. Reflexes normal. Course Reevaluation(s) Reevaluation #1: Negative shoulder x-ray for dislocation or fracture, ultrasound reveals no DVT. Patient feels better with oxycodone patient is allergic to NSAIDs. Will discharge on oxycodone, sling, follow up with Orthopedic. Time: 12:11 Medications Administered Discontinued Medications Generic Name Dose Route Start Last Admin Trade Name Freq PRN Reason Stop Dose Admin Oxycodone HCl 5 mg 06/19/24 09:22 10/29/24 09:41 Oxycodone Hcl Immed Release 5 Mg Tablet PO 06/19/24 09:23 5 mg ONCE ONE Administration Medical Decision Making Differential Diagnosis Differential Diagnoses: The differential diagnosis associated with the presentation includes ( Shoulder dislocation, penitentiary fracture, DVT of her right upper extremity, rotator cuff tendinitis, arthritis, cervical radiculopath y.) Admission/Observation Consideration of admission/observation: Escalation of care including admission/observation considered Independent Interpretation I performed an independent interpretation of an: Plain X-Ray ( Right shoulder: No acute fracture or dislocation.) and Ultrasound ( Right upper extremities: No DVT.) Radiology Impression Discussion of test interpretation with radiology: I have reviewed the radiologist's reading. Discharge Plan Discharge Clinical Impression: Right rotator cuff tendinitis Patient Disposition: Home, Self-Care Instructions: Rotator Cuff Tendinitis (ED) Prescriptions: New oxycodone 5 mg tablet 5 mg PO Q8H PRN (Reason: pain) Qty: 7 0RF Rx Instructions: Partial Fill upon patient request. No Action (DME) blood-glucose meter [FreeStyle Lite Meter] Kit See Rx Instructions .ROUTE .MEDSUPPLY Qty: 1 0RF Rx Instructions: As directed 2x/day budesonide 32 mcg/actuation spray,non-aerosol 1 spray intranasal DAILY 30 Days Qty: 8.43 3RF (DME) FreeStyle Butch 14 Day Sensor Kit See Rx Instructions .Route Qty: 2 2RF Rx Instructions: As directed epinephrine 0.3 mg/0.3 mL auto-injector 0.3 mg IM ONCE 30 Days Qty: 2 3RF (DME) FreeStyle Lite Strips Strip See Rx Instructions .ROUTE .MEDSUPPLY Qty: 100 11RF Rx Instructions: three times a day (DME) lancets [FreeStyle Lancets] 28 gauge misc See Rx Instructions .Route Rx Instructions: As directed ondansetron 4 mg tablet,disintegrating 4 mg PO DAILY PRN (Reason: nausea and vomiting) 5 Days Qty: 14 0RF (DME) comp.stocking,knee,long,medium Misc See Rx Instructions .Route Qty: 12 3RF Rx Instructions: Compression stockings 20 mm Hg. Daily while awake. 90 days fluticasone propionate [Flonase Allergy Relief] 50 mcg/actuation spray,suspension 1 spray intranasal Q12H 30 Days Qty: 16 3RF Rx Instructions: administer into each nostril glipizide 5 mg tablet extended release 24hr 5 mg PO DAILY Qty: 90 0RF Trulicity 4.5 mg/0.5 mL pen injector 4.5 mg subcut QWEEK 90 Days Qty: 6.5 2RF Invokana 300 mg tablet 300 mg PO DAILY 90 Days Qty: 90 1RF metformin 850 mg tablet 850 mg PO BID 90 Days Qty: 180 3RF atorvastatin 10 mg tablet 10 mg PO BEDTIME 90 Days Qty: 90 3RF levothyroxine 75 mcg tablet 75 mcg PO DAILY Qty: 90 1RF azelastine 0.05 % drops 1 drp ophthalmic (eye) BID 30 Days Qty: 6 0RF clotrimazole-betamethasone 1-0.05 % cream topical sennosides [Senna Laxative] 8.6 mg tablet See Rx Instructions PO BEDTIME PRN (Reason: constipation) Qty: 60 6RF Rx Instructions: 1-2 at bedtime orally bedtime PRN; metoclopramide HCl [Reglan] 10 mg tablet 10 mg PO QIDACHS Qty: 120 6RF omeprazole 20 mg capsule,delayed release(DR/EC) 20 mg PO DAILY 30 Days Qty: 30 6RF peg 3350-electrolytes [Golytely] 236-22.74-6.74 -5.86 gram recon soln 240 ml PO Q10M 1 Days Qty: 4000 0RF Rx Instructions: until fecal effluent is clear; do not exceed a total volume of 2,000 mL bisacodyl [Dulcolax (bisacodyl)] 5 mg tablet,delayed release (DR/EC) 10 mg PO BEDTIME 2 Days Qty: 4 0RF Referrals: Yehuda Mcfadden MD [Physician] - Flakito Larsen MD [Primary Care Provider] - Print Language: Ukrainian
[2024-06-19] MEDS: oxyCODONE HCl Immed Release 5 MG TABLET PO (09:41)
[2024-06-19 10:28] VITALS: BP 145/72; PULSE 80; RESP 14; O2SAT 99
[2024-06-19 12:10] VITALS: BP 124/67; PULSE 83; RESP 16; TEMP 36.9; O2SAT 98
[2024-06-19 12:47] VITALS: BP 124/67; PULSE 83; RESP 16; TEMP 36.9; O2SAT 98
== END 2024-06-19 12:49 | disposition home or self-care (01) ==
PROVIDERS: Emergency Provider Emergency Medicine; PCP Family Medicine
DX: M75.31 Calcific tendinitis of right shoulder (principal); M79.601 Pain in right arm; R60.0 Localized edema; Z79.899 Other long term (current) drug therapy
CPT/HCPCS: 73030; 93971; 99284

== ENCOUNTER 2024-10-26 06:31 | Emergency (ER) | payer OTHER, SELFPAY ==
[2024-10-26 06:35] VITALS: BP 122/73; PULSE 95; RESP 18; TEMP 36.8; O2SAT 99; BMI 25.9
[2024-10-26 07:06] LABS: IDNOW Serial# 6674DD1D; Strep A Nucleic Acid Negative (Negative)
[2024-10-26 08:16] LABS: Influenza A PCR NEGATIVE (Negative); Influenza B PCR NEGATIVE (Negative); Resp Syncy Virus RNA Qual PCR NEGATIVE (Negative); SARS COV2 PCR INHOUSE NEGATIVE (Negative)
--- NOTE | 2024-10-26 08:20 | ED_ITS ---
HPI - General Adult General Chief complaint: Upper Respiratory Symptoms Stated complaint: resp symptoms Time Seen by Provider: 10/26/24 08:20 Source: patient Mode of arrival: ambulatory Limitations: no limitations History of Present Illness ED Provider: Janny Bah PA-C HPI narrative: Patient is a 49 year old assigned female at with a history of PAD, hypothyroidism, and DM presenting to the emergency department today with nasal congestion, body aches, and feeling generally unwell. Patient states that over the last 3 days she has felt generally unwell with body aches and nasal congestion. Patient denies any dizziness, lightheadedness, abdominal pain, nausea, vomiting, fever, chills, blurry vision, double vision, loss of vision, chest pain, difficulty breathing, shortness of breath, back pain, night sweats, pain with urination, increased urinary frequency, increased urinary urgency, blood in her urine or stool, syncope or a near syncopal episode, recent trauma or falls, bowel incontinence, bladder incontinence, or any other complaints at this time. Onset (ago): day(s) (3) Relieving factors: none Exacerbating factors: none Treatments prior to arrival: none Related Data Home Medications ?Medication ?Instructions ?Recorded ?Confirmed clotrimazole-betamethasone 1 appl topical 01/25/23 06/18/24 %-0.05 % topical cream lancets 28 gauge (FreeStyle 10/06/23 06/18/24 Lancets) Previous Rx's ?Medication ?Instructions ?Recorded comp.stocking,knee,long,medium #12 ea 06/18/21 blood-glucose meter (FreeStyle #1 ea 01/04/23 Lite Meter kit) budesonide 32 mcg/actuation nasal 1 spray intranasal DAILY 30 days 01/09/23 spray #8.43 mL flash glucose sensor (FreeStyle #2 ea 04/07/23 Butch 14 Day Sensor kit) blood sugar diagnostic (FreeStyle #100 ea 09/29/23 Lite Strips) ondansetron 4 mg disintegrating 4 mg PO DAILY PRN nausea and 12/19/23 tablet vomiting 5 days #14 tabs fluticasone propionate 50 1 spray intranasal Q12H 30 days 01/12/24 mcg/actuation nasal #16 grams spray,suspension (Flonase Allergy Relief) metoclopramide HCl 10 mg tablet 10 mg PO QIDACHS #120 tabs 05/09/24 (Reglan) omeprazole 20 mg capsule,delayed 20 mg PO DAILY 30 days #30 caps 05/09/24 release peg 3350-electrolytes 236 240 ml PO Q10M 1 day #4,000 mL 05/09/24 gram-22.74 gram-6.74 gram-5.86 gram solution (Golytely) sennosides 8.6 mg tablet (Senna See Rx Instructions PO BEDTIME PRN 05/09/24 Laxative) constipation #60 tabs bisacodyl 5 mg tablet,delayed 10 mg (2 x 5 mg) PO BEDTIME 2 days 05/11/24 release (Dulcolax (bisacodyl)) #4 tabs atorvastatin 10 mg tablet 10 mg PO BEDTIME 90 days #90 tabs 06/18/24 levothyroxine 75 mcg tablet 75 mcg PO DAILY #90 tabs 06/18/24 metformin 850 mg tablet 850 mg PO BID 90 days #180 tabs 06/18/24 oxycodone 5 mg tablet 5 mg PO Q8H PRN pain #7 tabs 06/19/24 epinephrine 0.3 mg/0.3 mL 0.3 mg (0.3 mL) IM ONCE 30 days #2 06/26/24 injection, auto-injector ea azelastine 0.05 % eye drops 1 drp ophthalmic (eye) BID #18 mL 07/13/24 glipizide 5 mg tablet, extended 5 mg PO DAILY #90 tabs 09/14/24 release 24 hr canagliflozin 300 mg tablet 300 mg PO DAILY 30 days #30 tabs 10/25/24 (Invokana) dulaglutide 4.5 mg/0.5 mL 4.5 mg (0.5 mL) subcut QWEEK 28 10/25/24 subcutaneous pen injector days #2 mL (Trulicity) Allergies Allergy/AdvReac Type Severity Reaction Status Date / Time magnesium [MAGNESIUM] Allergy Severe ANAPHYLAXIS Verified 10/26/24 06:39 pioglitazone [From ACTOS] Allergy Severe SWELLING, Verified 10/26/24 06:39 hives aspirin [Aspirin] Allergy Mild UNKNOWN, Verified 10/26/24 06:39 hives ibuprofen [Ibuprofen] Allergy Mild anaphylaxis Verified 10/26/24 06:39 ,hives Iodinated Contrast Media Allergy Mild hives Verified 10/26/24 06:39 [IV Dye, Iodine Containing] empagliflozin Allergy Unknown Verified 10/26/24 06:39 [From Jardiance] Review of Systems Constitutional: Constitutional: Reports no additional constitutional complaints, Reports body ache(s), Denies chills, Denies fever(s) and Denies night sweats Eyes: Eyes: Reports no additional eye complaints, Denies blurry vision, Denies change in vision, Denies diplopia, Denies eye discharge, Denies loss of vision and Denies eye pain ENT: Denies dizziness and Reports nasal congestion Cardiovascular: Cardiovascular: Reports no additional cardiovascular complaints, Denies chest pain, Denies lightheadedness, Denies Loss of Consciousness and Denies dyspnea Respiratory: Respiratory: Reports no additional respiratory complaints and Denies dyspnea Gastrointestinal: Gastrointestinal: Reports no additional gastrointestinal complaints, Denies abdominal pain, Denies melena, Denies hematochezia, Denies change in bowel habits and Denies change in stool character Genitourinary: Genitourinary: Denies hematuria, Denies urinary frequency, Denies dysuria, Denies urinary incontinence, Denies urinary hesitancy and Denies urinary urgency Musculoskeletal: Musculoskeletal: Reports no additional musculoskeletal complaints, Denies numbness and Denies tingling Neurologic: Denies dizziness, Denies loss of vision, Denies numbness and Denies tingling Psychiatric: Psychiatric: Reports no additional psychiatric complaints Endocrine: Endocrine: Reports no additional endocrine complaints Hematologic/Lymphatic: Hematologic/Lymphatic: Reports no additional hematologic/lymphatic complaints Allergic/Immunologic: Allergic/Immunologic: Reports no additional allergic/immunologic complaints [facility] Past Medical History Attestation statement: The following information was validated with the patient. Source: old records reviewed and nursing notes reviewed Medical History Pre-op examination Low back pain Normal physical examination, routine Colon cancer screening Diabetes Bilateral otitis media with effusion Discomfort of left ear Right arm pain Right elbow pain Knee pain Allergies Acute effusion of left ear Venous insufficiency Conjunctivitis Acute sinusitis Arterial insufficiency Foot abscess, right Wound of right foot Right low back pain Weight gain Hyperlipidemia LDL goal <100 Type 2 diabetes mellitus with hyperglycemia Abnormal thyroid exam Cirrhosis Migraines GERD (gastroesophageal reflux disease) Depression Hypothyroidism Diabetes mellitus type 2, controlled, with complications Surgical History Hx of hysterectomy Hx of tubal ligation Hx of section Hx of cholecystectomy Family History Family History Father No problems noted. Mother Diabetes Cardiovascular disease Arthritis Maternal Aunt Diabetes Sister SLE (systemic lupus erythematosus) Social History Social History Household Members: Family Housing: Apartment Are you a primary caretaker resort to a significant other at home: No Do you presently have visiting nurse or other home services: No Unable to assess alcohol history related to: Unable to respond Alcohol intake: never Patient Tobacco Use Status: Never used Tobacco e-Cigarette/Vaping Use: Never Used Advance Directives: No Advance Directives Information Provided: No service: No Current occupational status: unemployed 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[place], 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 Current occupational exposures/hazards: No Gender identity: Female Cognitive needs: No Hearing needs: No Vision needs: Yes (Glasses) Physical Exam ED Vital Signs: Vital Signs - 24 hr 10/26/24 06:35 Temperature 98.3 F Pulse Rate 95 Respiratory Rate 18 Blood Pressure 122/73 Pulse Oximetry 99 Oxygen Delivery Method Room Air BMI result Body Mass Index 25.9 Const General: cooperative, no acute distress, alert and awake Nutritional Appearance: well nourished Orientation/consciousness: patient oriented x3 Limitations: no limitations HENMT Head: Yes normal to inspection and Yes atraumatic Ears: hearing grossly normal bilaterally and external ears normal General nose exam: Normal external nose present, no nasal discharge noted and no epistaxis Face and sinus: Yes normal facial exam, No abrasion and No laceration Mouth: Normal oral and palatal mucosa present, no drooling and no muffled voice Eyes General: appearance normal, both eyes and all related structures Periorbital: periorbital findings normal Eyelids: Yes eyelids normal Conjunctivae: conjunctivae normal Pupils: Equal, round and reactive pupils present EOM: EOMs intact bilaterally Neck Neck: Yes normal visual inspection, Yes full ROM and Yes no lymphadenopathy Chest Chest palpation & inspection: normal inspection of the chest Resp Effort & Inspection: normal respiratory effort and able to speak in complete sentences GI Inspection: Yes normal to inspection Neuro General: patient oriented x3, moves all extremities and CN's II-XI intact bilaterally Cranial nerves: Yes Equal, round and reactive pupils present Cognition (Neuro): normal cognition Extrem General: Yes normal to inspection, Yes full ROM and Yes capillary refill normal Psych Appearance: grossly normal Mental Status: mental status grossly normal Affect: normal affect Attitude: cooperative Thought process: Normal thought process present Thought content: Normal thought content present Insight: Good insight present (Psych) Medical Decision Making Medical Decision Making MDM Narrative: Patient is a 49 year old assigned female at with a history of PAD, hypothyroidism, and DM presenting to the emergency department today with nasal congestion, body aches, and feeling generally unwell. Patient's physical exam was unremarkable. Patient's COVID-19, influenza, and RSV testing was negative. Patient's clinical presentation is most consistent with a viral illness / URI. I explained my physical exam findings as well as all test results to the patient. I answered all questions asked by the patient. I stressed the importance of the patient taking her medication as directed (either prescribed or as the over the counter packaging recommends). I stressed the importance of the patient following up with her primary care provider. I stressed the importance of the patient returning to the emergency department immediately if her symptoms were to worsen or if she were to develop any dizziness, shortness of breath, difficulty breathing, chest pain, blurry vision, loss of vision, nausea, vomiting, abdominal pain, fever, chills, back pain, or any other complaints. Patient verbalized agreement and understanding with this treatment plan and discharge. Differential Diagnosis Differential Diagnoses: The differential diagnosis associated with the presentation includes Viral illness Upper respiratory infection COVID-19 Influenza RSV Admission/Observation Consideration of admission/observation: Escalation of care including admission/observation considered Patient would have been admitted to the hospital had her work up had any findings where hospital admission was appropriate and her clinical presentation warranted hospital admission. Lab Data MDM Lab Attestation statement: I reviewed the patient's lab results. My interpretation of these studies and their corresponding values is that they are grossly normal. Labs: Lab Results 10/26/24 Range/Units 06:46 Influenza Type A (PCR) NEGATIVE (Negative) Influenza Type B (PCR) NEGATIVE (Negative) RSV RNA Qual (PCR) NEGATIVE (Negative) SARS-CoV-2 RNA (RT-PCR) NEGATIVE (Negative) S. pyogenes GrpA DAMIR Negative (Negative) Discharge Plan Discharge Clinical Impression: Upper respiratory infection Patient Disposition: Home, Self-Care Instructions: Upper Respiratory Infection (DC) Additional Instructions: Drink plenty of fluids / stay hydrated. Follow up with your primary care provider. Return to the emergency department immediately if your symptoms worsen or if you develop any numbness, tingling, dizziness, shortness of breath, difficulty breathing, chest pain, blurry vision, loss of vision, nausea, vomiting, abdominal pain, fever, chills, back pain, or any other complaints. Please see the information below about our Patient Portal. If you are not yet enrolled in the [facility] Patient Portal, you will receive an enrollment email invitation following your visit to any [facility] setting. You may also self-enroll in the Patient Portal by visiting our website: [email or web address] The following information is required to access the Patient Portal: - Your [facility] Medical Record Number - Your personal home email address (must match what is in your electronic medical record, Registration staff can assist with this) - Name - Date of Capabilities of the Patient Portal: - Message some providers - View upcoming appointments - Access your health summary, medical history, and visit history - View current conditions and allergies - View procedure and lab results - View your medications, including guidelines, side effects, and precautions - Complete pre-appointment questionnaires requested by your provider - Ready summary reports of your office visits and procedures To access the Patient Portal Mobile Denny, follow these directions: - Search .Club Domains in the Denny Store or Google [employer] Online Store - Download the Denny - Search for [facility] - Enter your login/password Prescriptions: No Action (DME) blood-glucose meter [FreeStyle Lite Meter] Kit See Rx Instructions .ROUTE .MEDSUPPLY Qty: 1 0RF Rx Instructions: As directed 2x/day budesonide 32 mcg/actuation spray,non-aerosol 1 spray intranasal DAILY 30 Days Qty: 8.43 3RF (DME) FreeStyle Bucth 14 Day Sensor Kit See Rx Instructions .Route Qty: 2 2RF Rx Instructions: As directed (DME) FreeStyle Lite Strips Strip See Rx Instructions .ROUTE .MEDSUPPLY Qty: 100 11RF Rx Instructions: three times a day (DME) lancets [FreeStyle Lancets] 28 gauge misc See Rx Instructions .Route Rx Instructions: As directed epinephrine 0.3 mg/0.3 mL auto-injector 0.3 mg IM ONCE 30 Days Qty: 2 3RF azelastine 0.05 % drops 1 drp ophthalmic (eye) BID Qty: 18 1RF glipizide 5 mg tablet extended release 24hr 5 mg PO DAILY Qty: 90 0RF Invokana 300 mg tablet 300 mg PO DAILY 30 Days Qty: 30 0RF Trulicity 4.5 mg/0.5 mL pen injector 4.5 mg subcut QWEEK 28 Days Qty: 2 3RF oxycodone 5 mg tablet 5 mg PO Q8H PRN (Reason: pain) Qty: 7 0RF Rx Instructions: Partial Fill upon patient request. ondansetron 4 mg tablet,disintegrating 4 mg PO DAILY PRN (Reason: nausea and vomiting) 5 Days Qty: 14 0RF (DME) comp.stocking,knee,long,medium Misc See Rx Instructions .Route Qty: 12 3RF Rx Instructions: Compression stockings 20 mm Hg. Daily while awake. 90 days fluticasone propionate [Flonase Allergy Relief] 50 mcg/actuation spray,suspension 1 spray intranasal Q12H 30 Days Qty: 16 3RF Rx Instructions: administer into each nostril metformin 850 mg tablet 850 mg PO BID 90 Days Qty: 180 3RF atorvastatin 10 mg tablet 10 mg PO BEDTIME 90 Days Qty: 90 3RF levothyroxine 75 mcg tablet 75 mcg PO DAILY Qty: 90 1RF clotrimazole-betamethasone 1-0.05 % cream topical sennosides [Senna Laxative] 8.6 mg tablet See Rx Instructions PO BEDTIME PRN (Reason: constipation) Qty: 60 6RF Rx Instructions: 1-2 at bedtime orally bedtime PRN; metoclopramide HCl [Reglan] 10 mg tablet 10 mg PO QIDACHS Qty: 120 6RF omeprazole 20 mg capsule,delayed release(DR/EC) 20 mg PO DAILY 30 Days Qty: 30 6RF peg 3350-electrolytes [Golytely] 236-22.74-6.74 -5.86 gram recon soln 240 ml PO Q10M 1 Days Qty: 4000 0RF Rx Instructions: until fecal effluent is clear; do not exceed a total volume of 2,000 mL bisacodyl [Dulcolax (bisacodyl)] 5 mg tablet,delayed release (DR/EC) 10 mg PO BEDTIME 2 Days Qty: 4 0RF Referrals: Flakito Larsen MD [Primary Care Provider] - Print Language: Yakut
[2024-10-26 08:38] VITALS: BP 122/73; PULSE 95; RESP 18; TEMP 36.8; O2SAT 99
--- OUTSIDE RECORDS SUMMARY | 2024-10-26 08:51 | XMS_ITS ---
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 Generated for Darnelli silvia/Michelle/eTransmitting on:?10/26/2024 08:50 AM EST
--- OUTSIDE RECORDS SUMMARY | 2024-10-26 08:51 | XMS_ITS ---
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 Role Phone Flakito Larsen Primary Care Provider Unavailab Yovani Wells [facility] [phone] REASON FOR VISIT Patient presents today for liver fibrois Encounters Encounter Location Date Provider Diagnosis [facility] [address] [place] [address] 07/24/2024 Yovani Contreras Plan Of Treatment No Information Progress Notes * LORRAINE SWEENEY NDOB :1975 (49 yo F)Acc No.[id number]:07/24/2024 Progress Notes Patient:?FAHADMaryanne BENITEZ Marc Provider:?Yovani Contreras MD :1975???Age:49 Y???Sex:Female D ate:07/24/2024 Address:[address], [place] [facility] Pcp:Flakito Larsen Subjective: * Chief Complaints: * ???1. Patient presents today for liver fibrois. * Medical History:? Objective: * Vitals:? Assessment: Plan: * Treatment: * * The named appointment provid er may or may not be the originator of this progress note, and it is not deemed complete until electronically signed by the appointment provider. Sign off status: Pending * Provider:?Yovani Contreras MD Date:? 024 Generated for El vega/Michelle/eTransmitting on:?10/26/2024 08:51 AM EST
--- OUTSIDE RECORDS SUMMARY | 2024-10-26 08:51 | XMS_ITS ---
Demographics Address [address] [place] [address] Preferred Language en Marital Status Unknown Voodoo Affiliation Unknown Race Ethnic Group or Author Organization [facility] Address [address] [place] [address] Care Team Providers Care Snapper On Name Role Phone Flakito Larsen Primary Care Provider UnavailYovani Cooley Unavailable [phone] Allergies Allergen (clinical drug ingredient) Drug/Non Drug Allergy documented on EMR Reaction Allergy Type Onset Date Status atorvastatin Atorvastatin Calcium upset stomach Drug Allergy Active aspirin Aspirin Unknown Drug Allergy Active pioglitazone Actos swell Drug Allergy Acti ve IVP dye (uncoded) Unknown Allergy Ac tive Magnesium closing up throat Drug Allergy Active ibuprofen Ibuprofen Unknown Drug Allergy Active REASON FOR VISIT Patient presents today for liver fibrois Medications Medication SIG (Take, Route, Frequency, Duration) Notes Start Date End Date Status Omeprazole 20 MG 1 capsule Orally Onc e a day Active glipiZIDE 10 MG 1 tablet Orally Once a day Active ZyrTEC Allergy Activ e Levothyroxine Sodium 75 MCG 1 tablet on an empty stomach in the morning Orally Once a day Active metFORMIN HCl 850 MG 1 tablet with a vesta l Orally twice a day Active Invokana 300 MG 1 tablet before the first meal of the day Orally Once a day for 30 day(s) Active Trulicity 4.5 MG/0.5ML as directed Subcutaneous Active Problems Problem Type SNOMED Code ICD Code Onset Dates Problem Status W/U Status Risk Notes Problem Colon cancer screening (339876187) Colon cancer screening (Z12.11) Active confirmed Vital Signs Temperature 97.7 degrees Fahrenheit 01/20/20 24 Blood pressure systolic 000 mm Hg 01/20/20 24 Blood pressure diastolic 00 mm Hg 024 Height 62.25 in 01/20/2024 Weight 150 lb 2 oz lbs 01/20/2024 BMI 27.24 kg/m2 01/20/2024 Encounters Encounter Location Date Provider Diagnosis [facility] [address] [place] [address] 01/20/2024 Yovani Contreras Fatty liver K76.0 ; Liver fibrosis K74.00 ; Abnormal liver ultrasound R93.2 ; Gastroesophageal reflux disease without esophagitis K21.9 ; Gastroparesis due to secondary diabetes E13.43 ; Colon cancer screening Z12.[address] of liver R93.2 Assessments Encounter Date Diagnosis (ICD Code) Assessment Notes Treatment Notes Treatment Clinical Notes Section Notes 01/20/2024 Fatty liver (ICD-10 - K76.0) Overall, Maribel appears to be doing well at the present time from a GI standpoint. We did review the need to continue to try to eat as healthy as possible, lose weight, and keep her diabetes as well-controlled as possible for her overall health, as well as more specifically for the fatty liver. I will try to schedule her for a MRI of the liver in regard to the abnormal CT scan but I did advise her that she needs to be compliant with that, as well as future office visits. I don't think she needs ursodiol or any other treatment for fatty liver given the normal LFTs at the present time. I did advise her that she should have a colonoscopy for screening given her age approaching 49. We did review the rationale for that regard to colorectal cancer prevention. However, at this time she wants to hold off on that and think about it. I will plan to see her toward the end of this year for followup of her liver and will then try to schedule her for a colonoscopy at that time. I did advise her to continue the omeprazole for continued symptomatic relief of any reflux. Maribel was comfortable with this plan. Thank you again for allowing me to participate in Maribel's care. I shall continue to keep you advised of her progress. 01/20/2024 Liver fibrosis (ICD-10 - K74.00) Overall, Maribel appears to be doing well at the present time from a GI standpoint. We did review the need to continue to try to eat as healthy as possible, lose weight, and keep her diabetes as well-controlled as possible for her overall health, as well as more specifically for the fatty liver. I will try to schedule her for a MRI of the liver in regard to the abnormal CT scan but I did advise her that she needs to be compliant with that, as well as future office visits. I don't think she needs ursodiol or any other treatment for fatty liver given the normal LFTs at the present time. I did advise her that she should have a colonoscopy for screening given her age approaching 49. We did review the rationale for that regard to colorectal cancer prevention. However, at this time she wants to hold off on that and think about it. I will plan to see her toward the end of this year for followup of her liver and will then try to schedule her for a colonoscopy at that time. I did advise her to continue the omeprazole for continued symptomatic relief of any reflux. Maribel was comfortable with this plan. Thank you again for allowing me to participate in Maribel's care. I shall continue to keep you advised of her progress. 01/20/2024 Abnormal liver ultrasound (ICD-10 - R93.2) Overall, Maribel appears to be doing well at the present time from a GI standpoint. We did review the need to continue to try to eat as healthy as possible, lose weight, and keep her diabetes as well-controlled as possible for her overall health, as well as more specifically for the fatty liver. I will try to schedule her for a MRI of the liver in regard to the abnormal CT scan but I did advise her that she needs to be compliant with that, as well as future office visits. I don't think she needs ursodiol or any other treatment for fatty liver given the normal LFTs at the present time. I did advise her that she should have a colonoscopy for screening given her age approaching 49. We did review the rationale for that regard to colorectal cancer prevention. However, at this time she wants to hold off on that and think about it. I will plan to see her toward the end of this year for followup of her liver and will then try to schedule her for a colonoscopy at that time. I did advise her to continue the omeprazole for continued symptomatic relief of any reflux. Maribel was comfortable with this plan. Thank you again for allowing me to participate in Maribel's care. I shall continue to keep you advised of her progress. 01/20/2024 Gastroesophageal reflux disease without esophagitis (ICD-10 - K21.9) Overall, Maribel appears to be doing well at the present time from a GI standpoint. We did review the need to continue to try to eat as healthy as possible, lose weight, and keep her diabetes as well-controlled as possible for her overall health, as well as more specifically for the fatty liver. I will try to schedule her for a MRI of the liver in regard to the abnormal CT scan but I did advise her that she needs to be compliant with that, as well as future office visits. I don't think she needs ursodiol or any other treatment for fatty liver given the normal LFTs at the present time. I did advise her that she should have a colonoscopy for screening given her age approaching 49. We did review the rationale for that regard to colorectal cancer prevention. However, at this time she wants to hold off on that and think about it. I will plan to see her toward the end of this year for followup of her liver and will then try to schedule her for a colonoscopy at that time. I did advise her to continue the omeprazole for continued symptomatic relief of any reflux. Marible was comfortable with this plan. Thank you again for allowing me to participate in Maribel's care. I shall continue to keep you advised of her progress. 01/20/2024 Gastroparesis due to secondary diabetes (ICD-10 - E13.43) Overall, Maribel appears to be doing well at the present time from a GI standpoint. We did review the need to continue to try to eat as healthy as possible, lose weight, and keep her diabetes as well-controlled as possible for her overall health, as well as more specifically for the fatty liver. I will try to schedule her for a MRI of the liver in regard to the abnormal CT scan but I did advise her that she needs to be compliant with that, as well as future office visits. I don't think she needs ursodiol or any other treatment for fatty liver given the normal LFTs at the present time. I did advise her that she should have a colonoscopy for screening given her age approaching 49. We did review the rationale for that regard to colorectal cancer prevention. However, at this time she wants to hold off on that and think about it. I will plan to see her toward the end of this year for followup of her liver and will then try to schedule her for a colonoscopy at that time. I did advise her to continue the omeprazole for continued symptomatic relief of any reflux. Maribel was comfortable with this plan. Thank you again for allowing me to participate in Maribel's care. I shall continue to keep you advised of her progress. 01/20/2024 Colon cancer screening (ICD-10 - Z12.11) We will discuss a colonoscopy again when I see you at the office visit Overall, Maribel appears to be doing well at the present time from a GI standpoint. We did review the need to continue to try to eat as healthy as possible, lose weight, and keep her diabetes as well-controlled as possible for her overall health, as well as more specifically for the fatty liver. I will try to schedule her for a MRI of the liver in regard to the abnormal CT scan but I did advise her that she needs to be compliant with that, as well as future office visits. I don't think she needs ursodiol or any other treatment for fatty liver given the normal LFTs at the present time. I did advise her that she should have a colonoscopy for screening given her age approaching 49. We did review the rationale for that regard to colorectal cancer prevention. However, at this time she wants to hold off on that and think about it. I will plan to see her toward the end of this year for followup of her liver and will then try to schedule her for a colonoscopy at that time. I did advise her to continue the omeprazole for continued symptomatic relief of any reflux. Maribel was comfortable with this plan. Thank you again for allowing me to participate in Maribel's care. I shall continue to keep you advised of her progress. 01/20/[address] of liver (ICD-10 - R93.2) Overall, Maribel appears to be doing well at the present time from a GI standpoint. We did review the need to continue to try to eat as healthy as possible, lose weight, and keep her diabetes as well-controlled as possible for her overall health, as well as more specifically for the fatty liver. I will try to schedule her for a MRI of the liver in regard to the abnormal CT scan but I did advise her that she needs to be compliant with that, as well as future office visits. I don't think she needs ursodiol or any other treatment for fatty liver given the normal LFTs at the present time. I did advise her that she should have a colonoscopy for screening given her age approaching 49. We did review the rationale for that regard to colorectal cancer prevention. However, at this time she wants to hold off on that and think about it. I will plan to see her toward the end of this year for followup of her liver and will then try to schedule her for a colonoscopy at that time. I did advise her to continue the omeprazole for continued symptomatic relief of any reflux. Maribel was comfortable with this plan. Thank you again for allowing me to participate in Maribel's care. I shall continue to keep you advised of her progress. Plan Of Treatment Medication Medication Name Sig Start Date Stop Date Notes Omeprazole 20 MG 1 capsule Orally Once a day Treatment Notes Assessment Notes Colon cancer screening We will discuss a colonoscopy again when I see you at the office visit Pending Test Test Name Order Date MRI ABD W&WO CONTRAST 01/20/2024 Next Appt Details Follow Up: end 2023, Reas on: Progress Notes * MARIBEL SWEENEY NDOB :1975 (48 yo F)Acc No.[id number]:01/20/2024 Progress Notes Patient:?Maryanne SWEENEY N Provider:?Yovani Contreras MD :1975???Age:48 Y???Sex:Female D ate:01/20/2024 Address:[address] [place], [place] [id number] Pcp:Flakito Larsen Subjective: * Chief Complaints: * ???Patient presents today fo r liver fibrois * HPI: ???incontinence:? I saw Maribel in followup today in regard to her underlying history of fatty liver, abnormal imaging studies of her liver, gastroesophageal reflux, irritable bowel syndrome, and discussion of colorectal cancer screening. ?I last saw Maribel in May 2021. At that time we reviewed her chronic GI symptoms of her irritable bowel syndrome and reflux. Since that time she has had issues with not showing up for office visits and scheduled tests including a MRI of her liver. She does remain on omeprazole with fairly good relief of her reflux symptoms. She denies any significant heartburn or dysphagia. She reports that her bowel movements are currently fairly regular and without any signs of bleeding. She does describe a couple of episodes of possible food poisoning for which she was in the ER, most recently as of just earlier this month. ?She did have an ultrasound that I ordered in September that described a known small lesion in the right lobe of the liver which appeared to be stable as compared to previous studies. However, she was in the ER at the beginning of this month and a CT scan described an enlarged liver consistent with fatty liver as well as an approximately 2 cm lesion in the right lobe of the liver which appeared to be the same lesion that had been seen on the previous ultrasound. There was no sign of any biliary disease, splenomegaly, nor ascites. Labs at that time revealed a completely normal liver profile. Lab work early this year revealed a normal alpha- fetoprotein level and a liver fibrosis score of only F0. ?Mairbel has never had a colonoscopy and denies any known family history of colorectal cancer. * ROS:?General/Constitutional:?Change in appetite?denies.?Chills?denies.?Fatigue?denies.?Ophthalmologic:?Patient denies? Negative..?ENT:?Patient denies?Negative..?Respiratory:?Patient denies?No coughing/hemoptysis..?Cardiovascular:?Patient denies? No chest pain/orthopnea..?Gastrointestinal:?Comments?See HPI for details.?Genitourinary:?Patient denies? No dysuria/hematuria..?Musculoskeletal:?Patient denies? No specific arthralgias/myalgias..?Skin:?Patient denies?No rash/pruritus..?Neurologic:?Patient denies? No headaches/seizures..?Psychiatric:?Patient denies?Negative..? * Medical History:? * Surgical History:?Cholecyste ctomy Tubal ligation Hysterectomy 08/2018 * Hospitalization/Major Diagno stic Procedure:?No Hospitalization History. * Family History:?Father: nusrat finch?Mother: alive, diagnosed with HTN (hypertension), Diabetes, Heart disease.? Uncle had stomach cancer; no colorectal cancer nor liver disease. * Social History:?Tobacco Use:?Tobacco Use/Smoking?Are you a: nonsmoker.?Drugs/Alcohol:?Alcohol Screen?Points: 0, Interpretation: Negative.?Miscellaneous:?Marital status: Single. ???Nonsmoker; no alcohol. * Medications:?TakingInvokana 300 MG Tablet 1 tablet before the first meal of the day Orally Once a dayTrulicity 4.5 MG/0.5ML Solution Pen-injector as directed Subcutaneous Levothyroxine Sodium 75 MCG Tablet 1 tablet on an empty stomach in the morning Orally Once a daymetFORMIN HCl 850 MG Tablet 1 tablet with a meal Orally twice a dayOmeprazole 20 MG Capsule Delayed Release 1 capsule Orally Once a dayglipiZIDE 10 MG Tablet 1 tablet Orally Once a dayZyrTEC Allergy Taking Invokana 300 MG Tablet 1 tablet before the first meal of the day Orally Once a dayTaking Trulicity 4.5 MG/0.5ML Solution Pen-injector as directed Subcutaneous Taking Levothyroxine Sodium 75 MCG Tablet 1 tablet on an empty stomach in the morning Orally Once a dayTaking metFORMIN HCl 850 MG Tablet 1 tablet with a meal Orally twice a dayTaking Omeprazole 20 MG Capsule Delayed Release 1 capsule Orally Once a dayTaking glipiZIDE 10 MG Tablet 1 tablet Orally Once a dayTaking ZyrTEC Allergy DiscontinuedMiraLax 17 GM/SCOOP Powder 1 capful in 8 ounces of water Orally once or twice a day for the constipation, Notes: PRNDicyclomine HCl 10 MG Capsule TAKE 1 TO 2 CAPSULES BY MOUTH FOUR TIMES A DAY NEEDED FOR ABDOMINAL DISCOMFORT/ BLOATING Medication List reviewed and reconciled with the patientDiscontinued MiraLax 17 GM/SCOOP Powder 1 capful in 8 ounces of water Orally once or twice a day for the constipation, Notes: PRNDiscontinued Dicyclomine HCl 10 MG Capsule TAKE 1 TO 2 CAPSULES BY MOUTH FOUR TIMES A DAY NEEDED FOR ABDOMINAL DISCOMFORT/ BLOATING Medication List reviewed and reconciled with the patient * Allergies:?AspirinIbuprofenI GAS PUMPING STATION OPERATOR dyeActos: swellAtorvastatin Calcium: upset stomachMagnesium: closing up throatyes[Allergies Verified] Objective: * Vitals:?Wt: 150 lb 2 oz, Ht: 62.25 in, BMI:27.24 Index, BP: 000/00 mm Hg, Temp: 97.7. * Examination: ???General Examination: ?GENERAL APPEARANCE:?pleasant, well nourished, well developed, in no acute distress.?EYES:?sclera non-icteric.?ORAL CAVITY:?mucosa moist.?NECK/THYROID:?no cervical lymphadenopathy, neck supple.?SKIN:?nonjaundiced, no spider angiomata..?HEART:?S1, S2 normal.?LUNGS:?clear to auscultation bilaterally.?ABDOMEN:?normal bowel sounds, no guarding or rigidity, no hepatosplenomegaly, no masses palpable, soft, nontender, nondistended..?EXTREMITIES:?no edema.?NEUROLOGIC:?alert and oriented.? Assessment: * Assessment: 1.?Fatty liver - K76.0 (Prim marion)?2.?Liver fibrosis - K74.00?3.?Abnormal liver ultrasound - R93.2?4.?Gastroesophageal reflux disease without esophagitis - K21.9?5.?Gastroparesis due to secondary diabetes - E13.43?6.?Colon cancer screening - Z12.11?7.?Abnormal CT of liver - R93.2? Overall, Maribel appears to be doing well at the present time from a GI standpoint. We did review the need to continue to try to eat as healthy as possible, lose weight, and keep her diabetes as well-controlled as possible for her overall health, as well as more specifically for the fatty liver. I will try to schedule her for a MRI of the liver in regard to the abnormal CT scan but I did advise her that she needs to be compliant with that, as well as future office visits. I don't think she needs ursodiol or any other treatment for fatty liver given the normal LFTs at the present time. I did advise her that she should have a colonoscopy for screening given her age approaching 49. We did review the rationale for that regard to colorectal cancer prevention. However, at this time she wants to hold off on that and think about it. I will plan to see her toward the end of this year for followup of her liver and will then try to schedule her for a colonoscopy at that time. I did advise her to continue the omeprazole for continued symptomatic relief of any reflux. Maribel was comfortable with this plan. Thank you again for allowing me to participate in Maribel's care. I shall continue to keep you advised of her progress. Plan: * Treatment: * 2.?Liver fibrosis?Imaging: MRI ABD W&WO CONTRAST* Abnormal CT of liver and kid aisha on 12/2023 CTapproval -[id number] 01/19-07/18/24Colon,Demi 01/20/2024 02:07:11 PM EDT >order faxed w/ approval * 3.?Abnormal liver ultrasound?Imaging: MRI ABD W&WO CONTRAST* Abnormal CT of liver and kid aisha on 12/2023 CTapproval -[id number] 01/19-07/18/24Colon,Demi 01/20/2024 02:07:11 PM EDT >order faxed w/ approval * 4.?Colon cancer screening? Notes: We will discuss a colonoscopy again when I see you at the office visit?? 5.?Abnormal CT of liver?Imaging: MRI ABD W&WO CONTRAST* Abnormal CT of liver and kid aisha on 12/2023 CTapproval -[id number] 01/19-07/18/24Colon,Demi 01/20/2024 02:07:11 PM EDT >order faxed w/ approval * 6.?Others? Continue Omeprazole Capsule Delayed Release, 20 MG, 1 capsule, Orally, Once a day.?? * Procedure Codes:?3017F COLOR ECTAL CA SCREEN DOC [id number] TOBACCO NON-RCUPM2053 BP SCR NOT PRFRM REC REASON NOS * Preventive Medicine:? ??Counseling:?Care goal follow-up plan:?Above Normal BMI Follow-up?Giving encouragement to exercise,?BMI management provided?Yes.? * Follow Up:?end of 2023 * * Sign off status: Completed true * Provider:?Yovani Contreras MD Date:? 024 Generated for El vega/Michelle/Elaine on:?10/26/2024 08:51 AM EST History and Physical Notes * HPI (History of Present Illness) Category Sub-Category Detail Notes Category Not es incontinence I saw Maribel in followup today in regard to her underlying history of fatty liver, abnormal imaging studies of her liver, gastroesophageal reflux, irritable bowel syndrome, and discussion of colorectal cancer screening. I last saw Maribel in May 2021. At that time we reviewed her chronic GI symptoms of her irritable bowel syndrome and reflux. Since that time she has had issues with not showing up for office visits and scheduled tests including a MRI of her liver. She does remain on omeprazole with fairly good relief of her reflux symptoms. She denies any significant heartburn or dysphagia. She reports that her bowel movements are currently fairly regular and without any signs of bleeding. She does describe a couple of episodes of possible food poisoning for which she was in the ER, most recently as of just earlier this month. She did have an ultrasound that I ordered in September that described a known small lesion in the right lobe of the liver which appeared to be stable as compared to previous studies. However, she was in the ER at the beginning of this month and a CT scan described an enlarged liver consistent with fatty liver as well as an approximately 2 cm lesion in the right lobe of the liver which appeared to be the same lesion that had been seen on the previous ultrasound. There was no sign of any biliary disease, splenomegaly, nor ascites. Labs at that time revealed a completely normal liver profile. Lab work early this year revealed a normal alpha-fetoprotein level and a liver fibrosis score of only F0. Maribel has never had a colonoscopy and denies any known family history of colorectal cancer. Examination Category Sub-Category Detail Notes Category Not es General Examination GENERAL APPEARANCE: pleasant , well nourished, well developed, in no acute distress EYES: sclera non-icteric NECK/THYROID: no cervical lymphade nopathy, neck supple HEART: S1, S2 normal LUNGS: clear to auscultatio n bilaterally ABDOMEN: normal bowel sounds, no guarding or rigidity, no hepatosplenomegaly, no masses palpable, soft, nontender, nondistended. NEUROLOGIC: alert and oriented SKIN: nonjaundiced, no spi georges angiomata. EXTREMITIES: no edema ORAL CAVITY: mucosa moist
== END 2024-10-26 08:50 | disposition home or self-care (01) ==
PROVIDERS: Emergency Provider Emergency Medicine; PCP Family Medicine
DX: J06.9 Acute upper respiratory infection, unspecified (principal); E11.9 Type 2 diabetes mellitus without complications
CPT/HCPCS: 0241U; 87651; 99282; 99283

== ENCOUNTER 2024-11-20 08:29 | Outpatient (AMB) | payer OTHER, SELFPAY ==
--- OUTSIDE RECORDS SUMMARY | 2024-11-20 08:44 | XMS_ITS ---
Demographics Address [address] [place] [address] Preferred Language en Marital Status Unknown Taoist Affiliation Unknown Race Ethnic Group or Author Organization [facility] Address [address] [place] [address] Care Team Providers Care Wire Stockkeeper Name Role Phone Flakito Larsen Primary Care Provider Unavailab Yovani Wells [facility] [phone] REASON FOR VISIT Patient presents today for liver fibrois Encounters Encounter Location Date Provider Diagnosis [facility] [address] [place] [address] 07/24/2024 Yovani Contreras Plan Of Treatment No Information Progress Notes * LORRAINE SWEENEY NDOB :1975 (49 yo F)Acc No.[id number]:07/24/2024 Progress Notes Patient:?FAHADMaryanne BENITEZ Marc Provider:?Yovani Contreras MD :1975???Age:49 Y???Sex:Female D ate:07/24/2024 Address[address], [id number] Pcp:Flakito Larsen Subjective: * Chief Complaints: * [...] MD Date:? 024 Generated for El vega/Michelle/eTransmitting on:?11/20/2024 08:44 AM EDT
--- OUTSIDE RECORDS SUMMARY | 2024-11-20 08:44 | XMS_ITS ---
Demographics Address [address] [place] [address] Preferred Language en Marital Status Unknown Caodaism Affiliation Unknown Race Ethnic Group or Author Organization [facility] Address [address] [place] [address] Care Team Providers Care Food And Drug Research Scientist Name Role Phone Flakito Larsen Primary Care Provider UnavailYovani Cooley Unavailable [phone] Allergies Allergen (clinical drug ingredient) Drug/Non Drug Allergy documented on EMR Reaction Allergy Type Onset Date Status Magnesium closing up throat Drug Allergy Active ibuprofen Ibuprofen Unknown Drug Allergy Active atorvastatin Atorvastatin Calcium upset stomach Drug Allergy Active aspirin Aspirin Unknown Drug Allergy Active pioglitazone Actos swell Drug Allergy Acti ve IVP dye (uncoded) Unknown Allergy Ac tive REASON FOR VISIT Patient presents today for [...] Status Risk Notes Problem Colon cancer screening (559201785) Colon cancer screening (Z12.11) Active confirmed Vital Signs Temperature 97.7 degrees Fahrenheit 01/20/20 24 Blood pressure systolic 000 mm Hg 01/20/20 24 Blood pressure diastolic 00 mm Hg 024 Height 62.25 in 01/20/2024 Weight 150 lb 2 oz lbs 01/20/2024 BMI 27.24 kg/m2 01/20/2024 Encounters Encounter Location Date Provider Diagnosis [facility] [address] [place] [address] 01/20/2024 Yovani Contreras Fatty liver K76.0 ; [...] MARIBEL SWEENEY NDOB :1975 (48 yo F)Acc No.[id number]:01/20/2024 Progress Notes Patient:?Maryanne SWEENEY N Provider:?Yovani Contreras MD :1975???Age:48 Y???Sex:Female D ate:01/20/2024 Address:[address] [place], [place] [id number] Pcp:Flakito Larsen Subjective: * Chief Complaints: * [...] a liver fibrosis score of only F0. 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 Notes: We will discuss a colonoscopy again when I see you at the office visit?? 5.?Abnormal CT of liver?Imaging: MRI ABD W&WO CONTRAST* Abnormal CT of liver and kid aisha on 12/2023 CTapproval -[id number] 01/19-07/18/24Colon,Demi 01/20/2024 02:07:11 PM EDT >order faxed w/ approval * 6.?Others? Continue Omeprazole Capsule Delayed Release, 20 MG, 1 capsule, Orally, Once a day.?? * Procedure Codes:?3017F COLOR ECTAL CA SCREEN DOC UBC5241O TOBACCO NON-[id number] BP SCR NOT PRFRM REC REASON NOS * Preventive Medicine:? ??Counseling:?Care goal follow-up plan:?Above Normal BMI Follow-up?Giving encouragement to exercise,?BMI management provided?Yes.? * Follow Up:?end of 2023 * * Sign off status: Completed true * Provider:?Yovani Contreras MD Date:? 024 Generated for El vega/Michelle/Elaine on:?11/20/2024 08:44 AM EDT History and Physical Notes * HPI (History [...]
--- OUTSIDE RECORDS SUMMARY | 2024-11-20 08:44 | XMS_ITS ---
Demographics Address [address] [place] [address] Preferred Language en Marital Status Unknown Baptist Affiliation Unknown Race Ethnic Group or Author Organization [facility] Address [address] [place] [address] Care Team Providers Care Diesel Engine Pipe Fitter Name Role Phone Flakito Larsen Primary Care Provider Unavailab Yovani Wells Unavailable [phone] Encounters Encounter Location Date Provider Diagnosis [facility] [address] [place] [address] 07/24/2024 Yovani Contreras Plan Of Treatment No Information Progress Notes * LORRAINE SWEENEY NDOB :1975 (49 yo F)Acc No.[id number]:07/24/2024 Patient:?Maryanne SWEENEY :1975???Age:49 Y???Sex:Female Address:[address], [place] [address] * true * Date:? Generated for Darnelli silvia/Michelle/eTransmitting on:?11/20/2024 08:44 AM EDT
--- NOTE | 2024-11-20 08:54 | A.OFFPC_ITS ---
Vital Signs 11/20/24 09:02 Height 5 ft 1 in Weight 137 lb 8 oz BMI 26.0 BP 90/60 Blood Pressure Location Rt brachial Position Sitting Respiration 16 Pulse 92 Pulse Source Pulse Oximeter Temp 100.2 F Temp Source Oral Pulse Oximetry (%) 97 Oxygen Delivery Method Room Air Intake Visit Reasons: 3M Follow Up Intake Note: patient is schedule for dm follow up Spool Salvager Required: No Allergies magnesium [MAGNESIUM] Allergy (Severe, Verified 11/20/24 09:00) ANAPHYLAXIS pioglitazone [From ACTOS] Allergy (Severe, Verified 11/20/24 09:00) SWELLING, hives aspirin [Aspirin] Allergy (Mild, Verified 11/20/24 09:00) UNKNOWN, hives ibuprofen [Ibuprofen] Allergy (Mild, Verified 11/20/24 09:00) anaphylaxis,hives Iodinated Contrast Media [IV Dye, Iodine Containing] Allergy (Mild, Verified 11/20/24 09:00) hives empagliflozin [From Jardiance] Allergy (Verified 11/20/24 09:00) Unknown Medication List - Last Reconciled 11/20/24 by Flakito Larsen MD atorvastatin 10 mg PO BEDTIME 90 days bisacodyl (Dulcolax (bisacodyl)) 10 mg (2 x 5 mg) PO BEDTIME 2 days blood sugar diagnostic (FreeStyle Lite Strips) three times a day blood-glucose meter (FreeStyle Lite Meter kit) As directed 2x/day budesonide 32 mcg/actuation 1 spray intranasal DAILY 30 days canagliflozin (Invokana) 300 mg PO DAILY 30 days comp.stocking,knee,long,medium Compression stockings 20 mm Hg. Daily while awake. 90 days dulaglutide (Trulicity) 4.5 mg (0.5 mL) subcut QWEEK 28 days epinephrine 0.3 mg (0.3 mL) IM ONCE 30 days flash glucose sensor (FreeStyle Butch 14 Day Sensor kit) As directed fluticasone propionate 50 mcg/actuation (Flonase Allergy Relief) 1 spray intranasal Q12H 30 days glipizide ER 5 mg PO DAILY lancets (FreeStyle Lancets) As directed levothyroxine 75 mcg PO DAILY metformin 850 mg PO BID 90 days metoclopramide HCl (Reglan) 10 mg PO QIDACHS omeprazole 20 mg PO DAILY 30 days peg 3350-electrolytes 236-22.74-6.74 -5.86 gram (Golytely) 240 mL PO Q10M 1 day sennosides (Senna Laxative) 1-2 at bedtime orally bedtime PRN; Tobacco use date assessed: 12/09/23 Dental Screening Dental Screen Date: 10/28/23 HPI 3M Follow Up HPI Details 49 y/o female presents to f/u diabetes, chronic conditions. Last A1c 6.1%. A1c today 5.5%. She is on invokana, Trulicity, glipizide 5mg, metformin 850mg b.i.d. She notes last eye exam was May of last year and is up to date. [facility] Medical History Pre-op examination Low back pain Normal physical examination, routine Colon cancer screening Diabetes Bilateral otitis media with effusion Discomfort of left ear Right arm pain Right elbow pain Knee pain Allergies Acute effusion of left ear Venous insufficiency Conjunctivitis Acute sinusitis Arterial insufficiency Foot abscess, right Wound of right foot Right low back pain Weight gain Hyperlipidemia LDL goal <100 Type 2 diabetes mellitus with hyperglycemia Abnormal thyroid exam Cirrhosis Migraines GERD (gastroesophageal reflux disease) Depression Hypothyroidism Diabetes mellitus type 2, controlled, with complications Surgical History Hx of hysterectomy Hx of tubal ligation Hx of section Hx of cholecystectomy Family History Father No problems noted. Mother Diabetes Cardiovascular disease Arthritis Maternal Aunt Diabetes Sister SLE (systemic lupus erythematosus) Social History Household Members: Family Both parents involved: No Caregiver staying overnight: No Housing: Apartment Are you a primary senior care manager to a significant other at home: No Do you presently have visiting nurse or other home services: No 75 years or older and lives alone: No Unable to assess alcohol history related to: Unable to respond Alcohol intake: never Patient Tobacco Use Status: Never used Tobacco e-Cigarette/Vaping Use: Never Used service: No Current occupational status: unemployed Current occupation: used to work at the [employer] in [place], [employer] service Current occupational exposures/hazards: No Gender identity: Female Cognitive needs: No Hearing needs: No Vision needs: Yes (Glasses) Questionnaire PHQ-9 Over the last 2 weeks, how often have you been bothered by any of the following problems? 1. Little interest or pleasure in doing things: not at all 2. Feeling down, depressed, or hopeless: not at all 3. Trouble falling or staying asleep, or sleeping too much: not at all 4. Feeling tired or having little energy: not at all 5. Poor appetite or overeating: not at all 6. Feeling bad about yourself - or that you are a failure or have let yourself or your family down: not at all 7. Trouble concentrating on things, such as reading the newspaper or watching television: not at all 8. Moving or speaking so slowly that other people could have noticed. Or the opposite - being so fidgety or restless that you have been moving around a lot more than usual: not at all 9. Thoughts that you would be better off or of hurting yourself in some way: not at all Total score: 0 Depression Screening Interpretation: Negative Depression Screening Done: Yes 64956 - PHQ-9 Billing: Yes Source: Developed by Drs. Yovani Lee, Eliana Decker, Mikal Brownlee and colleagues, with an educational bess from [employer]. Thrive Questionnaire Date Thrive assessed: 11/20/24 I am a: Patient What is your living situation today?: I have a steady place to live Within the past 12 months, did the food you bought not last and you didn't have the money to get more?: I choose not to answer this question Within the past 12 months, did you worry whether your food would run out before you got money to buy more?: I choose not to answer this question Do you have trouble paying for medicines?: No Do you have trouble getting transportation to medical appointments?: No Do you have trouble paying your heating and electricity bill?: No Do you have trouble taking care of your child, family member or friend?: No Do you have trouble with day-to-day activities such as bathing, preparing meals, shopping, managing finances, etc.?: No Are you currently unemployed and looking for a job?: I choose not to answer this question Are you interested in more education?: I choose not to answer this question Please select the resources that you would like help with: None Currently or been in a relationship where the following occur: No concerns reported THRIVE Score: 0 AUDIT C Alcohol Use Questionnaire (AUDIT-C) 1. How often do you have a drink containing alcohol?: Never 2. How many drinks containing alcohol do you have on a typical day when you are drinking?: 1 or 2 3. How often do you have six or more drinks on one occasion?: Never Total Score: 0 AAKSH-7 AMB Questionnaire AKASH-7 Date AKASH - 7 assessed: 11/20/24 Feeling nervous, anxious, or on edge: 0 = Not at all Not being able to stop or control worryin = Not at all Worrying too much about different things: 0 = Not at all Trouble relaxin = Not at all Being so restless that it is hard to sit still: 0 = Not at all Becoming easily annoyed or irritable: 0 = Not at all Feeling afraid as if something awful might happen: 0 = Not at all Total AKASH-7 score (0-4 normal; 5-9 mild; 10-14 moderate; 15-21 severe): 0 Source: Developed by Drs. Yovani Lee, Eliana Decker, Mikal Brownlee and colleagues, with an educational bess from [employer]. AKASH-7 Assessment Billing AKASH-7 Assessment Tool: AKASH-7 Assessment 74643 Review of Systems Const Denies chills, Denies fatigue, Denies fever(s), Denies headache(s) and Denies weakness ENT Denies dizziness and Denies headache(s) Card Denies dyspnea Resp Denies cough, Denies dyspnea, Denies wheezing and Denies other (shortness of breath) Musc Denies numbness and Denies tingling Neuro Denies dizziness, Denies headache(s), Denies numbness, Denies tingling and Den ies weakness Psych Denies anxiety and Denies depression Endo Denies fatigue Aller/Immun Denies wheezing Physical exam (Primary Care) Vital Signs: Last Vital Signs Temp 100.2 F 11/20/24 09:02 Pulse 92 11/20/24 09:02 Resp 16 11/20/24 09:02 BP 90/60 11/20/24 09:02 Pulse Ox 97 11/20/24 09:02 Oxygen Delivery Method Room Air 11/20/24 09:02 BMI result Body Mass Index 26.0 Tobacco/Smoking Status: Tobacco use Status Tobacco use date assessed 12/09/23 11/20/24 08:54 Patient Tobacco Use Status Never used Tobacco 11/20/24 08:54 e-Cigarette/Vaping Use Never Used 11/20/24 08:54 PHQ-9: PHQ-9 Score PHQ-9: Total score 0 11/20/24 09:05 Depression Screening Interpretation: Negative Thrive Assessment: Date of Thrive Assessment Date Thrive assessed 11/20/24 11/20/24 09:05 Currently or been in a relationship where the following occur: No concerns reported Const General: well developed; No acute distress Nutritional Appearance: well nourished Orientation/consciousness: patient oriented x3 HENMT Head: Yes normocephalic and Yes atraumatic Eyes General: appearance normal, both eyes and all related structures Pupils: Equal, round and reactive pupils present EOM: EOMs intact bilaterally Resp Effort & Inspection: normal respiratory effort Auscultation: clear to auscultation bilaterally Cardio Rate: regular rate Rhythm: regular rhythm Heart sounds: S1 normal heart sound present, S2 normal heart sound present, no gallops, no murmurs and no rubs Neuro General: patient oriented x3 and gait normal Cranial nerves: Yes Equal, round and reactive pupils present Psych Affect: normal affect Coding Level of Care Code Est Pt Level 4 (98858) Diagnoses Controlled type 2 diabetes mellitus with complication, without long-term current use of insulin E11.8 Diabetes mellitus intermediate teacher insulin use: without intermediate teacher use Umbilical hernia K42.9 Allergies T78.40XA Additional Codes AKASH-7 Assessment Billing - AKASH-7 Assessment Tool: AKASH-7 Assessment 49903 ([id number]) PHQ-9 - 19866 - PHQ-9 Billing: Yes ([id number]) Assessment & Plan Assessment & Plan (1) Diabetes mellitus type 2, controlled, with complications: Code(s): E11.8 - Type 2 diabetes mellitus with unspecified complications Category: Medical Qualifiers: Diabetes mellitus intermediate teacher insulin use: without nursing home use Qualified Code(s): E11.8 - Type 2 diabetes mellitus with unspecified complications Plan: A1c?now?5.5%.??Good?control.??Goal?is?less?than?7.0% Continue?current?medication Up-to-date?with?eye?exam (2) Umbilical hernia: Code(s): K42.9 - Umbilical hernia without obstruction or gangrene Category: Medical Plan: Small?umbilical?hernia Referred?to?general?surgery (3) Allergies: Code(s): T78.40XA - Allergy, unspecified, initial encounter Category: Medical Plan: Worsening?seasonal?allergies Will?give?her?a?script?for?Flonase?and?Zyrtec Plan Mildly?low?blood?pressure?today.??Patient?feels?well. Advise?she?increase?hydration Orders: Referrals General Surgery Referral K42.9 - Umbilical hernia without obstruction or gangrene Medications: New fluticasone propionate 50 mcg/actuation (Flonase Allergy Relief) administer into each nostril 1 spray intranasal Q12H 30 days 16 grams 2RF cetirizine (All Day Allergy (cetirizine)) 10 mg PO DAILY 90 days PRN 90 tabs 1RF allergy symptoms Discontinued fluticasone propionate 50 mcg/actuation (Flonase Allergy Relief) administer into each nostril Discontinued Reason: Doctor's Order 1 spray intranasal Q12H 30 days 16 grams 3RF H92.03 - Otalgia, bilateral
[2024-11-20 09:02] VITALS: BP 90/60; PULSE 92; RESP 16; TEMP 37.9; O2SAT 97; BMI 26.0
== END 2024-11-20 09:27 | disposition home or self-care (01) ==
LOC: HO.HMCFM 08:29
PROVIDERS: PCP Family Medicine; Visit Provider Family Medicine
DX: E11.8 Type 2 diabetes mellitus with unspecified complications (principal); K42.9 Umbilical hernia without obstruction or gangrene; T78.40XA Allergy, unspecified, initial encounter; E11.9 Type 2 diabetes mellitus without complications

== ENCOUNTER → 2024-11-20 08:29 | Outpatient (BNVA) | payer OTHER, SELFPAY | PROVIDERS: PCP Family Medicine; Visit Provider Family Medicine | DX: E11.8 Type 2 diabetes mellitus with unspecified complications (principal); K42.9 Umbilical hernia without obstruction or gangrene; T78.40XD Allergy, unspecified, subsequent encounter | CPT/HCPCS: 83036; 96127; 99212 ==

== ENCOUNTER 2024-11-26 09:03 | Outpatient (AMB) | payer OTHER, SELFPAY ==
--- NOTE | 2024-11-26 09:05 | MHC.OFFVIS ---
Vital Signs 11/26/24 09:12 Height 5 ft 1 in Weight 157 lb BMI 29.7 BP 96/68 Blood Pressure Location Rt brachial Position Sitting Pulse 91 Intake Visit Reasons: Umbilical hernia Intake Note: Patient referred by pcp Dr. Larsen for Umbilical hernia. Recently noticed. Patient c/o: abdomen bulge feels firm. Reeler Operator Required: No Accompanied by: Roberto Peterson Allergies magnesium [MAGNESIUM] Allergy (Severe, Verified 11/26/24 09:10) ANAPHYLAXIS pioglitazone [From ACTOS] Allergy (Severe, Verified 11/26/24 09:10) SWELLING, hives aspirin [Aspirin] Allergy (Mild, Verified 11/26/24 09:10) UNKNOWN, hives ibuprofen [Ibuprofen] Allergy (Mild, Verified 11/26/24 09:10) anaphylaxis,hives Iodinated Contrast Media [IV Dye, Iodine Containing] Allergy (Mild, Verified 11/26/24 09:10) hives empagliflozin [From Jardiance] Allergy (Verified 11/26/24 09:10) Unknown HPI Comments Details: Patient was presents with a symptomatic enlarging umbilical hernia. It is increasing in size, become more symptomatic. She would like to have it repaired. She has never had hernia issues in the past. This has been going on for least 1 year's time. She otherwise tolerating a diet. For the most part has regular bowel habits. She is due for colonoscopy. No other GI issues or complaints. Patient does not do very heavy or strenuous activities. Chart was reviewed and patient evaluated [facility] Medical History Allergies Diabetes Pre-op examination Low back pain Normal physical examination, routine Colon cancer screening Bilateral otitis media with effusion Discomfort of left ear Right arm pain Right elbow pain Knee pain Acute effusion of left ear Venous insufficiency Conjunctivitis Acute sinusitis Arterial insufficiency Foot abscess, right Wound of right foot Right low back pain Weight gain Hyperlipidemia LDL goal <100 Type 2 diabetes mellitus with hyperglycemia Abnormal thyroid exam Cirrhosis Migraines GERD (gastroesophageal reflux disease) Depression Hypothyroidism Diabetes mellitus type 2, controlled, with complications Surgical History Hx of hysterectomy Hx of tubal ligation Hx of section Hx of cholecystectomy Family History Father No problems noted. Mother Diabetes Cardiovascular disease Arthritis Maternal Aunt Diabetes Sister SLE (systemic lupus erythematosus) Social History Household Members: Family Both parents involved: No Caregiver staying overnight: No Housing: Apartment Are you a primary adult daycare coordinator to a significant other at home: No Do you presently have visiting nurse or other home services: No 75 years or older and lives alone: No Unable to assess alcohol history related to: Unable to respond Alcohol intake: never Patient Tobacco Use Status: Never used Tobacco e-Cigarette/Vaping Use: Never Used service: No Current occupational status: unemployed Current occupation: used to work at the [employer] in [place], [employer] Current occupational exposures/hazards: No Gender identity: Female Cognitive needs: No Hearing needs: No Vision needs: Yes (Glasses) Physical Exam Vital Signs: Last Vital Signs Pulse 91 11/26/24 09:12 BP 96/68 11/26/24 09:12 BMI result Body Mass Index 29.7 Chest Other: Chest breath sounds bilaterally, HS 1 in 2 GI Other: Patient was examined both supine and standing with Valsalva. Bilateral groin exam negative. Corpulent abdomen. Moderately sized pannus. Roughly 3 cm reducible umbilical hernia. Assessment & Plan Assessment & Plan (1) Umbilical hernia: Code(s): K42.9 - Umbilical hernia without obstruction or gangrene Category: Medical Plan Risks, benefits, alternatives of open umbilical hernia repair with mesh were reviewed with the patient and included but not limited to bleeding, infection, recurrence, numbness, pain, scarring, bowel injury and the patient wishes to proceed. All questions answered. Patient was see me as directed or p.r.n.. Coding Level of Care Code New Pt Level 5 (96857) Diagnoses Umbilical hernia K42.9
[2024-11-26 09:12] VITALS: BP 96/68; PULSE 91; BMI 29.7
--- OUTSIDE RECORDS SUMMARY | 2024-11-26 10:04 | XMS_ITS ---
Demographics Address [address] [place] [address] Preferred Language en Marital Status Unknown Catholic Affiliation Unknown Race Ethnic Group or Author Organization [facility] Address [address] [place] [address] Care Team Providers Care Oncology Specialist Name Role Phone Flakito Larsen Primary Care Provider Unavailab Yovani Wells Unavailable [phone] Encounters Encounter Location Date Provider Diagnosis [facility] [address] [place] [address] 07/24/2024 Yovani Contreras Plan Of Treatment No Information Progress Notes * LORRAINE SWEENEY NDOB :1975 (49 yo F)Acc No.[id number]:07/24/2024 Patient:?Maryanne SWEENEY :1975???Age:49 Y???Sex:Female Address:[address], [place] [address] * true * Date:? Generated for Darnelli silvia/Michelle/eTransmitting on:?11/26/2024 10:03 AM EDT
--- OUTSIDE RECORDS SUMMARY | 2024-11-26 10:04 | XMS_ITS ---
Demographics Address [address] [place] [address] Preferred Language en Marital Status Unknown Buddhism Affiliation Unknown Race Ethnic Group or Author Organization [facility] Address [address] [place] [address] Care Team Providers Care Traveling Repair Accountant Name Role Phone Flakiot Larsen Primary Care Provider Unavailab Yoavni Wells [facility] [phone] REASON FOR VISIT Patient presents today for liver fibrois Encounters Encounter Location Date Provider Diagnosis [facility] [address] [place] [address] 07/24/2024 Yovani Contreras Plan Of Treatment No Information Progress Notes * LORRAINE SWEENEY NDOB :1975 (49 yo F)Acc No.[id number]:07/24/2024 Progress Notes Patient:?FAHADMaryanne BENITEZ Marc Provider:?Yovani Contreras MD :1975???Age:49 Y???Sex:Female D ate:07/24/2024 Address:[address], [facility] Pcp:Flakito Larsen Subjective: * Chief Complaints: * [...] MD Date:? 024 Generated for El vega/Michelle/eTransmitting on:?11/26/2024 10:04 AM EDT
--- OUTSIDE RECORDS SUMMARY | 2024-11-26 10:04 | XMS_ITS ---
Demographics Address [address] [place] [address] Preferred Language en Marital Status Unknown Presybeterian Affiliation Unknown Race Ethnic Group or Author Organization [facility] Address [address] [place] [address] Care Team Providers Care Continuous Absorption Process Operator Name Role Phone Flakito Larsen Primary Care Provider UnavailYovani Cooley Unavailable [phone] Allergies Allergen (clinical drug ingredient) Drug/Non Drug Allergy documented on EMR Reaction Allergy Type Onset Date Status ibuprofen Ibuprofen Unknown Drug Allergy Active atorvastatin Atorvastatin Calcium upset stomach Drug Allergy Active aspirin Aspirin Unknown Drug Allergy Active pioglitazone Actos swell Drug Allergy Acti ve IVP dye (uncoded) Unknown Allergy Ac tive Magnesium closing up throat Drug Allergy Active REASON FOR VISIT Patient [...] Status Risk Notes Problem Colon cancer screening (020814631) Colon cancer screening (Z12.11) Active confirmed Vital Signs Temperature 97.7 degrees Fahrenheit 01/20/20 24 Blood pressure systolic 000 mm Hg 01/20/20 24 Blood pressure diastolic 00 mm Hg 024 Height 62.25 in 01/20/2024 Weight 150 lb 2 oz lbs 01/20/2024 BMI 27.24 kg/m2 01/20/2024 Encounters Encounter Location Date Provider Diagnosis [facility] [address] [place] [address] 01/20/2024 Yovani Contreras Fatty liver K76.0 ; [...] MARIBEL SWEENEY NDOB :1975 (48 yo F)Acc No.[id number]:01/20/2024 Progress Notes Patient:?Maryanne SWEENEY N Provider:?Yovani Contreras MD :1975???Age:48 Y???Sex:Female D ate:01/20/2024 Address:[address] [place], [place] [id number] Pcp:Flakito Larsen Subjective: * Chief Complaints: * [...] and reconciled with the patient * Allergies:?AspirinIbuprofenI LABORER SYRUP MACHINE dyeActos: swellAtorvastatin Calcium: upset stomachMagnesium: closing up [...] liver and kid aisha on 12/2023 CTapproval -[id number] 01/19-07/18/24Colon,Demi 01/20/2024 02:07:11 PM EDT >order faxed w/ approval * 3.?Abnormal liver ultrasound?Imaging: MRI ABD W&WO CONTRAST* Abnormal CT of liver and kid aisha on 12/2023 CTapproval -[id number] 01/19-07/18/24Colon,Demi 01/20/2024 02:07:11 PM EDT >order faxed w/ approval * 4.?Colon cancer screening? Notes: We will discuss a colonoscopy again when I see you at the office visit?? 5.?Abnormal CT of liver?Imaging: MRI ABD W&WO CONTRAST* Abnormal CT of liver and kid aisha on 12/2023 CTapproval -[id number] 01/19-07/18/24Colon,Demi 01/20/2024 02:07:11 PM EDT >order faxed w/ approval * 6.?Others? Continue Omeprazole Capsule Delayed Release, 20 MG, 1 capsule, Orally, Once a day.?? * Procedure Codes:?3017F COLOR ECTAL CA SCREEN DOC [id number] TOBACCO NON-[id number] BP SCR NOT PRFRM REC REASON NOS * Preventive Medicine:? ??Counseling:?Care goal follow-up plan:?Above Normal BMI Follow-up?Giving encouragement to exercise,?BMI management provided?Yes.? * Follow Up:?end of 2023 * * Sign off status: Completed true * Provider:?Yovani Contreras MD Date:? 024 Generated for El vega/Michelle/Elaine on:?11/26/2024 10:04 AM EDT History and Physical Notes * [...]
== END 2024-11-26 09:19 | disposition home or self-care (01) ==
LOC: HO.HGS 09:04
PROVIDERS: PCP Family Medicine; Referring Provider Family Medicine; Visit Provider Surgery
DX: K42.9 Umbilical hernia without obstruction or gangrene (principal)
CPT/HCPCS: 99204

== ENCOUNTER → 2024-11-26 09:03 | Outpatient (BNVA) | payer OTHER, SELFPAY | PROVIDERS: PCP Family Medicine; Referring Provider Family Medicine; Visit Provider Surgery | DX: K42.9 Umbilical hernia without obstruction or gangrene (principal) | CPT/HCPCS: 99202 ==

== ENCOUNTER 2025-01-03 05:52 | Day surgery (SDC) | payer OTHER, SELFPAY ==
[2025-01-01 09:33] VITALS: BMI 29.7
--- NOTE | 2025-01-02 09:16 | HO.ANESPROP2 ---
Documented by User: Bibiana Gage NP 01/02/25 09:27 HPI - Anesthesia Eval Consult details Narrative: 49yo F for Hernia Umbilical Reducible Anesthesia Pre-Procedure Meds Is the patient on any of the following meds?: GLP1/DPP4 and SGLT2 Inhib PMFSH Active Problems Active Problems: All Active Problems Umbilical hernia (Acute) Umbilical hernia (Acute) Seasonal allergies (Acute) Limited range of motion (ROM) of shoulder (Acute) Right shoulder pain (Acute) Leucocytosis (Acute) Connective tissue disease (Acute) Diabetic gastroparesis (Acute) Pre-op examination (Acute) Liver lesion (Acute) Abnormal CT of the abdomen (Acute) Abdominal pain (Acute) Cervicalgia (Acute) Nausea and vomiting (Acute) Anxiety and depression (Acute) Overweight (Acute) Diabetes (Acute) Long-term use of hydroxychloroquine (Acute) Dizziness (Acute) Polyarthralgia (Acute) Abnormal thyroid exam (Acute) Allergies (Acute) Diminished pulses in lower extremity (Acute) Neuropathy (Acute) Varicose veins of left lower extremity with inflammation (Acute) PAD (peripheral artery disease) (Acute) Sciatica, right side (Acute) Neck muscle strain (Acute) Increased urinary frequency (Acute) Abdominal distension (Acute) Diabetes mellitus type 2, controlled, with complications (Acute) Hypothyroidism (Acute) Past Medical History Medical History Anxiety Low back pain Venous insufficiency Arterial insufficiency Migraines GERD (gastroesophageal reflux disease) Depression Hypothyroidism Hyperlipidemia LDL goal <100 Diabetes mellitus type 2, controlled, with complications Family History Family History Father No problems noted. Mother Diabetes Cardiovascular disease Arthritis Maternal Aunt Diabetes Sister SLE (systemic lupus erythematosus) Surgical History Surgical History Hx of hysterectomy Hx of tubal ligation Hx of section Hx of cholecystectomy Social History Social History Household Members: Family Housing: Apartment Are you a primary child daycare worker to a significant other at home: No Do you presently have visiting nurse or other home services: No Unable to assess alcohol history related to: Unable to respond Alcohol intake: never Patient Tobacco Use Status: Never used Tobacco e-Cigarette/Vaping Use: Never Used Have you been hit, kicked, punched, or otherwise hurt by someone within the past year? 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 Current occupational exposures/hazards: No Gender identity: Female Cognitive needs: No Hearing needs: No Vision needs: Yes (Glasses) Meds Allergies Allergy/AdvReac Type Severity Reaction Status Date / Time magnesium [MAGNESIUM] Allergy Severe ANAPHYLAXIS Verified 11/26/24 09:10 pioglitazone [From ACTOS] Allergy Severe SWELLING, Verified 11/26/24 09:10 hives aspirin [Aspirin] Allergy Mild UNKNOWN, Verified 11/26/24 09:10 hives ibuprofen [Ibuprofen] Allergy Mild anaphylaxis Verified 11/26/24 09:10 ,hives Iodinated Contrast Media Allergy Mild hives Verified 11/26/24 09:10 [IV Dye, Iodine Containing] empagliflozin Allergy Unknown Unknown Verified 01/01/25 09:26 [From Jardiance] Home Medications ?Medication ?Instructions ?Recorded ?Confirmed ?Last Taken ?Type lancets 28 gauge (FreeStyle 10/06/23 11/20/24 Unknown History Lancets) epinephrine 0.3 mg/0.3 mL 0.3 mg IM ONCE PRN Anaphylaxis 01/01/25 01/01/25 Unknown History injection, auto-injector Exam Height,Weight and Vital Signs: Height 5 ft 1 in Weight 71.214 kg Assessment and Plan Assessment Anesthesia Assessment: Chart Reviewed Documented by User: Wendi Vargas MD 01/03/25 08:02 [facility] Past Medical History Medical History Anxiety Low back pain Venous insufficiency Arterial insufficiency Migraines GERD (gastroesophageal reflux disease) Depression Hypothyroidism Hyperlipidemia LDL goal <100 Diabetes mellitus type 2, controlled, with complications Family History Family History Father No problems noted. Mother Diabetes Cardiovascular disease Arthritis Maternal Aunt Diabetes Sister SLE (systemic lupus erythematosus) Family history of problems with anesthesia: No Surgical History Surgical History Hx of hysterectomy Hx of tubal ligation Hx of section Hx of cholecystectomy History of Problems with Anesthesia: No Social History Social History Household Members: Family Housing: Apartment Are you a primary child daycare worker to a significant other at home: No Do you presently have visiting nurse or other home services: No Unable to assess alcohol history related to: Unable to respond Alcohol intake: never Patient Tobacco Use Status: Never used Tobacco e-Cigarette/Vaping Use: Never Used Have you been hit, kicked, punched, or otherwise hurt by someone within the past year? 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 Current occupational exposures/hazards: No Gender identity: Female Cognitive needs: No Hearing needs: No Vision needs: Yes (Glasses) Meds Allergies Allergy/AdvReac Type Severity Reaction Status Date / Time magnesium [MAGNESIUM] Allergy Severe ANAPHYLAXIS Verified 11/26/24 09:10 pioglitazone [From ACTOS] Allergy Severe SWELLING, Verified 11/26/24 09:10 hives aspirin [Aspirin] Allergy Mild UNKNOWN, Verified 11/26/24 09:10 hives ibuprofen [Ibuprofen] Allergy Mild anaphylaxis Verified 11/26/24 09:10 ,hives Iodinated Contrast Media Allergy Mild hives Verified 11/26/24 09:10 [IV Dye, Iodine Containing] empagliflozin Allergy Unknown Unknown Verified 01/01/25 09:26 [From Jardiance] Home Medications ?Medication ?Instructions ?Recorded ?Confirmed ?Last Taken ?Type lancets 28 gauge (ToniStyle 10/06/23 11/20/24 Unknown History Lancets) epinephrine 0.3 mg/0.3 mL 0.3 mg IM ONCE PRN Anaphylaxis 01/01/25 01/01/25 Unknown History injection, auto-injector Exam Airway Mallampati Class: II TM Dist: >3cm Neck ROM: Full Heart: rrr Lungs: cta Assessment and Plan Assessment Anesthesia Assessment: Anesthesia Plan Discussed Final Anesthetic Review Family History of Problems with Anesthesia: No History of Problems with Anesthesia: No NPO: Yes ASA Class: III Final Preanesthetic Review: No Changes in Pt Med Stat, Meds/Allgs Chart Reviewed, Consent Obtained/Reviewed and Anes Risks/Benef Reviewed Patient Risk: Intermediate Procedure Risk: Low Anesthetic Plan Anesthetic Plan: GA Disposition: Standard PACU
[2025-01-03] VITALS (7 sets, daily range): BP systolic 106–126; BP diastolic 62–70; PULSE 81–97; RESP 16–20; TEMP 36.4–36.6; O2SAT 95–100; BMI 24.4
[2025-01-03 06:21] LABS: Glucose, Whole Blood 129 mg/dL (60-115)
[2025-01-03] MEDS: Lactated Ringers 1,000 ML 100 ML IVCONT (06:30)
--- NOTE | 2025-01-03 07:21 | MHC.SHP ---
Pre-Procedural Eval Section A - 24 Hr Update-Section A only Date of Service: 01/03/25 Section B - Complete if H&P > 30 days Chief Complaint: Umbilical hernia without obstruction or gangrene Details of Present Illness: Patient of Dr. Alicea, with known reducible umbilical hernia, here for repair; previous MRI shows a very small defect, with fat Relevant Family History (Specify if Yes): No Relevant Social History: None Present Medications: see Short Stay Collaborative assessment Medical History: Significant History (Diabetes, anxiety, hypothyroidism) History of Previous Operations: No relevant previous surgery Allergies: Allergies Allergy/AdvReac Type Severity Reaction Status Date / Time magnesium [MAGNESIUM] Allergy Severe ANAPHYLAXIS Verified 11/26/24 09:10 pioglitazone [From ACTOS] Allergy Severe SWELLING, Verified 11/26/24 09:10 hives aspirin [Aspirin] Allergy Mild UNKNOWN, Verified 11/26/24 09:10 hives ibuprofen [Ibuprofen] Allergy Mild anaphylaxis Verified 11/26/24 09:10 ,hives Iodinated Contrast Media Allergy Mild hives Verified 11/26/24 09:10 [IV Dye, Iodine Containing] empagliflozin Allergy Unknown Unknown Verified 01/01/25 09:26 [From Jardiance] Review of Systems Sugical H&P ROS: Negative: Constitution, Cardiovascular and Respiratory Exam Surgical H&P Exam: Normal: Heart and Normal: Lungs and Significant Findings: Abdomen (Small umbilical hernia, reducible) Plan Diagnosis/Plan: Unchanged I have reviewed the history and physical and performed a pertinent physical examination on my patient. No changes have occurred unless specified. Time Spent With Patient Time: Total time managing care of this patient today ____ minutes.
[2025-01-03] MEDS: ceFAZolin Sodium/Dextrose,Iso 2 GM/50 ML PIGGYBACK IV (07:34)
--- NOTE | 2025-01-03 08:12 | P.OP_ITS ---
Operative Note Operative Note Date of Service: 01/03/25 Narrative: Preop diagnosis: Umbilical hernia, reducible Postop diagnosis: The same Procedure: Repair of umbilical hernia without mesh Surgeon: Rigoberto Mccray MD assistant pastry chef: BERNY Vigil The patient is a 49-year-old female seen by Dr. Alicea for an umbilical hernia. She is here for repair she understood the technique of the planned procedure as well as the risks, benefits, and alternatives. She was brought to the operating room. She was placed supine under general anesthesia via endotracheal tube. The abdomen was prepped and draped in the usual sterile fashion. A surgical time-out was done. The patient received cefazolin 2 g IV preoperatively I infiltrated the planned line of incision with lidocaine 1%. I made a transverse supraumbilical curvilinear incision with a blade 15. This carried down through the full-thickness of the skin and subcutaneous fat with electrocautery. I then proceeded to dissect the umbilicus as a flap using sharp dissection with Metzenbaum scissors as well as electrocautery to lift this off of the fascia. By doing so was able to visualize the hernia. This fat containing. I sharply dissected the hernia off of the fascial edges until was able to completely reduce this. The hernia defects was very small, about 0.8 cm. I therefore did not use a mesh. I closed the defect with a [id number] Maxon 1 stitch I irrigated. I tacked the umbilicus to the fascia with a Polysorb 3-0 stitch to re-create the dimple I reapposed the subcutaneous and subdermal layer with Polysorb 3-0 simple interrupted sutures. Skin closure was achieved with Polysorb 4-0 subcuticular running stitch The area was infiltrated with Marcaine 0.5% for postop analgesia. Dressings were applied. The procedure was completed The patient tolerated the procedure well. There were no immediate complications. Initial and final counts of sponges and instruments were correct. Estimated blood loss was less than 5 cc The patient was extubated without difficulty and transferred to the recovery room with stable vital signs
== END 2025-01-03 09:49 | disposition home or self-care (01) ==
PROVIDERS: PCP Family Medicine; Visit Provider Surgery
PROC: (CPT 49591; principal; 2025-01-03 07:30)
DX: K42.9 Umbilical hernia without obstruction or gangrene (principal); K21.9 Gastro-esophageal reflux disease without esophagitis; E11.65 Type 2 diabetes mellitus with hyperglycemia; E78.5 Hyperlipidemia, unspecified; E03.9 Hypothyroidism, unspecified; I87.2 Venous insufficiency (chronic) (peripheral); Z56.0 Unemployment, unspecified; F32.A Depression, unspecified; Z88.6 Allergy status to analgesic agent; Z88.8 Allergy status to other drugs, medicaments and biological substances; Z91.041 Radiographic dye allergy status; Z90.49 Acquired absence of other specified parts of digestive tract; Z98.890 Other specified postprocedural states; Z79.899 Other long term (current) drug therapy
CPT/HCPCS: 49591; 82947; J0131; J0690; J2003; J2405; J2704; J2795; J3010

== ENCOUNTER → 2025-01-03 05:52 | Outpatient (BNV) | payer OTHER, SELFPAY | PROVIDERS: PCP Family Medicine; Visit Provider Surgery | DX: K42.9 Umbilical hernia without obstruction or gangrene (principal) | CPT/HCPCS: 49591 ==

== ENCOUNTER 2025-01-15 10:15 | Outpatient (AMB) | payer OTHER, SELFPAY ==
--- NOTE | 2025-01-15 10:19 | A.OFFVIS_ITS ---
Vital Signs 01/15/25 10:27 Weight 127 lb BP 121/74 Blood Pressure Location Rt brachial Position Sitting Pulse 94 Intake Visit Reasons: S/P umbilical hernia w/mesh Intake Note: Patient here s/p repair of umbilical hernia without mesh. Reports incision healing well. Removed steri strips. Patient c/o:feels there is bad odor coming from umbilical area. Never took rx pain meds. Surgery: 01-03-2025~ Rigoberto Coughlin. Customer Experience Intern Required: No Accompanied by: Self / Same As Patient Allergies magnesium [MAGNESIUM] Allergy (Severe, Verified 01/15/25 10:25) ANAPHYLAXIS pioglitazone [From ACTOS] Allergy (Severe, Verified 01/15/25 10:25) SWELLING, hives aspirin [Aspirin] Allergy (Mild, Verified 01/15/25 10:25) UNKNOWN, hives ibuprofen [Ibuprofen] Allergy (Mild, Verified 01/15/25 10:25) anaphylaxis,hives Iodinated Contrast Media [IV Dye, Iodine Containing] Allergy (Mild, Verified 01/15/25 10:25) hives empagliflozin [From Jardiance] Allergy (Unknown, Verified 01/15/25 10:25) Unknown HPI HPI S/P umbilical hernia w/mesh: Details: patient reports she is doing well. She occasionally experiences some sharp pain with certain movements but denies pain at rest. States she removed the Steri- Strips about 3 days ago. She noticed there was a slight smell when she did this and want to confirm that there was no infection. She denies any fever, chills, discharge from incision site. She states she has been slowly returning towards her baseline diet. She reports taking stool softeners at baseline, has continued to do this and her bowel movements are normal for her. She has no other concerns. She denies any heavy lifting/strenuous activities, and she has not returned to work. [facility] Medical History (Updated 01/11/25 @ 13:04 by WANDY Suazo) Umbilical hernia Umbilical hernia Anxiety Low back pain Venous insufficiency Arterial insufficiency Migraines GERD (gastroesophageal reflux disease) Depression Hypothyroidism Hyperlipidemia LDL goal <100 Diabetes mellitus type 2, controlled, with complications Surgical History (Updated 01/15/25 @ 10:37 by Kodak Vigil PA-C) Hx of hysterectomy Hx of tubal ligation Hx of section Hx of cholecystectomy Family History Father No problems noted. Mother Diabetes Cardiovascular disease Arthritis Maternal Aunt Diabetes Sister SLE (systemic lupus erythematosus) Social History Household Members: Family Both parents involved: No Caregiver staying overnight: No Housing: Apartment Are you a primary director career to a significant other at home: No Do you presently have visiting nurse or other home services: No 75 years or older and lives alone: No Unable to assess alcohol history related to: Unable to respond Alcohol intake: never Patient Tobacco Use Status: Never used Tobacco e-Cigarette/Vaping Use: Never Used service: No Current occupational status: unemployed Current occupation: used to work at the [employer] in [place] Current occupational exposures/hazards: No Gender identity: Female Cognitive needs: No Hearing needs: No Vision needs: Yes (Glasses) Review of Systems Const All systems reviewed & are unremarkable except as noted in HPI and below Physical Exam Vital Signs: Last Vital Signs Pulse 94 01/15/25 10:27 BP 121/74 01/15/25 10:27 Const General: comfortable and no acute distress Orientation/consciousness: patient oriented x3 Resp Effort & Inspection: normal respiratory effort and able to speak in complete sentences GI Other: Incision site at the umbilicus appears to be healing well, no surrounding erythema, edema, discharge. Small scabbing noted Inspection: No Abdominal wall edema and No distended Palpation (GI): Soft to palpation, not firm, nontender, no guarding and not rigid Neuro General: patient oriented x3 Assessment & Plan Assessment & Plan (1) S/P umbilical hernia repair, follow-up exam: Code(s): Z09 - Encounter for follow-up examination after completed treatment for conditions other than malignant neoplasm Category: Medical Plan [age] year old female s/p umbilical hernia repair on 01/03/2025. Patient is overall doing well, returning towards baseline. She is not experiencing any pain at rest, has some mild pain with ambulation. Reassured her that this is normal at this stage postoperatively and should improve with time. Her abdominal exam is benign and soft. Incision site appears clean and intact, no palpable fluid collection, surrounding erythema, purulent discharge. I was unable to appreciate any odor from the site in the office today. No concern for infection at this time. Patient will follow-up in 3 weeks for 1 month postop visit. We will maintain activity limitations until next follow-up visit, no heavy lifting greater than 15-20 lb. Patient can follow-up sooner with any concerns. Coding Level of Care Code Est Pt Level 2 (95487) Diagnoses S/P umbilical hernia repair, follow-up exam Z09
[2025-01-15 10:27] VITALS: BP 121/74; PULSE 94
== END 2025-01-15 10:32 | disposition home or self-care (01) ==
LOC: HO.HGS 10:16
PROVIDERS: PCP Family Medicine
DX: Z09 Encounter for follow-up examination after completed treatment for conditions other than malignant neoplasm (principal)
CPT/HCPCS: 99212

== ENCOUNTER → 2025-01-15 10:15 | Outpatient (BNVA) | payer OTHER, SELFPAY | PROVIDERS: PCP Family Medicine ==

== ENCOUNTER 2025-01-26 02:48 | Emergency (ER) | payer OTHER, SELFPAY ==
--- NOTE | ~2025-01-26 | CT_ITS ---
CLINICAL HISTORY: abdominal pain, RLQ pain CT abdomen and pelvis with contrast Comparison: None Findings: No consolidation or effusion. The gallbladder is surgically absent. The liver, spleen, right adrenal gland and pancreas are unremarkable. There is a left adrenal nodule, measuring up to 18 mm. Kidneys demonstrate no obstructive uropathy or suspicious lesion. The bladder is distended. No bowel obstruction or free air. Normal appendix, reference coronal image 37. Moderate fecal retention within the colon. No pneumatosis, free fluid or abscess. Moderate diffuse atherosclerotic disease. No acute osseous finding. Impression: No definite acute process. Normal appendix. Moderate fecal retention. Indeterminate left adrenal lesion. If there is comparison imaging, this could be reviewed. Otherwise, adrenal protocol MRI or CT could be considered as clinically indicated. This document has been electronically signed by: Bennett Anderson MD on 01/26/2025 09:45:13
[2025-01-26 02:51] VITALS: BP 111/76; PULSE 102; RESP 18; TEMP 36.6; O2SAT 98; BMI 24.0
[2025-01-26 03:08] LABS: MANUAL DIFF FLAG NO
[2025-01-26 03:13] LABS: Basophils Percent Auto 0.5 % (0-2); Eosinophils Absolute Auto 0.1 X10*3/uL (0.0-0.4); Eosinophils Percent Auto 0.7 % (0-4); Hematocrit 39.8 % (37.0-47.0); Imm Gran Abs Auto 0.02 X10*3/uL (0.00-0.03); Imm Gran Pct Auto 0.3 % (0.0-0.4); Lymphocytes Absolute Auto 2.2 X10*3/uL (1.2-4.9); Lymphocytes Percent Auto 30.1 % (20-40); Mean Corpuscular HGB Conc 35.2 g/dl (31.0-35.0); Mean Corpuscular Hemoglobin 31.7 pg (27.0-33.0); Mean Platelet Volume 9.4 fL (9.4-12.3); Monocytes Absolute Auto 0.6 X10*3/uL (0.1-1.2); Monocytes Percent Auto 7.7 % (2-11); Neutrophils Absolute Auto 4.5 x10*3/uL (2.0-8.3); Neutrophils Percent Auto 60.7 % (45-73); Platelet Count 341 X10*3/uL (160-400); Red Blood Count 4.42 X10*6/uL (4.20-5.50); Red Cell Distribution Width 12.3 % (11.0-16.0); White Blood Count 7.4 X10*3/uL (4.8-10.8)
[2025-01-26 03:29] LABS: Alanine Aminotransferase 12 U/L (0-31); Albumin Level 4.4 g/dL (3.5-5.0); Anion Gap 17 (12-20); Aspartate Amino Transferase 24 U/L (5-31); Bilirubin Direct 0.2 mg/dL (0.0-0.5); Bilirubin Total 0.5 mg/dL (0.0-1.0); Blood Urea Nitrogen 14 mg/dL (9-16); Calcium 9.7 mg/dL (8.4-10.2); Carbon Dioxide 24 mmol/L (22-29); Chloride 106 mmol/L (96-108); Creatinine Clr Calc Pharmacy 91.5; Estimated Glomerular Filt Rate > 60; Glucose Random 114 mg/dL (60-115); Lipase 53 U/L (8-78); Potassium 3.2 mmol/L (3.3-5.1); Sodium 144 mmol/L (135-145); Total Protein 7.3 g/dL (6.5-8.0)
[2025-01-26 03:44] LABS: Alkaline Phosphatase 86 U/L (39-117)
[2025-01-26 06:25] VITALS: BP 115/69; PULSE 96; RESP 18; TEMP 36.7; O2SAT 97
--- NOTE | 2025-01-26 07:48 | ED_ITS ---
HPI - Abdominal Pain General Chief Complaint: Abdominal Pain Stated Complaint: side pain Time Seen by Provider: 01/26/25 07:40 Source: patient Mode of arrival: ambulatory Limitations: no limitations History of Present Illness ED Provider: HPI narrative: 49-year-old woman presenting with right lower quadrant pain sharp, localized, not associated with nausea or vomiting diarrhea, dysuria, or hematuria, no fevers or chills, no trauma no rashes has history of cholecystectomy. Related Data Home Medications ?Medication ?Instructions ?Recorded ?Confirmed lancets 28 gauge (FreeStyle 10/06/23 11/20/24 Lancets) epinephrine 0.3 mg/0.3 mL 0.3 mg IM ONCE PRN Anaphylaxis 01/01/25 01/01/25 injection, auto-injector Previous Rx's ?Medication ?Instructions ?Recorded comp.stocking,knee,long,medium #12 ea 06/18/21 blood-glucose meter (FreeStyle #1 ea 01/04/23 Lite Meter kit) budesonide 32 mcg/actuation nasal 1 spray intranasal DAILY 30 days 01/09/23 spray #8.43 mL flash glucose sensor (FreeStyle #2 ea 04/07/23 Butch 14 Day Sensor kit) blood sugar diagnostic (FreeStyle #100 ea 09/29/23 Lite Strips) metoclopramide HCl 10 mg tablet 10 mg PO QIDACHS #120 tabs 05/09/24 (Reglan) omeprazole 20 mg capsule,delayed 20 mg PO DAILY 30 days #30 caps 05/09/24 release sennosides 8.6 mg tablet (Senna See Rx Instructions PO BEDTIME PRN 05/09/24 Laxative) constipation #60 tabs atorvastatin 10 mg tablet 10 mg PO BEDTIME 90 days #90 tabs 06/18/24 levothyroxine 75 mcg tablet 75 mcg PO DAILY #90 tabs 06/18/24 metformin 850 mg tablet 850 mg PO BID 90 days #180 tabs 06/18/24 canagliflozin 300 mg tablet 300 mg PO DAILY 30 days #30 tabs 10/25/24 (Invokana) dulaglutide 4.5 mg/0.5 mL 4.5 mg (0.5 mL) subcut QWEEK 28 10/25/24 subcutaneous pen injector days #2 mL (Trulicity) cetirizine 10 mg tablet (All Day 10 mg PO DAILY PRN allergy 11/20/24 Allergy (cetirizine)) symptoms 90 days #90 tabs fluticasone propionate 50 1 spray intranasal Q12H 30 days 11/20/24 mcg/actuation nasal #16 grams spray,suspension (Flonase Allergy Relief) glipizide 5 mg tablet, extended 5 mg PO DAILY #90 tabs 01/22/25 release 24 hr Allergies Allergy/AdvReac Type Severity Reaction Status Date / Time magnesium [MAGNESIUM] Allergy Severe ANAPHYLAXIS Verified 01/26/25 02:54 pioglitazone [From ACTOS] Allergy Severe SWELLING, Verified 01/26/25 02:54 hives aspirin [Aspirin] Allergy Mild UNKNOWN, Verified 01/26/25 02:54 hives ibuprofen [Ibuprofen] Allergy Mild anaphylaxis Verified 01/26/25 02:54 ,hives Iodinated Contrast Media Allergy Mild hives Verified 01/26/25 02:54 [IV Dye, Iodine Containing] empagliflozin Allergy Unknown Unknown Verified 01/26/25 02:54 [From Jardiance] tramadol AdvReac Hives Verified 01/26/25 02:54 Review of Systems Constitutional: Reports as per [facility] Past Medical History Medical History (Updated 01/26/25 @ 10:00 by August Truong DO) Umbilical hernia Umbilical hernia Anxiety Low back pain Venous insufficiency Arterial insufficiency Migraines GERD (gastroesophageal reflux disease) Depression Hypothyroidism Hyperlipidemia LDL goal <100 Diabetes mellitus type 2, controlled, with complications Surgical History (Updated 01/15/25 @ 10:37 by Kodak Vigil PA-C) Hx of hysterectomy Hx of tubal ligation Hx of section Hx of cholecystectomy Family History Family History Father No problems noted. Mother Diabetes Cardiovascular disease Arthritis Maternal Aunt Diabetes Sister SLE (systemic lupus erythematosus) Social History Social History Household Members: Family Housing: Apartment Are you a primary assistant child care teacher to a significant other at home: No Do you presently have visiting nurse or other home services: No Unable to assess alcohol history related to: Unable to respond Alcohol intake: never Patient Tobacco Use Status: Never used Tobacco Smoked in Last 30 Days: No e-Cigarette/Vaping Use: Never Used Use of substances other than those prescribed or required for medical reasons: No Advance Directives: No Advance Directives Information Provided: No Do you have a plan to hurt others: No Plan service: No Current occupational status: unemployed 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[place], 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 Current occupational exposures/hazards: No Gender identity: Female Cognitive needs: No Hearing needs: No Vision needs: Yes (Glasses) Physical Exam ED Vital Signs: Vital Signs - 24 hr 01/26/25 02:51 01/26/25 06:25 Temperature 97.9 F 98.1 F Pulse Rate 102 H 96 Respiratory Rate 18 18 Blood Pressure 111/76 115/69 Pulse Oximetry 98 97 Oxygen Delivery Method Room Air Room Air BMI result Body Mass Index 24.0 Const Other: * Gen: ?Overall well-appearing patient * CV: RRR, no obvious murmurs appreciated * Resp: ?No wheezing rales rhonchi no stridor moving air well * Abd: ?Bowel sounds are present, right lower quadrant tenderness, voluntary guarding no rebound or rigidity, no CVA tenderness * MSK: FROM, strength 5/5 all extremities * Skin: Warm, dry, intact, * Neuro: ?Alert and oriented x3, moving upper and lower extremities symmetrically, no obvious facial asymmetry noted Medical Decision Making Medical Decision Making MDM Narrative: Presenting with right lower quadrant pain and tenderness on physical examination we will obtain CT to evaluate for appendicitis her blood work was reassuring I have low suspicion for SBO or bowel per. Other considerations include ovarian pathology, renal colic, which can be diagnosed on a CT. 10:00 I have discussed with the patient her CT results, re-examined her she is feeling better, we will discharge, specifically discussed with her the adrenal lesion that will need outpatient follow up. Differential Diagnosis Differential Diagnoses: The differential diagnosis associated with the presentation includes SBO, appendicitis, diverticulitis, constipation, musculoskeletal pain, all perforation Admission/Observation Consideration of admission/observation: Escalation of care including admission/observation considered Lab Data MDM Lab Attestation statement: I reviewed the patient's lab results. 01/26/25 02:56 01/26/25 02:56 Labs: Lab Results 01/26/25 01/26/25 Range/Units 02:56 09:26 WBC 7.4 (4.8-10.8) X10*3/uL RBC 4.42 (4.20-5.50) X10*6/uL Hgb 14.0 (12.0-16.0) g/dl Hct 39.8 (37.0-47.0) % MCV 90.0 (80.0-98.0) fL MCH 31.7 (27.0-33.0) pg MCHC 35.2 H (31.0-35.0) g/dl RDW 12.3 (11.0-16.0) % Plt Count 341 (160-400) X10*3/uL MPV 9.4 (9.4-12.3) fL Immature Gran % (Auto) 0.3 (0.0-0.4) % Neut % (Auto) 60.7 (45-73) % Lymph % (Auto) 30.1 (20-40) % [place]oval % (Auto) 7.7 (2-11) % Eos % (Auto) 0.7 (0-4) % Baso % (Auto) 0.5 (0-2) % Lymph # (Auto) 2.2 (1.2-4.9) X10*3/uL [place] # (Auto) 0.6 (0.1-1.2) X10*3/uL Eos # (Auto) 0.1 (0.0-0.4) X10*3/uL Baso # (Auto) 0.0 (0.0-0.2) X10*3/uL Abs Immat Gran (auto) 0.02 (0.00-0.03) X10*3/uL Absolute Neuts (auto) 4.5 (2.0-8.3) x10*3/uL Absolute Nucleated RBC 0.000 (0.0-0.012) X10*3/uL Nucleated RBC % (auto) 0.0 (0.0-0.2) /100WBC Sodium 144 (135-145) mmol/L Potassium 3.2 L (3.3-5.1) mmol/L Chloride 106 (96-108) mmol/L Carbon Dioxide 24 (22-29) mmol/L Anion Gap 17 (12-20) BUN 14 (9-16) mg/dL Creatinine 0.60 (0.5-1.4) mg/dL Estim Creat Clear Calc 91.5 Estimated GFR > 60 Random Glucose 114 (60-115) mg/dL Calcium 9.7 (8.4-10.2) mg/dL Total Bilirubin 0.5 (0.0-1.0) mg/dL Direct Bilirubin 0.2 (0.0-0.5) mg/dL AST 24 (5-31) U/L ALT 12 (0-31) U/L Alkaline Phosphatase 86 (39-117) U/L Total Protein 7.3 (6.5-8.0) g/dL Albumin 4.4 (3.5-5.0) g/dL Lipase 53 (8-78) U/L Urine Color Yellow Urine Appearance Clear Urine pH 7.0 (5.0-9.0) Ur Specific [place] >= 1.030 H (1.005-1.025) Urine Protein Negative (Neg-Trace) mg/dL Urine Glucose (UA) >=1000 H (Negative) mg/dL Urine Ketones 15 (Negative) mg/dL Urine Blood Negative (Negative) Urine Nitrite Negative (Negative) Ur Leukocyte Esterase Negative (Negative) Urine RBC 0-2 (0-2) /HPF Urine WBC 0-5 (0-5) /HPF Ur Squamous Epith Cells 3-5 (0-2) /HPF Urine Bacteria Trace (None Seen) Hyaline Casts 0-2 (0-2) /LPF Radiology Impression Discussion of test interpretation with radiology: I have reviewed the radiologist's reading. Radiologist Impression: No definite acute process. Normal appendix. Moderate fecal retention. Indeterminate left adrenal lesion. If there is comparison imaging, this could be reviewed. Otherwise, adrenal protocol MRI or CT could be considered as clinically indicated. Medications Administered Discontinued Medications Generic Name Dose Route Start Last Admin Trade Name Freq PRN Reason Stop Dose Admin Diphenhydramine HCl 25 mg 01/26/25 08:14 01/26/25 08:21 Diphenhydramine Hcl 50 Mg/Ml Vial IVPUSH 01/26/25 08:15 25 mg ONCE ONE Administration Iohexol 100 ml 01/26/25 09:30 01/26/25 09:30 Iohexol 350 Mg/Ml 100 Ml Infus..Btl IV 01/26/25 09:31 85 ml ONCE ONE Administration Ketorolac Tromethamine 15 mg 01/26/25 07:49 01/26/25 08:12 Ketorolac Tromethamine 15 Mg/Ml Vial IM 01/26/25 07:50 15 mg ONCE ONE Administration Morphine Sulfate 2 mg 01/26/25 07:49 01/26/25 08:13 Morphine Sulfate 2 Mg/Ml Cartridge IVPUSH 01/26/25 07:50 2 mg ONCE ONE Administration Protocol Discharge Plan Discharge Clinical Impression: Abdominal pain, acute, right lower quadrant, Constipation by delayed colonic transit Patient Disposition: Home, Self-Care Instructions: Abdominal Pain (ED) Additional Instructions: Metamucil is [id number] and it is fairly inexpensive, add to your smoothies, just water or juice twice a day ill buckling of the stools and improve stool transit, cat scan did not reveal any appendicitis, there is adrenal lesion that we will need outpatient follow up and monitoring on outpatient basis by PCP, the rest of blood work has been reassuring Prescriptions: No Action (DME) blood-glucose meter [FreeStyle Lite Meter] Kit See Rx Instructions .ROUTE .MEDSUPPLY Qty: 1 0RF Rx Instructions: As directed 2x/day budesonide 32 mcg/actuation spray,non-aerosol 1 spray intranasal DAILY 30 Days Qty: 8.43 3RF (DME) FreeStyle Butch 14 Day Sensor Kit See Rx Instructions .Route Qty: 2 2RF Rx Instructions: As directed (DME) FreeStyle Lite Strips Strip See Rx Instructions .ROUTE .MEDSUPPLY Qty: 100 11RF Rx Instructions: three times a day (DME) lancets [FreeStyle Lancets] 28 gauge misc See Rx Instructions .Route Rx Instructions: As directed Invokana 300 mg tablet 300 mg PO DAILY 30 Days Qty: 30 0RF Trulicity 4.5 mg/0.5 mL pen injector 4.5 mg subcut QWEEK 28 Days Qty: 2 3RF glipizide 5 mg tablet extended release 24hr 5 mg PO DAILY Qty: 90 0RF epinephrine 0.3 mg/0.3 mL auto-injector 0.3 mg IM ONCE PRN (Reason: Anaphylaxis) (DME) comp.stocking,knee,long,medium Misc See Rx Instructions .Route Qty: 12 3RF Rx Instructions: Compression stockings 20 mm Hg. Daily while awake. 90 days metformin 850 mg tablet 850 mg PO BID 90 Days Qty: 180 3RF atorvastatin 10 mg tablet 10 mg PO BEDTIME 90 Days Qty: 90 3RF levothyroxine 75 mcg tablet 75 mcg PO DAILY Qty: 90 1RF cetirizine [All Day Allergy (cetirizine)] 10 mg tablet 10 mg PO DAILY PRN (Reason: allergy symptoms) 90 Days Qty: 90 1RF fluticasone propionate [Flonase Allergy Relief] 50 mcg/actuation spray,suspension 1 spray intranasal Q12H 30 Days Qty: 16 2RF Rx Instructions: administer into each nostril sennosides [Senna Laxative] 8.6 mg tablet See Rx Instructions PO BEDTIME PRN (Reason: constipation) Qty: 60 6RF Rx Instructions: 1-2 at bedtime orally bedtime PRN; metoclopramide HCl [Reglan] 10 mg tablet 10 mg PO QIDACHS Qty: 120 6RF omeprazole 20 mg capsule,delayed release(DR/EC) 20 mg PO DAILY 30 Days Qty: 30 6RF Referrals: Flakito Larsen MD [Primary Care Provider] - Print Language: [place] Timorese
[2025-01-26] MEDS: Ketorolac Tromethamine 15 MG/ML VIAL IM (08:12)
[2025-01-26] MEDS: Morphine Sulfate 2 MG/ML CARTRIDGE IVPUSH (08:13)
[2025-01-26] MEDS: diphenhydrAMINE HCL 50 MG/ML VIAL 25 MG IVPUSH (08:21)
[2025-01-26] MEDS: iohexoL 350 MG/ML 100 ML INFUS..BTL IV (09:30)
[2025-01-26 09:32] LABS: Appearance Urine Clear; Color Urine Yellow; Glucose Urine UA >=1000 mg/dL (Negative); Leukocyte Esterase Urine Negative (Negative); Nitrite Urine Negative (Negative); Specific Gravity - Urine >= 1.030 (1.005-1.025); UMIC TRIGGER UACC YES; Urine Blood Negative (Negative); Urine Ketones 15 mg/dL (Negative); Urine Protein Negative (Neg-Trace)
[2025-01-26 09:38] LABS: Bacteria Urine Trace (None Seen); Hyaline Casts Urine 0-2 /LPF (0-2); RBC Urine 0-2 /HPF (0-2); WBC Urine 0-5 /HPF (0-5)
[2025-01-26 10:08] VITALS: BP 105/55; PULSE 83; RESP 18; TEMP 36.6; O2SAT 97
[2025-01-26 10:20] VITALS: BP 105/55; PULSE 83; RESP 18; TEMP 36.6; O2SAT 97
== END 2025-01-26 10:27 | disposition home or self-care (01) ==
PROVIDERS: Emergency Provider Emergency Medicine; PCP Family Medicine
DX: K59.01 Slow transit constipation (principal); R10.31 Right lower quadrant pain; E03.9 Hypothyroidism, unspecified; E11.9 Type 2 diabetes mellitus without complications; E78.5 Hyperlipidemia, unspecified
CPT/HCPCS: 36415; 74177; 80048; 80076; 81001; 83690; 85025; 99284; J1200; J1885; J2270; Q9967

== ENCOUNTER → 2025-01-26 07:50 | Outpatient (BNV) | payer OTHER, SELFPAY | PROVIDERS: Emergency Provider Emergency Medicine; PCP Family Medicine; Visit Provider Radiology Vascular & Interventional Radiology | DX: D35.02 Benign neoplasm of left adrenal gland (principal) | CPT/HCPCS: 74177 ==

== ENCOUNTER 2025-02-20 09:11 | Outpatient (AMB) | payer OTHER, SELFPAY ==
--- NOTE | 2025-02-20 09:24 | MHC.OFFVIS ---
Vital Signs 02/20/25 09:29 Height 5 ft 1 in Weight 120 lb BMI 22.7 BP 97/62 Blood Pressure Location Rt brachial Position Sitting Pulse 87 Intake Visit Reasons: 3wk fuv S/P umbilical hernia w/mesh Intake Note: Patient here s/p 4wk repair of right inguinal hernia with mesh. Patient c/o: reports incision healed well. Denies pain, discomfort. Surgery: 01-03-2025 Mayonnaise Mixer Required: No Accompanied by: Self / Same As Patient Allergies magnesium (MAGNESIUM) Allergy (Severe, Verified 02/20/25 09:28) ANAPHYLAXIS pioglitazone (From ACTOS) Allergy (Severe, Verified 02/20/25 09:28) SWELLING, hives aspirin (Aspirin) Allergy (Mild, Verified 02/20/25 09:28) UNKNOWN, hives ibuprofen (Ibuprofen) Allergy (Mild, Verified 02/20/25 09:28) anaphylaxis,hives Iodinated Contrast Media (IV Dye, Iodine Containing) Allergy (Mild, Verified 02/20/25 09:28) hives empagliflozin (From Jardiance) Allergy (Unknown, Verified 02/20/25 09:28) Unknown tramadol Adverse Reaction (Verified 02/20/25 09:28) Hives HPI HPI 3wk fuv S/P umbilical hernia w/mesh: Details: She continues to do well after umbilical hernia repair last month. She has denies any complaints currently. She says she has no pain. [facility] Medical History Umbilical hernia Umbilical hernia Anxiety Low back pain Venous insufficiency Arterial insufficiency Migraines GERD (gastroesophageal reflux disease) Depression Hypothyroidism Hyperlipidemia LDL goal <100 Diabetes mellitus type 2, controlled, with complications Surgical History History of umbilical hernia repair (01/03/25) Hx of hysterectomy Hx of tubal ligation Hx of section Hx of cholecystectomy Family History Father No problems noted. Mother Diabetes Cardiovascular disease Arthritis Maternal Aunt Diabetes Sister SLE (systemic lupus erythematosus) Social History Household Members: Family Both parents involved: No Caregiver staying overnight: No Housing: Apartment Are you a primary healthcare technician to a significant other at home: No Do you presently have visiting nurse or other home services: No 75 years or older and lives alone: No Unable to assess alcohol history related to: Unable to respond Alcohol intake: never Patient Tobacco Use Status: Never used Tobacco e-Cigarette/Vaping Use: Never Used service: No Current occupational status: unemployed 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[place], 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 Current occupational exposures/hazards: No Gender identity: Female Cognitive needs: No Hearing needs: No Vision needs: Yes (Glasses) Review of Systems Const Denies chills and Denies fever(s) Physical Exam Vital Signs: Last Vital Signs Pulse 87 02/20/25 09:29 BP 97/62 02/20/25 09:29 BMI result Body Mass Index 22.7 Const General: comfortable and no acute distress GI Other: Umbilical hernia repair site well healed, repair intact Palpation (GI): Soft to palpation, not firm and nontender Assessment & Plan Assessment & Plan (1) Umbilical hernia: Code(s): K42.9 - Umbilical hernia without obstruction or gangrene Category: Medical Plan: Status post repair with mesh. She is doing very well. The repair site is intact. The incisions well healed. She can therefore follow up on a p.r.n. basis. Coding Level of Care Code Global (95378) Diagnoses Umbilical hernia K42.9
[2025-02-20 09:29] VITALS: BP 97/62; PULSE 87; BMI 22.7
== END 2025-02-20 09:47 | disposition home or self-care (01) ==
LOC: HO.HGS 09:12
PROVIDERS: PCP Family Medicine; Visit Provider Surgery
DX: K42.9 Umbilical hernia without obstruction or gangrene (principal)
CPT/HCPCS: 99212

== ENCOUNTER → 2025-02-20 09:11 | Outpatient (BNVA) | payer OTHER, SELFPAY | PROVIDERS: PCP Family Medicine; Visit Provider Surgery | DX: Z09 Encounter for follow-up examination after completed treatment for conditions other than malignant neoplasm (principal); Z98.890 Other specified postprocedural states; Z87.19 Personal history of other diseases of the digestive system | CPT/HCPCS: 99212 ==

== ENCOUNTER 2025-02-20 19:04 | Emergency (ER) | payer OTHER, SELFPAY ==
[2025-02-20 19:06] VITALS: BP 107/66; PULSE 89; RESP 17; TEMP 36.9; O2SAT 98; BMI 20.5
--- NOTE | 2025-02-20 19:09 | ED_ITS ---
HPI - General Adult General Chief complaint: Headache Stated complaint: migraine Time Seen by Provider: 02/20/25 19:27 Related Data Home Medications ?Medication ?Instructions ?Recorded ?Confirmed lancets 28 gauge (FreeStyle 10/06/23 02/26/25 Lancets) epinephrine 0.3 mg/0.3 mL 0.3 mg IM ONCE PRN Anaphylax is 01/01/25 02/26/25 injection, auto-injector Previous Rx's ?Medication ?Instructions ?Recorded comp.stocking,knee,long,medium #12 ea 06/18/21 budesonide 32 mcg/actuation nasal 1 spray intranasal D AILY 30 days 01/09/23 spray #8.43 mL flash glucose sensor (FreeStyle #2 ea 04/07/23 Butch 14 Day Sensor kit) metoclopramide HCl 10 mg tablet 10 mg PO QIDACHS #120 tabs 05/09/24 (Reglan) omeprazole 20 mg capsule,delayed 20 mg PO DAILY 30 day s #30 caps 05/09/24 release sennosides 8.6 mg tablet (Senna See Rx Instructions PO BEDTIME PRN 05/09/24 Laxative) constipation #60 tabs atorvastatin 10 mg tablet 10 mg PO BEDTIME 90 days #90 tabs 06/18/24 levothyroxine 75 mcg tablet 75 mcg PO DAILY #90 tabs 1 metformin 850 mg tablet 850 mg PO BID 90 days #180 t abs 06/18/24 canagliflozin 300 mg tablet 300 mg PO DAILY 30 days #3 0 tabs 10/25/24 (Invokana) dulaglutide 4.5 mg/0.5 mL 4.5 mg (0.5 mL) subcut QWEEK 28 10/25/24 subcutaneous pen injector days #2 mL (Trulicity) cetirizine 10 mg tablet (All Day 10 mg PO DAILY PRN al lergy 11/20/24 Allergy (cetirizine)) symptoms 90 days #90 tabs glipizide 5 mg tablet, extended 5 mg PO DAILY #90 tabs 01/22/25 release 24 hr fluticasone propionate 50 1 spray intranasal Q12H 30 d ays 02/18/25 mcg/actuation nasal #16 grams spray,suspension (Flonase Allergy Relief) blood sugar diagnostic (FreeStyle #100 ea 02/26/25 Lite Strips) blood-glucose meter (FreeStyle #1 ea 02/26/25 Lite Meter kit) Allergies Allergy/AdvReac Type Severity Reaction Status Date / Time magnesium (MAGNESIUM) Allergy Severe ANAPHYLAXIS Verified 02/26/25 08:29 pioglitazone (From ACTOS) Allergy Severe SWELLING, Verified 02/26/25 08:29 hives aspirin (Aspirin) Allergy Mild UNKNOWN, Verified 02/26/25 08:29 hives ibuprofen (Ibuprofen) Allergy Mild anaphylaxis Verified 02/26/25 08:29 ,hives Iodinated Contrast Media (IV Allergy Mild hives Verified 02/26/25 08:29 Dye, Iodine Containing) empagliflozin (From Allergy Unknown Unknown Verified 02/26/25 08:29 Jardiance) tramadol AdvReac Hives Verified 02/26/25 08:29 PMFSH Past Medical History Medical History Umbilical hernia Umbilical hernia Anxiety Low back pain Venous insufficiency Arterial insufficiency Migraines GERD (gastroesophageal reflux disease) Depression Hypothyroidism Hyperlipidemia LDL goal <100 Diabetes mellitus type 2, controlled, with complications Surgical History History of umbilical hernia repair (01/03/25) Hx of hysterectomy Hx of tubal ligation Hx of section Hx of cholecystectomy Family History Family History Father No problems noted. Mother Diabetes Cardiovascular disease Arthritis Maternal Aunt Diabetes Sister SLE (systemic lupus erythematosus) Social History Social History (Updated 02/26/25 @ 08:32 by Ivelisse Moreno MA) Household Members: Family Both parents involved: No Caregiver staying overnight: No Housing: Apartment Are you a primary manager progressive care to a significant other at home: No Do you presently have visiting nurse or other home services: No 75 years or older and lives alone: No Unable to assess alcohol history related to: Unable to respond Alcohol intake: never Patient Tobacco Use Status: Never used Tobacco e-Cigarette/Vaping Use: Never Used service: No Current occupational status: unemployed 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 She reports a history of migraines, her last head CT of the facility was 2 years ago showing no acute abnormalities. Denies viral symptoms. No neuro deficits in triage Medications Administered Discontinued Medications Generic Name Dose Route Start Last Admin Trade Name Freq PRN Reason Stop Dose Admin Acetaminophen/Butalbital/Caffeine 2 tab 02/20/25 19:34 02/20/25 19:40 Butalb/Acetamin/Caff 50/325/40 Tablet PO 02/20/25 19:35 2 tab ONCE ONE Administration Discharge Plan Discharge Clinical Impression: Migraine Patient Disposition: Home, Self-Care Instructions: Migraine Headache (ED) Prescriptions: No Action budesonide 32 mcg/actuation spray,non-aerosol 1 spray intranasal DAILY 30 Days Qty: 8.43 3RF (DME) FreeStyle Butch 14 Day Sensor Kit See Rx Instructions .Route Qty: 2 2RF Rx Instructions: As directed (DME) lancets [FreeStyle Lancets] 28 gauge misc See Rx Instructions .Route Rx Instructions: As directed Invokana 300 mg tablet 300 mg PO DAILY 30 Days Qty: 30 0RF Trulicity 4.5 mg/0.5 mL pen injector 4.5 mg subcut QWEEK 28 Days Qty: 2 3RF glipizide 5 mg tablet extended release 24hr 5 mg PO DAILY Qty: 90 0RF fluticasone propionate [Flonase Allergy Relief] 50 mcg/actuation spray,suspension 1 spray intranasal Q12H 30 Days Qty: 16 2RF Rx Instructions: administer into each nostril epinephrine 0.3 mg/0.3 mL auto-injector 0.3 mg IM ONCE PRN (Reason: Anaphylaxis) (DME) comp.stocking,knee,long,medium Misc See Rx Instructions .Route Qty: 12 3RF Rx Instructions: Compression stockings 20 mm Hg. Daily while awake. 90 days metformin 850 mg tablet 850 mg PO BID 90 Days Qty: 180 3RF atorvastatin 10 mg tablet 10 mg PO BEDTIME 90 Days Qty: 90 3RF levothyroxine 75 mcg tablet 75 mcg PO DAILY Qty: 90 1RF cetirizine [All Day Allergy (cetirizine)] 10 mg tablet 10 mg PO DAILY PRN (Reason: allergy symptoms) 90 Days Qty: 90 1RF sennosides [Senna Laxative] 8.6 mg tablet See Rx Instructions PO BEDTIME PRN (Reason: constipation) Qty: 60 6RF Rx Instructions: 1-2 at bedtime orally bedtime PRN; metoclopramide HCl [Reglan] 10 mg tablet 10 mg PO QIDACHS Qty: 120 6RF omeprazole 20 mg capsule,delayed release(DR/EC) 20 mg PO DAILY 30 Days Qty: 30 6RF (DME) FreeStyle Lite Strips Strip See Rx Instructions .ROUTE .MEDSUPPLY Qty: 100 11RF Rx Instructions: three times a day (DME) blood-glucose meter [FreeStyle Lite Meter] Kit See Rx Instructions .ROUTE .MEDSUPPLY Qty: 1 0RF Rx Instructions: As directed 2x/day Referrals: Flakito Larsen MD [Primary Care Provider, Internal Medicine] - 02/21/25 Interventions: ED Discharge Assessment Last Done: 02/20/25 20:40 Discharge Date/Time: 02/20/25 21:00 Print Language: Wolof
--- NOTE | 2025-02-20 19:34 | ED_ITS ---
HPI - Headache General Chief Complaint: Headache Stated Complaint: migraine Time Seen by Provider: 02/20/25 19:27 Source: patient Mode of arrival: ambulatory Limitations: no limitations History of Present Illness HPI Narrative: This is a 49 yo the patient presented to the emergency department with complaint of headache photosensitive with nausea she does have history of migraine headache this headache is similar to her prior migraine she has no vomiting. She states he she does not have any medication with the headache MD elicited complaint: headache Onset (ago): hour(s) Onset description: gradually Location: frontal Severity: moderate Quality & Timing: aching and similar to previous headaches Exacerbating factors: none Context: occurred at rest Associated symptoms: none Related Data Home Medications ?Medication ?Instructions ?Recorded ?Confirmed lancets 28 gauge (FreeStyle 10/06/23 11/20/24 Lancets) epinephrine 0.3 mg/0.3 mL 0.3 mg IM ONCE PRN Anaphylax is 01/01/25 01/01/25 injection, auto-injector Previous Rx's ?Medication ?Instructions ?Recorded comp.stocking,knee,long,medium #12 ea 06/18/21 blood-glucose meter (FreeStyle #1 ea 01/04/23 Lite Meter kit) budesonide 32 mcg/actuation nasal 1 spray intranasal D AILY 30 days 01/09/23 spray #8.43 mL flash glucose sensor (FreeStyle #2 ea 04/07/23 Butch 14 Day Sensor kit) blood sugar diagnostic (FreeStyle #100 ea 09/29/23 Lite Strips) metoclopramide HCl 10 mg tablet 10 mg PO QIDACHS #120 tabs 05/09/24 (Reglan) omeprazole 20 mg capsule,delayed 20 mg PO DAILY 30 day s #30 caps 05/09/24 release sennosides 8.6 mg tablet (Senna See Rx Instructions PO BEDTIME PRN 05/09/24 Laxative) constipation #60 tabs atorvastatin 10 mg tablet 10 mg PO BEDTIME 90 days #90 tabs 06/18/24 levothyroxine 75 mcg tablet 75 mcg PO DAILY #90 tabs 1 metformin 850 mg tablet 850 mg PO BID 90 days #180 t abs 06/18/24 canagliflozin 300 mg tablet 300 mg PO DAILY 30 days #3 0 tabs 10/25/24 (Invokana) dulaglutide 4.5 mg/0.5 mL 4.5 mg (0.5 mL) subcut QWEEK 28 10/25/24 subcutaneous pen injector days #2 mL (Trulicity) cetirizine 10 mg tablet (All Day 10 mg PO DAILY PRN al lergy 11/20/24 Allergy (cetirizine)) symptoms 90 days #90 tabs glipizide 5 mg tablet, extended 5 mg PO DAILY #90 tabs 01/22/25 release 24 hr fluticasone propionate 50 1 spray intranasal Q12H 30 d ays 02/18/25 mcg/actuation nasal #16 grams spray,suspension (Flonase Allergy Relief) cgxygbbcoh-rpedvpkoojvay-xtacvrha 1 tab PO Q6H PRN tamra n #15 tabs 02/20/25 50 mg-325 mg-40 mg tablet Allergies Allergy/AdvReac Type Severity Reaction Status Date / Time magnesium (MAGNESIUM) Allergy Severe ANAPHYLAXIS Verified 02/20/25 19:08 pioglitazone (From ACTOS) Allergy Severe SWELLING, Verified 02/20/25 19:08 hives aspirin (Aspirin) Allergy Mild UNKNOWN, Verified 02/20/25 19:08 hives ibuprofen (Ibuprofen) Allergy Mild anaphylaxis Verified 02/20/25 19:08 ,hives Iodinated Contrast Media (IV Allergy Mild hives Verified 02/20/25 19:08 Dye, Iodine Containing) empagliflozin (From Allergy Unknown Unknown Verified 02/20/25 19:08 Jardiance) tramadol AdvReac Hives Verified 02/20/25 19:08 Review of Systems Constitutional: Constitutional: Reports no additional constitutional comp laints ENT: Reports system reviewed and no additional complaints, except as documented Respiratory: Respiratory: Reports no additional respiratory complaints Neurologic: Reports as per HPI [facility] Past Medical History Attestation statement: The following information was validated with the patient. [facility] Narrative: history of migraine headache Medical History Umbilical hernia Umbilical hernia Anxiety Low back pain Venous insufficiency Arterial insufficiency Migraines GERD (gastroesophageal reflux disease) Depression Hypothyroidism Hyperlipidemia LDL goal <100 Diabetes mellitus type 2, controlled, with complications Surgical History History of umbilical hernia repair (01/03/25) Hx of hysterectomy Hx of tubal ligation Hx of section Hx of cholecystectomy Family History Family History Father No problems noted. Mother Diabetes Cardiovascular disease Arthritis Maternal Aunt Diabetes Sister SLE (systemic lupus erythematosus) Social History Social History Household Members: Family Housing: Apartment Are you a primary vocational childcare teacher to a significant other at home: No Do you presently have visiting nurse or other home services: No Unable to assess alcohol history related to: Unable to respond Alcohol intake: never Patient Tobacco Use Status: Never used Tobacco Smoked in Last 30 Days: No e-Cigarette/Vaping Use: Never Used Use of substances other than those prescribed or required for medical reasons: No Advance Directives: No Advance Directives Information Provided: No Do you have a plan to hurt others: No Plan service: No Current occupational status: unemployed 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[place], 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 Current occupational exposures/hazards: No Gender identity: Female Cognitive needs: No Hearing needs: No Vision needs: Yes (Glasses) Physical Exam Vital Signs: Vital Signs: Last Vital Signs Temp 98.5 F 02/20/25 19:06 Pulse 89 02/20/25 19:06 Resp 17 02/20/25 19:06 BP 107/66 02/20/25 19:06 Pulse Ox 98 02/20/25 19:06 O2 Del Method Room Air 02/20/25 19:06 BMI result Body Mass Index 20.5 no acute distress she looks well Const: General: cooperative Nutritional Appearance: well nourished Orientation/consciousness: patient oriented x3 Limitations: no limitations HEENT: Head: Yes normal to inspection Ears: hearing grossly normal bilaterally General nose exam: Normal external nose present Neck: Neck: Yes normal visual inspection and Yes full ROM Chest: Chest palpation & inspection: normal inspection of the chest Resp: Effort & Inspection: normal respiratory effort Auscultation: clear to auscultation bilaterally Cardio: Jugular venous distension: no JVD Rate: regular rate Rhythm: regular rhythm GI: Inspection: Yes normal to inspection Palpation (GI): Soft to palpation, not firm and nontender Skin: General skin exam: no rashes or lesions noted and elasticity normal Neuro: General: patient oriented x3, gait normal and CN's II-XI intact bilaterally Cranial nerves: Yes CN's II-XII intact bilaterally Cognition (Neuro): normal cognition Gait exam (Neuro): Normal gait present Course Reevaluation(s) Reevaluation #1: on re-examination at this time the patient is doing much better headache is gone I think she can be discharged home no red flag headache similar to prior she has no fever she is not tachycardic he has no vomiting patient is comfortable with the plan of care I do not think we need to do any blood tests or imaging her headache is similar to prior Time: 20:22 Medications Administered Discontinued Medications Generic Name Dose Route Start Last Admin Trade Name Freq PRN Reason Stop Dose Admin Acetaminophen/Butalbital/Caffeine 2 tab 02/20/25 19:34 02/20/25 19:40 Butalb/Acetamin/Caff 50/325/40 Tablet PO 02/20/25 19:35 2 tab ONCE ONE Administration Medical Decision Making Medical Decision Making MDM Narrative: patient is here with a headache she has a history of migraine headache she states this headache is similar to prior the story is not consistent with subarachnoid bleed is no sudden is not thunderclap the story is not consistent with meningitis she has no neck pain she has no fever. Differential Diagnosis Differential Diagnoses: The differential diagnosis associated with the presentation includes migraine headache/ viral syndrome Admission/Observation Consideration of admission/observation: Escalation of care including a dmission/observation considered Discharge Plan Discharge Clinical Impression: Migraine Qualifiers: Migraine type: unspecified Status migrainosus presence: without status migrainosus Intractability: not intractable Qualified Code(s): G43.909 - Migraine, unspecified, not intractable, without status migrainosus Patient Disposition: Home, Self-Care Instructions: Migraine Headache (ED) Prescriptions: New uxcwnbhlzy-crvulwkkomavp-yezb 50-325-40 mg tablet 1 tab PO Q6H PRN (Reason: pain) Qty: 15 0RF No Action (DME) blood-glucose meter [FreeStyle Lite Meter] Kit See Rx Instructions .ROUTE .MEDSUPPLY Qty: 1 0RF Rx Instructions: As directed 2x/day budesonide 32 mcg/actuation spray,non-aerosol 1 spray intranasal DAILY 30 Days Qty: 8.43 3RF (DME) FreeStyle Butch 14 Day Sensor Kit See Rx Instructions .Route Qty: 2 2RF Rx Instructions: As directed (DME) FreeStyle Lite Strips Strip See Rx Instructions .ROUTE .MEDSUPPLY Qty: 100 11RF Rx Instructions: three times a day (DME) lancets [FreeStyle Lancets] 28 gauge misc See Rx Instructions .Route Rx Instructions: As directed Invokana 300 mg tablet 300 mg PO DAILY 30 Days Qty: 30 0RF Trulicity 4.5 mg/0.5 mL pen injector 4.5 mg subcut QWEEK 28 Days Qty: 2 3RF glipizide 5 mg tablet extended release 24hr 5 mg PO DAILY Qty: 90 0RF fluticasone propionate [Flonase Allergy Relief] 50 mcg/actuation spray,suspension 1 spray intranasal Q12H 30 Days Qty: 16 2RF Rx Instructions: administer into each nostril epinephrine 0.3 mg/0.3 mL auto-injector 0.3 mg IM ONCE PRN (Reason: Anaphylaxis) (DME) comp.stocking,knee,long,medium Misc See Rx Instructions .Route Qty: 12 3RF Rx Instructions: Compression stockings 20 mm Hg. Daily while awake. 90 days metformin 850 mg tablet 850 mg PO BID 90 Days Qty: 180 3RF atorvastatin 10 mg tablet 10 mg PO BEDTIME 90 Days Qty: 90 3RF levothyroxine 75 mcg tablet 75 mcg PO DAILY Qty: 90 1RF cetirizine [All Day Allergy (cetirizine)] 10 mg tablet 10 mg PO DAILY PRN (Reason: allergy symptoms) 90 Days Qty: 90 1RF sennosides [Senna Laxative] 8.6 mg tablet See Rx Instructions PO BEDTIME PRN (Reason: constipation) Qty: 60 6RF Rx Instructions: 1-2 at bedtime orally bedtime PRN; metoclopramide HCl [Reglan] 10 mg tablet 10 mg PO QIDACHS Qty: 120 6RF omeprazole 20 mg capsule,delayed release(DR/EC) 20 mg PO DAILY 30 Days Qty: 30 6RF Referrals: Flakito Larsen MD [Primary Care Provider, Internal Medicine] - 02/21/25 Print Language: Yi
[2025-02-20] MEDS: Butalb/Acetamin/Caff 50/325/40 TABLET 2 TAB PO (19:40)
[2025-02-20 20:40] VITALS: BP 107/66; PULSE 89; RESP 17; TEMP 36.9; O2SAT 98
== END 2025-02-20 21:00 | disposition home or self-care (01) ==
PROVIDERS: Emergency Provider Emergency Medicine; PCP Family Medicine
DX: G43.909 Migraine, unspecified, not intractable, without status migrainosus (principal); E11.9 Type 2 diabetes mellitus without complications; E78.5 Hyperlipidemia, unspecified; E03.9 Hypothyroidism, unspecified; Z79.899 Other long term (current) drug therapy; Z79.84 Long term (current) use of oral hypoglycemic drugs; Z79.85 Long-term (current) use of injectable non-insulin antidiabetic drugs; Z79.02 Long term (current) use of antithrombotics/antiplatelets
CPT/HCPCS: 99283; 99284

== ENCOUNTER 2025-02-26 08:26 | Outpatient (AMB) | payer OTHER, SELFPAY ==
--- NOTE | 2025-02-26 08:27 | A.OFFPC_ITS ---
Vital Signs 02/26/25 08:32 Height 5 ft 4 in Weight 116 lb 2 oz BMI 19.9 BP 110/62 Blood Pressure Location Rt brachial Position Sitting Respiration 17 Pulse 90 Pulse Source Pulse Oximeter Temp 97.1 F Temp Source Temporal Artery Scan Pulse Oximetry (%) 97 Oxygen Delivery Method Room Air Intake Visit Reasons: F/U DM Intake Note: Maribel presents in the office today to follow up to diabetes. Patient needs test strips and lancets. Allergies magnesium (MAGNESIUM) Allergy (Severe, Verified 02/26/25 08:29) ANAPHYLAXIS pioglitazone (From ACTOS) Allergy (Severe, Verified 02/26/25 08:29) SWELLING, hives aspirin (Aspirin) Allergy (Mild, Verified 02/26/25 08:29) UNKNOWN, hives ibuprofen (Ibuprofen) Allergy (Mild, Verified 02/26/25 08:29) anaphylaxis,hives Iodinated Contrast Media (IV Dye, Iodine Containing) Allergy (Mild, Verified 02/26/25 08:29) hives empagliflozin (From [employer]) Allergy (Unknown, Verified 02/26/25 08:29) Unknown tramadol Adverse Reaction (Verified 02/26/25 08:29) Hives Medication List - Last Reconciled 02/26/25 by Flakito Larsen MD atorvastatin 10 mg PO BEDTIME 90 days blood sugar diagnostic (FreeStyle Lite Strips) three times a day blood-glucose meter (FreeStyle Lite Meter kit) As directed 2x/day budesonide 32 mcg/actuation 1 spray intranasal DAILY 30 days canagliflozin (Invokana) 300 mg PO DAILY 30 days cetirizine (All Day Allergy (cetirizine)) 10 mg PO DAILY PRN 90 days comp.stocking,knee,long,medium Compression stockings 20 mm Hg. Daily while awake. 90 days dulaglutide (Trulicity) 4.5 mg (0.5 mL) subcut QWEEK 28 days epinephrine 0.3 mg IM ONCE PRN flash glucose sensor (FreeStyle Butch 14 Day Sensor kit) As directed fluticasone propionate 50 mcg/actuation (Flonase Allergy Relief) 1 spray intranasal Q12H 30 days glipizide ER 5 mg PO DAILY lancets (FreeStyle Lancets) As directed levothyroxine 75 mcg PO DAILY metformin 850 mg PO BID 90 days metoclopramide HCl (Reglan) 10 mg PO QIDACHS omeprazole 20 mg PO DAILY 30 days sennosides (Senna Laxative) 1-2 at bedtime orally bedtime PRN; Tobacco use date assessed: 02/26/25 Dental Screening Dental Screen Date: 02/26/25 Did you have a dental visit in the last 12 months?: No Did you have a dental problem in the last 6 months where you did not have access to dental care?: No Was dental information given to patient?: Patient has dentist HPI F/U DM HPI Details Patient presents to follow-up diabetes. She is taking Invokana, metformin, Trulicity and glipizide as prescribed. Morning blood sugars often in the 80s but she has had some nighttime blood sugars in the 50s. She continues to work at weight loss Still has significant lower extremity neuropathy. Also chronic back and joint pain. Patient says she has difficulty with work to this. [facility] Medical History Umbilical hernia Umbilical hernia Anxiety Low back pain Venous insufficiency Arterial insufficiency Migraines GERD (gastroesophageal reflux disease) Depression Hypothyroidism Hyperlipidemia LDL goal <100 Diabetes mellitus type 2, controlled, with complications Surgical History History of umbilical hernia repair (01/03/25) Hx of hysterectomy Hx of tubal ligation Hx of section Hx of cholecystectomy Family History Father No problems noted. Mother Diabetes Cardiovascular disease Arthritis Maternal Aunt Diabetes Sister SLE (systemic lupus erythematosus) Social History (Updated 02/26/25 @ 08:32 by Ivelisse Moreno MA) Household Members: Family Both parents involved: No Caregiver staying overnight: No Housing: Apartment Are you a primary child caregiver to a significant other at home: No Do you presently have visiting nurse or other home services: No 75 years or older and lives alone: No Unable to assess alcohol history related to: Unable to respond Alcohol intake: never Patient Tobacco Use Status: Never used Tobacco e-Cigarette/Vaping Use: Never Used service: No Current occupational status: unemployed 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[place], [employer]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 Current occupational exposures/hazards: No Gender identity: Female Cognitive needs: No Hearing needs: No Vision needs: Yes (Glasses) Questionnaire Thrive Questionnaire Date Thrive assessed: 11/13/24 I am a: Patient What is your living situation today?: I have a steady place to live Within the past 12 months, did the food you bought not last and you didn't have the money to get more?: I choose not to answer this question Within the past 12 months, did you worry whether your food would run out before you got money to buy more?: I choose not to answer this question Do you have trouble paying for medicines?: No Do you have trouble getting transportation to medical appointments?: No Do you have trouble paying your heating and electricity bill?: No Do you have trouble taking care of your child, family member or friend?: No Do you have trouble with day-to-day activities such as bathing, preparing meals, shopping, managing finances, etc.?: No Are you currently unemployed and looking for a job?: I choose not to answer this question Are you interested in more education?: I choose not to answer this question Please select the resources that you would like help with: None Currently or been in a relationship where the following occur: No concerns reported THRIVE Score: 0 AKASH-7 AMB Questionnaire AKASH-7 Date AKASH - 7 assessed: 11/20/24 Source: Developed by Drs. Yovani Lee, Eliana Decker, Mikal Brownlee and colleagues, with an educational bess from [employer]. Review of Systems Const Denies chills, Denies fatigue, Denies fever(s), Denies headache(s) and Denies weakness ENT Denies dizziness and Denies headache(s) Card Denies chest pain, Denies lightheadedness, Denies dyspnea and Denies other (Palpitations) Resp Denies cough, Denies dyspnea, Denies wheezing and Denies other ( shortness of breath) Musc Details: Back pain Reports numbness and Reports tingling Neuro Denies dizziness, Denies headache(s), Reports numbness, Reports tingling, Reports paresthesias and Denies weakness Psych Denies anxiety and Denies depression Endo Denies fatigue Aller/Immun Denies wheezing Physical exam (Primary Care) Vital Signs: Last Vital Signs Temp 97.1 F 02/26/25 08:32 Pulse 90 02/26/25 08:32 Resp 17 02/26/25 08:32 BP 110/62 02/26/25 08:32 Pulse Ox 97 02/26/25 08:32 Oxygen Delivery Method Room Air 02/26/25 08:32 BMI result Body Mass Index 19.9 Tobacco/Smoking Status: Tobacco use Status Tobacco use date assessed 02/26/25 02/26/25 08:36 Patient Tobacco Use Status Never used Tobacco 02/26/25 08:36 e-Cigarette/Vaping Use Never Used 02/26/25 08:36 Thrive Assessment: Date of Thrive Assessment Date Thrive assessed 11/13/24 02/26/25 08:36 Currently or been in a relationship where the following occur: No concerns reported Const General: no acute distress and well developed Nutritional Appearance: well nourished Orientation/consciousness: patient oriented x3 HENMT Head: Yes normocephalic and Yes atraumatic Eyes General: appearance normal, both eyes and all related structures Pupils: Equal, round and reactive pupils present EOM: EOMs intact bilaterally Resp Effort & Inspection: normal respiratory effort Auscultation: clear to auscultation bilaterally Cardio Rate: regular rate Rhythm: regular rhythm Heart sounds: S1 normal heart sound present, S2 normal heart sound present, no gallops, no murmurs and no rubs Neuro General: patient oriented x3 and gait normal Cranial nerves: Yes Equal, round and reactive pupils present Psych Affect: normal affect Coding Level of Care Code Est Pt Level 4 (61095) Diagnoses Diabetes mellitus type 2, controlled, with complications E11.8 Diabetes E11.9 Undifferentiated connective tissue disease 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 Neuropathy G62.9 Assessment & Plan Assessment & Plan (1) Diabetes mellitus type 2, controlled, with complications: Code(s): E11.8 - Type 2 diabetes mellitus with unspecified complications Category: Medical (2) Diabetes: Code(s): E11.9 - Type 2 diabetes mellitus without complications Category: Medical (3) Undifferentiated connective tissue disease: Code(s): M35.9 - Systemic involvement of connective tissue, unspecified Category: Medical (4) Neuropathy: Code(s): G62.9 - Polyneuropathy, unspecified Category: Medical Plan Patient continues to lose weight A1c has improved further and is now at 5.0%. She is getting some low blood sugars however. Will have her decrease metformin from a total daily dose of 1700 mg daily to a total daily dose 1200 mg daily She is up-to-date with her eye exam and I reminded her to make her next appointment. Patient has issues with neuropathy which have not improved. Continue to maintain good blood sugar control She also has issues with chronic pain from Undifferentiated Connective Tissue Disease, and was followed by rheumatology. Will make a referral to physiatry for physical therapy and other recommendations for improvement of her chronic pain and joint pain. We discussed that if she is not able to make significant improvements, we may need to start disability paperwork. Orders: Orders AMB Hemoglobin A1c Today E11.8 - Type 2 diabetes mellitus with unspecified complications, E11.9 - Type 2 diabetes mellitus without complications Referrals Physiatry Referral G89.29 - Other chronic pain, M25.511 - Pain in right shoulder, M35.9 - Systemic involvement of connective tissue, unspecified, M54.2 - Cervicalgia, M54.31 - Sciatica, right side Medications: Refilled blood-glucose meter (FreeStyle Lite Meter kit) As directed 2x/day 1 ea 0RF E11.65 - Type 2 diabetes mellitus with hyperglycemia blood sugar diagnostic (FreeStyle Lite Strips) three times a day 100 ea 11RF E11.65 - Type 2 diabetes mellitus with hyperglycemia
[2025-02-26 08:32] VITALS: BP 110/62; PULSE 90; RESP 17; TEMP 36.2; O2SAT 97; BMI 19.9
== END 2025-02-26 09:04 | disposition home or self-care (01) ==
LOC: HO.HMCFM 08:26
PROVIDERS: PCP Family Medicine; Visit Provider Family Medicine
DX: E11.8 Type 2 diabetes mellitus with unspecified complications (principal); E11.42 Type 2 diabetes mellitus with diabetic polyneuropathy; M35.9 Systemic involvement of connective tissue, unspecified; G62.9 Polyneuropathy, unspecified

== ENCOUNTER → 2025-02-26 08:26 | Outpatient (BNVA) | payer OTHER, SELFPAY | PROVIDERS: PCP Family Medicine; Visit Provider Family Medicine | DX: E11.42 Type 2 diabetes mellitus with diabetic polyneuropathy (principal); E11.65 Type 2 diabetes mellitus with hyperglycemia; M35.9 Systemic involvement of connective tissue, unspecified; G89.29 Other chronic pain; M25.511 Pain in right shoulder; M54.2 Cervicalgia; M54.31 Sciatica, right side; Z79.899 Other long term (current) drug therapy | CPT/HCPCS: 83036; 99212 ==

== ENCOUNTER 2025-03-20 07:25 | Outpatient (REF) | payer OTHER, SELFPAY ==
--- NOTE | ~2025-03-20 | MM_ITS ---
EXAMINATION: MM SCREENING DIGITAL BREAST TOMOSYNTHESIS, BILATERAL CLINICAL INFORMATION: Screening. Asymptomatic. COMPARISON: Mammography: Comparison is made with available priors TECHNIQUE: Digital breast mammography with tomosynthesis is performed in both the craniocaudal and mediolateral oblique views along with computer-aided detection (CAD). FINDINGS: There are scattered areas of fibroglandular density (ACR BI-RADS breast composition Category b). There are no significant masses, abnormal calcifications, or other abnormalities. MM/MM tomosynthesis screening BI IMPRESSION: No mammographic evidence of malignancy. ASSESSMENT: BI-RADS BI-RADS 1 - Negative RECOMMENDATION: Routine annual mammography screening. 1 year F/U This examination should not preclude the clinical evaluation of a suspicious palpable abnormality. This patient's information was entered into a reminder system with a target due date for their next mammogram. Electronically signed by: Dayanna Betts DO 03/20/2025 08:58 AM EDT
--- OUTSIDE RECORDS SUMMARY | 2025-03-20 07:27 | XMS_ITS | Clinical Summary ---
Author Organization [facility] Address [address] [place] [id number] Phone Support Name Relationship Address Phone Liliana Vides Personal Relationship [address] [place], [address] Care Team Providers Care Stockroom Associate Name Role Phone Pcp, Not Required Primary Care Provider Unavaila ble Allergies Active Allergy Reactions Criticality Noted Date Comments Pioglitazone 08/05/2018 Gec-Suohmgliucchz-Dwru-Buffers 08/05 Iodinated Contrast Media 08/05/2018 Magnesium 08/05/2018 Ibuprofen 08/05/2018 Medications No known medications Social History Tobacco Use Types Packs/Day Years Used Date Smoking Tobacco: Never Smokeless Tobacco: Never Alcohol Use Standard Drinks/Week Comments No 0 (1 standard drink = 0.6 oz pur e alcohol) Education Answer Date Recorded Are you interested in more education? Not on bobby e 12/16/2022 Are you concerned about learning? Not on file 12/16/2022 No 12/16/2022 No 12/16/2022 Digital Access Answer Date Recorded No 01/17/2023 No 01/17/2023 No 01/17/2023 Reliable internet access at home? Not on file 01/17/2023 Device with a working camera? Not on file Comments Unknown Sex and Gender Information Value Date Recorded Sex Assigned at Not on file Legal Sex Female 7:17 PM EST Gender Identity Not on file Sexual Orientation Not on file Last Filed Vital Signs Vital Sign Reading Time Taken Comments Blood Pressure 147/70 08/05/2018 3:01 PM EST Pulse 90 08/05/2018 3:01 PM EST Temperature 36.4 C (97.6 F) 08/05/2018 3:01 PM EST Respiratory Rate 18 08/05/2018 3:01 PM EST Oxygen Saturation 100% 08/05/2018 3:01 PM EST Inhaled Oxygen Concentration - - Weight 73.5 kg (162 lb) 08/05/2018 12:20 PM EST Height - - Body Mass Index - - Plan of Treatment Not on file Medical Devices Not on file Insurance [employer] [address] [place] [address] [employer] Care Teams Stockroom Associate Relationship Specialty Start Date End Date Pcp, Not Required [address] [place] [address] PCP - General 08/05/18 Additional Source Comments The information contained in this document represents components of the legal health record. It is not the complete legal health record.[facility]
== END 2025-03-20 07:26 | disposition home or self-care (01) ==
LOC: HO.MAMMO 07:25
PROVIDERS: PCP Family Medicine; Visit Provider Family Medicine
DX: Z12.31 Encounter for screening mammogram for malignant neoplasm of breast (principal)
CPT/HCPCS: 77063; 77067

== ENCOUNTER → 2025-03-20 07:45 | Outpatient (BNV) | payer OTHER, SELFPAY | PROVIDERS: PCP Family Medicine; Visit Provider Internal Medicine | DX: Z12.31 Encounter for screening mammogram for malignant neoplasm of breast (principal) | CPT/HCPCS: 77063; 77067 ==

== ENCOUNTER 2025-04-15 09:32 | Outpatient (AMB) | payer OTHER, SELFPAY ==
--- NOTE | 2025-04-15 09:35 | AM.OFFWIN_ITS ---
Intake Vital Signs 3 04/15/25 09:36 Height 5 ft 4 in Weight 120 lb BMI 20.6 BP 102/64 Blood Pressure Location Rt brachial Position Sitting Pulse 95 Pulse Source Pulse Oximeter Temp 98.9 F Temp Source Oral Pulse Oximetry (%) 98 Oxygen Delivery Method Room Air Intake Visit Reasons: EP-lt shoulder/leg/foot pain from a fall Intake Note: pt presents with pain to left shoulder and left 5th toe with swelling & bruising after a fall 6 days ago Patient Tobacco Use Status: Never used Tobacco Allergies magnesium (MAGNESIUM) Allergy (Severe, Verified 04/15/25 09:38) ANAPHYLAXIS pioglitazone (From ACTOS) Allergy (Severe, Verified 04/15/25 09:38) SWELLING, hives aspirin (Aspirin) Allergy (Mild, Verified 04/15/25 09:38) UNKNOWN, hives ibuprofen (Ibuprofen) Allergy (Mild, Verified 04/15/25 09:38) anaphylaxis,hives Iodinated Contrast Media (IV Dye, Iodine Containing) Allergy (Mild, Verified 04/15/25 09:38) hives empagliflozin (From Jardiance) Allergy (Unknown, Verified 04/15/25 09:38) Unknown tramadol Adverse Reaction (Verified 04/15/25 09:38) Hives Do you need a note to return to daycare/school/sports/work: No HPI HPI Comments 2 History of Present Illness0 Details 50 y/o Female patient who [facility] with c/o Left Shoulder and Left Fifth Toe Pain and swelling. Pt fell at home lending on her Left side. She was getting out of a Bath-tub where she slid and fell to the ground - ceramic Floor. Neg LOC or head strike. She did not seek medical attention until now. She has tried any OTC pain medications. Reports Limited ROM of Shoulder due to pain. [facility] Medical History (Updated 04/15/25 @ 10:09 by Vibha Roberts NP) Sprain of fifth toe, left Left shoulder pain Umbilical hernia Umbilical hernia Anxiety Low back pain Venous insufficiency Arterial insufficiency Migraines GERD (gastroesophageal reflux disease) Depression Hypothyroidism Hyperlipidemia LDL goal <100 Diabetes mellitus type 2, controlled, with complications Surgical History History of umbilical hernia repair (01/03/25) Hx of hysterectomy Hx of tubal ligation Hx of section Hx of cholecystectomy Family History Father No problems noted. Mother Diabetes Cardiovascular disease Arthritis Maternal Aunt Diabetes Sister SLE (systemic lupus erythematosus) Social History (Updated 02/26/25 @ 08:32 by Ivelisse Moreno MA) Household Members: Family Both parents involved: No Caregiver staying overnight: No Housing: Apartment Are you a primary memory care program director to a significant other at home: No Do you presently have visiting nurse or other home services: No 75 years or older and lives alone: No Unable to assess alcohol history related to: Unable to respond Alcohol intake: never Patient Tobacco Use Status: Never used Tobacco e-Cigarette/Vaping Use: Never Used service: No Current occupational status: unemployed Current occupation: used to work at the [employer] in [place], [employer] service Current occupational exposures/hazards: No Gender identity: Female Cognitive needs: No Hearing needs: No Vision needs: Yes (Glasses) Review of Systems Const All systems reviewed & are unremarkable except as noted in HPI and below Physical Exam Vital Signs: Last Vital Signs Temp 98.9 F 04/15/25 09:36 Pulse 95 04/15/25 09:36 BP 102/64 04/15/25 09:36 Pulse Ox 98 04/15/25 09:36 Oxygen Delivery Method Room Air 04/15/25 09:36 BMI result Body Mass Index 20.6 Const General: no acute distress; No comfortable Nutritional Appearance: thin Orientation/consciousness: patient oriented x3 Neuro General: patient oriented x3 Extrem Right upper extremity: normal to inspection and full ROM Left upper extremity: normal to inspection and shoulder/upper arm Details: tenderness Location: of the A-C joint and over the deltoid bursa and abnormal ROM Details: pain with active ROM and pain with passive ROM; no swelling, no ecchymosis, no crepitus and no deformity Ankle/foot/toe images: 2 1. Mild swelling, TTP normal ROM on toes. Psych Speech and movement: Normal speech and movement present Assessment & Plan Assessment & Plan (1) Left shoulder pain: Code(s): M25.512 - Pain in left shoulder Plan: Shoulder muscle Sprain vs Fracture vs Dislocation. Xrays not indicated at this time - low risk of Fx. NSAIDs or Acetaminophen for pain relief. (2) Sprain of fifth toe, left: Code(s): S93.505A - Unspecified sprain of left lesser toe(s), initial encounter Plan: Fifth Toe Sprain vs Fracture. Xrays not indicated at this time - low risk of Fx. NSAIDs or Acetaminophen for pain relief. I taped toes together for support and immobilization. Medications: New 2 acetaminophen 1,000 mg (2 x 500 mg) PO Q6H PRN 20 caps 0RF pain M25.512 - Pain in left shoulder, S93.505A - Unspecified sprain of left lesser toe(s), initial encounter cyclobenzaprine 5 mg PO BEDTIME 10 tabs 0RF M25.512 - Pain in left shoulder, S93.505A - Unspecified sprain of left lesser toe(s), initial encounter Coding Level of Care Code Est Pt Level 4 (21840) Diagnoses Left shoulder pain M25.512 Sprain of fifth toe, left S93.505A Time Spent (min) 20
[2025-04-15 09:36] VITALS: BP 102/64; PULSE 95; TEMP 37.2; O2SAT 98; BMI 20.6
--- OUTSIDE RECORDS SUMMARY | 2025-04-15 10:21 | XMS_ITS | Clinical Summary ---
Author Organization [facility] Address [address] [place] [address] Phone Support Name Relationship Address Phone Liliana Vides Personal Relationship [address] [place], [address] Care Team Providers Care Museum Or Zoo Director Name Role Phone Pcp, Not Required Primary Care Provider Unavaila ble Allergies Active Allergy Reactions Criticality Noted Date Comments Pioglitazone 08/05/2018 Cgm-Mpbdghffpeify-Lizi-Buffers 08/05 Iodinated Contrast Media 08/05/2018 Magnesium 08/05/2018 [...] [facility] [place] [address] [place] [address] [facility] [employer] [facility] Care Teams Museum Or Zoo Director Relationship Specialty Start Date End Date Pcp, Not Required [address] [place] [address] PCP - General 08/05/18 Additional Source Comments The information contained in this document represents components of the legal health record. It is not the complete legal health record.[facility]
== END 2025-04-15 10:10 | disposition home or self-care (01) ==
PROVIDERS: PCP Family Medicine; Visit Provider Nurse Practitioner Family
DX: M25.512 Pain in left shoulder (principal); S93.505A Unspecified sprain of left lesser toe(s), initial encounter

== ENCOUNTER → 2025-04-15 09:32 | Outpatient (BNVA) | payer OTHER, SELFPAY | PROVIDERS: PCP Family Medicine; Visit Provider Nurse Practitioner Family | DX: M25.512 Pain in left shoulder (principal); S93.505A Unspecified sprain of left lesser toe(s), initial encounter; X58.XXXA Exposure to other specified factors, initial encounter; Y93.9 Activity, unspecified; Y92.9 Unspecified place or not applicable; Y99.9 Unspecified external cause status | CPT/HCPCS: 99212 ==

== ENCOUNTER 2025-05-01 08:57 | Outpatient (AMB) | payer OTHER, SELFPAY ==
[2025-05-01 09:01] VITALS: BP 109/68; PULSE 92; BMI 19.7
--- NOTE | 2025-05-01 09:01 | MHC.OFFVIS ---
Vital Signs 05/01/25 09:01 Height 5 ft 4 in Weight 114 lb 10.246 oz BMI 19.7 BP 109/68 Blood Pressure Location Lt brachial Position Sitting Pulse 92 Intake Visit Reasons: f/u discuss colo Intake Note: Maribel presents in follow up to discuss colonoscopy. CC: Patient reports that she doesn't know why she has been loosing weight. Patient states that she wouldn't like to have a colonoscopy done. She also c/o GERD and constipation and would like to have Omeprazole increased to 40 mg. She states that she would like to have EGD done. Strategic Communications Manager Required: No Accompanied by: Self / Same As Patient Allergies magnesium (MAGNESIUM) Allergy (Severe, Verified 04/15/25 09:38) ANAPHYLAXIS pioglitazone (From ACTOS) Allergy (Severe, Verified 04/15/25 09:38) SWELLING, hives aspirin (Aspirin) Allergy (Mild, Verified 04/15/25 09:38) UNKNOWN, hives ibuprofen (Ibuprofen) Allergy (Mild, Verified 04/15/25 09:38) anaphylaxis,hives Iodinated Contrast Media (IV Dye, Iodine Containing) Allergy (Mild, Verified 04/15/25 09:38) hives empagliflozin (From [employer]) Allergy (Unknown, Verified 04/15/25 09:38) Unknown tramadol Adverse Reaction (Verified 04/15/25 09:38) Hives HPI HPI f/u discuss colo: Details: Assessment & Plan (1) Diabetic gastroparesis: Code(s): E11.43 - Type 2 diabetes mellitus with diabetic autonomic (poly)neuropathy; K31.84 - Gastroparesis Category: Medical (2) Nausea and vomiting: Code(s): R11.2 - Nausea with vomiting, unspecified Category: Medical (3) Abdominal pain: Code(s): R10.9 - Unspecified abdominal pain Category: Medical (4) Abnormal CT of the abdomen: Code(s): R93.5 - Abnormal findings on diagnostic imaging of other abdominal regions, including retroperitoneum Category: Medical (5) Pre-op examination: Code(s): Z01.818 - Encounter for other preprocedural examination Category: Medical Plan She continues to have upper abdominal pain that isn't a band-like pattern across the upper abdomen and severe bloating with eating. She is taking the metoclopramide 5 mg 4 times a day as directed but it does not seem to be helping her much. This is not a big surprise since that her gastroparesis is quite severe and since she has had no side effects we will increase the dose to 10 mg 4 times a day. She would also like an upper endoscopy for further exploration and I think this is reasonable so will get that ordered. She has also never had a colonoscopy. There are no prior problems with anesthesia or sedation. She denies any cardiac or respiratory problems. There are no infectious disease problems. There is no known family history of colon cancer or polyps. Return office visit in 4 weeks to evaluate her response to the Reglan. I am also giving her senna because she suffers constipation, unsurprisingly, but she really dislikes drinking MiraLax. Orders: Orders EGD/[place] Combo - GI Use Only 05/09/24 Z01.818 - Encounter for other preprocedural examination Medications: New bisacodyl (Dulcolax (bisacodyl)) 10 mg (2 x 5 mg) PO BEDTIME 4 tabs 0RF 2 days bisacodyl (Dulcolax (bisacodyl)) 10 mg (2 x 5 mg) PO BEDTIME 4 tabs 0RF 2 days metoclopramide HCl (Reglan) 10 mg PO QIDACHS 120 tabs 6RF E11.43 - Type 2 diabetes mellitus with diabetic autonomic (poly)neuropathy, K31.84 - Gastroparesis sennosides (Senna Laxative) 1-2 at bedtime orally bedtime PRN; 60 tabs 6RF constipation metoclopramide HCl (Reglan) 10 mg PO QIDACHS 120 tabs 6RF E11.43 - Type 2 diabetes mellitus with diabetic autonomic (poly)neuropathy, K31.84 - Gastroparesis peg 3350-electrolytes 236-22.74-6.74 -5.86 gram (Golytely) until fecal effluent is clear; do not exceed a total volume of 2,000 mL 240 mL PO Q10M 4,000 mL 0RF 1 day Z12.11 - Encounter for screening for malignant neoplasm of colon Refilled omeprazole 20 mg PO DAILY 30 caps 6RF 30 days omeprazole 20 mg PO DAILY 30 caps 6RF 30 days Discontinued metoclopramide HCl Discontinued Reason: Doctor's Order 5 mg PO QIDACHS 120 tabs 3RF E11.43 - Type 2 diabetes mellitus with diabetic autonomic (poly)neuropathy, K31.84 - Gastroparesis EGD/COLONOSCOPY BIOPSY CORRESPONDENCE On 03/18/25 @ 11:42 Chiquis Alexander Wrote To Mark Aldrigde call to patient reviewed egd/colo on 03/26- Reports she will need to r/s - she is out of town. She will call back to r/s. On 03/15/25 @ 14:39 Chiquis Alexander Wrote To Mark Aldridge call to patient- unable to lvm. On 03/15/25 @ 12:47 Chiquis Alexander Wrote To Mark Aldridge call to patient - unable to lvm - mailbox full. On 12/25/24 @ 12:12 Chiquis Alexander Wrote To Mark Aldridge patient on multiple medications- Glp1, SGLT2 On 12/03/24 @ 15:58 Chiquis Alexander Wrote To Mark Aldridge NOTED Chiquis Alexander removed from item. On 12/03/24 @ 14:55 Hazel Nixon Wrote To Chiquis Alexander (2) pt's hernia surgery was scheduled the same day as her double procedure with [facility] so she called today to reschedule for Aug, patient is aware of new date which is 03/26/25 TODAY'S VISIT PATIENT HAS BEEN LOST TO FOLLOW-UP SINCE 04/2024. [facility] Medical History (Updated 05/01/25 @ 15:06 by RACHAEL Borrego) Abnormal thyroid exam Diabetes Allergies Nausea and vomiting Liver lesion Abnormal CT of the abdomen Umbilical hernia Umbilical hernia Sprain of fifth toe, left Left shoulder pain Anxiety Low back pain Venous insufficiency Arterial insufficiency Migraines GERD (gastroesophageal reflux disease) Depression Hypothyroidism Hyperlipidemia LDL goal <100 Diabetes mellitus type 2, controlled, with complications Surgical History (Updated 05/01/25 @ 09:16 by RACHAEL Borrego) S/P umbilical hernia repair, follow-up exam History of umbilical hernia repair (01/03/25) Hx of hysterectomy Hx of tubal ligation Hx of section Hx of cholecystectomy Family History Father No problems noted. Mother Diabetes Cardiovascular disease Arthritis Maternal Aunt Diabetes Sister SLE (systemic lupus erythematosus) Social History (Updated 02/26/25 @ 08:32 by Ivelisse Moreno MA) Household Members: Family Both parents involved: No Caregiver staying overnight: No Housing: Apartment Are you a primary day care attendant to a significant other at home: No Do you presently have visiting nurse or other home services: No 75 years or older and lives alone: No Unable to assess alcohol history related to: Unable to respond Alcohol intake: never Patient Tobacco Use Status: Never used Tobacco e-Cigarette/Vaping Use: Never Used service: No Current occupational status: unemployed Current occupation: used to work at the [employer] in [place], [employer] service Current occupational exposures/hazards: No Gender identity: Female Cognitive needs: No Hearing needs: No Vision needs: Yes (Glasses) Review of Systems Const Denies fatigue, Denies fever(s), Denies night sweats, Denies poor appetite and Denies weight loss Eyes Details: glasses Reports requires corrective lenses ENT Reports Normal hearing present, Denies dental pain, Denies dysphagia, Denies hearing loss, Denies mouth pain, Denies odynophagia, Denies throat swelling, Denies tongue swelling and Reports other (Dentition adequate) Card Reports no additional complaints Resp Reports no additional complaints GI Details: Reports abdominal pain, Denies melena, Denies bloating, Denies hematochezia, Reports constipation, Denies GI cramping, Denies dysphagia, Denies excessive flatus, Denies early satiety, Reports heartburn, Denies diarrhea, Denies nausea, Denies odynophagia, Denies vomiting and Denies hematemesis Skin/Breast Denies pruritus, Denies lesions, Denies rash and Denies jaundice Neuro Reports Normal hearing present and Denies Abnormal speech present Endo Denies fatigue Aller/Immun Denies throat swelling and Denies tongue swelling Physical Exam Vital Signs: Last Vital Signs Pulse 92 05/01/25 09:01 BP 109/68 05/01/25 09:01 BMI result Body Mass Index 19.7 Const General: cooperative, no acute distress, well developed and well groomed Nutritional Appearance: average body habitus and well nourished Orientation/consciousness: oriented to person, oriented to place and oriented to time Limitations: No language barrier HEENT Head: Yes normocephalic and Yes atraumatic Eyes General: appearance normal, both eyes and all related structures Pupils: Equal, round and reactive pupils present Neck Neck: Yes normal visual inspection and Yes no lymphadenopathy Thyroid: Thyroid normal Resp Effort & Inspection: normal respiratory effort and able to speak in complete sentences Auscultation: clear to auscultation bilaterally Cardio Rate: regular rate Rhythm: regular rhythm Heart sounds: Normal, physiologic split S2 sound present Peripheral pulses: radial pulses present and posterior tibial pulses present GI Inspection: No distended and No Abdominal panniculus present Palpation (GI): Soft to palpation, nontender, no guarding, not rigid and No hepatosplenomegaly present Percussion: Yes normal to percussion Auscultation: normal bowel sounds Rectal Exam - Female: deferred Skin General skin exam: no rashes or lesions noted, turgor normal, skin not dry, no jaundice, No spider nevi and no striae Rashes: no rashes Nails: normal Neuro General: oriented to person, oriented to place and oriented to time Cranial nerves: Yes Equal, round and reactive pupils present and Yes Normal hearing present Speech: No Abnormal speech present Extrem General: Yes normal to inspection, No clubbing, No cyanosis and No edema Psych Appearance: grossly normal and well kempt Mental Status: mental status grossly normal Speech and movement: Normal speech and movement present Affect: normal affect Attitude: cooperative Thought process: Normal thought process present and not confabulating Thought content: Normal thought content present Insight: Limited insight present (Psych) Judgement: Limited judgement present (Psych) Results Reviewed Results Reviewed: Laboratory Tests 01/26/25 02:56 WBC 7.4 Hgb 14.0 Hct 39.8 Plt Count 341 Estimated GFR > 60 Total Bilirubin 0.5 Direct Bilirubin 0.2 AST 24 ALT 12 Alkaline Phosphatase 86 Assessment & Plan Assessment & Plan (1) Gastroparesis: Comment: MARKED FOOD RETENTION ON 2019 GASTRIC EMPTYING STUDY Code(s): K31.84 - Gastroparesis Category: Medical (2) GERD (gastroesophageal reflux disease): Code(s): K21.9 - Gastro-esophageal reflux disease without esophagitis Category: Medical (3) Diabetic gastroparesis: Code(s): E11.43 - Type 2 diabetes mellitus with diabetic autonomic (poly)neuropathy; K31.84 - Gastroparesis Category: Medical (4) Diabetes mellitus type 2, controlled, with complications: Code(s): E11.8 - Type 2 diabetes mellitus with unspecified complications Category: Medical (5) Chronic idiopathic constipation: Code(s): K59.04 - Chronic idiopathic constipation Category: Medical (6) Abdominal pain: Code(s): R10.9 - Unspecified abdominal pain Category: Medical (7) Abdominal distension: Code(s): R14.0 - Abdominal distension (gaseous) Category: Medical (8) Pre-op examination: Code(s): Z01.818 - Encounter for other preprocedural examination Category: Medical (9) Colonoscopy refused: Code(s): Z53.20 - Procedure and treatment not carried out because of patient's decision for unspecified reasons Category: Medical Plan She has been taking her omeprazole 20 mg daily her metoclopramide her senna. Despite this she is still having severe belching and heartburn. She has not had any nausea or vomiting since starting the Reglan and she has not had any side effects. With further discussion it seems she is really not moving her bowels at all, and in the past she has failed MiraLax, fiber, Colace, lactulose, Dulcolax and now senna. I think will move her onto Linzess 145 micro g. it is entirely possible that poor bowel motility is contributing to the severe belching. We already know that she has marked and profound gastroparesis. Just in case this does not solve the problem we will also order an endoscopy for further investigation. She adamantly refuses to have a colonoscopy she admits that other people have told her it is an easy procedure but she seems to have a phobia about rectal penetration. I showed her the video and she is agreeable to doing a Cologuard for colon cancer screening. She confirms that there is no known history of colon cancer or polyps in her family. There are no prior problems with anesthesia or sedation. She denies any cardiac or respiratory problems. There are no infectious disease problems. Return office visit in 3 weeks to evaluate the Linzess. Orders: Orders EGD - GI Use Only Today K59.04 - Chronic idiopathic constipation Referrals GI Procedure Notification R10.9 - Unspecified abdominal pain Medications: New linaclotide (Linzess) Take first thing in the morning with a full glass of water. 145 mcg PO QAM 30 caps 3RF K58.1 - Irritable bowel syndrome with constipation omeprazole 40 mg PO DAILY 30 caps 6RF 30 days Refilled metoclopramide HCl (Reglan) 10 mg PO QIDACHS 120 tabs 6RF E11.43 - Type 2 diabetes mellitus with diabetic autonomic (poly)neuropathy, K31.84 - Gastroparesis Discontinued omeprazole Discontinued Reason: Doctor's Order 20 mg PO DAILY 30 days 30 caps 6RF Coding Level of Care Code Est Pt Level 4 (86657) Diagnoses Gastroparesis K31.84 GERD (gastroesophageal reflux disease) K21.9 Diabetic gastroparesis E11.43; K31.84 Diabetes mellitus type 2, controlled, with complications E11.8 Chronic idiopathic constipation K59.04 Abdominal pain R10.9 Abdominal distension R14.0 Pre-op examination Z01.818 Colonoscopy refused Z53.20 Time Spent (min) 38
--- OUTSIDE RECORDS SUMMARY | 2025-05-01 10:34 | XMS_ITS | Clinical Summary ---
Author Organization [facility] Address [address] [place] [id number] Phone Care Team Providers Care Clerk Of Works Name Role Phone Pcp, Not Required Primary Care Provider Unavaila ble Allergies Active Allergy Reactions Criticality Noted Date Comments Pioglitazone 08/05/2018 Mpt-Pispaniihloyk-Hekw-Buffers 08/05 Iodinated Contrast Media 08/05/2018 Magnesium 08/05/2018 [...] [facility] [employer] [facility] [place] [address] [address] [employer] Care Teams Clerk Of Works Relationship Specialty Start Date End Date Pcp, Not Required [address] [place] [address] PCP - General 08/05/18 Additional Source Comments The information contained in this document represents components of the legal health record. It is not the complete legal health record.[facility]
== END 2025-05-01 09:41 | disposition home or self-care (01) ==
LOC: HO.HGI 08:58
PROVIDERS: PCP Family Medicine; Visit Provider Nurse Practitioner
DX: E11.43 Type 2 diabetes mellitus with diabetic autonomic (poly)neuropathy (principal); K31.84 Gastroparesis; K21.9 Gastro-esophageal reflux disease without esophagitis; E11.8 Type 2 diabetes mellitus with unspecified complications; K59.04 Chronic idiopathic constipation; R10.9 Unspecified abdominal pain; R14.0 Abdominal distension (gaseous); Z01.818 Encounter for other preprocedural examination; Z53.20 Procedure and treatment not carried out because of patient's decision for unspecified reasons
CPT/HCPCS: 99214

== ENCOUNTER → 2025-05-01 08:57 | Outpatient (BNVA) | payer OTHER, SELFPAY | PROVIDERS: PCP Family Medicine; Visit Provider Nurse Practitioner | DX: Z01.818 Encounter for other preprocedural examination (principal); K58.1 Irritable bowel syndrome with constipation; Z53.20 Procedure and treatment not carried out because of patient's decision for unspecified reasons; K31.84 Gastroparesis; K21.9 Gastro-esophageal reflux disease without esophagitis; K59.04 Chronic idiopathic constipation; E11.43 Type 2 diabetes mellitus with diabetic autonomic (poly)neuropathy; E11.8 Type 2 diabetes mellitus with unspecified complications; R10.9 Unspecified abdominal pain; R14.0 Abdominal distension (gaseous); Z79.899 Other long term (current) drug therapy | CPT/HCPCS: 99212 ==

== ENCOUNTER 2025-05-30 08:04 | Outpatient (REF) | payer OTHER, SELFPAY ==
[2025-05-30 11:33] LABS: MANUAL DIFF FLAG NO
[2025-05-30 11:47] LABS: Hematocrit 38.4 % (37.0-47.0); Hemoglobin 12.9 g/dl (12.0-16.0); Imm Gran Abs Auto 0.02 X10*3/uL (0.00-0.03); Imm Gran Pct Auto 0.3 % (0.0-0.4); Lymphocytes Absolute Auto 1.6 X10*3/uL (1.2-4.9); Mean Corpuscular HGB Conc 33.6 g/dl (31.0-35.0); Mean Corpuscular Hemoglobin 31.3 pg (27.0-33.0); Mean Corpuscular Volume 93.2 fL (80.0-98.0); NRBC Abs Auto 0.000 X10*3/uL (0.0-0.012); NRBC Pct Auto 0.0 /100WBC (0.0-0.2); Platelet Count 307 X10*3/uL (160-400); Red Blood Count 4.12 X10*6/uL (4.20-5.50); White Blood Count 6.6 X10*3/uL (4.8-10.8)
[2025-05-30 12:17] LABS: Alanine Aminotransferase 10 U/L (0-31); Albumin Level 4.1 g/dL (3.5-5.0); Alkaline Phosphatase 79 U/L (39-117); Anion Gap 11 (12-20); Aspartate Amino Transferase 23 U/L (5-31); Blood Urea Nitrogen 14 mg/dL (9-16); Calcium 9.2 mg/dL (8.4-10.2); Carbon Dioxide 28 mmol/L (22-29); Chloride 109 mmol/L (96-108); Cholesterol 138 mg/dL (<200); Estimated Glomerular Filt Rate > 60; Free T4 (Free Thyroxine) 1.12 ng/dL (0.71-1.85); HDL Cholesterol 53 mg/dL (>40); Potassium 3.5 mmol/L (3.3-5.1); Sodium 144 mmol/L (135-145); Thyroid Stimulating Hormone 1.41 uIU/mL (0.32-4.0); Total Protein 7.0 g/dL (6.5-8.0); Triglycerides 78 mg/dL (<150)
== END 2025-05-30 08:05 | disposition home or self-care (01) ==
LOC: HO.WFDLDS 08:04
PROVIDERS: PCP Family Medicine; Visit Provider Family Medicine
DX: Z00.00 Encounter for general adult medical examination without abnormal findings (principal); E03.9 Hypothyroidism, unspecified; E11.9 Type 2 diabetes mellitus without complications; E55.9 Vitamin D deficiency, unspecified; Z91.81 History of falling; Z79.899 Other long term (current) drug therapy
CPT/HCPCS: 36415; 80053; 80061; 82306; 83036; 84439; 84443; 84480; 85025; 96127; 99212

== ENCOUNTER 2025-05-30 08:04 | Outpatient (AMB) | payer OTHER, SELFPAY ==
--- NOTE | 2025-05-30 08:16 | A.OFFPC_ITS ---
Vital Signs 05/30/25 08:21 Height 5 ft 4 in Weight 114 lb 6 oz BMI 19.6 BP 106/60 Blood Pressure Location Lt brachial Position Sitting Respiration 12 Pulse 88 Pulse Source Pulse Oximeter Temp 96.9 F Temp Source Temporal Artery Scan Pulse Oximetry (%) 100 Oxygen Delivery Method Room Air Intake Visit Reasons: f/u DM & connective tissue disease/chronic pain Intake Note: Follow up on dm. Elevator Installer Required: No Allergies magnesium (MAGNESIUM) Allergy (Severe, Verified 05/30/25 08:17) ANAPHYLAXIS pioglitazone (From ACTOS) Allergy (Severe, Verified 05/30/25 08:17) SWELLING, hives aspirin (Aspirin) Allergy (Mild, Verified 05/30/25 08:17) UNKNOWN, hives ibuprofen (Ibuprofen) Allergy (Mild, Verified 05/30/25 08:17) anaphylaxis,hives Iodinated Contrast Media (IV Dye, Iodine Containing) Allergy (Mild, Verified 05/30/25 08:17) hives empagliflozin (From [employer]) Allergy (Unknown, Verified 05/30/25 08:17) Unknown tramadol Adverse Reaction (Verified 05/30/25 08:17) Hives Medication List - Last Reconciled 05/30/25 by Flakito Larsen MD acetaminophen 1,000 mg (2 x 500 mg) PO Q6H PRN atorvastatin 10 mg PO BEDTIME 90 days blood sugar diagnostic (FreeStyle Lite Strips) three times a day blood-glucose meter (FreeStyle Lite Meter kit) As directed 2x/day budesonide 32 mcg/actuation 1 spray intranasal DAILY 30 days canagliflozin (Invokana) 300 mg PO DAILY 30 days cetirizine (All Day Allergy (cetirizine)) 10 mg PO DAILY PRN 90 days comp.stocking,knee,long,medium Compression stockings 20 mm Hg. Daily while awake. 90 days dulaglutide (Trulicity) 4.5 mg (0.5 mL) subcut QWEEK 28 days epinephrine 0.3 mg IM ONCE PRN flash glucose sensor (FreeStyle Butch 14 Day Sensor kit) As directed fluticasone propionate 50 mcg/actuation (Flonase Allergy Relief) 1 spray intranasal Q12H 30 days glipizide ER 5 mg PO DAILY lancets (FreeStyle Lancets) Test Blood Sugar Twice a day. As directed. 90 days levothyroxine 75 mcg PO DAILY linaclotide (Linzess) 145 mcg PO QAM metformin 1/2 tab (425mg) AM and 1 tab (850mg) PM orally 2 times a day; orally 2 times a day 90 days metoclopramide HCl (Reglan) 10 mg PO QIDACHS omeprazole 40 mg PO DAILY 30 days sennosides (Senna Laxative) 1-2 at bedtime orally bedtime PRN; Tobacco use date assessed: 05/30/25 Dental Screening Dental Screen Date: 05/30/25 Did you have a dental visit in the last 12 months?: Yes Did you have a dental problem in the last 6 months where you did not have access to dental care?: No Was dental information given to patient?: Patient has dentist HPI f/u DM & connective tissue disease/chronic pain HPI Details 50 y/o female presents to f/u diabetes, chronic pain. A1c today 05/30/25 4.7%. She is on Trulicity, glipizide 5mg, metformin. Pt notes she had a fall - she was getting out of the tub and had fallen. She feels she had lost her footing. Reports toe pain. Reports ongoing shoulder pain. Has been using tylenol for pain relief. [facility] Medical History (Updated 05/30/25 @ 08:49 by Sagar Alejandro) Diabetes Abnormal thyroid exam Allergies Nausea and vomiting Liver lesion Abnormal CT of the abdomen Umbilical hernia Umbilical hernia Sprain of fifth toe, left Left shoulder pain Anxiety Low back pain Venous insufficiency Arterial insufficiency Migraines GERD (gastroesophageal reflux disease) Depression Hypothyroidism Hyperlipidemia LDL goal <100 Diabetes mellitus type 2, controlled, with complications Surgical History (Updated 05/01/25 @ 09:16 by RACHAEL Borrego) S/P umbilical hernia repair, follow-up exam History of umbilical hernia repair (01/03/25) Hx of hysterectomy Hx of tubal ligation Hx of section Hx of cholecystectomy Family History Father No problems noted. Mother Diabetes Cardiovascular disease Arthritis Maternal Aunt Diabetes Sister SLE (systemic lupus erythematosus) Social History (Updated 02/26/25 @ 08:32 by Ivelisse Moreno MA) Household Members: Family Both parents involved: No Caregiver staying overnight: No Housing: Apartment Are you a primary care center manager to a significant other at home: No Do you presently have visiting nurse or other home services: No 75 years or older and lives alone: No Unable to assess alcohol history related to: Unable to respond Alcohol intake: never Patient Tobacco Use Status: Never used Tobacco e-Cigarette/Vaping Use: Never Used service: No Current occupational status: unemployed 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 1. Little interest or pleasure in doing things: not at all 2. Feeling down, depressed, or hopeless: not at all 3. Trouble falling or staying asleep, or sleeping too much: not at all 4. Feeling tired or having little energy: not at all 5. Poor appetite or overeating: not at all 6. Feeling bad about yourself - or that you are a failure or have let yourself or your family down: not at all 7. Trouble concentrating on things, such as reading the newspaper or watching television: not at all 8. Moving or speaking so slowly that other people could have noticed. Or the opposite - being so fidgety or restless that you have been moving around a lot more than usual: not at all 9. Thoughts that you would be better off or of hurting yourself in some way: not at all Total score: 0 Depression Screening Interpretation: Negative Depression Screening Done: Yes 10583 - PHQ-9 Billing: Yes Source: Developed by Drs. Yovani Lee, Eliana Decker, Mikal Brownlee and colleagues, with an educational bess from [employer]. Thrive Questionnaire Date Thrive assessed: 05/30/25 I am a: Patient What is your living situation today?: I have a steady place to live Within the past 12 months, did the food you bought not last and you didn't have the money to get more?: I choose not to answer this question Within the past 12 months, did you worry whether your food would run out before you got money to buy more?: I choose not to answer this question Do you have trouble paying for medicines?: No Do you have trouble getting transportation to medical appointments?: No Do you have trouble paying your heating and electricity bill?: No Do you have trouble taking care of your child, family member or friend?: No Do you have trouble with day-to-day activities such as bathing, preparing meals, shopping, managing finances, etc.?: No Are you currently unemployed and looking for a job?: I choose not to answer this question Are you interested in more education?: I choose not to answer this question Please select the resources that you would like help with: None Currently or been in a relationship where the following occur: No concerns re ported THRIVE Score: 0 AKASH-7 AMB Questionnaire AKASH-7 Date AKASH - 7 assessed: 05/30/25 Feeling nervous, anxious, or on edge: 0 = Not at all Not being able to stop or control worryin = Not at all Worrying too much about different things: 0 = Not at all Trouble relaxin = Not at all Being so restless that it is hard to sit still: 0 = Not at all Becoming easily annoyed or irritable: 0 = Not at all Feeling afraid as if something awful might happen: 0 = Not at all Total AKASH-7 score (0-4 normal; 5-9 mild; 10-14 moderate; 15-21 severe): 0 Source: Developed by Drs. Yovani Lee, Eliana Decker, Mikal Brownlee and colleagues, with an educational bess from [employer]. AKASH-7 Assessment Billing AKASH-7 Assessment Tool: AKASH-7 Assessment 78214 Review of Systems Const Denies chills, Denies fatigue, Denies fever(s), Denies headache(s) and Denies weakness ENT Denies dizziness and Denies headache(s) Card Denies dyspnea Resp Denies cough, Denies dyspnea, Denies wheezing and Denies other (shortness of breath) Musc Details: Shoulder pain Denies numbness and Denies tingling Neuro Denies dizziness, Denies headache(s), Denies numbness, Denies tingling and Denies weakness Psych Denies anxiety and Denies depression Endo Denies fatigue Aller/Immun Denies wheezing Physical exam (Primary Care) Vital Signs: Last Vital Signs Temp 96.9 F 05/30/25 08:21 Pulse 88 05/30/25 08:21 Resp 12 05/30/25 08:21 BP 106/60 05/30/25 08:21 Pulse Ox 100 05/30/25 08:21 Oxygen Delivery Method Room Air 05/30/25 08:21 BMI result Body Mass Index 19.6 Tobacco/Smoking Status: Tobacco use Status Tobacco use date assessed 05/30/25 05/30/25 08:19 Patient Tobacco Use Status Never used Tobacco 05/30/25 08:19 e-Cigarette/Vaping Use Never Used 05/30/25 08:19 PHQ-9: PHQ-9 Score PHQ-9: Total score 0 05/30/25 08:19 Depression Screening Interpretation: Negative Thrive Assessment: Date of Thrive Assessment Date Thrive assessed 05/30/25 05/30/25 08:19 Currently or been in a relationship where the following occur: No concerns reported Const General: well developed; No acute distress Nutritional Appearance: well nourished Orientation/consciousness: patient oriented x3 HENMT Head: Yes normocephalic and Yes atraumatic Eyes General: appearance normal, both eyes and all related structures Pupils: Equal, round and reactive pupils present EOM: EOMs intact bilaterally Resp Effort & Inspection: normal respiratory effort Neuro General: patient oriented x3 and gait normal Cranial nerves: Yes Equal, round and reactive pupils present Psych Affect: normal affect Results AMB Hemoglobin A1c AMB Hemoglobin A1c 4.7 % Last Edit by Domenic Varner MA on 05/30/25 08:32 Results Reviewed Results Reviewed: Laboratory Last Values Hgb A1c (Clinic) 4.7 % (4.0-6.0) 05/30/25 08:26 Coding Level of Care Code Est Pt Level 4 (21463) Diagnoses Diabetes E11.9 Shoulder pain M25.519 Toe pain M79.676 Additional Codes AKASH-7 Assessment Billing - AKASH-7 Assessment Tool: AKASH-7 Assessment 74958 ([id number]) PHQ-9 - 69169 - PHQ-9 Billing: Yes ([id number]) Assessment & Plan Assessment & Plan (1) Diabetes: Code(s): E11.9 - Type 2 diabetes mellitus without complications Category: Medical Plan: A1c 4.7%. Goal is less than 7% She can discontinue glipizide Continue metformin and Trulicity as prescribed (2) Shoulder pain: Code(s): M25.519 - Pain in unspecified shoulder Category: Medical (3) Toe pain: Code(s): M79.676 - Pain in unspecified toe(s) Category: Medical Plan History of chronic pain though this seems well managed with Tylenol. Can not take ibuprofen due to allergy and did not tolerate gabapentin and pregabalin. Recent worsened pain at left shoulder and left 5th toe after a fall. Will start physical therapy for left shoulder pain and decreased range of motion Will also have her work on lower extremity strength and balance Orders: Orders Comprehensive [place]. Panel Fast Today Z00.00 - Encounter for general adult medical examination without abnormal findings Microalbumin, Random (w Creat) Today I10 - Essential (primary) hypertension Vitamin D 25-OH Total Today E55.9 - Vitamin D deficiency, unspecified Triiodothyronine T3 Total Today E03.9 - Hypothyroidism, unspecified PT Evaluation and Treatment Today M25.519 - Pain in unspecified shoulder, R26.89 - Other abnormalities of gait and mobility, R29.6 - Repeated falls AMB Hemoglobin A1c Today E11.43 - Type 2 diabetes mellitus with diabetic autonomic (poly)neuropathy, E11.8 - Type 2 diabetes mellitus with unspecified complications, K31.84 - Gastroparesis, Z13.9 - Encounter for screening, unspecified Complete Blood Count Auto Diff Today Z00.00 - Encounter for general adult medical examination without abnormal findings Lipid Panel Today Z00.00 - Encounter for general adult medical examination without abnormal findings UA CC w/rflx Micro + Cult Today Z00.00 - Encounter for general adult medical examination without abnormal findings Free T4 (Free Thyroxine) Today E03.9 - Hypothyroidism, unspecified Thyroid Stimulating Hormone Today E03.9 - Hypothyroidism, unspecified Medications: Discontinued glipizide ER Discontinued Reason: Doctor's Order 5 mg PO DAILY 90 tabs 0RF
[2025-05-30 08:21] VITALS: BP 106/60; PULSE 88; RESP 12; TEMP 36.1; O2SAT 100; BMI 19.6
== END 2025-05-30 08:51 | disposition home or self-care (01) ==
LOC: HO.HMCFM 08:05
PROVIDERS: PCP Family Medicine; Visit Provider Family Medicine
DX: M25.519 Pain in unspecified shoulder (principal); M79.676 Pain in unspecified toe(s); E11.43 Type 2 diabetes mellitus with diabetic autonomic (poly)neuropathy; E11.8 Type 2 diabetes mellitus with unspecified complications; K31.84 Gastroparesis

== ENCOUNTER 2025-06-15 19:07 | Emergency (ER) | payer OTHER, SELFPAY ==
--- NOTE | ~2025-06-15 | CT_ITS ---
CLINICAL HISTORY: RLQ Abd Pain CT abdomen and pelvis with contrast Comparison: CT/SR - CT ABDOMEN PELVIS W IV CON - 01/26/25 08:58 EDT Findings: The lung bases are clear. The gallbladder is absent. The liver, spleen, right adrenal gland and pancreas are unremarkable. Stable 19 mm left adrenal nodule. Kidneys, ureters and bladder are unremarkable. Moderate fecal retention within the colon. Normal appendix. No bowel obstruction, free air, free fluid or abscess. [id number] atherosclerotic disease. No acute osseous finding. Impression: Diffuse fecal retention throughout the colon. Normal appendix. No obstruction, free air or abscess. Stable left adrenal nodule. This document has been electronically signed by: Bennett Anderson MD on 06/16/2025 06:23:32
--- NOTE | ~2025-06-15 | US_ITS ---
CLINICAL HISTORY: RLQ Tenderness; R O ovarian torsion pathology US pelvis transabdominal and transvaginal with Doppler Comparison: CT/SR - CT ABDOMEN PELVIS W IV CON - 01/26/25 08:58 EDT Findings: Transabdominal scanning performed for overall anatomy. Transvaginal scanning performed for additional detail. The patient is status post hysterectomy. Right ovary measures 3.2 x 1.6 x 2.1 cm. There is no right adnexal mass or fluid collection. There is normal color Doppler and arterial/venous spectral tracings within the right ovary. Left ovary measures 2.7 x 2.2 x 2 cm. There is no left adnexal mass or fluid collection. There is normal color Doppler and arterial/venous spectral tracings within the left ovary. There is trace free fluid in the cul-de-sac. IMPRESSION: 1. No ovarian torsion. 2. Status post hysterectomy. This document has been electronically signed by: Alvarado Aden MD on 06/16/2025 02:10:34
[2025-06-15 19:19] VITALS: BP 145/73; PULSE 73; RESP 16; TEMP 36.6; O2SAT 100; BMI 22.3
--- NOTE | 2025-06-15 19:23 | ED_ITS ---
HPI - Abdominal Pain General Chief Complaint: Abdominal Pain Stated Complaint: rt side pain going down the leg/nauseous Time Seen by Provider: 06/15/25 22:43 Source: patient Mode of arrival: ambulatory Limitations: no limitations History of Present Illness ED Provider: Brad ARRIETA HPI narrative: The patient is a 50-year-old female presenting to the ED for evaluation of right lower quadrant abdominal pain which began gradually while walking at the store at approximately 13:00. The patient reports associated nausea without associated vomiting, denies associated fever/chills, chest pain, shortness of breath, diarrhea, dysuria, hematuria, recent sick contacts, or recent illness. The patient reports remote surgical history of cholecystectomy, 2 C sections, and hysterectomy without oophorectomy. Related Data Home Medications ?Medication ?Instructions ?Recorded ?Confirmed epinephrine 0.3 mg/0.3 mL 0.3 mg IM ONCE PRN Anaphylax is 01/01/25 05/30/25 injection, auto-injector Previous Rx's ?Medication ?Instructions ?Recorded comp.stocking,knee,long,medium #12 ea 06/18/21 budesonide 32 mcg/actuation nasal 1 spray intranasal D AILY 30 days 01/09/23 spray #8.43 mL flash glucose sensor (FreeStyle #2 ea 04/07/23 Butch 14 Day Sensor kit) sennosides 8.6 mg tablet (Senna See Rx Instructions PO BEDTIME PRN 05/09/24 Laxative) constipation #60 tabs atorvastatin 10 mg tablet 10 mg PO BEDTIME 90 days #90 tabs 06/18/24 levothyroxine 75 mcg tablet 75 mcg PO DAILY #90 tabs 1 canagliflozin 300 mg tablet 300 mg PO DAILY 30 days #3 0 tabs 10/25/24 (Invokana) dulaglutide 4.5 mg/0.5 mL 4.5 mg (0.5 mL) subcut QWEEK 28 10/25/24 subcutaneous pen injector days #2 mL (Trulicity) blood sugar diagnostic (FreeStyle #100 ea 02/26/25 Lite Strips) blood-glucose meter (FreeStyle #1 ea 02/26/25 Lite Meter kit) lancets 28 gauge (FreeStyle #200 ea 02/27/25 Lancets) metformin 850 mg tablet See Rx Instructions PO BID 9 0 days 04/11/25 #135 tabs acetaminophen 500 mg capsule 1,000 mg (2 x 500 mg) PO Q6H PRN 04/15/25 pain #20 caps linaclotide 145 mcg capsule 145 mcg PO QAM #30 caps (Linzess) metoclopramide HCl 10 mg tablet 10 mg PO QIDACHS #120 tabs 05/01/25 (Reglan) omeprazole 40 mg capsule,delayed 40 mg PO DAILY 30 day s #30 caps 05/01/25 release cetirizine 10 mg tablet (All Day 10 mg PO DAILY PRN al lergy 05/10/25 Allergy (cetirizine)) symptoms 90 days #90 tabs fluticasone propionate 50 1 spray intranasal Q12H 30 d ays 05/10/25 mcg/actuation nasal #16 grams spray,suspension (Flonase Allergy Relief) oxycodone 5 mg tablet 5 mg PO Q6H PRN pain #10 tab s 06/16/25 Allergies Allergy/AdvReac Type Severity Reaction Status Date / Time magnesium (MAGNESIUM) Allergy Severe ANAPHYLAXIS Verified 06/15/25 19:21 pioglitazone (From ACTOS) Allergy Severe SWELLING, Verified 06/15/25 19:21 hives aspirin (Aspirin) Allergy Mild UNKNOWN, Verified 06/15/25 19:21 hives ibuprofen (Ibuprofen) Allergy Mild anaphylaxis Verified 06/15/25 19:21 ,hives Iodinated Contrast Media (IV Allergy Mild hives Verified 06/15/25 19:21 Dye, Iodine Containing) empagliflozin (From Allergy Unknown Unknown Verified 06/15/25 19:21 Jardiance) tramadol AdvReac Hives Verified 06/15/25 19:21 Review of Systems Review of Systems Yes all other systems are reviewed and are negative [facility] Past Medical History Medical History (Updated 06/16/25 @ 09:11 by Bernardo Parish MD) Diabetes Abnormal thyroid exam Allergies Nausea and vomiting Liver lesion Abnormal CT of the abdomen Umbilical hernia Umbilical hernia Sprain of fifth toe, left Left shoulder pain Anxiety Low back pain Venous insufficiency Arterial insufficiency Migraines GERD (gastroesophageal reflux disease) Depression Hypothyroidism Hyperlipidemia LDL goal <100 Diabetes mellitus type 2, controlled, with complications Surgical History (Updated 05/01/25 @ 09:16 by RACHAEL Borrego) S/P umbilical hernia repair, follow-up exam History of umbilical hernia repair (01/03/25) Hx of hysterectomy Hx of tubal ligation Hx of section Hx of cholecystectomy Family History Family History Father No problems noted. Mother Diabetes Cardiovascular disease Arthritis Maternal Aunt Diabetes Sister SLE (systemic lupus erythematosus) Social History Social History (Updated 02/26/25 @ 08:32 by Ivelisse Moreno MA) Household Members: Family Housing: Apartment Are you a primary primary care md to a significant other at home: No Do you presently have visiting nurse or other home services: No Alcohol intake: never Patient Tobacco Use Status: Never used Tobacco Smoked in Last 30 Days: No e-Cigarette/Vaping Use: Never Used Use of substances other than those prescribed or required for medical reasons: No Advance Directives: No Advance Directives Information Provided: Yes Do you have a plan to hurt others: No Plan service: No Current occupational status: unemployed 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[place], 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 Current occupational exposures/hazards: No Gender identity: Female Cognitive needs: No Hearing needs: No Vision needs: Yes (Glasses) Physical Exam ED Vital Signs: Vital Signs - 24 hr 06/15/25 19:19 06/15/25 20:41 06/15/25 23:35 Temperature 97.8 F 98.2 F Pulse Rate 73 69 76 Respiratory Rate 16 18 18 Blood Pressure 145/73 H 132/63 118/70 Pulse Oximetry 100 100 97 Oxygen Delivery Method Room Air Room Air Room Air 06/16/25 00:06 06/16/25 04:20 06/16/25 06:36 Temperature 98.0 F 97.9 F Pulse Rate 92 90 Respiratory Rate 16 20 18 Blood Pressure 116/67 113/67 Pulse Oximetry 97 97 Oxygen Delivery Method Room Air Room Air 06/16/25 07:57 Temperature Pulse Rate 92 Respiratory Rate 13 Blood Pressure 111/66 Pulse Oximetry 96 Oxygen Delivery Method Room Air BMI result Body Mass Index 22.3 CONSTITUTIONAL: The patient appears non-toxic, well nourished and in no acute distress. Vital signs as documented. HEAD: Atraumatic, normocephalic. EYES: EOMs grossly intact, pupils equal, conjunctiva clear, no exudate. ENT: Nares patent, no discharge. Airway patent, no audible stridor, visible mucosa is pink and moist without noted lesions. NECK: Trachea is midline, no obvious masses or gross abnormalities. CHEST: Symmetric movement, normal appearance. LUNGS: LS present and CTAB, no w/r/r. Non-labored work of breathing. CARDIAC: Regular Rhythm, S1/S2 appreciated, no murmurs, rubs or gallops. ABDOMEN: Abdomen soft x4 quadrants, positive tenderness to palpation of the right lower quadrant, negative rebound, no palpable masses or organomegaly. : Deferred. EXTREMITIES: Normal tone, moves all extremities spontaneously without reported pain. No obvious acute injury or deformity noted. NEURO: Alert and oriented x3, CN II-XII appear grossly intact. Cerebellar Functioning grossly intact. No obvious sensory or motor deficits. Speech clear and appropriate. PSYCH: normal affect, appropriate eye contact, fluid speech, with appropriate response to questioning. No reported suicidality or homicidality. SKIN: Warm, dry, color appropriate, normal turgor. No rashes noted. Course Course Course Narrative: This is a Rapid Medical Exam performed in triage by Ning Perla PA-C. Full HPI, ROS and PE to be performed by primary ED provider. 50-year-old female with a past medical history of diabetes, anxiety, GERD, migraines, depression, HLD, hypothyroid presenting to the ED c/o right lower quadrant abdominal pain since 01:00 with associated nausea. Denies fever, chills, vomiting, dysuria/hematuria, vaginal symptoms PE: Tearful, abdomen is soft with RLQ tenderness, no rebound or guarding Plan: Labs, UA Medical Decision Making Medical Decision Making MDM Narrative: 11:55 PM 06/15/2025 (Veronica ARRIETA): The patient is a 50-year-old female presenting to the ED for evaluation of right lower quadrant abdominal pain which began gradually while walking at the store at approximately 13:00. The patient reports associated nausea without associated vomiting, denies associated fever/chills, chest pain, shortness of breath, diarrhea, dysuria, hematuria, recent sick contacts, or recent illness. The patient reports remote surgical history of cholecystectomy, 2 C sections, and hysterectomy without oophorectomy. On exam the patient has tenderness of the right lower quadrant without associated rebound. No other acute findings. Laboratory evaluation shows no leukocytosis, anemia, electrolyte abnormality, or YELENA. The patient's LFTs are unremarkable. Patient's lipase is mildly elevated at 94, no epigastric tenderness. Patient's urinalysis shows glucosuria without evidence of infection. The patient was ordered for a CT of the abdomen and pelvis with IV contrast. Patient has a listed IV contrast allergy, however reports the contrast allergy occurred many years ago the 1st time she ever had a CT, patient reports she has had CTs since that time which is pretreated with Benadryl and has not had recurrence of hives. The patient was ordered for Benadryl with her contrast CT. Unfortunately however, despite previous tolerance of IV contrast with Benadryl without reaction as reported by patient and documented in chart review, the echocardiography technologist advises this provider they do not feel comfortable performing CT with only Benadryl, and refuses to perform the CT without Solu- Medrol 4 hours prior to the study, followed by Benadryl 15 minutes prior to study, per Radiology department protocol. Patient will be given Solu-Medrol and held for [address] abdomen to rule out acute appendicitis. Given the patient's history of hysterectomy without oophorectomy, while awaiting CT we will send the patient for pelvic ultrasound to evaluate for ovarian pathology. Patient will be treated with morphine, Zofran, and IV fluid hydration. 1:29 AM 06/16/2025 (Veronica ARRIETA): echocardiography technologist reports normal blood flow to both ovaries, no evidence of ovarian pathology. We will confirm with the radiologist interpretation. 5:30 AM 06/16/2025 (Veronica ARRIETA): The patient is ultrasound was confirmed normal, no acute pathology. The patient completed pretreatment and has been taken for CT. CT results are pending. Patient remains normotensive, no acute distress. Pending unremarkable CT patient will be discharged with supportive care. Time: 09:13 Date: 06/16/25 Provider: Bernardo Parish MD I assumed care of this patient from my colleague, physician clerical dentist assistant Brad Powell at 06:[address] scan of the abdomen pelvis. Patient states that she developed abdominal pain yesterday at around 13:00 hours. The pain was a constant, sharp pain located in her right lower quadrant. Patient required pretreatment with Solu-Medrol and Benadryl for her contrast dye allergy. She also received morphine 4 mg IV and Zofran 4 mg IV. At the time my evaluation she states that her pain is completely resolved. The patient had very mild right lower quadrant tenderness with no other abdominal tenderness. Patient's laboratory evaluation was unremarkable. Pelvic ultrasound was normal. CT scan of the abdomen pelvis with IV contrast revealed a normal appearing appendix with no abnormalities to explain the patient's pain. Radiologist noted constipation. I did discuss these findings with the patient. The patient was advised to take Tylenol for pain and for pain not relieved by Tylenol she was prescribed oxycodone 5 mg every 6 hours as needed for pain dispense 10 tablets. She was given printed and verbal instructions and discharged home. Differential Diagnosis Differential Diagnoses: The differential diagnosis associated with the presentation includes (See above) Admission/Observation Consideration of admission/observation: Escalation of care including admission/observation considered Lab Data MDM Lab Attestation statement: I reviewed the patient's lab results. 06/15/25 19:51 06/15/25 19:51 Labs: Lab Results 06/15/25 06/15/25 Range/Units 19:43 19:51 WBC 7.2 (4.8-10.8) X10*3/uL RBC 4.08 L (4.20-5.50) X10*6/uL Hgb 12.8 (12.0-16.0) g/dl Hct 38.6 (37.0-47.0) % MCV 94.6 (80.0-98.0) fL MCH 31.4 (27.0-33.0) pg MCHC 33.2 (31.0-35.0) g/dl RDW 12.8 (11.0-16.0) % Plt Count 281 (160-400) X10*3/uL MPV 9.7 (9.4-12.3) fL Immature Gran % (Auto) 0.3 (0.0-0.4) % Neut % (Auto) 63.4 (45-73) % Lymph % (Auto) 28.6 (20-40) % [place] % (Auto) 6.2 (2-11) % Eos % (Auto) 0.8 (0-4) % Baso % (Auto) 0.7 (0-2) % Lymph # (Auto) 2.1 (1.2-4.9) X10*3/uL [place] # (Auto) 0.5 (0.1-1.2) X10*3/uL Eos # (Auto) 0.1 (0.0-0.4) X10*3/uL Baso # (Auto) 0.1 (0.0-0.2) X10*3/uL Abs Immat Gran (auto) 0.02 (0.00-0.03) X10*3/uL Absolute Neuts (auto) 4.6 (2.0-8.3) x10*3/uL Absolute Nucleated RBC 0.000 (0.0-0.012) X10*3/uL Nucleated RBC % (auto) 0.0 (0.0-0.2) /100WBC Sodium 144 (135-145) mmol/L Potassium 3.4 (3.3-5.1) mmol/L Chloride 109 H (96-108) mmol/L Carbon Dioxide 25 (22-29) mmol/L Anion Gap 13 (12-20) BUN 14 (9-16) mg/dL Creatinine 0.62 (0.5-1.4) mg/dL Estim Creat Clear Calc 81.0 Estimated GFR > 60 Random Glucose 99 (60-115) mg/dL Calcium 8.9 (8.4-10.2) mg/dL Magnesium 1.9 (1.6-2.6) mg/dL Total Bilirubin 0.4 (0.0-1.0) mg/dL Direct Bilirubin 0.2 (0.0-0.5) mg/dL AST 20 (5-31) U/L ALT 13 (0-31) U/L Alkaline Phosphatase 88 (39-117) U/L Total Protein 7.4 (6.5-8.0) g/dL Albumin 4.3 (3.5-5.0) g/dL Lipase 94 H (8-78) U/L Urine Color Yellow Urine Appearance Clear Urine pH 6.5 (5.0-9.0) Ur Specific [place] >= 1.030 H (1.005-1.025) Urine Protein Negative (Neg-Trace) mg/dL Urine Glucose (UA) >=1000 H (Negative) mg/dL Urine Ketones 15 (Negative) mg/dL Urine Blood Negative (Negative) Urine Nitrite Negative (Negative) Ur Leukocyte Esterase Negative (Negative) Urine RBC 0-2 (0-2) /HPF Urine WBC 0-5 (0-5) /HPF Ur Squamous Epith Cells 0-2 (0-2) /HPF Urine Bacteria None Seen (None Seen) Hyaline Casts 0-2 (0-2) /LPF Radiology Impression Discussion of test interpretation with radiology: I have reviewed the radiologist's reading. Radiologist Impression: US pelvis transabdominal and transvaginal with Doppler Comparison: CT/SR - CT ABDOMEN PELVIS W IV CON - 01/26/25 08:58 EDT Findings: Transabdominal scanning performed for overall anatomy. Transvaginal scanning performed for additional detail. The patient is status post hysterectomy. Right ovary measures 3.2 x 1.6 x 2.1 cm. There is no right adnexal mass or fluid collection. There is normal color Doppler and arterial/venous spectral tracings within the right ovary. Left ovary measures 2.7 x 2.2 x 2 cm. There is no left adnexal mass or fluid collection. There is normal color Doppler and arterial/venous spectral tracings within the left ovary. There is trace free fluid in the cul-de-sac. IMPRESSION: 1. No ovarian torsion. 2. Status post hysterectomy. This document has been electronically signed by: Alvarado Aden MD on 06/16/2025 02:10:34 CT abdomen and pelvis with contrast Comparison: CT/SR - CT ABDOMEN PELVIS W IV CON - 01/26/25 08:58 EDT Findings: The lung bases are clear. The gallbladder is absent. The liver, spleen, right adrenal gland and pancreas are unremarkable. Stable 19 mm left adrenal nodule. Kidneys, ureters and bladder are unremarkable. Moderate fecal retention within the colon. Normal appendix. No bowel obstruction, free air, free fluid or abscess. [id number] atherosclerotic disease. No acute osseous finding. Impression: Diffuse fecal retention throughout the colon. Normal appendix. No obstruction, free air or abscess. Stable left adrenal nodule. This document has been electronically signed by: Bennett Anderson MD on 06/16/2025 06:23:32 L External Record Review External record reviewed: Outpatient record, Prior outpatient labs and Prior outpatient radiology Prescription Management I considered prescription management with: Pain Medication (Oxycodone) Chronic Conditions Patient?s care impacted by: Diabetes Medications Administered Discontinued Medications Generic Name Dose Route Start Last Admin Trade Name Freq PRN Reason Stop Dose Admin Diphenhydramine HCl 25 mg 06/15/25 23:45 06/16/25 03:18 Diphenhydramine Hcl 50 Mg/Ml Vial IVPUSH 06/15/25 23:46 25 mg ONCE ONE Administration Sodium Chloride 1,000 mls @ 999 mls/hr 06/15/25 23:45 06/16/25 03:17 Ns IV 06/16/25 00:45 Infused .Q1H1M JESUS Infusion Iohexol 85 ml 06/16/25 04:10 06/16/25 04:11 Iohexol 350 Mg/Ml 100 Ml Infus..Btl IV 06/16/25 04:11 85 ml ONCE ONE Administration Methylprednisolone Sodium Succinate 125 mg 06/15/25 23:49 06/16/25 00:06 Methylprednisolone Sod Succ 125 Mg/2 Ml Vial IVPUSH 06/15/25 23:50 125 mg ONCE ONE Administration Morphine Sulfate 4 mg 06/15/25 23:45 06/16/25 00:06 Morphine Sulfate 4 Mg/Ml Cartridge IVPUSH 06/15/25 23:46 4 mg ONCE ONE Administration Protocol Ondansetron HCl 4 mg 06/15/25 23:45 06/16/25 00:06 Ondansetron Hcl 4 Mg/2 Ml Vial IVPUSH 06/15/25 23:46 4 mg ONCE ONE Administration Discharge Plan Discharge Clinical Impression: Abdominal pain Qualifiers: Abdominal location: right lower quadrant Qualified Code(s): R10.31 - Right lower quadrant pain Patient Disposition: Home, Self-Care Instructions: Abdominal Pain (ED) Additional Instructions: Your blood work was unremarkable. The ultrasound did not reveal a cause for your pain The CT scan revealed no significant abnormalities, your appendix appears normal at this time. Sometimes you can have appendicitis in the pain can come and go. If your pain gets worse over the next 24 hours, especially if it is in the right lower part of your belly, please return to the emergency department so we can re-evaluate you Continue medications as prescribed by your providers. Take Tylenol (acetaminophen) 500 mg pills, 2 pills every 4-6 hours as needed for pain. For pain not relieved by ibuprofen or Tylenol take oxycodone 5 mg pills, 1 pill every 4 hours as needed for pain. Do not drive or work while taking this medication since they can cause sleepiness. Oxycodone is a narcotic medication that can be addicting. If you are concerned about addiction you can ask the pharmacist for less pills or do not get this prescription filled. Follow-up with your doctor in 2 days. Please return to the emergency department if your symptoms get worse or if you develop any symptoms that are concerning to you. Prescriptions: New oxycodone 5 mg tablet 5 mg PO Q6H PRN (Reason: pain) Qty: 10 0RF Rx Instructions: Partial Fill upon patient request. No Action budesonide 32 mcg/actuation spray,non-aerosol 1 spray intranasal DAILY 30 Days Qty: 8.43 3RF (DME) FreeStyle Butch 14 Day Sensor Kit See Rx Instructions .Route Qty: 2 2RF Rx Instructions: As directed Invokana 300 mg tablet 300 mg PO DAILY 30 Days Qty: 30 0RF Trulicity 4.5 mg/0.5 mL pen injector 4.5 mg subcut QWEEK 28 Days Qty: 2 3RF (DME) lancets [FreeStyle Lancets] 28 gauge misc See Rx Instructions .Route Qty: 200 3RF Rx Instructions: Test Blood Sugar Twice a day. As directed. 90 days metformin 850 mg tablet See Rx Instructions PO BID 90 Days Qty: 135 0RF Rx Instructions: 1/2 tab (425mg) AM and 1 tab (850mg) PM orally 2 times a day; orally 2 times a day fluticasone propionate [Flonase Allergy Relief] 50 mcg/actuation spray,suspension 1 spray intranasal Q12H 30 Days Qty: 16 2RF Rx Instructions: administer into each nostril cetirizine [All Day Allergy (cetirizine)] 10 mg tablet 10 mg PO DAILY PRN (Reason: allergy symptoms) 90 Days Qty: 90 1RF epinephrine 0.3 mg/0.3 mL auto-injector 0.3 mg IM ONCE PRN (Reason: Anaphylaxis) (DME) comp.stocking,knee,long,medium Misc See Rx Instructions .Route Qty: 12 3RF Rx Instructions: Compression stockings 20 mm Hg. Daily while awake. 90 days atorvastatin 10 mg tablet 10 mg PO BEDTIME 90 Days Qty: 90 3RF levothyroxine 75 mcg tablet 75 mcg PO DAILY Qty: 90 1RF sennosides [Senna Laxative] 8.6 mg tablet See Rx Instructions PO BEDTIME PRN (Reason: constipation) Qty: 60 6RF Rx Instructions: 1-2 at bedtime orally bedtime PRN; (DME) FreeStyle Lite Strips Strip See Rx Instructions .ROUTE .MEDSUPPLY Qty: 100 11RF Rx Instructions: three times a day (DME) blood-glucose meter [FreeStyle Lite Meter] Kit See Rx Instructions .ROUTE .MEDSUPPLY Qty: 1 0RF Rx Instructions: As directed 2x/day acetaminophen 500 mg capsule 1,000 mg PO Q6H PRN (Reason: pain) Qty: 20 0RF metoclopramide HCl [Reglan] 10 mg tablet 10 mg PO QIDACHS Qty: 120 6RF Linzess 145 mcg capsule 145 mcg PO QAM Qty: 30 3RF Rx Instructions: Take first thing in the morning with a full glass of water. omeprazole 40 mg capsule,delayed release(DR/EC) 40 mg PO DAILY 30 Days Qty: 30 6RF Print Language: Uzbek
[2025-06-15 19:58] LABS: MANUAL DIFF FLAG NO
[2025-06-15 20:00] LABS: Appearance Urine Clear; Glucose Urine UA >=1000 mg/dL (Negative); PH 6.5 (5.0-9.0); Specific Gravity - Urine >= 1.030 (1.005-1.025); UMIC TRIGGER UACC YES
[2025-06-15 20:00] LABS: Hematocrit 38.6 % (37.0-47.0); Hemoglobin 12.8 g/dl (12.0-16.0); Imm Gran Abs Auto 0.02 X10*3/uL (0.00-0.03); Imm Gran Pct Auto 0.3 % (0.0-0.4); Lymphocytes Absolute Auto 2.1 X10*3/uL (1.2-4.9); Mean Corpuscular HGB Conc 33.2 g/dl (31.0-35.0); Mean Corpuscular Hemoglobin 31.4 pg (27.0-33.0); Mean Corpuscular Volume 94.6 fL (80.0-98.0); NRBC Abs Auto 0.000 X10*3/uL (0.0-0.012); NRBC Pct Auto 0.0 /100WBC (0.0-0.2); Platelet Count 281 X10*3/uL (160-400); Red Blood Count 4.08 X10*6/uL (4.20-5.50); White Blood Count 7.2 X10*3/uL (4.8-10.8)
[2025-06-15 20:18] LABS: Alanine Aminotransferase 13 U/L (0-31); Albumin Level 4.3 g/dL (3.5-5.0); Alkaline Phosphatase 88 U/L (39-117); Anion Gap 13 (12-20); Aspartate Amino Transferase 20 U/L (5-31); Blood Urea Nitrogen 14 mg/dL (9-16); Calcium 8.9 mg/dL (8.4-10.2); Carbon Dioxide 25 mmol/L (22-29); Chloride 109 mmol/L (96-108); Creatinine Clr Calc Pharmacy 81.0; Estimated Glomerular Filt Rate > 60; Lipase 94 U/L (8-78); Magnesium 1.9 mg/dL (1.6-2.6); Potassium 3.4 mmol/L (3.3-5.1); Sodium 144 mmol/L (135-145); Total Protein 7.4 g/dL (6.5-8.0)
[2025-06-15 20:41] VITALS: BP 132/63; PULSE 69; RESP 18; TEMP 36.8; O2SAT 100
--- NOTE | 2025-06-15 21:35 | PC.NURSE ---
PT from triage AOx4 reports 05/31 RLQ/flank pain localized described as a sharp pain that onset 8 hours ago while shopping at the store, secondary complaint of nausea and denies any vomiting or diarrhea. On inspection there was no visual distention or rigidity although tender on palpation. PT states the pain has been constant since it onset and denies any burning on urination.
[2025-06-15 23:35] VITALS: BP 118/70; PULSE 76; RESP 18; O2SAT 97
[2025-06-16 00:06] VITALS: RESP 16
--- NOTE | 2025-06-16 00:08 | PC.NURSE ---
per BERNY Powell, give solu medrol [address] scan and then give Benadryl right before CT scan. pt aware of plan at this time
--- NOTE | 2025-06-16 04:05 | PC.NURSE ---
pt to ct at this time.
[2025-06-16] MEDS: iohexoL 350 MG/ML 100 ML INFUS..BTL 85 ML IV (04:11)
[2025-06-16 04:20] VITALS: BP 116/67; PULSE 92; RESP 20; TEMP 36.7; O2SAT 97
[2025-06-16 06:36] VITALS: BP 113/67; PULSE 90; RESP 18; TEMP 36.6; O2SAT 97
[2025-06-16 07:57] VITALS: BP 111/66; PULSE 92; RESP 13; O2SAT 96
[2025-06-16 09:39] VITALS: BP 109/70; PULSE 85; RESP 13; TEMP 36.6; O2SAT 96
== END 2025-06-16 09:41 | disposition home or self-care (01) ==
PROVIDERS: Physician Assistant; Emergency Provider Emergency Medicine Emergency Medical Services; PCP Family Medicine
DX: R10.31 Right lower quadrant pain (principal); R11.0 Nausea; E11.39 Type 2 diabetes mellitus with other diabetic ophthalmic complication; E11.9 Type 2 diabetes mellitus without complications; E03.9 Hypothyroidism, unspecified; Z79.899 Other long term (current) drug therapy; Z90.710 Acquired absence of both cervix and uterus
CPT/HCPCS: 36415; 74177; 76830; 76856; 80048; 80076; 81001; 83690; 83735; 85025; 93975; 96361; 96374; 96375; 99285; J1200; J2270; J2405; J2919; Q9967

== ENCOUNTER → 2025-06-16 | Outpatient (BNV) | payer OTHER, SELFPAY | PROVIDERS: Emergency Provider Emergency Medicine; PCP Family Medicine; Visit Provider Radiology Diagnostic Radiology | DX: E27.9 Disorder of adrenal gland, unspecified (principal); R19.5 Other fecal abnormalities; R10.31 Right lower quadrant pain; Z90.710 Acquired absence of both cervix and uterus | CPT/HCPCS: 74177; 76830; 76856 ==